=== PATIENT | female | born 1980 | race African-American/Black ===

== ENCOUNTER 2017-10-20 10:04 | Emergency (ER) | payer OTHER, SELFPAY ==
--- NOTE | 2017-10-20 11:05 | EDPHYS ---
Physician Documentation [facility] Name: Mica Diaz Age: 37 yrs Sex: Female : 1980 Arrival Date: 10/20/2017 Time: 10:08 Bed 13 Private MD: None, None ED Physician Rell Kauffman HPI: 10/20 11:06 This 37 yrs old Black Female presents to ER via Ambulatory with complaints of Abdominal gs Pain, Vaginal Bleeding, Dizziness. 11:06 The patient presents with pelvic pain, vaginal bleeding that is. Onset: The gs symptoms/episode began/occurred 10 month(s) ago. Modifying factors: The symptoms are alleviated by nothing, the symptoms are aggravated by menstrual period. say has chronic pelvic pain from endometriosis. VB for 10 days says felt a little dizzy while taking a shower today.. Associated signs and symptoms: The patient has no apparent associated signs or symptoms. Severity of symptoms: At their worst the symptoms were moderate, in the emergency department the symptoms are unchanged. The patient has experienced similar episodes in the past, chronically, pain is chronic , VB is irregular. The patient has been recently seen by a physician: says had laparoscopy, couple of months ago uterine bx said squamous cell something per patient.. 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 - Social history:: Smoking status: Patient uses tobacco products, smokes one pack cigarettes per day. - Ebola Screening: : No symptoms or risks identified at this time. ROS: 11:06 All other systems are negative. gs Exam: 11:06 Head/Face: Normocephalic, atraumatic. Eyes: Pupils equal round and reactive to light, gs extra-ocular motions intact. Lids and lashes normal. Conjunctiva and sclera are non-icteric and not injected. Cornea within normal limits. Periorbital areas with no swelling, redness, or edema. ENT: Nares patent. No nasal discharge, no septal abnormalities noted. Tympanic membranes are normal and external auditory canals are clear. Oropharynx with no redness, swelling, or masses, exudates, or evidence of obstruction, uvula midline. Mucous membranes moist. Neck: Trachea midline, no thyromegaly or masses palpated, and no cervical lymphadenopathy. Supple, full range of motion without nuchal rigidity, or vertebral point tenderness. No Meningismus. Chest/axilla: Normal chest wall appearance and motion. Nontender with no deformity. No lesions are appreciated. Cardiovascular: Regular rate and rhythm with a normal S1 and S2. No gallops, murmurs, or rubs. Normal PMI, no JVD. No pulse deficits. Respiratory: Lungs have equal breath sounds bilaterally, clear to auscultation and percussion. No rales, rhonchi or wheezes noted. No increased work of breathing, no retractions or nasal flaring. Back: No spinal tenderness. No costovertebral tenderness. Full range of motion. Skin: Warm, dry with normal turgor. Normal color with no rashes, no lesions, and no evidence of cellulitis. MS/ Extremity: Pulses equal, no cyanosis. Neurovascular intact. Full, normal range of motion. Neuro: Awake and alert, GCS 15, oriented to person, place, time, and situation. Cranial nerves II-XII grossly intact. Motor strength 5/5 in all extremities. Sensory grossly intact. Cerebellar exam normal. Normal gait. 11:06 Constitutional: The patient appears alert, awake. 11:06 Abdomen/GI: Palpation: mild abdominal tenderness, in the suprapubic area, right lower quadrant and left lower quadrant. Vital Signs: 10:14 BP 153 / 95; Pulse 63; Resp 18; Temp 98.8; Pulse Ox 100% ; Height 5 ft. 8 in. (172.72 sv cm); Pain 8/10; MDM: 10:41 Patient medically screened. 11:06 Differential diagnosis: ectopic , endometriosis, menometrorrhagia, Data reviewed: vital signs, nurses notes. Response to treatment: the patient's symptoms have mildly improved after treatment, says needs to run errand VSS will discharge pt says will return for bloodwork. 10/20 10:29 Order name: Urine Microscopic Only gs 10/20 10:29 Order name: Urine Microscopic Only; Complete Time: 11:14 EDMS 10/20 10:42 Order name: Urine Dipstick--Ancillary (enter results) eb 10/20 10:42 Order name: Urine --Ancillary (enter results) eb 10/20 10:29 Order name: Urine Test (obtain specimen); Complete Time: 10:48 gs 10/20 10:29 Order name: Urine Dipstick-Ancillary (obtain specimen); Complete Time: 10:48 Administered Medications: No medications were administered Disposition: 10/20/17 11:05 Discharged to Home. Impression: Other abnormal uterine and vaginal bleeding, Pelvic and perineal pain - chronic. - Condition is Stable. - Discharge Instructions: Abdominal Pain, Adult, Pelvic Pain, Female. - Prescriptions for Tramadol 50 mg Oral Tablet - take 1 tablet by ORAL route every 8 hours as needed; 10 tablet. - Work release form, Medication Reconciliation Form, Thank You Letter, Antibiotic Education, Prescription Opioid Use form. - Follow up: Percy Adame MD; When: 2 - 3 days; Reason: Re-evaluation by your physician. Signatures: Dispatcher [employer] Becka Lindo RN RN Eve Jiménez RN RN tw2 Rell Kauffman MD MD Corrections: (The following items were deleted from the chart) 11:18 11:05 10/20/2017 11:05 Discharged to Home. Impression: Other abnormal uterine and tw2 vaginal bleeding; Pelvic and perineal pain - chronic. Condition is Stable. Forms are Medication Reconciliation Form, Thank You Letter, Antibiotic Education, Prescription Opioid Use. Follow up: Percy Adame; When: 2 - 3 days; Reason: Re-evaluation by your physician. gs
--- NOTE | 2017-10-20 11:05 | ER ---
Nurse's Notes [facility] Name: Mica Diaz Age: 37 yrs Sex: Female : 1980 Arrival Date: 10/20/2017 Time: 10:08 Bed 13 Private MD: None, None Diagnosis: Other abnormal uterine and vaginal bleeding;Pelvic and perineal pain-chronic Presentation: 10/20 10:11 Presenting complaint: Patient states: LLQ and RLQ pain, abd cramping, vaginal bleeding sv for a long time. Pt has a hx of endometriosis and was supposed to have a hysterectomy. Transition of care: patient was not received from another setting of care. Onset of symptoms is unknown. Care prior to arrival: None. 10:11 Method Of Arrival: Ambulatory sv 10:11 Acuity: MOLLY 3 sv 10:18 Risk Assessment: Do you want to hurt yourself or someone else? Patient reports no tw2 desire to harm self or others. Initial Sepsis Screen: Does the patient meet any 2 criteria? No. Patient's initial sepsis screen is negative. Does the patient have a suspected source of infection? No. Patient's initial sepsis screen is negative. 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 - Social history:: Smoking status: Patient uses tobacco products, smokes one pack cigarettes per day. - Ebola Screening: : No symptoms or risks identified at this time. Screenin:17 Abuse screen: Denies threats or abuse. Nutritional screening: No deficits noted. tw2 Tuberculosis screening: No symptoms or risk factors identified. Fall Risk None identified. Assessment: 10:20 General: Appears in no apparent distress. well groomed, Behavior is calm, cooperative, tw2 appropriate for age. General: Smells of cigarette smoke. Pain: Complains of pain in abdomen. Neuro: Level of Consciousness is awake, alert, obeys commands, Oriented to person, place, time, situation. Cardiovascular: Denies chest pain, shortness of breath, Heart tones S1 S2 Patient's skin is warm and dry. Respiratory: Airway is patent Respiratory effort is even, unlabored, Respiratory pattern is regular, symmetrical, Breath sounds are clear bilaterally. GI: Bowel sounds present X 4 quads. Abd is soft Reports lower abdominal pain, upper abdominal pain. : Reports vaginal bleeding that is. EENT: No signs and/or symptoms were reported regarding the EENT system. Derm: No signs and/or symptoms reported regarding the dermatologic system. Musculoskeletal: Circulation, motion, and sensation intact. Range of motion: intact in all extremities. 11:17 Reassessment: Patient appears in no apparent distress at this time. No changes from tw2 previously documented assessment. Patient and/or family updated on plan of care and expected duration. Pain level reassessed. Patient is alert, oriented x 3, equal unlabored respirations, skin warm/dry/pink. pt states "my [place] is at the airport and i have to go get her i need to go". Vital Signs: 10:14 BP 153 / 95; Pulse 63; Resp 18; Temp 98.8; Pulse Ox 100% ; Height 5 ft. 8 in. (172.72 sv cm); Pain 8/10; ED Course: 10:08 Patient arrived in ED. mr 10:08 None, None is Private Physician. mr 10:13 Triage completed. sv 10:15 Arm band placed on left wrist. sv 10:16 Eve Jiménez, JEFF is Primary Nurse. tw2 10:17 Bed in low position. Call light in reach. Pulse ox on. NIBP on. tw2 10:19 Rell Kauffman MD is Attending Physician. gs 10:48 Urine Microscopic Only Sent. tw2 11:04 Percy Adame MD is Referral Physician. gs 11:17 No provider procedures requiring assistance completed. Patient did not have IV access tw2 during this emergency room visit. Administered Medications: No medications were administered Outcome: 11:05 Discharge ordered by . gs 11:17 Discharged to home ambulatory. tw2 11:17 Condition: stable 11:17 Discharge instructions given to patient, Instructed on discharge instructions, follow up and referral plans. no drinking with medication, no driving heavy equipment, medication usage, Demonstrated understanding of instructions, follow-up care, medications, Prescriptions given X 1. 11:18 Patient left the ED. tw2 Signatures: Becka Feliciano RN RN Carmen Steawrt mr Eve Jiménez RN RN tw2 Rell Kauffman MD MD gs Corrections: (The following items were deleted from the chart) 10:15 10:14 Pulse 63bpm; Resp 18bpm; Pulse Ox 100%; Temp 98.8F; Height 5 ft. 8 in.; Pain sv 10/24; sv
[2017-10-20 11:06] LABS: Urine Bacteria <20 /HPF (<20); Urine RBC <5 /HPF (NONE SEEN)
[2017-10-20 11:07] LABS: Urine Culture Reflex Order NOT NEEDED
[2017-10-20 11:20] LABS: Urine Blood NEGATIVE (NEG); Urine Glucose NEGATIVE (NEG); Urine Protein NEGATIVE (NEG); Urine Specific Gravity 1.015 (1.005-1.030)
== END 2017-10-20 11:18 | disposition home or self-care (01) ==
LOC: ER 10:04
DX: N93.8 Other specified abnormal uterine and vaginal bleeding (principal); R10.2 Pelvic and perineal pain; F17.210 Nicotine dependence, cigarettes, uncomplicated; Z88.6 Allergy status to analgesic agent
CPT/HCPCS: 81003; 81015; 81025; 99283

== ENCOUNTER 2017-12-10 13:13 | Emergency (ER) | payer SELFPAY ==
--- NOTE | 2017-12-10 13:40 | ER ---
Nurse's Notes [facility] Name: Mica Diaz Age: 37 yrs Sex: Female : 1980 Arrival Date: 12/10/2017 Time: 13:18 Bed Waiting Private MD: None, None Diagnosis: Presentation: 12/10 13:26 Presenting complaint: Patient states: my tooth is still hurting and i think i have an tw2 abscess and now my left ear hurts and it feels swollen. Transition of care: patient was not received from another setting of care. Onset of symptoms was December 10, 2017. Risk Assessment: Do you want to hurt yourself or someone else? Patient reports no desire to harm self or others. Initial Sepsis Screen: Does the patient meet any 2 criteria? No. Patient's initial sepsis screen is negative. Does the patient have a suspected source of infection? No. Patient's initial sepsis screen is negative. Care prior to arrival: None. 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 - Social history:: Smoking status: Patient uses tobacco products, smokes one-half pack cigarettes per day. - Ebola Screening: : Patient denies travel to an Ebola-affected area in the 21 days before illness onset. Vital Signs: 13: BP 122 / 79; Pulse 77; Resp 17; Temp 97.4(TE); Pulse Ox 100% on R/A; Weight 76.2 kg tw2 (R); Height 5 ft. 8 in. (172.72 cm); Pain 10/10; 13:27 Body Mass Index 25.54 (76.20 kg, 172.72 cm) tw2 ED Course: 13:18 Patient arrived in ED. sb2 13:19 None, None is Private Physician. sb2 13:27 Triage completed. tw2 13:27 Arm band placed on. tw2 Administered Medications: No medications were administered Outcome: 13:39 Eloped from waiting room, post triage evaluation and consult. pt told Barbara, secretary book keeper tw2 "i need to leave to get my kids and come back" 13:40 Patient left the ED. tw2 Signatures: Eve Jiménez RN RN tw2 Barbara Grajeda sb2
== END 2017-12-10 13:40 | disposition left against medical advice (07) ==
LOC: ER 13:13
DX: Z53.21 Procedure and treatment not carried out due to patient leaving prior to being seen by health care provider (principal)
CPT/HCPCS: 99281

== ENCOUNTER 2017-12-11 22:07 | Emergency (ER) | payer SELFPAY ==
[2017-12-11 23:47] LABS: Urine Blood 1+ (NEG); Urine Glucose NEGATIVE (NEG); Urine Protein NEGATIVE (NEG); Urine pH 5.5 (5.0-7.0)
--- NOTE | 2017-12-11 23:49 | ER ---
Nurse's Notes [facility] Name: Mica Diaz Age: 37 yrs Sex: Female : 1980 Arrival Date: 12/11/2017 Time: 22:08 Bed 19 Private MD: Diagnosis: Cracked tooth;Fracture of tooth (traumatic) Presentation: 12/11 22:17 Presenting complaint: Patient states: She has been having tooth pain for the past 4-5 aj1 days, reports the pain radiates to her left jaw and ear. Reports fever of 101 at home. Transition of care: patient was not received from another setting of care. Onset of symptoms was December 06, 2017. Risk Assessment: Do you want to hurt yourself or someone else? Patient reports no desire to harm self or others. Initial Sepsis Screen: Does the patient meet any 2 criteria? No. Patient's initial sepsis screen is negative. Does the patient have a suspected source of infection? Yes: Other: dental caries. Care prior to arrival: None. 22:17 Method Of Arrival: Ambulatory aj1 22:17 Acuity: MOLLY 4 aj1 Triage Assessment: 22:20 General: Appears in no apparent distress. uncomfortable, Behavior is calm, cooperative, aj1 appropriate for age. Pain: Complains of pain in left ear, left cheek, left eye and left jaw Pain currently is 10 out of 10 on a pain scale. EENT: Reports pain in left ear, left cheek, left eye and left jaw. Neuro: Level of Consciousness is awake, alert, obeys commands. Cardiovascular: Patient's skin is warm and dry. Respiratory: Airway is patent Respiratory effort is even, unlabored, Respiratory pattern is regular, symmetrical. MAILMASTER: 22:20 LMP 12/04/2017 aj1 Historical: - Allergies: 22:20 Aspirin; aj1 22:20 Ibuprofen; aj1 22:20 tramadol; aj1 - Home Meds: 22:20 None [Active]; aj1 - PMHx: 22:20 Endometrosis; aj1 - Immunization history:: Flu vaccine is not up to date. - Social history:: Smoking status: Patient uses tobacco products, smokes one-half pack cigarettes per day. - Ebola Screening: : Patient denies travel to an Ebola-affected area in the 21 days before illness onset. - Family history:: not pertinent. Screenin:38 Abuse screen: Denies threats or abuse. Nutritional screening: No deficits noted. tl2 Tuberculosis screening: No symptoms or risk factors identified. Fall Risk None identified. Assessment: 22:38 General: Appears in no apparent distress. uncomfortable, Behavior is calm, cooperative, tl2 appropriate for age. Pain: Complains of pain in upper left second molar and left jaw and left eye and left cheek and left ear. Neuro: Level of Consciousness is awake, alert, obeys commands, Oriented to person, place, time, situation. Respiratory: Airway is patent Respiratory effort is even, unlabored, Respiratory pattern is regular, symmetrical. GI: No signs and/or symptoms were reported involving the gastrointestinal system. EENT: Poor dentition noted. Dental caries noted in upper left second molar (#15). Derm: Skin is pink, warm \T\ dry. 12/12 00:17 Reassessment: Patient appears in no apparent distress at this time. Patient and/or tl2 family updated on plan of care and expected duration. Pain level reassessed. Patient is alert, oriented x 3, equal unlabored respirations, skin warm/dry/pink. Pt verbalized understanding of discharge instructions, need for follow up and prescription usage. Vital Signs: 12/11 22:20 BP 131 / 82; Pulse 62; Resp 18 S; Temp 97.4; Pulse Ox 100% ; Weight 76.2 kg (R); Height tl2 5 ft. 8 in. (172.72 cm) (R); Pain 10/10; 12/12 00:17 BP 122 / 71; Pulse 65; Resp 18; Pulse Ox 99% on R/A; tl2 12/11 22:20 Body Mass Index 25.54 (76.20 kg, 172.72 cm) tl2 ED Course: 12/11 22:08 Patient arrived in ED. al2 22:20 Triage completed. aj1 22:20 Arm band placed on Patient placed in an exam room. aj1 22:25 Eliane Martines, JEFF is Primary Nurse. tl2 22:38 Patient has correct armband on for positive identification. Bed in low position. Call tl2 light in reach. Side rails up X 1. Adult w/ patient. 22:44 Duglas Hope MD is Attending Physician. magdalena 23:46 Sp Hummel DDS is Referral Physician. [facility] 12/12 00:17 No provider procedures requiring assistance completed. Patient did not have IV access tl2 during this emergency room visit. Administered Medications: 12/11 23:53 Drug: Augmentin 875 mg Route: PO; tl2 12/12 00:18 Follow up: Response: No adverse reaction; Medication administered at discharge. tl2 12/11 23:53 Drug: Candler 10 mg-325 mg 1 tabs Route: PO; tl2 12/12 00:18 Follow up: Response: No adverse reaction; Medication administered at discharge. tl2 Outcome: 12/11 23:47 Discharge ordered by . [facility] 12/12 00:17 Discharged to home ambulatory, with family. tl2 Condition: stable Discharge instructions given to patient, Instructed on discharge instructions, follow up and referral plans. no driving heavy equipment, medication usage, Demonstrated understanding of instructions, follow-up care, medications, Prescriptions given X 2. 00:18 Patient left the ED. tl2 Signatures: Manuela Rao RN RN aj1 Duglas Hope MD MD cha Knox, Taylor, RN RN tl2 Joyce Cooper al2 Corrections: (The following items were deleted from the chart) 12/11 22:25 22:20 BP 131 / 82; Pulse 62bpm; Resp 1bpm; Spontaneous; Pulse Ox 100%; Temp 97.4F; 76.2 tl2 kg Reported; Height 5 ft. 8 in. Reported; BMI: 25.5; Pain 10/10; aj1
--- NOTE | 2017-12-11 23:49 | EDPHYS ---
Physician Documentation [facility] Name: Mica Diaz Age: 37 yrs Sex: Female : 1980 Arrival Date: 12/11/2017 Time: 22:08 Bed 19 Private MD: ED Physician Duglas Hope HPI: 12/11 23:43 This 37 yrs old Black Female presents to ER via Ambulatory with complaints of Toothache.magdalena 23:43 The patient presents with broken tooth/teeth, pain. The problem is located in the upper magdalena left second molar. Onset: The symptoms/episode began/occurred 3 day(s) ago. Duration: The symptoms are continuous, and are steadily getting worse. Modifying factors: The symptoms are alleviated by nothing. Associated signs and symptoms: The patient has no apparent associated signs or symptoms. Severity of symptoms: At their worst the symptoms were moderate. The patient has experienced similar episodes in the past, a few times. 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 - Social history:: Smoking status: Patient uses tobacco products, smokes one-half pack cigarettes per day. - Ebola Screening: : Patient denies travel to an Ebola-affected area in the 21 days before illness onset. - Family history:: not pertinent. ROS: 23:43 Constitutional: Negative for fever, chills, and weight loss, Eyes: Negative for injury, magdalena pain, redness, and discharge, ENT: Negative for injury, pain, and discharge, Neck: Negative for injury, pain, and swelling, Cardiovascular: Negative for chest pain, palpitations, and edema, Respiratory: Negative for shortness of breath, cough, wheezing, and pleuritic chest pain, Abdomen/GI: Negative for abdominal pain, nausea, vomiting, diarrhea, and constipation, Back: Negative for injury and pain, : Negative for injury, bleeding, discharge, and swelling, MS/Extremity: Negative for injury and deformity, Skin: Negative for injury, rash, and discoloration, Neuro: Negative for headache, weakness, numbness, tingling, and seizure, Psych: Negative for depression, anxiety, suicide ideation, homicidal ideation, and hallucinations, Allergy/Immunology: Negative for hives, rash, and allergies, Endocrine: Negative for neck swelling, polydipsia, polyuria, polyphagia, and marked weight changes, Hematologic/Lymphatic: Negative for swollen nodes, abnormal bleeding, and unusual bruising. 23:43 ENT: Positive for Teeth pain Exam: 23:43 Constitutional: This is a well developed, well nourished patient who is awake, alert, magdalena and in no acute distress. Head/Face: Normocephalic, atraumatic. Eyes: Pupils equal round and reactive to light, extra-ocular motions intact. Lids and lashes normal. Conjunctiva and sclera are non-icteric and not injected. Cornea within normal limits. Periorbital areas with no swelling, redness, or edema. Neck: Trachea midline, no thyromegaly or masses palpated, and no cervical lymphadenopathy. Supple, full range of motion without nuchal rigidity, or vertebral point tenderness. No Meningismus. Chest/axilla: Normal chest wall appearance and motion. Nontender with no deformity. No lesions are appreciated. Cardiovascular: Regular rate and rhythm with a normal S1 and S2. No gallops, murmurs, or rubs. Normal PMI, no JVD. No pulse deficits. Respiratory: Lungs have equal breath sounds bilaterally, clear to auscultation and percussion. No rales, rhonchi or wheezes noted. No increased work of breathing, no retractions or nasal flaring. Abdomen/GI: Soft, non-tender, with normal bowel sounds. No distension or tympany. No guarding or rebound. No evidence of tenderness throughout. Back: No spinal tenderness. No costovertebral tenderness. Full range of motion. Skin: Warm, dry with normal turgor. Normal color with no rashes, no lesions, and no evidence of cellulitis. MS/ Extremity: Pulses equal, no cyanosis. Neurovascular intact. Full, normal range of motion. Neuro: Awake and alert, GCS 15, oriented to person, place, time, and situation. Cranial nerves II-XII grossly intact. Motor strength 5/5 in all extremities. Sensory grossly intact. Cerebellar exam normal. Normal gait. Psych: Awake, alert, with orientation to person, place and time. Behavior, mood, and affect are within normal limits. 23:43 ENT: Mouth: Lips: normal, Oral mucosa: normal, Gums: normal with healthy appearance. Vital Signs: 22:20 BP 131 / 82; Pulse 62; Resp 18 S; Temp 97.4; Pulse Ox 100% ; Weight 76.2 kg (R); Height tl2 5 ft. 8 in. (172.72 cm) (R); Pain 10/10; 12/12 00:17 BP 122 / 71; Pulse 65; Resp 18; Pulse Ox 99% on R/A; tl2 12/11 22:20 Body Mass Index 25.54 (76.20 kg, 172.72 cm) [facility] MDM: 12/11 22:44 Patient medically screened. [facility] 23:43 Data reviewed: vital signs, nurses notes, lab test result(s). [facility] 12/11 23:18 Order name: Urine Dipstick--Ancillary (enter results) [facility] 12/11 23:18 Order name: Urine --Ancillary (enter results) [facility] Administered Medications: 23:53 Drug: Augmentin 875 mg Route: PO; [facility] 12/12 00:18 Follow up: Response: No adverse reaction; Medication administered at discharge. [facility] 12/11 23:53 Drug: Perry 10 mg-325 mg 1 tabs Route: PO; [facility] 12/12 00:18 Follow up: Response: No adverse reaction; Medication administered at discharge. [facility] Disposition: 12/11/17 23:47 Discharged to Home. Impression: Cracked tooth, Fracture of tooth (traumatic). - Condition is Stable. - Discharge Instructions: Dental Pain, Tooth Injuries, Dental Pain, [id number], Diet and Dental Disease, Tooth Injuries, [id number]. - Prescriptions for Augmentin 875- 125 mg Oral Tablet - take 1 tablet by ORAL route every 12 hours for 10 days; 20 tablet. Tylenol- Codeine #3 300-30 mg Oral Tablet - take 2 tablets by ORAL route every 6 hours As needed; 26 tablet. - Medication Reconciliation Form, Thank You Letter, Antibiotic Education, Prescription Opioid Use, Work release form form. - Follow up: Private Physician; When: 2 - 3 days; Reason: Recheck today's complaints, Continuance of care, Re-evaluation by your physician. Follow up: Sp Hummel DDS; When: 2 - 3 days; Reason: Recheck today's complaints, Continuance of care, Re-evaluation by your physician. - Problem is new. - Symptoms have improved. Signatures: Dispatcher [employer] Manuela Mayo, RN RN aj1 Duglas Hope MD MD cha Knox, Taylor, RN RN tl2 Corrections: (The following items were deleted from the chart) 00:18 12/11 23:47 12/11/2017 23:47 Discharged to Home. Impression: Cracked tooth; Fracture of tl2 tooth (traumatic). Condition is Stable. Forms are Medication Reconciliation Form, Thank You Letter, Antibiotic Education, Prescription Opioid Use. Follow up: Private Physician; When: 2 - 3 days; Reason: Recheck today's complaints, Continuance of care, Re-evaluation by your physician. Follow up: pS Hummel; When: 2 - 3 days; Reason: Recheck today's complaints, Continuance of care, Re-evaluation by your physician. Problem is new. Symptoms have improved. magdalena
[2017-12-11] MEDS ORDERED: HYDROCODONE/APAP 10/325 TAB ONE (23:54)
[2017-12-11] MEDS ORDERED: AMOX/K CLAV 875 MG TAB ONE (23:54)
== END 2017-12-12 00:18 | disposition home or self-care (01) ==
LOC: ER 22:07
DX: S02.5XXA Fracture of tooth (traumatic), initial encounter for closed fracture (principal); K03.81 Cracked tooth; F17.210 Nicotine dependence, cigarettes, uncomplicated; Z88.6 Allergy status to analgesic agent; Z88.5 Allergy status to narcotic agent
CPT/HCPCS: 81003; 81025; 99283

== ENCOUNTER 2018-07-28 10:38 | Emergency (ER) | payer SELFPAY ==
[2018-07-28] MEDS ORDERED: CETIRIZINE HCL 5 MG TABLET ONE (12:25)
--- NOTE | 2018-07-28 12:35 | RAD REPORT ---
EXAM DESCRIPTION: Sue Torrez And Juli (2 Views)07/28/2018 12:17 pm CLINICAL HISTORY: Cough COMPARISON: 2014 FINDINGS: The lungs are hyperaerated. The lungs appear clear of acute infiltrate. The heart is humble l size IMPRESSION: Hyperaerated lungs may be related to reactive airway disease
[2018-07-28 12:37] LABS: Urine Blood NEGATIVE (NEG); Urine Glucose NEGATIVE (NEG); Urine Protein NEGATIVE (NEG); Urine Specific Gravity 1.015 (1.005-1.030); Urine pH 8.5 (5.0-7.0)
[2018-07-28 12:53] LABS: Urine Bacteria <20 /HPF (<20); Urine RBC <5 /HPF (NONE SEEN)
[2018-07-28 12:54] LABS: Urine Culture Reflex Order NOT NEEDED
--- NOTE | 2018-07-28 13:53 | EDPHYS ---
Physician Documentation [facility] Name: Mica Diaz Age: 38 yrs Sex: Female : 1980 Arrival Date: 07/28/2018 Time: 10:40 Bed 7 Private MD: None, None ED Physician Duglas Hope HPI: 07/28 11:44 This 38 yrs old Black Female presents to ER via Ambulatory with complaints of Cough, snw Shortness Of Breath. 11:44 The patient or guardian reports cough, difficulty breathing, flu symptoms. Onset: The snw symptoms/episode began/occurred gradually, 3 week(s) ago, and became persistent. Severity of symptoms: At their worst the symptoms were moderate. Modifying factors: The symptoms are alleviated by nothing, the symptoms are aggravated by damp environment, exertion, heat, smoke. Associated signs and symptoms: The patient has no apparent associated signs or symptoms. It is unknown whether or not the patient has had similar symptoms in the past. It is unknown whether or not the patient has recently seen a physician. pt states she is working in "[employer]". 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 - Social history:: Smoking status: Patient uses tobacco products, 5-6 cigarettes per day. - Ebola Screening: : Patient denies travel to an Ebola-affected area in the 21 days before illness onset. ROS: 11:41 Abdomen/GI: Negative for abdominal pain, nausea, vomiting, diarrhea, and constipation, snw Back: Negative for injury and pain, : Negative for injury, bleeding, discharge, and swelling, MS/Extremity: Negative for injury and deformity. 11:41 Constitutional: Positive for fever. 11:41 Eyes: Positive for tearing. 11:41 ENT: Positive for ear pain, nasal discharge, sinus congestion, sore throat. 11:41 Neck: Positive for tenderness. 11:41 Cardiovascular: Positive for soreness s/p cough. 11:41 Respiratory: Positive for cough, shortness of breath. 11:41 Skin: Positive for pruritis. 11:41 Neuro: Positive for headache, icepick like for several seconds and then resolves multiple times over the past week. Exam: 11:41 Constitutional: This is a well developed, well nourished patient who is awake, alert, snw and in no acute distress. Head/Face: Normocephalic, atraumatic. Eyes: Pupils equal round and reactive to light, extra-ocular motions intact. Lids and lashes normal. Conjunctiva and sclera are non-icteric and not injected. Cornea within normal limits. Periorbital areas with no swelling, redness, or edema. 11:41 Chest/axilla: Normal chest wall appearance and motion. Nontender with no deformity. No lesions are appreciated. Cardiovascular: Regular rate and rhythm with a normal S1 and S2. No gallops, murmurs, or rubs. Normal PMI, no JVD. No pulse deficits. Respiratory: Lungs have equal breath sounds bilaterally, clear to auscultation and percussion. No rales, rhonchi or wheezes noted. No increased work of breathing, no retractions or nasal flaring. Abdomen/GI: Soft, non-tender, with normal bowel sounds. No distension or tympany. No guarding or rebound. No evidence of tenderness throughout. Back: No spinal tenderness. No costovertebral tenderness. Full range of motion. Skin: Warm, dry with normal turgor. Normal color with no rashes, no lesions, and no evidence of cellulitis. MS/ Extremity: Pulses equal, no cyanosis. Neurovascular intact. Full, normal range of motion. Neuro: Awake and alert, GCS 15, oriented to person, place, time, and situation. Cranial nerves II-XII grossly intact. Motor strength 5/5 in all extremities. Sensory grossly intact. Cerebellar exam normal. Normal gait. Psych: Awake, alert, with orientation to person, place and time. Behavior, mood, and affect are within normal limits. 11:41 ENT: Posterior pharynx: erythema, that is mild, that is moderate. Vital Signs: 10:48 BP 146 / 90; Pulse 85; Resp 18; Temp 99.0(TE); Pulse Ox 98% on R/A; Height 5 ft. 8 in. aj1 (172.72 cm) (R); Pain 8/10; 14:20 BP 131 / 87; Pulse 69; Resp 18; Pulse Ox 98% ; sv MDM: 11:00 Patient medically screened. [facility] 13:55 Data reviewed: vital signs, nurses notes. Data interpreted: Pulse oximetry: on room air snw is 98 %. Interpretation: normal. Counseling: I had a detailed discussion with the patient and/or guardian regarding: the historical points, exam findings, and any diagnostic results supporting the discharge/admit diagnosis, lab results, radiology results, the need for outpatient follow up, to return to the emergency department if symptoms worsen or persist or if there are any questions or concerns that arise at home. Special discussion: Based on the history and exam findings, there is no indication for further emergent testing or inpatient evaluation. I discussed with the patient/guardian the need to see the primary care provider for further evaluation of the symptoms. 07/28 11:24 Order name: Flu; Complete Time: 13:17 snw 07/28 11:25 Order name: Strep; Complete Time: 12:47 snw 07/28 11:25 Order name: Urine Microscopic Only; Complete Time: 12:58 snw 07/28 12:12 Order name: Urine Dipstick--Ancillary (enter results) bd 07/28 12:12 Order name: Urine --Ancillary (enter results) bd 07/28 11:25 Order name: Chest Pa And Lat (2 Views) XRAY; Complete Time: 12:37 snw 07/28 11:25 Order name: Urine Test (obtain specimen); Complete Time: 12:14 snw 07/28 11:25 Order name: Urine Dipstick-Ancillary (obtain specimen); Complete Time: 12:14 snw 07/28 12:14 Order name: Urine Dipstick-Ancillary; Complete Time: 12:47 EDMS 07/28 12:14 Order name: Urine --Ancillary; Complete Time: 12:47 EDMS 07/28 12:45 Order name: Throat Culture EDMS Administered Medications: 12:32 Drug: ZyrTEC - Cetirizine 10 mg Route: PO; ss 13:30 Follow up: Response: No adverse reaction sv 13:58 Drug: Albuterol 2.5 mg Route: Inhalation; ph Disposition: 07/29 07:01 Co-signature as Attending Physician, Duglas Hope MD I agree with the assessment and [facility] plan of care. Disposition: 07/28/18 13:53 Discharged to Home. Impression: Bronchitis, not specified as acute or chronic, Allergic rhinitis, unspecified. - Condition is Stable. - Discharge Instructions: Acute Bronchitis, Adult, General Headache Without Cause, Hypertension, How to Use an Inhaler, Cool Mist Vaporizer, Rehydration, Adult. - Prescriptions for Zyrtec 10 mg Oral Tablet - take 1 tablet by ORAL route once daily As needed; 20 tablet. Prednisone 20 mg Oral Tablet - take 2 tablet by ORAL route once daily for 5 days; 10 tablet. Albuterol Sulfate 90 mcg/actuation - inhale 1-2 puff by INHALATION route every 4-6 hours; 1 Inhaler. Pepcid 20 mg Oral Tablet - take 1 tablet by ORAL route once daily; 20 tablet. - Work release form, Medication Reconciliation Form, Thank You Letter, Antibiotic Education, Prescription Opioid Use form. - Follow up: Emergency Department; When: As needed; Reason: Worsening of condition. Follow up: Private Physician; When: 2 - 3 days; Reason: Recheck today's complaints, Continuance of care, Re-evaluation by your physician. Signatures: Dispatcher [employer] EDMS Manuela Rao RN RN ajBecka Lopez RN RN sv Anderson, Corey, MD MD cha Therrien, Shelly, RESERVOIR ENGINEERING MANAGER-C RESERVOIR ENGINEERING MANAGER-Mar Parkinson RN RN ss Niurka Mendoza RN RN ph Corrections: (The following items were deleted from the chart) 07/28 14:21 13:53 07/28/2018 13:53 Discharged to Home. Impression: Bronchitis, not specified as sv acute or chronic; Allergic rhinitis, unspecified. Condition is Stable. Forms are Medication Reconciliation Form, Thank You Letter, Antibiotic Education, Prescription Opioid Use. Follow up: Emergency Department; When: As needed; Reason: Worsening of condition. Follow up: Private Physician; When: 2 - 3 days; Reason: Recheck today's complaints, Continuance of care, Re-evaluation by your physician. snw
--- NOTE | 2018-07-28 13:53 | ER ---
Nurse's Notes [facility] Name: Mica Diaz Age: 38 yrs Sex: Female : 1980 Arrival Date: 07/28/2018 Time: 10:40 Bed 7 Private MD: None, None Diagnosis: Bronchitis, not specified as acute or chronic;Allergic rhinitis, unspecified Presentation: 07/28 10:44 Presenting complaint: Patient states: "Over the past 2 to 3 weeks I've develop a cough. aj1 I have runny nose, runny, itchy eyes. Anything that I eat I feel it in my ears, like that twang you get when something is sour." Patient also reports headache. Transition of care: patient was not received from another setting of care. Onset of symptoms was June 2018. Risk Assessment: Do you want to hurt yourself or someone else? Patient reports no desire to harm self or others. Initial Sepsis Screen: Does the patient meet any 2 criteria? No. Patient's initial sepsis screen is negative. Does the patient have a suspected source of infection? Yes: Productive cough/pneumonia. Care prior to arrival: None. 10:44 Method Of Arrival: Ambulatory aj1 10:44 Acuity: MOLLY 4 aj1 Triage Assessment: 10:48 General: Appears in no apparent distress. comfortable, Behavior is calm, cooperative, aj1 appropriate for age. Pain: Complains of pain in scalp. EENT: Reports nasal congestion nasal discharge. Neuro: Level of Consciousness is awake, alert, obeys commands. Cardiovascular: Patient's skin is warm and dry. Respiratory: Reports cough that is productive, Airway is patent Respiratory effort is even, unlabored, Respiratory pattern is regular, symmetrical, Onset: The symptoms/episode began/occurred 2-3 weeks ago. 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 - Social history:: Smoking status: Patient uses tobacco products, 5-6 cigarettes per day. - Ebola Screening: : Patient denies travel to an Ebola-affected area in the 21 days before illness onset. Screenin:03 Abuse screen: Denies threats or abuse. Denies injuries from another. Nutritional sv screening: No deficits noted. Tuberculosis screening: No symptoms or risk factors identified. Fall Risk None identified. Assessment: 11:15 General: Appears in no apparent distress. uncomfortable, slender, well groomed, well sv developed, Behavior is calm, cooperative, appropriate for age. Neuro: Level of Consciousness is awake, alert, obeys commands, Oriented to person, place, time, situation, Moves all extremities. Full function Gait is steady. Respiratory: Reports shortness of breath on exertion cough that is non-productive, Airway is patent Respiratory effort is even, unlabored, Respiratory pattern is regular, symmetrical. EENT: Reports nasal discharge that is watery. Derm: Skin is normal. 12:30 Reassessment: Patient appears in no apparent distress at this time. Patient and/or sv family updated on plan of care and expected duration. Pain level reassessed. Patient is alert, oriented x 3, equal unlabored respirations, skin warm/dry/pink. 14:20 Reassessment: Patient appears in no apparent distress at this time. No changes from sv previously documented assessment. Patient and/or family updated on plan of care and expected duration. Pain level reassessed. Patient is alert, oriented x 3, equal unlabored respirations, skin warm/dry/pink. Vital Signs: 10:48 BP 146 / 90; Pulse 85; Resp 18; Temp 99.0(TE); Pulse Ox 98% on R/A; Height 5 ft. 8 in. aj1 (172.72 cm) (R); Pain 8/10; 14:20 BP 131 / 87; Pulse 69; Resp 18; Pulse Ox 98% ; sv ED Course: 10:40 Patient arrived in ED. mr 10:41 None, None is Private Physician. mr 10:47 Triage completed. aj1 10:48 Arm band placed on Patient placed in an exam room. aj1 10:59 Lizy Garcia FNP-C [facility]. snw 10:59 Duglas Hope MD is Attending Physician. snw 11:03 Becka Feliciano RN is Primary Nurse. sv 11:03 Patient has correct armband on for positive identification. Bed in low position. Call sv light in reach. Door closed. Head of bed elevated. 12:14 Strep Sent. ph 12:14 Flu Sent. ph 12:16 Urine collected: clean catch specimen, clear. ms 12:17 Chest Pa And Lat (2 Views) XRAY In Process Unspecified. EDMS 13:48 Urine --Ancillary (enter results) Sent. sv 13:48 Urine Dipstick--Ancillary (enter results) Sent. sv 14:20 No provider procedures requiring assistance completed. Patient did not have IV access sv during this emergency room visit. Administered Medications: 12:32 Drug: ZyrTEC - Cetirizine 10 mg Route: PO; ss 13:30 Follow up: Response: No adverse reaction sv 13:58 Drug: Albuterol 2.5 mg Route: Inhalation; ph Outcome: 13:53 Discharge ordered by . snw 14:20 Discharged to home ambulatory. sv 14:20 Condition: stable 14:20 Discharge instructions given to patient, Instructed on discharge instructions, follow up and referral plans. medication usage, Demonstrated understanding of instructions, follow-up care, medications, Prescriptions given X 4. 14:21 Patient left the ED. sv Signatures: Dispatcher [employer] EDMS Manuela Rao, RN RN ajBecka Lopez RN RN Lizy Garcia, TARRING MACHINE OPERATOR-C TARRING MACHINE OPERATOR-[place] She StewartisCarmen ms, Shelby, JEFF AGUILAR Niurka Mendoza RN RN ph
[2018-07-28] MEDS ORDERED: ALBUTEROL 2.5 MG/3 ML NEB SOL ONE (14:02)
== END 2018-07-28 14:21 | disposition home or self-care (01) ==
LOC: ER 10:38
DX: J40 Bronchitis, not specified as acute or chronic (principal); J30.9 Allergic rhinitis, unspecified; Z88.6 Allergy status to analgesic agent; Z88.5 Allergy status to narcotic agent; Z72.0 Tobacco use
CPT/HCPCS: 71046; 81003; 81015; 81025; 87070; 87081; 87804; 99284

== ENCOUNTER 2019-12-19 15:28 | Emergency (ER) | payer OTHER, SELFPAY ==
[2019-12-19 17:07] LABS: Absolute Lymphocytes (CBC) 1.8 K/uL (0.7-4.9); Basophils % 1.1 % (0-1.3); Lymphocytes % 41.8 % (15.3-44.8); MPV 8.3 fL (7.6-11.3); RBC Red Blood Cell Count 3.43 M/uL (3.86-4.86)
[2019-12-19] MEDS ORDERED: CEFTRIAXONE/SWI 1gm 1 GM/10 ML SYR ONE (17:13)
[2019-12-19] MEDS ORDERED: ACETAMINOPHEN 500 MG TAB ONE (17:13)
[2019-12-19] MEDS ORDERED: NA CHLORIDE 0.9% 250 ML ONE (17:13)
[2019-12-19] MEDS ORDERED: AZITHROMYCIN 500 MG INJ IVPB ONE (17:13)
[2019-12-19 17:25] LABS: ALT/SGPT 13 U/L (12-78); AST/SGOT 12 U/L (15-37); Albumin 3.6 g/dL (3.4-5.0); Alkaline Phosphatase 62 U/L (45-117); BUN Blood Urea Nitrogen 6 mg/dL (7-18); Bicarbonate 28 mmol/L (21-32); Bilirubin Total 0.3 mg/dL (0.2-1.0); Glucose Level 74 mg/dL (74-106); Potassium 3.5 mmol/L (3.5-5.1); Protein, Total 7.5 g/dL (6.4-8.2); Sodium Level 141 mmol/L (136-145)
--- NOTE | 2019-12-19 17:42 | EDPHYS ---
Physician Documentation [facility] Name: Mica Diaz Age: 39 yrs Sex: Female : 1980 Arrival Date: 12/19/2019 Time: 15:29 Bed 18 Private MD: DAMION Physician Duglas Hope HPI: 12/18 16:35 This 39 yrs old Black Female presents to ER via Ambulatory with complaints of r/o magdalena covid, r/o exposure to mold. 16:35 The patient or guardian reports cough, difficulty breathing. Onset: The magdalena symptoms/episode began/occurred 1 week(s) ago. Severity of symptoms: At their worst the symptoms were mild. Modifying factors: The symptoms are alleviated by nothing, the symptoms are aggravated by nothing. Associated signs and symptoms: The patient has no apparent associated signs or symptoms. The patient has experienced similar episodes in the past, a few times. 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 - Social history:: Smoking status: Patient reports the use of cigarette tobacco products, smokes one-half pack cigarettes per day. - Family history:: not pertinent. ROS: 16:35 Constitutional: Negative for fever, chills, and weight loss, Eyes: Negative for injury, magdalena pain, redness, and discharge, ENT: Negative for injury, pain, and discharge, Neck: Negative for injury, pain, and swelling, Cardiovascular: Negative for chest pain, palpitations, and edema, Abdomen/GI: Negative for abdominal pain, nausea, vomiting, diarrhea, and constipation, Back: Negative for injury and pain, : Negative for injury, bleeding, discharge, and swelling, MS/Extremity: Negative for injury and deformity, Skin: Negative for injury, rash, and discoloration, Neuro: Negative for headache, weakness, numbness, tingling, and seizure, Psych: Negative for depression, anxiety, suicide ideation, homicidal ideation, and hallucinations, Allergy/Immunology: Negative for hives, rash, and allergies, Endocrine: Negative for neck swelling, polydipsia, polyuria, polyphagia, and marked weight changes, Hematologic/Lymphatic: Negative for swollen nodes, abnormal bleeding, and unusual bruising. 16:35 Respiratory: Positive for cough, shortness of breath, at rest. Exam: 16:35 Head/Face: Normocephalic, atraumatic. Eyes: Pupils equal round and reactive to light, magdalena extra-ocular motions intact. Lids and lashes normal. Conjunctiva and sclera are non-icteric and not injected. Cornea within normal limits. Periorbital areas with no swelling, redness, or edema. ENT: Nares patent. No nasal discharge, no septal abnormalities noted. Tympanic membranes are normal and external auditory canals are clear. Oropharynx with no redness, swelling, or masses, exudates, or evidence of obstruction, uvula midline. Mucous membranes moist. Neck: Trachea midline, no thyromegaly or masses palpated, and no cervical lymphadenopathy. Supple, full range of motion without nuchal rigidity, or vertebral point tenderness. No Meningismus. Chest/axilla: Normal chest wall appearance and motion. Nontender with no deformity. No lesions are appreciated. Cardiovascular: Regular rate and rhythm with a normal S1 and S2. No gallops, murmurs, or rubs. Normal PMI, no JVD. No pulse deficits. Respiratory: Lungs have equal breath sounds bilaterally, clear to auscultation and percussion. No rales, rhonchi or wheezes noted. No increased work of breathing, no retractions or nasal flaring. Abdomen/GI: Soft, non-tender, with normal bowel sounds. No distension or tympany. No guarding or rebound. No evidence of tenderness throughout. Back: No spinal tenderness. No costovertebral tenderness. Full range of motion. Skin: Warm, dry with normal turgor. Normal color with no rashes, no lesions, and no evidence of cellulitis. MS/ Extremity: Pulses equal, no cyanosis. Neurovascular intact. Full, normal range of motion. Neuro: Awake and alert, GCS 15, oriented to person, place, time, and situation. Cranial nerves II-XII grossly intact. Motor strength 5/5 in all extremities. Sensory grossly intact. Cerebellar exam normal. Normal gait. Psych: Awake, alert, with orientation to person, place and time. Behavior, mood, and affect are within normal limits. 16:35 Constitutional: The patient appears febrile. 16:35 Respiratory: the patient does not display signs of respiratory distress, Respirations: normal, Breath sounds: are clear throughout, no bronchial sounds, no decreased breath sounds, no rales, rhonchi, no stridor, no wheezing, Respiratory rate: 18 Vital Signs: 15:41 BP 131 / 86; Pulse 96; Resp 18 S; Temp 100.2(O); Pulse Ox 99% on R/A; Weight 68.04 kg jd3 (R); Height 5 ft. 8 in. (172.72 cm) (R); Pain 9/10; 17:55 BP 109 / 76; Pulse 96; Resp 18; Temp 98.4(O); Pulse Ox 99% on R/A; mh5 15:41 Body Mass Index 22.81 (68.04 kg, 172.72 cm) jd3 MDM: 16:04 Patient medically screened. [facility] 16:39 Differential Diagnosis: Bronchitis Influenza Upper Respiratory Infection Sinusitis magdalena Asthma Exacerbation Pneumonia. Data reviewed: vital signs, nurses notes, lab test result(s), radiologic studies, plain films. Data interpreted: campus monitor: rate is 96 beats/min, Pulse oximetry: on room air. Test interpretation: by ED physician or midlevel provider: plain radiologic studies. 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 12/18 16:35 Order name: CBC with Diff; Complete Time: 17:39 [facility] 12/18 16:35 Order name: Flu; Complete Time: 17:39 [facility] 12/18 16:35 Order name: COVID-19 [facility] 12/18 16:35 Order name: Comprehensive Metabolic Panel; Complete Time: 17:39 [facility] 12/18 16:35 Order name: Blood Culture Adult (2) [facility] 12/18 19:12 Order name: Urine --Ancillary (enter results) tt3 12/18 16:35 Order name: Chest Pa And Lat (2 Views) XRAY; Complete Time: 18:03 [facility] 12/18 17:44 Order name: Urine Dipstick-Ancillary (obtain specimen); Complete Time: 19:12 [facility] 12/18 19:12 Order name: Urine Dipstick--Ancillary (enter results) tt3 Administered Medications: 17:00 Drug: Tylenol 1000 mg Route: PO; 18:39 Follow up: Response: No adverse reaction 17:05 Drug: Rocephin 1 grams Route: IV; Rate: per protocol; Site: left antecubital; 18:41 Follow up: Response: No adverse reaction; IV Status: Completed infusion 17:20 Drug: Zithromax 500 mg Route: IVPB; Infused Over: 1 hrs; Site: left antecubital; 18:54 Follow up: Response: No adverse reaction; IV Status: Completed infusion Disposition: 12/19/19 17:42 Discharged to Home. Impression: Cough, Fever, unspecified, Bronchitis, not specified as acute or chronic. - Condition is Stable. - Discharge Instructions: Acute Bronchitis, Adult, Fever, Adult, Cool Mist Vaporizer, Cough, Adult, [id number], Cough, Adult. - Prescriptions for Bromfed DM 2- 30-10 mg/5 mL Oral syrup - take 10 milliliter by ORAL route every 6 hours; 160 milliliter. Medrol (Manuel) 4 mg Oral Tablets, Dose Pack - take 1 tablet by ORAL route as directed - follow package instructions; 1 packet. Albuterol Sulfate 90 mcg/actuation - inhale 1-2 puff by INHALATION route every 4-6 hours; 1 Inhaler. Zithromax 500 mg Oral Tablet - take 1 tablet by ORAL route once daily for 5 days; 5 tablet. Advair Diskus 500- 50 mcg/Dose Inhalation Disk with Device - inhale 1 puff by INHALATION route every 12 hours; 1 packet. - Medication Reconciliation Form, Thank You Letter, Antibiotic Education, Prescription Opioid Use form. - Follow up: Private Physician; When: 2 - 3 days; Reason: Recheck today's complaints, Continuance of care, Re-evaluation by your physician. Follow up: Mansoor Raymond MD; When: 2 - 3 days; Reason: Recheck today's complaints, Re-evaluation by your physician. - Problem is new. - Symptoms have improved. Signatures: Dispatcher [employer] EDMS Jayy, Duglas, MD Tristen Wisdom cha, PA PA jmm Davies, Jonathon RN RN jMeg Stearns RN RN Lissett Diamond, RN RN ll2 Corrections: (The following items were deleted from the chart) 19:38 17:42 12/19/2019 17:42 Discharged to Home. Impression: Cough; Fever, unspecified; ll2 Bronchitis, not specified as acute or chronic. Condition is Stable. Forms are Medication Reconciliation Form, Thank You Letter, Antibiotic Education, Prescription Opioid Use. Follow up: Private Physician; When: 2 - 3 days; Reason: Recheck today's complaints, Continuance of care, Re-evaluation by your physician. Follow up: Mansoor Raymond; When: 2 - 3 days; Reason: Recheck today's complaints, Re-evaluation by your physician. Problem is new. Symptoms have improved. magdalena
--- NOTE | 2019-12-19 17:42 | ER ---
Nurse's Notes [facility] Name: Mica Diaz Age: 39 yrs Sex: Female : 1980 Arrival Date: 12/19/2019 Time: 15:29 Bed 18 Private MD: Diagnosis: Cough;Fever, unspecified;Bronchitis, not specified as acute or chronic Presentation: 12/18 15:42 Chief complaint: Patient states: "I was exposed to a toxic mold about a year ago and jd3 ever since then I have breathing problems. here in the last couple of days it has gotten worse with on and off fevers. I am also having headaches. I haven't been around anyone with COVID, so I don't think it is that.". Coronavirus screen: cough unrelated to allergies, difficulty breathing, headache, Client presents with at least one sign or symptom that may indicate coronavirus-19. Standard/surgical mask placed on the client. Provider contacted for isolation considerations. Ebola Screen: Patient negative for fever greater than or equal to 101.5 degrees Fahrenheit, and additional compatible Ebola Virus Disease symptoms. Initial Sepsis Screen: Does the patient meet any 2 criteria? No. Patient's initial sepsis screen is negative. Does the patient have a suspected source of infection? No. Patient's initial sepsis screen is negative. Risk Assessment: Do you want to hurt yourself or someone else? Patient reports no desire to harm self or others. Onset of symptoms was December 19, 2019. 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 - Social history:: Smoking status: Patient reports the use of cigarette tobacco products, smokes one-half pack cigarettes per day. - Family history:: not pertinent. Screenin:53 Abuse screen: Denies threats or abuse. Nutritional screening: No deficits noted. ah Tuberculosis screening: No symptoms or risk factors identified. Fall Risk None identified. Assessment: 16:00 General: Appears in no apparent distress. Behavior is calm, cooperative, appropriate ah for age. Pain: Denies pain. Neuro: Level of Consciousness is awake, alert, obeys commands, Oriented to person, place, time, situation, Appropriate for age. Cardiovascular: Heart tones S1 S2 present Capillary refill < 3 seconds Patient's skin is warm and dry. Respiratory: Airway is patent Respiratory effort is even, unlabored, Parent/caregiver reports the patient having cough that is dry. GI: Bowel sounds present X 4 quads. : No signs and/or symptoms were reported regarding the genitourinary system. Derm: No signs and/or symptoms reported regarding the dermatologic system. Skin is intact, is healthy with good turgor. 17:05 Reassessment: Pt became nauseated as she received the IV rocephin. Pt dry heaved a few ah times and said she was fine. She said it just came and went really fast. Pt given a few crackers and sprite and she stated that she felt better. 18:30 Reassessment: IV antibiotics still infusing. ordered urine to be collected before ah she leaves as well. Vital Signs: 15:41 BP 131 / 86; Pulse 96; Resp 18 S; Temp 100.2(O); Pulse Ox 99% on R/A; Weight 68.04 kg jd3 (R); Height 5 ft. 8 in. (172.72 cm) (R); Pain 9/10; 17:55 BP 109 / 76; Pulse 96; Resp 18; Temp 98.4(O); Pulse Ox 99% on R/A; mh5 15:41 Body Mass Index 22.81 (68.04 kg, 172.72 cm) [facility] ED Course: 15:29 Patient arrived in ED. as 15:44 Triage completed. jd3 15:45 Arm band placed on. [facility] 16:04 Duglas Hope MD is Attending Physician. [facility] 16:11 Meg Massey, RN is Primary Nurse. 17:15 Initial lab(s) drawn, by ks, sent to lab. First set of blood cultures drawn by , [facility] Second set of blood cultures drawn Flu and/or RSV swab sent to lab. COVID 19. Inserted saline lock: 22 gauge in left antecubital area, using aseptic technique. Blood collected. 17:22 Patient has correct armband on for positive identification. Bed in low position. Call [facility] light in reach. Side rails up X 1. Pulse ox on. NIBP on. 17:23 Flu Sent. [facility] 17:23 COVID-19 Sent. [facility] 17:23 Comprehensive Metabolic Panel Sent. [facility] 17:23 Blood Culture Adult (2) Sent. [facility] 17:41 Mansoor Raymond MD is Referral Physician. [facility] 17:43 Chest Pa And Lat (2 Views) XRAY In Process Unspecified. EDLA 18:54 No provider procedures requiring assistance completed. 19:38 IV discontinued, intact, bleeding controlled, No redness/swelling at site. Pressure ll2 dressing applied. Administered Medications: 17:00 Drug: Tylenol 1000 mg Route: PO; 18:39 Follow up: Response: No adverse reaction 17:05 Drug: Rocephin 1 grams Route: IV; Rate: per protocol; Site: left antecubital; 18:41 Follow up: Response: No adverse reaction; IV Status: Completed infusion 17:20 Drug: Zithromax 500 mg Route: IVPB; Infused Over: 1 hrs; Site: left antecubital; 18:54 Follow up: Response: No adverse reaction; IV Status: Completed infusion Outcome: 17:42 Discharge ordered by . [facility] 19:37 Discharged to home ambulatory. [facility] 19:37 Condition: stable 19:37 Discharge instructions given to patient, Instructed on discharge instructions, follow up and referral plans. medication usage, Demonstrated understanding of instructions, follow-up care, medications. 19:38 Patient left the ED. ll2 Addendum: 12/22/2019 13:16 Addendum: COVID-19 Result: Negative result given to RN to notify pt. Notified pt of i w negative COVID 19 swab results. Pt advised that even with a negative test result they should remain in isolation until symptom free for 3 days without medication. Pt also advised to return to the ED for worsening symptoms. Signatures: Dispatcher [employer] EDMS Duglas Hope MD MD cha Martinez, Amelia as Williams, Irene, RN RN iw Martinez, Maria [facility] Cristian Lan RN RN jd3 Harris, Amy, RN RN ah Lissett Heart, JEFF RN ll2 Corrections: (The following items were deleted from the chart) 12/18 15:46 15:41 Pulse 96bpm; Resp 18bpm; Spontaneous; Pulse Ox 99% RA; Temp 100.2F Oral; jd3 jd3
--- NOTE | 2019-12-19 18:02 | RAD REPORT ---
EXAM DESCRIPTION: Sue Elizabeth (2 Views)12/19/2019 5:43 pm CLINICAL HISTORY: Cough COMPARISON: 2019 FINDINGS: The lungs appear clear of acute infiltrate. The heart is normal size IMPRESSION: No acute abnormalities displayed
[2019-12-19 19:29] LABS: Urine Blood NEGATIVE (NEG); Urine Glucose NEGATIVE (NEG); Urine Protein NEGATIVE (NEG); Urine pH 8.5 (5.0-7.0)
[2019-12-19 19:51] VITALS: O2SAT 99
[2019-12-19 19:53] VITALS: BP 109/76; TEMP 98.4
--- OUTSIDE RECORDS SUMMARY | 2019-12-23 01:23 | XMS REPORT | Continuity of Care Document ---
:1980 Author Organization [facility] t Address [address] [place] [address] Care Team Providers Name Role Phone Christine PEREIRA L. Primary Care Physician Payers Payer Name Policy Type Policy Number Effective Date Expiration Date S ource Problems This patient has no known problems. Allergies, Adverse Reactions, Alerts Allergy Allergy Status Severity Reaction(s) Onset Inactive Treating Comm ents Source Name Type Date Date Clinician Pork/Por FA Active [facility] 10-23 Clear Containi 00:00: Soria ng 00 [facility] aspirin DA Active [facility] 10-23 Clear 00:00: Soria [facility] ibuprofe DA Active [facility] n 10-23 Clear 00:00: Soria 00 [facility] tramadol DA Active [facility] 10-23 Clear 00:00: Soria 00 [facility] Pork/Por DA Active [facility] 10-23 [place] Containi 00:00: d ng 00 [facility] Social History Social Habit Start Date Stop Date Quantity Comments Source Sex Assigned At Teresa Zamudio Medications This patient has no known medications. Procedures This patient has no known procedures. Plan of Care Planned Activity Planned Date Details Comments Source Future Scheduled 2019-10-16 INFLUENZA VACCINE [place] [facility] 00:00:00 [code = INFLUENZA VACCINE] Future Scheduled 2003-07-06 Screening for [facility]odist Test 00:00:00 malignant neoplasm of cervix (procedure) [code = 707730887] Results Test Description Test Time Test Comments Results Result [facility] e Comments - US PELVIC 2019-08-30 Name: COMPLETE 19:27:00 EILEEN SANTACRUZ [facility] : 1980 Age/S: 39 / F [address] Unit #: [id number] Loc: [place] [address] Phys: Lashell Garcia MD Acct: [id number] Dis Date: Status: REG ER PHONE #: [phone] Exam Date: 08/30/2019 190 FAX #: Reason: PELVIC PAIN EXAMS: CPT: [id number] US PELVIC COMPLETE 58719 Location: L11 EXAM: - US PELVIC COMPLETE, - US TRANSVAGINAL NON OB DATE: 08/30/2019 6:31 PM INDICATION: Pelvic pain COMPARISON: None. TECHNIQUE: Multiplanar grayscale and color Doppler ultrasound of the pelvis were obtained: Transabdominally through a distended urinary bladder. Transvaginally postvoid. FINDINGS: Slightly limited transabdominal evaluation given prominent bowel gas. Uterus/Myometrium: Size: 6.4 x 4.3 x 6.3 cm Orientation: Anteverted. Echogenicity: Normal. Masses: None. Cervix: Normal. Endometrium: Thickness: 1.1 cm Cysts/Masses: None. Right ovary: Seen only transvaginally. Size: 3.1 x 2.1 x 2.5 cm Cysts/Masses: None. Doppler: Normal. Left ovary: Seen only transvaginally. Size: 2.1 x 1.9 x 4.5 cm Cysts/Masses: There are normal appearing follicles within the left ovary. Doppler: Normal. Adnexa: Normal. Free fluid: None. IMPRESSION: No abnormalities are identified on this pelvic ultrasound. PAGE 1 Signed Report (CONTINUED) Name: EILEEN SANTACRUZ [facility] : 1980 Age/S: 39 / F [address] Unit #: [id number] Loc: [place] [address] Phys: Lashell Garcia MD Acct: [id number] Dis Date: Status: REG ER PHONE #: [phone] Exam Date: 08/30/20191907 FAX #: Reason: PELVIC PAIN EXAMS: CPT: [id number] US PELVIC COMPLETE 82064 <Continued> at 1927 Reported and signed by: Walt Londono M.D. CC: Lashell Garcia MD Technologist: Becca Rodriguez [facility] Date/Time: 08/30/2019 (1926) [email or web address] PAGE 2 Signed Report Name: EILEEN SANTACRUZ [place] : 1980 Age/S: 39 / F [address] Unit #: [id number] Loc: [place] [address] Phys: Lashell Garcia MD Acct: [id number] Dis Date: Status: REG ER PHONE #: [phone] Exam Date: 08/30/20191907 FAX #: Reason: PELVIC PAIN EXAMS: CPT: [id number] US PELVIC COMPLETE 08373 <Continued> Orig Print D/T: S: 08/30/2019 (1929) Probe: PAGE 3 Signed Report - US TRANSVAGINAL 2019-08-30 Name: NON [facility] 19:27:00 [facility] 1980 Age[facility]S: 39 / F [address] Unit #: [id number] Loc: [place] [address] Phys: Lashell Garcia MD Acct: [id number] Dis Date: Status: REG ER PHONE #: [phone] Exam Date: 08/30/20191907 FAX #: Reason: pelvic pain EXAMS: CPT: [id number] [place] [address] Location: L11 EXAM: - US PELVIC COMPLETE, - US TRANSVAGINAL NON OB DATE: 08/30/2019 6:31 PM INDICATION: Pelvic pain COMPARISON: None. TECHNIQUE: Multiplanar grayscale and color Doppler ultrasound of the pelvis were obtained: Transabdominally through a distended urinary bladder. Transvaginally postvoid. FINDINGS: Slightly limited transabdominal evaluation given prominent bowel gas. Uterus/Myometrium: Size: 6.4 x 4.3 x 6.3 cm Orientation: Anteverted. Echogenicity: Normal. Masses: None. Cervix: Normal. Endometrium: Thickness: 1.1 cm Cysts/Masses: None. Right ovary: Seen only transvaginally. Size: 3.1 x 2.1 x 2.5 cm Cysts/Masses: None. Doppler: Normal. Left ovary: Seen only transvaginally. Size: 2.1 x 1.9 x 4.5 cm Cysts/Masses: There are normal appearing follicles within the left ovary. Doppler: Normal. Adnexa: Normal. Free fluid: None. IMPRESSION: No abnormalities are identified on this pelvic ultrasound. PAGE 1 Signed Report (CONTINUED) Name: EILEEN SANTACRUZ [facility] : 1980 Age/S: 39 / F [address] Unit #: [id number] Loc: [place] [address] Phys: Lashell Garcia MD Acct: [id number] Dis Date: Status: REG ER PHONE #: [phone] Exam Date: 08/30/20191907 FAX #: Reason: pelvic pain EXAMS: CPT: [id number] [place] [address] <Continued> at 1927 Reported and signed by: Walt Londono M.D. CC: Cordelia Rowe CANARY RAISER; Lashell Garcia MD Technologist: Becca Rodriguez Trnnjb Date/Time: 08/30/2019 (1926) [email or web address] PAGE 2 Signed Report Name: EILEEN SANTACRUZ [facility] : 1980 Age/S: 39 / F [address] Unit #: [id number] Loc: [place] [address] Phys: Lashell Garcia MD Acct: [id number] Dis Date: Status: REG ER PHONE #: [phone] Exam Date: 08/30/20191907 FAX #: Reason: pelvic pain EXAMS: CPT: [id number] [place] [address] <Continued> Orig Print D/T: S: 08/30/2019 (1930) Probe: [id number] PAGE 3 Signed Report - XR CHEST 1 V 2019-08-30 Name: EILEEN SANTACRUZ 17:51:00 BHAVANA [facility] : 1980 Age/S: 39 / F [address] Unit #: [id number] Loc: [place] [address] Phys: Lashell Garcia MD Acct: [id number] Dis Date: Status: REG ER PHONE #: [phone] Exam Date: 08/30/2019 1732 FAX #: Reason: Suspected Sepsis EXAMS: CPT: [id number] XR CHEST 1 V 34898 Fluoro Time: DAP (Gy m2): Air Kerma (mGy): EXAM: Portable chest x-ray Dictation location: COMPARISON: Chest x-ray on 12/16/2012 INDICATION: Suspected Sepsis DISCUSSION: A frontal view of the chest is submitted. No consolidation, pneumothorax, or pleural effusion is seen. The cardiomediastinal silhouette is within normal limits. No acute bony abnormalities are identified. IMPRESSION: No evidence of acute abnormality. at 1751 Reported and signed by: Peter Greer M.D. CC: Cordelia Rowe CANARY RAISER; Lashell Garcia MD PAGE 1 Signed Report Name: EILEEN SANTACRUZ [facility] : 1980 Age/S: 39 / F [address] [place] [address] Unit #: [id number] Loc: [place] [address] Phys: Lashell Garcia MD Acct: [id number] Dis Date: Status: REG ER PHONE #: [phone] Exam Date: 08/30/2019 1735 FAX #: Reason: Suspected Sepsis EXAMS: CPT: [id number] XR CHEST 1 V 39700 Fluoro Time: DAP (Gy m2): Air Kerma (mGy): <Continued> Technologist: Argenis Beebe, RT(R)(CT)(MRI) Trnscb Date/Time: 08/30/2019 (1750) [email or web address] Orig Print D/T: S: 08/30/2019 (2318) PAGE 2 Signed Report - CT ABD PELVIS 2019-08-30 Name: W/CONT 17:49:00 EILEEN SANTACRUZ [facility] : 1980 Age/S: 39 / F [address] Unit #: [id number] Loc: [place] [address] Phys: Lashell Garcia MD Acct: [id number] Dis Date: Status: REG ER PHONE #: [phone] Exam Date: 08/30/2019 2256 FAX #: Reason: RLQ pain EXAMS: CPT: [id number] CT ABD PELVIS W/CONT 96106 EXAM: - CT ABD PELVIS W/CONT LOCATION: H61 CLINICAL HISTORY/INDICATION: RLQ pain COMPARISON: CT 09/19/2018. TECHNIQUE: Axial CT images of the abdomen and pelvis were obtained from the diaphragm to the lesser trochanter with IV contrast administration. Coronal and sagittal reformations were reconstructed from the axial data set. Postcontrast images were acquired in the portal venous phase This examination was performed according to our departmental dose optimization program, which includes automated exposure control, adjustment of the mA and/or kV according to patient size, and/or use of iterative reconstruction technique. FINDINGS: LOWER THORAX: Clear. LIVER: No focal hepatic lesions or intrahepatic biliary dilatation. GALLBLADDER/BILIARY SYSTEM: Cholecystectomy. PANCREAS: Unremarkable. SPLEEN: No splenomegaly or focal lesions. ADRENALS: No adrenal nodules. KIDNEYS/URETERS: No hydronephrosis, stones, or solid mass lesions. VESSELS: No AAA. Patent portal vein. LYMPH NODES: No lymphadenopathy. PERITONEUM / RETROPERITONEUM: No free air or fluid. GI TRACT: Small bowel and colon are not dilated. No bowel wall thickening. Terminal ileum is unremarkable. The appendix is visualized and appears normal. The cecum is unremarkable. GENITOURINARY ORGANS: Normal CT appearance of the uterus. No cystic adnexal mass. PAGE 1 Signed Report (CONTINUED) Name: EILEEN SANTACRUZ [facility] : 1980 Age/S: 39 / F [address] Unit #: [id number] Loc: [place] [address] Phys: Lashell Garcia MD Acct: [id number] Dis Date: Status: REG ER PHONE #: [phone] Exam Date: 08/30/2019 1739 FAX #: Reason: RLQ pain EXAMS: CPT: [id number] CT ABD PELVIS W/CONT 21136 <Continued> PELVIC FREE FLUID/FLUID COLLECTION: None. URINARY BLADDER: Unremarkable. EXTERNAL SOFT TISSUE: No abnormalities. BONES: Regional osseous structures are intact. IMPRESSION: 1. No acute findings demonstrated in the abdomen and pelvis. 2. Normal appendix. 3. Cholecystectomy. at 1749 Reported and signed by: Hector Whitaker M.D. CC: Cordelia Rowe CANARY RAISER; Lashell Garcia MD Technologist:Argenis Beebe RT(R)(CT)(MRI) CTDI: DLP: Trnscb Date/Time: 08/30/2019 (174) [email or web address] Orig Print D/T: S: 08/30/2019 (0149) PAGE 2 Signed Report UA RFLX MICR CULT IF INDICATED 2019-08-30 17:09:00 Test Item Value Reference Range Interpretation Comme nts UA COLOR (test code = COLU) PEACH discript YEL/STRAW A UA APPEARANCE (test code = APPU) CLEAR discript CLEAR UA GLUCOSE DIPSTICK (test code = DGLUU) NEGATIVE mg/dL NEG UA BILIRUBIN DIPSTICK (test code = BILU) NEGATIVE mg/dL NEG UA KETONE DIPSTICK (test code = KETU) NEGATIVE mg/dL NEG UA SPECIFIC GRAVITY (test code = SGU) <=1.005 SG 1.005-1.030 UA BLOOD DIPSTICK (test code = FERCHO) 3+ mg/DL NEG A UA PH DIPSTICK (test code = EFRA) 7.0 pH UNITS 5.0-7.0 UA PROTEIN DIPSTICK (test code = PROU) 1+ mg/dL NEG A UA UROBILINIOGEN DIPSTICK (test code = URO) 0.2 mg/dL <2.0 UA NITRITE DIPSTICK (test code = IVONNE) NEGATIVE SCREEN NEG UA LEUKOCYTE ESTERASE DIPSTICK (test code = LEUU) TRACE Leuk/mcL NE GATIVE A UA WBC (test code = WBCU) 0-1 #WBC/HPF 0-3 UA RBC (test code = RBCU) 20-30 #RBC/HPF 0-3 A UA BACTERIA (test code = BACU) TRACE /HPF NONE-TRACE UA SQUAMOUS CELLS (test code = SQU) NONE SEEN /HPF NONE UA CULTURE NEEDED? (test code = UACULT) NO, WBC<10 Criteria Culture CHK SOURCE OF URINE: CLEAN CATCHIndication for culture: Flank PainUR HCG QUAL 2019-08-30 17:09:00 Test Item Value Reference Range Interpretation Comments UR HCG QUAL (test code = HCGQLU) NEGATIVE NEGATIVE SOURCE OF URINE: CLEAN CATCHIndication for culture: Flank PainUA RFLX MICR CULT IF [id number] 16:47:00 Test Item Value Reference Range Interpretation Comments UA COLOR (test code = COLU) PEACH discript YEL/STRAW A UA APPEARANCE (test code = CLEAR discript CLEAR APPU) UA GLUCOSE DIPSTICK (test NEGATIVE mg/dL NEG code = DGLUU) UA BILIRUBIN DIPSTICK (test NEGATIVE mg/dL NEG code = BILU) UA KETONE DIPSTICK (test code NEGATIVE mg/dL NEG = KETU) UA SPECIFIC GRAVITY (test <=1.005 SG 1.005-1.030 code = SGU) UA BLOOD DIPSTICK (test code 3+ mg/DL NEG A = FERCHO) UA PH DIPSTICK (test code = 7.0 pH UNITS 5.0-7.0 EFRA) UA PROTEIN DIPSTICK (test 1+ mg/dL NEG A code = PROU) UA UROBILINIOGEN DIPSTICK 0.2 mg/dL <2.0 (test code = URO) UA NITRITE DIPSTICK (test NEGATIVE SCREEN NEG code = IVONNE) UA LEUKOCYTE ESTERASE TRACE Leuk/mcL NEGATIVE A DIPSTICK (test code = LEUU) UA CULTURE NEEDED? (test code Criteria Culture CHK = UACULT) SOURCE OF URINE: CLEAN CATCHIndication for culture: Flank PainUR HCG QUAL 2019-08-30 16:47:00 Test Item Value Reference Range Interpretation Comments UR HCG QUAL (test code = HCGQLU) NEGATIVE SOURCE OF URINE: CLEAN CATCHIndication for culture: Flank PainLACTIC ACID 2019-08-30 16:29:00 Test Item Value Reference Range Interpretation Comments LACTIC ACID (test code = LACT) 0.7 mmol/L 0.4-2.0 N COMPREHENSIVE METABOLIC [id number] 16:28:00 Test Item Value Reference Range Interpretation Comments SODIUM (test code = NA) 140 mmol/L 134-147 N POTASSIUM (test code = 4.5 mmol/L 3.4-5.0 N K) CHLORIDE (test code = 110 mmol/L 100-108 H CL) CARBON DIOXIDE (test 26 mmol/L 21-32 N code = CO2) ANION GAP (test code = 4.0 GAP calc 4.0-15.0 N GAP) GLUCOSE (test code = 76 MG/DL 70-110 N GLU) BLOOD UREA NITROGEN 7 MG/DL 7-18 N (test code = BUN) GLOMERULAR FILTRATION >=60 max estimate >60 RATE (test code = GFR) estGFR CREATININE (test code = 0.9 MG/DL 0.6-1.0 N CREAT) TOTAL PROTEIN (test code 7.1 G/DL 6.4-8.2 N = PROT) ALBUMIN (test code = 3.4 G/DL 3.4-5.0 N ALB) GLOBULIN (test code = 3.7 GM/dL GLOB) ALBUMIN/GLOBULIN RATIO 0.9 RATIO 1.2-2.2 L (test code = A/G) CALCIUM (test code = CA) 8.0 MG/DL 8.5-10.1 L BILIRUBIN TOTAL (test 0.30 MG/DL 0.2-1.2 N code = BILT) SGOT/AST (test code = 21 Unit/L 15-37 N AST) SGPT/ALT (test code = 14 Unit/L 12-78 N ALT) ALKALINE PHOSPHATASE 57 Unit/L 45-117 N TOTAL (test code = ALKP) Completed by Nursing: [id number] 16:28:00 Test Item Value Reference Range Interpretation Comments LIPASE (test code = LIP) 91 Unit/L 114-286 L Completed by Nursing: [id number] 16:28:00 Test Item Value Reference Range Interpretation Comments TROPONIN-I (test < 0.015 NG/ML 0.000-0.045 N Negative: </= 0.045 code = TROPI) Positive: >/= 0.046 Correlation wit h serial results, other cardiac markers, and cl inical findings is nec essary to determine the c linical significance of this result. Quantit ative results using d ifferent methodologies s hould not be compared to one another as nume rical results may tereso yby method. Completed by Nursing: NOCBEVERLY W/AUTO [id number] 16:13:00 Test Item Value Reference Range Interpretation Comments WHITE BLOOD CELL (test code = 4.2 K/mm3 3.5-11.0 N WBC) RED BLOOD CELL (test code = 3.37 M/mm3 4.70-6.10 L RBC) HEMOGLOBIN (test code = HGB) 10.7 G/DL 10.4-14.9 N HEMATOCRIT (test code = HCT) 32.3 % 31.5-44.1 N MEAN CELL VOLUME (test code = 95.8 Fl 84.5-98.6 N MCV) MEAN CELL HGB (test code = MCH) 31.8 pg 27.0-34.2 N MEAN CELL HGB CONCETRATION 33.1 G/DL 31.5-34.0 N (test code = MCHC) RED CELL DISTRIBUTION WIDTH 14.6 SD 11.5-14.5 H (test code = RDW) PLATELET COUNT (test code = 228 K/mm3 150-450 N PLT) MEAN PLATELET VOLUME (test code 9.80 fL 7.0-10.5 N = MPV) NEUTROPHIL % (test code = NT%) 49.9 % 40-76 N LYMPHOCYTE % (test code = LY%) 36.0 % 20.5-51.1 N MONOCYTE % (test code = MO%) 10.3 % 1.7-9.3 H EOSINOPHIL % (test code = EO%) 2.1 % 0.0-6.0 N BASOPHIL % (test code = BA%) 1.2 % 0.0-2.0 N NUCLEATED RBC % (test code = 0.0 /100WBC% 0.0-1.0 N NRBC%) NEUTROPHIL # (test code = NT#) 2.1 K/mm3 1.8-7.6 N IMMATURE GRANULOCYTE # (test 0.02 x10 3/uL 0.00-0.03 N code = IG#) LYMPHOCYTE # (test code = LY#) 1.5 K/mm3 0.6-3.2 N MONOCYTE # (test code = MO#) 0.4 K/mm3 0.3-1.1 N EOSINOPHIL # (test code = EO#) 0.1 K/mm3 0.0-0.4 N BASOPHIL # (test code = BA#) 0.1 K/mm3 0.0-0.1 N NUCLEATED RBC # (test code = 0.0 K/mm3 0.0-0.1 N NRBC#) MANUAL DIFF REQUIRED (test code NO DIFF/SCN CRITERIA = MDIFF) DNA PROBE CHLAMYDIA [id number] 06:10:00 Test Item Value Reference Range Interpretation Comments DNA PROBE CHLAMYDIA Negative Negative (test code = DNACH) DNA PROBE N.GONORRHEA Negative Negative Perfor med At: ST (GC) (test code = [facility] Sa n DNAGC) [id number] [place], [place] [id number] Mccullough MD Ph:[phone] - CT ABD PELVIS [id number] 15:54:00 Name: EILEEN SANTACRUZ [facility] : 1980 Age/S: 38 / F [address] Unit #: [id number] Loc: [place] [address] Phys: RaiGeraldo Dio DO Acct: [id number] Dis Date: Status: REG ER PHONE #: [phone] Exam Date: 09/19/2018 6111 FAX #: Reason: rlq pain EXAMS: CPT: [id number] CT ABD PELVIS W/CONT 89678 Exam: CT abdomen and pelvis with contrast. Location: H 12 History: rlq pain Technique: Enhanced spiral slices were taken from the domes of the diaphragm, through the pubic symphysis. Coronal reformations were performed. 100 cc of Isovue-300 were used. One ormore of the following dose reduction techniques were used: Automated exposure control, adjustment of the mA and/or kV according to patient size, and/or utilization of iterative reconstruction technique. Findings: The liver is of normal, homogeneous density. No mass is seen. The intra-and extrahepatic biliary tree is normal. The hepatic and portal veins are patent. The gallbladder has been removed. The pancreas is normal. The pancreatic duct is normal in caliber. The spleen and adrenal glands are normal in size and shape. The kidneys are unremarkable. No nephrolithiasis, perinephric fluid collections or hydrone phrosis is seen. The large and small intestine are normal in caliber. The appendix is normal. No inflammatory change is identified. No lymphadenopathy or free fluid isfound in the abdomen or the pelvis. The pelvic structures are unremarkable. The lung bases are clear. No incidental findings are noted. Impression: 1. No acute abdominal findings. 2. Status post cholecystectomy. 3.Otherwise unremarkable exam. PAGE 1 Signed Report(CONTINUED) Name: EILEEN SANTARCUZ [facility] [place] : 1980 Age/S: 38 / F [address] Unit #: [id number] Loc:[place] [address] Phys: Geraldo Atwood DO Acct: [id number] Dis Date: Status: REG ER PHONE #: [phone] Exam Date: 09/19/2018 1540 FAX #: Reason: rlq pain EXAMS: CPT: [id number] CT ABD PELVIS W/CONT 12802 <C ontinued> at 1554 Reported and signed by: Kj Mc M.D. CC: Geraldo Atwood DO; Keturah ALMODOVAR Technologist:Dulce Maria [address], RT(R); ... CTDI: DLP: Trnscb Date/Time: 09/19/2018 (1034) t.[email or web address].FC Orig Print D/T: S: 09/19/2018 (7450) PAGE 2 Signed ReportUA RFLX MICR CULT IF INDICATED 2018-09-19 14:40:00 Test Item Value Reference Range Interpretation Comments UA COLOR (test code = YELLOW discript YEL/STRAW COLU) UA APPEARANCE (test code CLEAR discript CLEAR = APPU) UA GLUCOSE DIPSTICK (test NEGATIVE mg/dL NEG code = DGLUU) UA BILIRUBIN DIPSTICK NEGATIVE mg/dL NEG (test code = BILU) UA KETONE DIPSTICK (test NEGATIVE mg/dL NEG code = KETU) UA SPECIFIC GRAVITY (test 1.010 SG 1.005-1.030 code = SGU) UA BLOOD DIPSTICK (test NEGATIVE mg/DL NEG code = FERCHO) UA PH DIPSTICK (test code 6.5 pH UNITS 5.0-7.0 = EFRA) UA PROTEIN DIPSTICK (test NEGATIVE mg/dL NEG code = PROU) UA UROBILINIOGEN DIPSTICK 1.0 mg/dL <2.0 (test code = URO) UA NITRITE DIPSTICK (test NEGATIVE SCREEN NEG code = IVONNE) UA LEUKOCYTE ESTERASE TRACE Leuk/mcL NEGATIVE A DIPSTICK (test code = LEUU) UA WBC (test code = WBCU) 3-5 #WBC/HPF 0-3 A UA RBC (test code = RBCU) 0-1 #RBC/HPF 0-3 UA BACTERIA (test code = TRACE /HPF NONE-TRACE BACU) UA SQUAMOUS CELLS (test 2+ /HPF NONE A code = SQU) UA CULTURE NEEDED? (test NO, WBC<10 Criteria Culture CHK code = UACULT) SOURCE OF URINE: CLEAN CATCHIndication for culture: Suprapubic PainBASIC METABOLIC [id number] 14:33:00 Test Item Value Reference Range Interpretation Comments SODIUM (test code = NA) 138 mmol/L 134-147 N POTASSIUM (test code = 2.9 mmol/L 3.4-5.0 LL K) CHLORIDE (test code = 107 mmol/L 100-108 N CL) CARBON DIOXIDE (test 24 mmol/L 21-32 N code = CO2) ANION GAP (test code = 7.0 GAP calc 4.0-15.0 N GAP) GLUCOSE (test code = 83 MG/DL 70-110 N GLU) BLOOD UREA NITROGEN 6 MG/DL 7-18 L (test code = BUN) GLOMERULAR FILTRATION >=60 max estimate >60 RATE (test code = GFR) estGFR CREATININE (test code = 1.0 MG/DL 0.6-1.0 N CREAT) CALCIUM (test code = CA) 8.7 MG/DL 8.5-10.1 N HEPATIC FUNCTION [id number] 14:33:00 Test Item Value Reference Range Interpretation Comments TOTAL PROTEIN (test code = PROT) 7.7 G/DL 6.4-8.2 N ALBUMIN (test code = ALB) 3.8 G/DL 3.4-5.0 N BILIRUBIN TOTAL (test code = 0.30 MG/DL 0.2-1.2 N BILT) BILIRUBIN DIRECT (test code = < 0.10 MG/DL 0.00-0.30 N BILD) BILIRUBIN INDIRECT (test code = 0.20 MG/DL 0.2-1.2 N BILIND) SGOT/AST (test code = AST) 13 Unit/L 15-37 L SGPT/ALT (test code = ALT) 14 Unit/L 12-78 N ALKALINE PHOSPHATASE TOTAL (test 54 Unit/L 45-117 N code = ALKP) [id number] 14:33:00 Test Item Value Reference Range Interpretation Comments LIPASE (test code = LIP) 66 Unit/L 114-286 L CBC W/AUTO [id number] 14:09:00 Test Item Value Reference Range Interpretation Comments WHITE BLOOD CELL (test code = 4.1 K/mm3 3.5-11.0 N WBC) RED BLOOD CELL (test code = RBC) 3.57 M/mm3 4.70-6.10 L HEMOGLOBIN (test code = HGB) 11.2 G/DL 10.4-14.9 N HEMATOCRIT (test code = HCT) 33.5 % 31.5-44.1 N MEAN CELL VOLUME (test code = 93.8 Fl 84.5-98.6 N MCV) MEAN CELL HGB (test code = MCH) 31.4 pg 27.0-34.2 N MEAN CELL HGB CONCETRATION (test 33.4 G/DL 31.5-34.0 N code = MCHC) RED CELL DISTRIBUTION WIDTH (test 14.1 SD 11.5-14.5 N code = RDW) PLATELET COUNT (test code = PLT) 241.0 K/mm3 150-450 N MEAN PLATELET VOLUME (test code = 9.10 fL 7.0-10.5 N MPV) NEUTROPHIL % (test code = NT%) 45.4 % 40-76 N LYMPHOCYTE % (test code = LY%) 43.2 % 20.5-51.1 N MONOCYTE % (test code = MO%) 9.4 % 1.7-9.3 H EOSINOPHIL % (test code = EO%) 1.0 % 0.0-6.0 N BASOPHIL % (test code = BA%) 1.0 % 0.0-2.0 N NEUTROPHIL # (test code = NT#) 1.84 K/mm3 1.8-7.6 N LYMPHOCYTE # (test code = LY#) 1.8 K/mm3 0.6-3.2 N MONOCYTE # (test code = MO#) 0.4 K/mm3 0.3-1.1 N EOSINOPHIL # (test code = EO#) 0.0 K/mm3 0.0-0.4 N BASOPHIL # (test code = BA#) 0.0 K/mm3 0.0-0.1 N MANUAL DIFF REQUIRED (test code = NO DIFF/SCN CRITERIA MDIFF) UA RFLX MICR CULT IF [id number] 14:03:00 Test Item Value Reference Range Interpretation Comments UA COLOR (test code = COLU) YELLOW discript YEL/STRAW UA APPEARANCE (test code = CLEAR discript CLEAR APPU) UA GLUCOSE DIPSTICK (test NEGATIVE mg/dL NEG code = DGLUU) UA BILIRUBIN DIPSTICK (test NEGATIVE mg/dL NEG code = BILU) UA KETONE DIPSTICK (test code NEGATIVE mg/dL NEG = KETU) UA SPECIFIC GRAVITY (test 1.010 SG 1.005-1.030 code = SGU) UA BLOOD DIPSTICK (test code NEGATIVE mg/DL NEG = FERCHO) UA PH DIPSTICK (test code = 6.5 pH UNITS 5.0-7.0 EFRA) UA PROTEIN DIPSTICK (test NEGATIVE mg/dL NEG code = PROU) UA UROBILINIOGEN DIPSTICK 1.0 mg/dL <2.0 (test code = URO) UA NITRITE DIPSTICK (test NEGATIVE SCREEN NEG code = IVONNE) UA LEUKOCYTE ESTERASE TRACE Leuk/mcL NEGATIVE A DIPSTICK (test code = LEUU) UA CULTURE NEEDED? (test code Criteria Culture CHK = UACULT) SOURCE OF URINE: CLEAN CATCHIndication for culture: Suprapubic PainHCG POC 2018-09-19 13:59:00 Test Item Value Reference Range Interpretation Comments HCG POC (test code = HCGPOC) < 5.0 IU/L <5.0 H
--- OUTSIDE RECORDS SUMMARY | 2019-12-23 01:23 | XMS REPORT | Clinical Summary ---
:1980 Author Organization [facility] Address [address] [place] [address] Care Team Providers Name Role Phone Lora King MD Primary Care Provider Allergies Not on File Medications Not on file Active Problems Not on file Social History Tobacco Use Types Packs/Day Years Used Date Never Assessed Sex Assigned at Date Recorded Not on file Last Filed Vital Signs Not on file Plan of Treatment Health Maintenance Due Date Last Done Comments CERVICAL CANCER SCREENING 07/06/2003 INFLUENZA VACCINE 10/16/2019 Results Not on fileafter 12/21/2018 Advance Directives For more information, please contact: [phone] Type Date Recorded 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
== END 2019-12-19 19:38 | disposition home or self-care (01) ==
LOC: ER 15:28
DX: J40 Bronchitis, not specified as acute or chronic (principal); Z20.828 Contact with and (suspected) exposure to other viral communicable diseases; R50.9 Fever, unspecified; F17.210 Nicotine dependence, cigarettes, uncomplicated; Z88.5 Allergy status to narcotic agent; Z88.6 Allergy status to analgesic agent
CPT/HCPCS: 36415; 71046; 80053; 81003; 81025; 85025; 87040; 87804; 96365; 99284; J0456; J0696; J7050; U0002

== ENCOUNTER 2020-09-16 20:03 | Emergency (ER) | payer SELFPAY ==
--- OUTSIDE RECORDS SUMMARY | 2020-09-16 20:11 | XMS REPORT | Continuity of Care Document ---
:1980 Author Organization [facility] t Address [address] [place] [address] Care Team Providers Name Role Phone Eric King MD. Primary Care Physician Payers Payer Name Policy Type Policy Number Effective Date Expiration Date S ource Problems This patient has no known problems. Allergies, Adverse Reactions, Alerts Allergy Allergy Status Severity Reaction(s) Onset Inactive Treating Comm ents Source Name Type Date Date Clinician Pork/Por FA Active SV [facility] cine 8-09 Clear Containi 00:00: Soria ng 00 [facility] aspirin DA Active [facility] 8-09 Clear 00:00: Soria 00 [facility] Pork/Por DA Active [facility] cine 8-09 [place] Containi 00:00: d ng 00 [facility] ibuprofe DA Active [facility] n 8-09 Clear 00:00: Soria 00 [facility] tramadol DA Active [facility] 8-09 Clear 00:00: Soria 00 [facility] Social History Social Habit Start Date Stop Date Quantity Comments Source Sex Assigned At [birth year] [facility] ethodist 00:00:00 00:00:00 Medications This patient has no known medications. Procedures This patient has no known procedures. Plan of Care Planned Activity Planned Date Details Comments Source Future Scheduled 2020-10-15 INFLUENZA VACCINE [facility] 00:00:00 [code = INFLUENZA VACCINE] Future Scheduled 2003-07-06 Screening for [facility] Test 00:00:00 malignant neoplasm of cervix (procedure) [code = 311305223] Future Scheduled 2000 Hepatitis C [facility] Test 00:00:00 screening (procedure) [code = 528700745] Future Scheduled 1994 COVID-19 VACCINE (1) [facility] 00:00:00 [code = COVID-19 VACCINE (1)] Results Test Description Test Time Test Comments Results Result Sour e Comments - US PELVIC 2019-08-30 Name: COMPLETE 19:27:00 EILEEN SANTACRUZ [facility] : 1980 Age/S: 39 / F [address] [address] [place] Unit #: [id number] Loc: [place] [address] Phys: Lashell Garcia MD Acct: [id number] Dis Date: Status: REG ER PHONE #: [phone] Exam Date: 08/30/2019 1908 FAX #: Reason: PELVIC PAIN EXAMS: CPT: [id number] US PELVIC COMPLETE 43139 Location: L11 EXAM: - US PELVIC COMPLETE, [...] 1 Signed Report (CONTINUED) Name: EILEEN SANTACRUZ [place] : 1980 Age/S: 39 / F [address] [address] Unit #: [id number] Loc: [place] [address] Phys: Lashell Garcia MD Acct: [id number] Dis Date: Status: REG ER PHONE #: [phone] Exam Date: 08/30/20191907 FAX #: Reason: PELVIC PAIN EXAMS: CPT: [id number] US PELVIC COMPLETE 12617 <Continued> at 192 Reported and signed by: Walt Londono M.D. CC: Lashell Garcia MD Technologist: Becca Rodriguez Trnscb Date/Time: 08/30/2019 (1926) [id number] PAGE 2 Signed Report Name: EILEEN SANTACRUZ [place] : 1980 Age/S: 39 / F [address] [address] Unit #: [id number] Loc: [place] [address] Phys: Lashell Garcia MD Acct: [id number] Dis Date: Status: REG ER PHONE #: [phone] Exam Date: 08/30/20191907 FAX #: Reason: PELVIC PAIN EXAMS: CPT: [id number] US PELVIC COMPLETE 19392 <Continued> Orig Print D/T: S: 08/30/2019 (1929) Probe: PAGE 3 Signed Report - US TRANSVAGINAL 2019-08-30 Name: NON OB 19:27:00 EILEEN SANTACRUZ [facility] : 1980 Age/S: 39 / F [address] [address] Unit #: [id number] Loc: [place] [address] Phys: Lashell Garcia MD Acct: [id number] Dis Date: Status: REG ER PHONE #: [phone] Exam Date: 08/30/20191907 FAX #: Reason: pelvic pain EXAMS: CPT: [id number] [place] [address] Location: L11 EXAM: - US PELVIC COMPLETE, [...] 1 Signed Report (CONTINUED) Name: EILEEN SANTACRUZ [facility] : 1980 Age/S: 39 / F [address] [facility] [place] Unit #: [id number] Loc: [place] [address] Phys: Lashlel Garcia MD Acct: [id number] Dis Date: Status: REG ER PHONE #: [phone] Exam Date: 08/30/2019 1908 FAX #: Reason: pelvic pain EXAMS: CPT: [id number] [place] [address] <Continued> at 1927 Reported and signed by: Walt Londono M.D. CC: Cordelia Rowe ORAL AND MAXILLOFACIAL SURGEON; Lashell Garcia MD Technologist: Becca Rodriguez Trnscb Date/Time: 08/30/2019 (1926) [id number] PAGE 2 Signed Report Name: EILEEN SANTACRUZ [facility] : 1980 Age/S: 39 / F [address] [address] Unit #: [id number] Loc: [place] [address] Phys: Lashell Garcia MD Acct: [id number] Dis Date: Status: REG ER PHONE #: [phone] Exam Date: 08/30/2019 1908 FAX #: Reason: pelvic pain EXAMS: CPT: [id number] [place] [address] <Continued> Orig Print D/T: S: 08/30/2019 (1930) Probe: [id number] PAGE 3 Signed Report - XR CHEST 1 V 2019-08-30 Name: EILEEN SANTACRUZ 17:51:00 BHAVANA VALENTE [place] : 1980 Age/S: 39 / F [address] [place] Unit #: [id number] Loc: [place] [address] Phys: Lashell Garcia MD Acct: [id number] Dis Date: Status: REG ER PHONE #: [phone] Exam Date: 08/30/2019 1738 FAX #: Reason: Suspected Sepsis EXAMS: CPT: [id number] XR CHEST 1 V 48898 Fluoro Time: DAP (Gy m2): Air Kerma [...] by: Peter Greer M.D. CC: Cordelia Rowe ORAL AND MAXILLOFACIAL SURGEON; Lashell Garcia MD PAGE 1 Signed Report Name: EILEEN SANTACRUZ [place] : 1980 Age/S: 39 / F [address] [address] Unit #: [id number] Loc: [place] [address] Phys: Lashell Garcia MD Acct: [id number] Dis Date: Status: REG ER PHONE #: [phone] Exam Date: 08/30/2019 173 FAX #: Reason: Suspected Sepsis EXAMS: CPT: [id number] XR CHEST 1 V 10457 Fluoro Time: DAP (Gy m2): Air Kerma (mGy): <Continued> Technologist: Argenis eBebe, RT(R)(CT)(MRI) Trnscb Date/Time: 08/30/2019 (1750) [email or web address] Orig Print D/T: S: 08/30/2019 (1777) PAGE 2 Signed Report - CT ABD PELVIS 2019-08-30 Name: W/CONT 17:49:00 EILEEN SANTACRUZ [facility] : 1980 Age/S: 39 / F [address] [address] Unit #: [id number] Loc: [place] [address] Phys: Lashell Garcia MD Acct: [id number] Dis Date: Status: REG ER PHONE #: [phone] Exam Date: 08/30/20190 FAX #: Reason: RLQ pain EXAMS: CPT: [id number] CT ABD PELVIS W/CONT 54171 EXAM: - CT ABD PELVIS W/CONT LOCATION: [...] 1 Signed Report (CONTINUED) Name: EILEEN SANTACRUZ : 1980 Age/S: 39 / F [address] [address] Unit #: [id number] Loc: [place] [address] Phys: Lashell Garcia MD Acct: [id number] Dis Date: Status: REG ER PHONE #: [phone] Exam Date: 08/30/2019 1734 FAX #: Reason: RLQ pain EXAMS: CPT: [id number] CT ABD PELVIS W/CONT 24458 <Continued> PELVIC FREE FLUID/FLUID COLLECTION: None. URINARY BLADDER: Unremarkable. EXTERNAL SOFT TISSUE: No abnormalities. BONES: Regional osseous structures are intact. IMPRESSION: 1. No acute findings demonstrated in the abdomen and pelvis. 2. Normal appendix. 3. Cholecystectomy. at 1749 Reported and signed by: Hector Whitaker M.D. CC: Cordelia Rowe ORAL AND MAXILLOFACIAL SURGEON; Lashell Garcia MD Technologist:Argenis Beebe, RT(R)(CT)(MRI) CTDI: DLP: Trnscb Date/Time: 08/30/2019 (1749) t.[email or web address] Orig Print D/T: S: 08/30/2019 (6828) PAGE 2 Signed Report UA RFLX MICR [...] culture: Flank PainUA RFLX MICR CULT IF [id number] 16:47:00 Test Item Value Reference Range Interpretation [...] LACT) 0.7 mmol/L 0.4-2.0 N COMPREHENSIVE METABOLIC [id number] 16:28:00 Test Item Value Reference Range Interpretation [...] (test code = ALKP) Completed by Nursing: [id number] 16:28:00 Test Item Value Reference Range Interpretation Comments LIPASE (test code = LIP) 91 Unit/L 114-286 L Completed by Nursing: [id number] 16:28:00 Test Item Value Reference Range Interpretation [...] may tereso yby method. Completed by Nursing: NOCBC W/AUTO [id number] 16:13:00 Test Item Value Reference Range Interpretation [...] DIFF/SCN CRITERIA = MDIFF) DNA PROBE CHLAMYDIA [id number] 06:10:00 Test Item Value Reference Range Interpretation Comments DNA PROBE CHLAMYDIA Negative Negative (test code = DNACH) DNA PROBE N.GONORRHEA Negative Negative Perfor med At: ST (GC) (test code = [facility] Sa n DNAGC) [id number] [place], [place] [id number] Mccullough MD Ph:[phone] - CT ABD PELVIS [id number] 15:54:00 Name: EILEEN SANTACRUZ [facility] : 1980 Age/S: 38 / F [address] [address] Unit #: [id number] Loc: [place] [address] Phys: Geraldo Atwood DO Acct: [id number] Dis Date: Status: REG ER PHONE #: [phone] Exam Date: 09/19/2018 1547 FAX #: Reason: rlq pain EXAMS: CPT: [id number] CT ABD PELVIS W/CONT 95845 Exam: CT abdomen and pelvis with contrast. [...] exam. PAGE 1 Signed Report(CONTINUED) Name: EILEEN SANTACRUZ [facility] : 1980 Age/S: 38 / F [address] [address] Unit #: [id number] Loc:[place] [address] Phys: Geraldo Atwood DO Acct: [id number] Dis Date: Status: REG ER PHONE #: [phone] Exam Date: 09/19/2018 1540 FAX #: Reason: rlq pain EXAMS: CPT: [id number] CT ABD PELVIS W/CONT 82019 <C ontinued> at 1554 Reported and signed by: Kj Mc M.D. CC: Geraldo Atwood DO; Keturah ALMODOVAR Technologist:Dulce Maria Nelson, RT(R); ... CTDI: DLP: Trnscb Date/Time: 09/19/2018 (5964) t.[email or web address].[email or web address] Orig Print D/T: S: 09/19/2018 (4225) PAGE 2 Signed ReportUA RFLX MICR CULT [...] CLEAN CATCHIndication for culture: Suprapubic PainBASIC METABOLIC [id number] 14:33:00 Test Item Value Reference Range Interpretation [...] CA) 8.7 MG/DL 8.5-10.1 N HEPATIC FUNCTION [id number] 14:33:00 Test Item Value Reference Range Interpretation [...] 54 Unit/L 45-117 N code = ALKP) [id number] 14:33:00 Test Item Value Reference Range Interpretation Comments LIPASE (test code = LIP) 66 Unit/L 114-286 L CBC W/AUTO [id number] 14:09:00 Test Item Value Reference Range Interpretation [...] CRITERIA MDIFF) UA RFLX MICR CULT IF [id number] 14:03:00 Test Item Value Reference Range Interpretation [...]
[2020-09-16] MEDS ORDERED: HYDROCODONE/APAP 5/325 MG TAB ONE ×2 (21:55→22:53)
--- NOTE | 2020-09-16 22:00 | RAD REPORT ---
EXAM DESCRIPTION: RAD - Ankle Left 3 View - 09/16/2020 9:54 pm CLINICAL HISTORY: PAIN COMPARISON: <Comparisons> FINDINGS: No acute fracture or dislocation seen.
--- NOTE | 2020-09-16 22:29 | EDPHYS ---
Physician Documentation [facility] Name: Mica Diaz Age: 40 yrs Sex: Female : 1980 Arrival Date: 09/16/2020 Time: 20:06 Bed 18 Private MD: ED Physician Jayesh Douglas HPI: 09/16 21:20 This 40 yrs old Black Female presents to ER via Wheelchair with complaints of Ankle pkl Injury. 21:20 The patient presents with an injury, pain, that is acute. The complaints affect the pkl left ankle. Onset: The symptoms/episode began/occurred just prior to arrival. Context: resulted from the patient tripping, on the stairs. Associated signs and symptoms: The patient has no apparent associated signs or symptoms. 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 - Social history:: Smoking status: Patient denies any tobacco usage or history of. ROS: 21:20 Eyes: Negative for injury, pain, redness, and discharge, ENT: Negative for injury, pkl pain, and discharge, Neck: Negative for injury, pain, and swelling, Cardiovascular: Negative for chest pain, palpitations, and edema, Respiratory: Negative for shortness of breath, cough, wheezing, and pleuritic chest pain, Abdomen/GI: Negative for abdominal pain, nausea, vomiting, diarrhea, and constipation, Back: Negative for injury and pain, : Negative for injury, bleeding, discharge, and swelling, Skin: Negative for injury, rash, and discoloration, Neuro: Negative for headache, weakness, numbness, tingling, and seizure. Exam: 21:20 Head/Face: Normocephalic, atraumatic. Eyes: Pupils equal round and reactive to light, pkl extra-ocular motions intact. Lids and lashes normal. Conjunctiva and sclera are non-icteric and not injected. Cornea within normal limits. Periorbital areas with no swelling, redness, or edema. ENT: Nares patent. No nasal discharge, no septal abnormalities noted. Tympanic membranes are normal and external auditory canals are clear. Oropharynx with no redness, swelling, or masses, exudates, or evidence of obstruction, uvula midline. Mucous membranes moist. Neck: Trachea midline, no thyromegaly or masses palpated, and no cervical lymphadenopathy. Supple, full range of motion without nuchal rigidity, or vertebral point tenderness. No Meningismus. Chest/axilla: Normal chest wall appearance and motion. Nontender with no deformity. No lesions are appreciated. Cardiovascular: Regular rate and rhythm with a normal S1 and S2. No gallops, murmurs, or rubs. Normal PMI, no JVD. No pulse deficits. Respiratory: Lungs have equal breath sounds bilaterally, clear to auscultation and percussion. No rales, rhonchi or wheezes noted. No increased work of breathing, no retractions or nasal flaring. Abdomen/GI: Soft, non-tender, with normal bowel sounds. No distension or tympany. No guarding or rebound. No evidence of tenderness throughout. Back: No spinal tenderness. No costovertebral tenderness. Full range of motion. Skin: Warm, dry with normal turgor. Normal color with no rashes, no lesions, and no evidence of cellulitis. Neuro: Awake and alert, GCS 15, oriented to person, place, time, and situation. Cranial nerves II-XII grossly intact. Motor strength 5/5 in all extremities. Sensory grossly intact. Cerebellar exam normal. Normal gait. 21:22 Musculoskeletal/extremity: Extremities: grossly normal except: noted in the left [facility] ankle: pain, tenderness. Vital Signs: 20:46 BP 110 / 72; Pulse 84; Resp 15; Temp 98.5; Pulse Ox 95% on R/A; Weight 79.83 kg; Height em 5 ft. 8 in. (172.72 cm); Pain 10/10; 20:46 Body Mass Index 26.76 (79.83 kg, 172.72 cm) em Procedures: 22:26 Splinting: Splint applied to left ankle using short leg posterior spliant. applied by [facility] tech. Examined by me, post splint application: neurovascular intact, 2+ distal pulses palpable, brisk capillary refill noted, Patient tolerated well. MDM: 21:16 Patient medically screened. [facility] 22:26 Data reviewed: vital signs, nurses notes. [facility] 09/16 20:49 Order name: Ankle Left 3 View XRAY; Complete Time: 22:26 em 09/16 22:39 Order name: Splint - Ankle: Posterior pkl 09/16 22:39 Order name: Crutches pkl Administered Medications: 21:35 Drug: HYDROcodone-acetaminophen 5 mg-325 mg 1 tabs Route: PO; ak2 22:27 Follow up: Response: No adverse reaction; Pain is unchanged, physician notified zb 22:30 Drug: HYDROcodone-acetaminophen 5 mg-325 mg 1 tabs {Note: RASS +1.} Route: PO; zb 22:54 Follow up: Response: No adverse reaction; No change in condition; Pain is decreased; zb RASS: Alert and Calm (0) Disposition Summary: 09/16/20 22:28 Discharge Ordered Location: Home pkl Problem: new pkl Symptoms: have improved pkl Condition: Stable pkl Diagnosis - Sprain left ankle pkl Followup: pkl - With: Yuriy Jordan MD - When: 2 - 3 days - Reason: Re-evaluation by your physician Discharge Instructions: - Discharge Summary Sheet pkl Forms: - Medication Reconciliation Form pkl - Thank You Letter pkl - Antibiotic Education pkl - Prescription Opioid Use pkl Signatures: Dispatcher [employer] Jayesh Martin MD MD pkNabor Doyle RN RN Mariola Palacios RN RN Esa Vick ak2
--- NOTE | 2020-09-16 22:29 | ER ---
Nurse's Notes [facility] Name: Mica iDaz Age: 40 yrs Sex: Female : 1980 Arrival Date: 09/16/2020 Time: 20:06 Bed 18 Private MD: Diagnosis: Sprain left ankle Presentation: 09/16 20:46 Chief complaint: Patient states: left ankle pain after tripping on the stairs, denies em other injuries. Coronavirus screen: Client denies travel out of the [place] in the last 14 days. Ebola Screen: Patient negative for fever greater than or equal to 101.5 degrees Fahrenheit, and additional compatible Ebola Virus Disease symptoms Patient denies exposure to infectious person. Patient denies travel to an Ebola-affected area in the 21 days before illness onset. No symptoms or risks identified at this time. Initial Sepsis Screen: Does the patient meet any 2 criteria? No. Patient's initial sepsis screen is negative. Does the patient have a suspected source of infection? No. Patient's initial sepsis screen is negative. Risk Assessment: Do you want to hurt yourself or someone else? Patient reports no desire to harm self or others. Onset of symptoms was September 16, 2020. 20:46 Method Of Arrival: Wheelchair em 20:46 Acuity: MOLLY 4 em Historical: - Allergies: 20:47 Aspirin; em 20:47 Ibuprofen; em 20:47 tramadol; em - PMHx: 20:47 Endometrosis; em - PSHx: 20:47 D\T\C; section; em - Immunization history:: Adult Immunizations up to date. - Social history:: Smoking status: Patient denies any tobacco usage or history of. Screenin:15 Abuse screen: Denies threats or abuse. Denies injuries from another. Nutritional zb screening: No deficits noted. Tuberculosis screening: No symptoms or risk factors identified. Fall Risk None identified. Assessment: 22:15 General: Appears uncomfortable, Behavior is crying, fussy. Pain: Complains of pain in zb left foot Pain radiates to left calf Pain currently is 10 out of 10 on a pain scale. Quality of pain is described as aching, sharp, tender, Pain began today. Neuro: Level of Consciousness is awake, alert, obeys commands, Oriented to person, place, time, situation. Cardiovascular: Patient's skin is warm and dry. Respiratory: Airway is patent Trachea midline Respiratory effort is even, unlabored, Respiratory pattern is regular, symmetrical. Respiratory: Derm: Skin is intact, is healthy with good turgor, Skin is dry, Skin is normal, Skin temperature is warm. Musculoskeletal: Range of motion: limited in left ankle. 22:30 Reassessment: Patient appears in no apparent distress at this time. Patient and/or zb family updated on plan of care and expected duration. Pain level reassessed. Patient is alert, oriented x 3, equal unlabored respirations, skin warm/dry/pink. d/c pending splint placement. Vital Signs: 20:46 BP 110 / 72; Pulse 84; Resp 15; Temp 98.5; Pulse Ox 95% on R/A; Weight 79.83 kg; Height em 5 ft. 8 in. (172.72 cm); Pain 10/10; 20:46 Body Mass Index 26.76 (79.83 kg, 172.72 cm) em ED Course: 20:06 Patient arrived in ED. ag3 20:47 Triage completed. em 20:47 Arm band placed on. em 21:15 Jayesh Douglas MD is Attending Physician. pkl 21:41 Mariola Dodge, JEFF is Primary Nurse. zb 21:54 Ankle Left 3 View XRAY In Process Unspecified. EDMS 22:27 Yuriy Jordan MD is Referral Physician. pkl 22:55 No provider procedures requiring assistance completed. Inserted. Crutch training done. zb Orthoglass splint: slint placed. Administered Medications: 21:35 Drug: HYDROcodone-acetaminophen 5 mg-325 mg 1 tabs Route: PO; ak2 22:27 Follow up: Response: No adverse reaction; Pain is unchanged, physician notified zb 22:30 Drug: HYDROcodone-acetaminophen 5 mg-325 mg 1 tabs {Note: RASS +1.} Route: PO; zb 22:54 Follow up: Response: No adverse reaction; No change in condition; Pain is decreased; zb RASS: Alert and Calm (0) Outcome: 22:28 Discharge ordered by . pkl 22:55 Patient left the ED. zb Signatures: Dispatcher [employer] EDMS Jayesh Douglas MD MD Nabor Nelson, RN RN Delia Luz ag3 Mariola Dodge RN RN stanford Ramos, Esa ak2
[2020-09-16 23:00] VITALS: BP 110/72; TEMP 98.5; O2SAT 95
== END 2020-09-16 22:55 | disposition home or self-care (01) ==
LOC: ER 20:03
DX: S93.402A Sprain of unspecified ligament of left ankle, initial encounter (principal); W10.9XXA Fall (on) (from) unspecified stairs and steps, initial encounter; Z88.5 Allergy status to narcotic agent; Z88.6 Allergy status to analgesic agent
CPT/HCPCS: 99283

== ENCOUNTER 2021-09-07 06:19 | Emergency (ER) | payer SELFPAY ==
--- OUTSIDE RECORDS SUMMARY | 2021-09-07 06:22 | XMS REPORT | Continuity of Care Document ---
:1980 Author Organization [facility] t Address [address] [place] [address] Care Team Providers Name Role Phone Luc Garcia Attending Clinician Unavailable Physician, Primary or Family Admitting Clinician Unavailabl e Payers Payer Name Policy Type Policy Number Effective Date Expiration Date S ource Problems This patient has no known problems. Allergies, Adverse Reactions, Alerts Allergy Allergy Status Severity Reaction(s) Onset Inactive Treating Comm ents Source Name Type Date Date Clinician Pork/Por FA Active SV HIVES,THROAT HC A cine SWELLS 10-23 Clear Containi 00:00: Soria ng 00 [facility] aspirin DA Active SV THROAT [facility] SWELLS 10-23 Clear UP,HIVES 00:00: Soria 00 [facility] ibuprofe DA Active SV THROAT HCA n SWELLS,HIVES 8 Sari r 00:00: Soria 00 [facility] tramadol DA Active SV HIVES H[facility] 8 Clear 00:00: Soria 00 [facility] Pork/Por DA Active SV [facility] cine 8 [place] Containi 00:00: d ng 00 Medical [facility] Pork/Por FA Active SV [facility] cine 10-23 Clear Containi 00:00: Soria ng 00 [facility] aspirin DA Active SV [facility] 8 Clear 00:00: Soria 00 [facility] ibuprofe DA Active SV HCA n 8-09 Clear 00:00: Soria 00 [facility] tramadol DA Active SV HCA 8 Clear 00:00: Soria [facility] Medications This patient has no known medications. Procedures This patient has no known procedures. Encounters Start End Encounter Admission Attending Care Care Encounter Source Date/Time Date/Time Type Type Clinicians Facility Department ID 2019-08-30 Inpatient HCAPM BRENNA [id number] [facility] 14:50:00 [id number] [facility] 2019-08-30 2019-08-30 Outpatient CHEVY Garcia LABO [id number] [facility] 23:43:00 23:43:00 [facility] [id number] [facility] Results Test Description Test Time Test Comments Results Result Comments Source TSH, THIRD GENERATION 2021-08-21 06:02:47 Test Item Value Reference Range Interpretation Comme nts TSH, THIRD GENERATION (test code = 2821) 3.730 UIU/ML 0.400-4.100 FREE T4 (THYROXINE)2021-08-21 06:02:47 Test Item Value Reference Range Interpretation Comments FREE T4 (THYROXINE) (test code = 0.66 NG/DL 0.80-1.90 L 2823) FREE [id number] 06:02:47 Test Item Value Reference Range Interpretation Comments FREE T3 (test code 2.2 PG/ML 2.2-4.2 UN LESS OTHERWISE = 4273) INDICATED, ALL TESTING PERFORMED [facility] [address] [place], [place] [address] LABORATORY DIRE CTOR: Basilia WATERS CLIA NUMBER [id number] [place] [id number] TSH, THIRD [id number] 06:38:12 Test Item Value Reference Range Interpretation Comments TSH, THIRD 8.550 UIU/ML 0.400-4.100 H UNLESS GENERATION (test OTHERWISE I NDICATED, code = 2821) ALL TESTING PER FORMED [facility] [place] [address] [place] [address] LABORATORY DIRE CTOR: DONTE LOPEZ M.D. CLIA NUMBER [id number] [place] O. [id number] COMPREHENSIVE METABOLIC [id number] 04:17:47 Test Item Value Reference Range Interpretation Comments GLUCOSE (test code = 75 MG/DL 70-99 2216) BUN (test code = 6 MG/DL 6-20 2207) CREATININE (test 0.90 MG/DL 0.60-1.30 code = 221) eGFR (2020 CKD-EPI) 84 ML/MIN/1.73 >60 (test code = 12983) CALC BUN/CREAT (test 7 RATIO 6-28 code = 223) SODIUM (test code = 140 MEQ/L 279-334 7766) POTASSIUM (test code 3.9 MEQ/L 3.5-5.4 = 2227) CHLORIDE (test code 103 MEQ/L 95-107 = 2214) CARBON DIOXIDE (test 21 MEQ/L 19-31 code = 2205) CALCIUM (test code = 9.3 MG/DL 8.5-10.5 2208) PROTEIN, TOTAL (test 7.8 G/DL 6.1-8.3 code = 2228) ALBUMIN (test code = 4.4 G/DL 3.5-5.2 2200) CALC GLOBULIN (test 3.4 G/DL 1.9-3.7 code = 2239) CALC A/G RATIO (test 1.3 RATIO 1.0-2.6 code = 2233) BILIRUBIN, TOTAL 0.3 MG/DL See_Comment [Automated message] (test code = 220) The syste m which generated this result transmit keturah reference range : <=1.2. The refe rence range was not u sed to interpret th is result as normal/abnormal . ALKALINE PHOSPHATASE 63 U/L 40-112 (test code = 2203) AST (test code = 22 U/L 9-40 2217) ALT (test code = 14 U/L 5-40 2218) LIPID [id number] 04:17:47 Test Item Value Reference Range Interpretation Comments CHOLESTEROL (test 189 MG/DL <200 code = 2210) TRIGLYCERIDES (test 60 MG/DL <150 code = 2232) HDL CHOLESTEROL (test 71 MG/DL >39 code = 2220) CALC LDL CHOL (test 103 MG/DL <100 H NOTE: C ALCULATED LDL code = 2237) IS BASED ON LAZARUS-ZIMMERMAN METHOD WHICHINCLUDES ADJUSTABLE TRIGLYCERIDE:VL DL CHOLESTEROL RAT IO.THIS FACTOR VARIES B Y MEASURED TRIGLY CERIDE AND NON-HDLCHOL ESTEROL CONCENTRATIONS WITH INCREASED CALCU LATED LDL SEENIN HIGH ER TRIGLYCERIDE OR LOWER NON-HDL SPECIME NS. FOR MOREINFORMATION , SEE CLIENT ANNOUNCE MENT AT [email or web address] RISK RATIO LDL/HDL 1.45 RATIO <3.22 (test code = 2238) HEPATITIS PANEL, [id number] 03:51:01 Test Item Value Reference Range Interpretation Comments HEPATITIS A IgM (test NON-REACTIVE NON-REACTIVE code = 50649) HEPATITIS B CORE IgM NON-REACTIVE NON-REACTIVE (test code = 4644) HEPATITIS B SURF AG NON-REACTIVE NON-REACTIVE (test code = 2739) HEPATITIS C ANTIBODY NON-REACTIVE NON-REACTIVE (test code = 4675) INTERPRETATION (NOTE) Hepatiti s A HEPATITIS A: (test code sero logy shows no = 2552) evidence of acu te hepatitis A. INTERPRETATION (NOTE) Hepatiti s B HEPATITIS B: (test code sero logy shows no = 20962) evidence of acu te hepatitis B and no indication of exposure to hepatitis B vir us in the previous jose francisco eight months. INTERPRETATION (NOTE) Hepatiti s C HEPATITIS C: (test code sero logy shows no = 30923) evidence of exposure to hepatitisC viru s at this time. It can take up to 12 months after exposure tothe hepatitis C vir us for antibodies to become detectab le in the bloo d in certain patients. HIV 1/2 4TH GEN, RFLX [id number] 03:51:01 Test Item Value Reference Range Interpretation Comments HIV 1/2 4TH GEN, NON-REACTIVE NON-REACTIVE UNLE SS OTHERWISE RFLX CONF (test INDICATED, A LL TESTING code = 3514) PERFORMED [facility] [employer] [employer] [address] [place] [address], [place] [address] LABORATORY DIRE CTOR: DONTE LOPEZ M.D. CLIA NUMBER [id number] [place] [id number] CBC W/AUTO DIFF WITH [id number] 03:36:48 Test Item Value Reference Range Interpretation Comments WBC (test code = 4.5 K/UL 3.5-11.0 1001) RBC (test code = 3.63 M/UL 3.80-5.40 L 1002) HEMOGLOBIN (test code 11.8 G/DL 11.5-15.5 = 1003) HEMATOCRIT (test code 34.6 % 34.0-45.0 = 1004) MCV (test code = 95.3 fL 80.0-99.0 1005) MCH (test code = 32.5 PG 25.0-33.0 1006) MCHC (test code = 34.1 G/DL 31.0-36.0 1007) RDW (test code = 13.3 % 11.5-15.0 1038) NEUTROPHILS (test 37.4 % code = 1008) LYMPHOCYTES (test 49.2 % code = 1010) MONOCYTES (test code 9.5 % = 1011) EOSINOPHILS (test 2.4 % code = 1012) BASOPHILS (test code 1.3 % = 1013) IMMATURE GRANULOCYTES 0.2 % (test code = 1036) NUCLEATED RBCS (test 0.0 /100 See_Comment [Autom ated code = 1065) WBC'S message] The sy stem which generated this result transmitted reference range : 0.0. The refere nce range was not u sed to interpret th is result as normal/abnormal . PLATELET COUNT (test 245 K/UL 130-400 code = 1015) ABSOLUTE NEUTROPHILS 1.68 K/UL 1.50-7.50 (test code = 1066) ABSOLUTE LYMPHOCYTES 2.22 K/UL 1.00-4.00 (test code = 1067) ABSOLUTE MONOCYTES 0.43 K/UL 0.20-1.00 (test code = 1068) ABSOLUTE EOSINOPHILS 0.11 K/UL 0.00-0.50 (test code = 1040) ABSOLUTE BASOPHILS 0.06 K/UL 0.00-0.20 (test code = 1069) ABS IMMATURE 0.01 K/UL 0.00-0.10 GRANULOCYTES (test code = 1020) ABS NUCLEATED RBCS 0.00 K/UL 0.00-0.11 (test code = 11528) - US PELVIC [id number] 19:27:00 Name: EILEEN SANTACRUZ [facility] : 1980 Age/S: 39 / F [address] Unit #: [id number] Loc: [place] [address] Phys: Lashell Garcia MD Acct: [id number] Dis Date: Status: REG ER PHONE #: [phone] Exam Date: 08/30/20191907 FAX #: Reason: PELVIC PAIN EXAMS: CPT: [id number] US PELVIC COMPLETE 18901 Location: L11 EXAM: - US PELVIC COMPLETE, - US TRANSVAGINAL NON OB DATE: 08/30/2019 6:31 PM INDICATION: Pelvic pain COMPARISON: None. TECHNIQUE: Multiplanar grayscale and color Doppler ultrasound of the pelvis were obtained: Transabdominal ly through a distended urinary bladder. Transvaginally postvoid. [...] (CONTINUED) Name: EILEEN SANTACRUZ [facility] : 1980 Age/S: 39 / F [address] [facility] [place] Unit #: [id number] Loc: [place] [address] Phys: Lashell Garcia MD Acct: [id number] Dis Date: Status: REG ER PHONE #: [phone] Exam Date: 08/30/20191907 FAX #: Reason: PELVIC PAIN EXAMS: CPT: [id number] US PELVIC COMPLETE 32309 <Continued> at 1927 Reported and signed by: Walt Londono M.D. CC: Lashell Garcia MD Technologist: Becca Rodriguez [facility] Date/Time: 08/30/2019 (1926) [email or web address] PAGE 2 Signed Report Name: EILEEN SANTACRUZ : 1980 Age/S: 39 / F [address] Unit #: [id number] Loc: [place] [address] Phys: Lashell Garcia MD Acct: [id number] Dis Date: Status: REG ER PHONE #: [phone] Exam Date: 08/30/20191907 FAX #: Reason: PELVIC PAIN EXAMS: CPT: [id number] US PELVIC COMPLETE 83852 <Continued> Orig Print D/T: S: 08/30/2019 (1929) Probe: PAGE 3 Signed Report- US TRANSVAGINAL NON [id number] 19:27:00 [place] : 1980 Age/S: 39 / F [address] Unit #: [id number] Loc: [place] [address] Phys: Lashell Garcia MD Acct: [id number] Dis Date: Status: REG ER PHONE #: [phone] Exam Date: 08/30/20191907 FAX #: Reason: pelvic pain EXAMS: CPT: [id number] [place] [address] Location: L11 EXAM: - US PELVIC COMPLETE, [...] 1 Signed Report (CONTINUED) Name: EILEEN SANTACRUZ [place] : 1980 Age/S: 39 / F [address] Unit #: [id number] Loc: [place] [address] Phys: Lashell Garcia MD Acct: [id number] Dis Date: Status: REG ER PHONE #: [phone] Exam Date: 08/30/20191907 FAX #: Reason: pelvic pain EXAMS: CPT: [id number] US TRANSVAGINAL NONOB 46293 <Continued> at 1927 Reported and signed by: Walt Londono M.D. CC: Cordelia Rowe FLOWER ARRANGER; Lashell Garcia MD Technologist: Becca Rodriguez [facility] Date/Time: 08/30/2019 (1926) [email or web address] PAGE 2 Signed Report Name: [facility] [place] [facility] 1980 Age/S: 39 / F [address] Unit #: [id number] Loc: [place] [address] Phys: Lashell Garcia MD Acct: [id number] Dis Date: Status: REG ER PHONE #: [phone] Exam Date: 08/30/20191907 FAX #: Reason: pelvic pain EXAMS: CPT: [id number] [place] [address] <Continued> Orig Print D/T: S: 08/30/2019 (1929) Probe: [id number] PAGE 3 Signed Report- XR CHEST 1 [id number] 17:51:00 Name: [facility] [place] [facility] 1980 Age/S: 39 / F [address] Unit #: [id number] Loc: [place] [address] Phys: Lashell Garcia MD Acct: [id number] Dis Date: Status: REG ER PHONE #: [phone] Exam Date: 08/30/2019 1738 FAX #: Reason: Suspected Sepsis EXAMS: CPT: [id number] XR CHEST 1 V 82959 Fluoro Time: DAP (Gy m2): Air Kerma [...] by: Peter Greer M.D. CC: Cordelia Rowe FLOWER ARRANGER; Lashell Garcia MD PAGE1 Signed Report Name: EILEEN SANTACRUZ [facility] : 1980 Age/S: 39 / F [address] Unit #: [id number] Loc: [place] [address] Phys: Lashell Garcia MD Acct: [id number] Dis Date: Status: REG ER PHONE #: [phone] Exam Date: 08/30/2019 1738 FAX #: Reason: Suspected Sepsis EXAMS: CPT: [id number] XR CHEST 1 V 96659 Fluoro Time: DAP (Gy m2): Air Ker ma (mGy): <Continued> Technologist: Argenis Beebe RT(R)(CT)(MRI) Trnscb Date/Time: 08/30/2019 (1750) [email or web address] Orig Print D/T: S: 08/30/2019 (1754) PAGE 2 Signed Report- CT ABD PELVIS [id number] 17:49:00 Name: EILEEN SANTACRUZ [facility] : 1980 Age/S: 39 / F [address] Unit #: [id number] Loc: [place] [address] Phys: Lashell Garcia MD Acct: [id number] Dis Date: Status: REG ER PHONE #: [phone] Exam Date: 08/30/2019 FAX #: Reason: RLQ pain EXAMS: CPT: [id number] CT ABD PELVIS W/CONT 78516 EXAM: - CTABD PELVIS W/CONT LOCATION: H61 CLINICAL HISTORY/INDICATION: RLQ [...] not dilated. No bowel wall thickening. Terminal ileumis unremarkable. The appendix is visualized and appears normal. The cecum is unremarkable. GENITOURINARY ORGANS: Normal CT appearance of the uterus. No cystic adnexal mass. PAGE 1 Signed Report (CONTINUED) Name: EILEEN SANTACRUZ [facility] : 1980 Age/S: 39 / F [address] [facility] Unit #: [id number] Loc: [place], [place] [address]Vhqp: Lashell Garcia MD Acct: [id number] Dis Date: Status: REG ER PHONE #: [phone] Exam Date: 08/30/2019 1739 FAX #: Reason: RLQ pain EXAMS: CPT: [id number] CT ABD PELVIS W/CONT 71195 <Continued> PELVIC FREE FLUID/FLUID COLLECTION: None. URINARY BLADDER: Unremarkable. EXTERNAL SOFT TISSUE: No abnormalities. BONES: Regional osseous structures are intact. IMPRESSION: 1. No acute findings demonstrated in the abdomen and pelvis. 2. Normal appendix. 3. Cholecystectomy. at 1749 Reported and signed by: Hector Whitaker M.D. CC: Cordelia Rowe FLOWER ARRANGER; Lashell Garcia MD Technologist:Argenis Beebe, RT(R)(CT)(MRI) CTDI: DLP: Trnscb Date/Time: 08/30/2019 (1748) [email or web address] Orig Print D/T: S: 08/30/2019 (137) PAGE 2 Signed ReportUA RFLX MICR CULT IF [id number] 17:09:00 Test Item Value Reference Range Interpretation Comments UA COLOR (test code = PEACH discript YEL/STRAW A COLU) UA APPEARANCE (test code CLEAR discript CLEAR = APPU) UA GLUCOSE DIPSTICK (test NEGATIVE mg/dL NEG code = DGLUU) UA BILIRUBIN DIPSTICK NEGATIVE mg/dL NEG (test code = BILU) UA KETONE DIPSTICK (test NEGATIVE mg/dL NEG code = KETU) UA SPECIFIC GRAVITY (test <=1.005 SG 1.005-1.030 code = SGU) UA BLOOD DIPSTICK (test 3+ mg/DL NEG A code = FERCHO) UA PH DIPSTICK (test code 7.0 pH UNITS 5.0-7.0 = EFRA) UA PROTEIN DIPSTICK (test 1+ mg/dL NEG A code = PROU) UA UROBILINIOGEN DIPSTICK 0.2 mg/dL <2.0 (test code = URO) UA NITRITE DIPSTICK (test NEGATIVE SCREEN NEG code = IVONNE) UA LEUKOCYTE ESTERASE TRACE Leuk/mcL NEGATIVE A DIPSTICK (test code = LEUU) UA WBC (test code = WBCU) 0-1 #WBC/HPF 0-3 UA RBC (test code = RBCU) 20-30 #RBC/HPF 0-3 A UA BACTERIA (test code = TRACE /HPF NONE-TRACE BACU) UA SQUAMOUS CELLS (test NONE SEEN /HPF NONE code = SQU) UA CULTURE NEEDED? (test NO, WBC<10 Criteria Culture CHK code = UACULT) SOURCE OF URINE: CLEAN CATCHIndication for culture: Flank PainUR HCG QUAL 2019-08-30 17:09:00 Test Item Value Reference Range Interpretation Comments UR HCG QUAL (test code = HCGQLU) NEGATIVE NEGATIVE SOURCE OF URINE: CLEAN CATCHIndication for culture: Flank PainUA RFLX MICR CULT IF [id number] 16:47:00 Test Item Value Reference Range Interpretation [...] LACT) 0.7 mmol/L 0.4-2.0 N COMPREHENSIVE METABOLIC [id number] 16:28:00 Test Item Value Reference Range Interpretation [...] (test code = ALKP) Completed by Nursing: [id number] 16:28:00 Test Item Value Reference Range Interpretation Comments LIPASE (test code = LIP) 91 Unit/L 114-286 L Completed by Nursing: [id number] 16:28:00 Test Item Value Reference Range Interpretation [...] yby method. Completed by Nursing: NOCBC W/AUTO [id number] 16:13:00 Test Item Value Reference Range Interpretation [...] DIFF/SCN CRITERIA = MDIFF) DNA PROBE CHLAMYDIA [id number] 06:10:00 Test Item Value Reference Range Interpretation Comments DNA PROBE CHLAMYDIA Negative Negative (test code = DNACH) DNA PROBE N.GONORRHEA Negative Negative Perfor med At: ST (GC) (test code = [facility] Sa n DNAGC) [address] [facility] [address] [place], DARÍO [id number] Mccullough MD Ph:[phone] - CT ABD PELVIS [id number] 15:54:00 Name: EILEEN SANTACRUZ [facility] : 1980 Age/S: 38 / F [address] Unit #: [id number] Loc: [place] [address] Phys: Geraldo Atwood DO Acct: [id number] Dis Date: Status: REG ER PHONE #: [phone] Exam Date: 09/19/2018 1542 FAX #: Reason: rlq pain EXAMS: CPT: [id number] CT ABD PELVIS W/CONT 37775 Exam: CT abdomen and pelvis with contrast. [...] PAGE 1 Signed Report(CONTINUED) Name: EILEEN SANTACRUZ [facility] [place] : 1980 Age/S: 38 / F [address] Unit #: [id number] Loc:[place] [address] Phys: Geraldo Atwood DO Acct: [id number] Dis Date: Status: REG ER PHONE #: [phone] Exam Date: 09/19/2018 1540 FAX #: Reason: rlq pain EXAMS: CPT: [id number] CT ABD PELVIS W/CONT 95444 <C ontinued> at 1554 Reported and signed by: Kj Mc M.D. CC: Geraldo Atwood DO; Keturah ALMODOVAR Technologist:Dulce Maria Nelson, RT(R); ... CTDI: DLP: Trnscb Date/Time: 09/19/2018 (1554) t.[email or web address].FC Orig Print D/T: S: 09/19/2018 (4740) PAGE 2 Signed ReportUA RFLX MICR CULT [...] CLEAN CATCHIndication for culture: Suprapubic PainBASIC METABOLIC [id number] 14:33:00 Test Item Value Reference Range Interpretation [...] CA) 8.7 MG/DL 8.5-10.1 N HEPATIC FUNCTION [id number] 14:33:00 Test Item Value Reference Range Interpretation [...] 54 Unit/L 45-117 N code = ALKP) [id number] 14:33:00 Test Item Value Reference Range Interpretation Comments LIPASE (test code = LIP) 66 Unit/L 114-286 L CBC W/AUTO [id number] 14:09:00 Test Item Value Reference Range Interpretation [...] CRITERIA MDIFF) UA RFLX MICR CULT IF [id number] 14:03:00 Test Item Value Reference Range Interpretation [...]
[2021-09-07] MEDS ORDERED: HYDROCODONE/APAP 10/325 TAB ONE (07:31)
[2021-09-07] MEDS ORDERED: CYCLOBENZAPRINE 10 MG TAB ONE (07:31)
[2021-09-07] MEDS ORDERED: predniSONE 10 MG TAB ONE (07:31)
--- NOTE | 2021-09-07 08:31 | RAD REPORT ---
EXAM DESCRIPTION: RAD - C Spine Ap/Lat - 09/07/2021 8:24 am CLINICAL HISTORY: Pain Neck pain, radiculopathy. COMPARISON: No comparisons FINDINGS: Cervical bodies are normal in height and alignment.No fracture or acute bony process seen. Mild disc thinning with small posterior osteophytes lower cervical levels. No prevertebral soft tissue thickening or other suspicious soft tissue finding. IMPRESSION: Mild lower cervical spondylosis.
--- NOTE | 2021-09-07 10:53 | EDPHYS ---
Physician Documentation [facility] Name: Mica Diaz Age: 41 yrs Sex: Female : 1980 Arrival Date: 09/07/2021 Time: 06:21 Bed 18 Private MD: ED Physician Delvin Martin HPI: 09/07 07:07 This 41 yrs old Black Female presents to ER via Ambulatory with complaints of Neck rn Pain, <24hrs Old, Shoulder Pain. 07:07 The patient or guardian complains of pain, that is acute. The symptoms are located on rn the left neck. Onset: The symptoms/episode began/occurred yesterday. Context: The problem was sustained outdoors, The neck injury/problem resulted from swimming and throwing kids in water. Associated signs and symptoms: Pertinent positives: This patient does not have any pertinent positive signs or symptoms associated with neck pain. Pertinent negatives: fever, headache, bladder incontinence, bowel incontinence, weakness. The pain radiates to the left arm. Modifying factors: The symptoms are alleviated by nothing. the symptoms are aggravated by movement. Severity of symptoms: At their worst the symptoms were moderate, in the emergency department the symptoms are unchanged. The patient has not experienced similar symptoms in the past. The patient has not recently seen a physician. Pt reports neck pain, left side, radiates down left arm, was swimming yesterday, felt "heavy" in pool and tired, increased pain with movement of left arm. No direct trauma, but states throwing kids and lifting them in pool. NO previous neck injury. No other injury or pain. No chest pain. . 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 - Social history:: Smoking status: Patient reports the use of cigarette tobacco products, denies chronic smoking, but will smoke occasionally. - Family history:: not pertinent. - Hospitalizations: : No recent hospitalization is reported. ROS: 07:07 Constitutional: Negative for fever, chills, and weight loss, Eyes: Negative for injury, rn pain, redness, and discharge, Neck: + left neck pain Cardiovascular: Negative for chest pain, palpitations, and edema, Respiratory: Negative for shortness of breath, cough, wheezing, and pleuritic chest pain, Abdomen/GI: Negative for abdominal pain, nausea, vomiting, diarrhea, and constipation, Back: Negative for injury and pain, MS/Extremity: Negative for injury and deformity, Skin: Negative for injury, rash, and discoloration, Neuro: Negative for headache, weakness, numbness, tingling, and seizure. Exam: 07:07 Constitutional: This is a well developed, well nourished patient who is awake, alert, rn tearful Head/Face: Normocephalic, atraumatic. Neck: Trachea midline, no masses palpated. Supple, full range of motion without nuchal rigidity, or vertebral point tenderness. No Meningismus. Chest/axilla: Normal chest wall appearance and motion. Nontender with no deformity. No lesions are appreciated. Cardiovascular: Regular rate and rhythm. No pulse deficits. Respiratory: No increased work of breathing, no retractions or nasal flaring. Abdomen/GI: Soft, non-tender Skin: Warm, dry with normal turgor. Normal color with no rashes, no lesions, and no evidence of cellulitis. MS/ Extremity: Pulses equal, no cyanosis. Neurovascular intact. Painful ROM left shoulder Neuro: Awake and alert, GCS 15, oriented to person, place, time, and situation. Cranial nerves II-XII grossly intact. Motor strength 5/5 in all extremities. Sensory grossly intact. Cerebellar exam normal. Normal gait. Vital Signs: 06:48 BP 131 / 74; Pulse 83; Resp 18; Temp 97.3(TE); Pulse Ox 100% on R/A; Weight 81.65 kg ll3 (R); Height 5 ft. 8 in. (172.72 cm) (R); Pain 10/10; 07:15 Pain 10/; jg9 08:30 BP 128 / 82; Pulse 76; Resp 17; Pulse Ox 99% on R/A; Pain 8/10; jg9 11:08 BP 129 / 96; Pulse 73; Resp 20; Pulse Ox 100% on R/A; Pain 9/10; jg9 06:48 Body Mass Index 27.37 (81.65 kg, 172.72 cm) ll3 MDM: 06:57 Patient medically screened. rn 10:51 Differential diagnosis: C-Spine Fracture Cervical Disc Herniation cervical strain. Data rn reviewed: vital signs, nurses notes, lab test result(s), radiologic studies, plain films, and as a result, I will discharge patient. Counseling: I had a detailed discussion with the patient and/or guardian regarding: the historical points, exam findings, and any diagnostic results supporting the discharge/admit diagnosis, lab results, radiology results, the need for outpatient follow up, to return to the emergency department if symptoms worsen or persist or if there are any questions or concerns that arise at home. Response to treatment: the patient's symptoms have mildly improved after treatment, and as a result, I will discharge patient. Special discussion: I discussed with the patient/guardian in detail that at this point there is no indication for admission to the hospital. It is understood, however, that if the symptoms persist or worsen the patient needs to return immediately for re-evaluation. 09/07 07:07 Order name: SARS-COV-2 RT PCR (Document "Date of Onset" if Symptomatic); Complete Time: rn 10:46 09/07 07:07 Order name: XRAY C Spine Ap/lat; Complete Time: 08:33 rn Administered Medications: 07:31 Drug: predniSONE 60 mg Route: PO; jg9 09:09 Follow up: Response: No adverse reaction; Pain is unchanged, physician notified jg9 07:32 Drug: Hydrocodone-Acetaminophen (10 mg-650 mg) 1 tabs Route: PO; jg9 09:08 Follow up: Response: No adverse reaction; Pain is unchanged, physician notified jg9 07:32 Drug: Flexeril (cyclobenzaprine) 10 mg Route: PO; jg9 09:08 Follow up: Response: No adverse reaction; Pain is unchanged, physician notified jg9 11:06 Drug: morphine 4 mg Route: IM; Site: left deltoid; jg9 11:07 Follow up: Response: No adverse reaction; Medication administered at discharge. 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
--- NOTE | 2021-09-07 10:53 | ER ---
Nurse's Notes [facility] Name: Mica Diaz Age: 41 yrs Sex: Female : 1980 Arrival Date: 09/07/2021 Time: 06:21 Bed 18 Private MD: Diagnosis: Strain of muscle, fascia and tendon at neck level, initial encounter Presentation: 09/07 06:48 Chief complaint: Patient states: Went swimming yesterday, woke up this morning with ll3 severe pain in neck, back, and shoulder, states pain is 10/10. Coronavirus screen: Vaccine status: Patient reports receiving the 2nd dose of the covid vaccine. At this time, the client does not indicate any symptoms associated with coronavirus-19. Ebola Screen: No symptoms or risks identified at this time. Initial Sepsis Screen: Does the patient meet any 2 criteria? No. Patient's initial sepsis screen is negative. Does the patient have a suspected source of infection? No. Patient's initial sepsis screen is negative. Risk Assessment: Do you want to hurt yourself or someone else? Patient reports no desire to harm self or others. Onset of symptoms was September 07, 2021. 06:48 Method Of Arrival: Ambulatory ll3 06:48 Acuity: MOLLY 3 ll3 Triage Assessment: 06:53 General: Appears uncomfortable, Behavior is crying. Pain: Complains of pain in Neck, ll3 Back, Shoulder Pain currently is 10 out of 10 on a pain scale. Is continuous, Aggravated by increased activity, repositioning, Coughing Noted to be crying. Neuro: Level of Consciousness is awake, alert, obeys commands, Oriented to person, place, time, situation. Respiratory: Respiratory effort is even, unlabored, Respiratory pattern is regular, symmetrical. Derm: Skin is pink, warm \\T\\ dry. Musculoskeletal: Circulation, motion, and sensation intact. 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 - Social history:: Smoking status: Patient reports the use of cigarette tobacco products, denies chronic smoking, but will smoke occasionally. - Family history:: not pertinent. - Hospitalizations: : No recent hospitalization is reported. Screenin:57 Abuse screen: Denies injuries from another. Nutritional screening: On. Tuberculosis ll3 screening: No symptoms or risk factors identified. 07:33 Fall Risk None identified. jg9 Assessment: 07:32 Reassessment: No changes from previously documented assessment. Patient and/or family jg9 updated on plan of care and expected duration. Pain level reassessed. Patient is alert, oriented x 3, equal unlabored respirations, skin warm/dry/pink. Patient sitting up in bed wincing in pain c/o left neck/shoulder area discomfort 10/10. Vital Signs: 06:48 BP 131 / 74; Pulse 83; Resp 18; Temp 97.3(TE); Pulse Ox 100% on R/A; Weight 81.65 kg ll3 (R); Height 5 ft. 8 in. (172.72 cm) (R); Pain 10/10; 07:15 Pain 10/10; jg9 08:30 BP 128 / 82; Pulse 76; Resp 17; Pulse Ox 99% on R/A; Pain 8/10; jg9 11:08 BP 129 / 96; Pulse 73; Resp 20; Pulse Ox 100% on R/A; Pain 9/10; jg9 06:48 Body Mass Index 27.37 (81.65 kg, 172.72 cm) ll3 ED Course: 06:21 Patient arrived in ED. as 06:53 Triage completed. ll3 06:53 Arm band placed on Patient placed in an exam room, on a stretcher, on pulse oximetry. ll3 06:57 Delvin Martin MD is Attending Physician. rn 06:57 Patient has correct armband on for positive identification. Bed in low position. Call 3 light in reach. Side rails up X 1. Adult w/ patient. 07:23 Cecelia Kumar, JEFF is Primary Nurse. jg9 08:23 X-ray completed. Patient tolerated procedure well. mh1 08:26 XRAY C Spine Ap/lat In Process Unspecified. EDMS 09:08 SARS-COV-2 RT PCR (Document "Date of Onset" if Symptomatic) Sent. jg9 11:09 No provider procedures requiring assistance completed. jg9 11:09 Patient did not have IV access during this emergency room visit. jg9 Administered Medications: 07:31 Drug: predniSONE 60 mg Route: PO; jg9 09:09 Follow up: Response: No adverse reaction; Pain is unchanged, physician notified jg9 07:32 Drug: Hydrocodone-Acetaminophen (10 mg-650 mg) 1 tabs Route: PO; jg9 09:08 Follow up: Response: No adverse reaction; Pain is unchanged, physician notified jg9 07:32 Drug: Flexeril (cyclobenzaprine) 10 mg Route: PO; jg9 09:08 Follow up: Response: No adverse reaction; Pain is unchanged, physician notified jg9 11:06 Drug: morphine 4 mg Route: IM; Site: left deltoid; jg 11:07 Follow up: Response: No adverse reaction; Medication administered at discharge. jg9 Medication: 11:09 VIS not applicable for this client. jg9 Outcome: 10:52 Discharge ordered by . rn 11:09 Discharged to home ambulatory. jg9 11:09 Condition: stable 11:09 Discharge instructions given to patient, Instructed on discharge instructions, follow up and referral plans. Demonstrated understanding of instructions, follow-up care, Prescriptions given X 2. 11:18 Patient left the ED. jg9 Signatures: Dispatcher [employer] EDAzucena Lewis 1 Annel Luna Roman, MD MD rn Loubet, Lynsea, RN RN ll3 Cecelia Kumar RN RN jg9
[2021-09-07] MEDS ORDERED: MORPHINE 4 MG/ML SYR ONE (11:10)
[2021-09-07 11:23] VITALS: TEMP 97.3; O2SAT 100
[2021-09-07 11:38] VITALS: BP 129/96
== END 2021-09-07 11:18 | disposition home or self-care (01) ==
LOC: ER 06:19
DX: S16.1XXA Strain of muscle, fascia and tendon at neck level, initial encounter (principal); F17.210 Nicotine dependence, cigarettes, uncomplicated; Z20.822 Contact with and (suspected) exposure to COVID-19; Z88.5 Allergy status to narcotic agent; Z88.6 Allergy status to analgesic agent
CPT/HCPCS: 72040; 96372; 99284; J7512; U0003

== ENCOUNTER 2023-02-08 17:03 | Emergency (ER) | payer SELFPAY ==
--- OUTSIDE RECORDS SUMMARY | 2023-02-08 17:16 | XMS REPORT | Continuity of Care Document ---
:1980 Author Organization [facility] t Address [address] [facility] [address] [place] [address] Care Team Providers Name Role Phone MARINA GARCIA Primary Care Physician Unavailable MARINA GARCIA Attending Clinician Unavailable [email or web address] Attending Clinician Unavailable Marina Roberto Attending Clinician IFEOMA PAINTING Attending Clinician Unavailable Larry Hannon Rmchp Rgv Cprit Obgyn Attending Clinician Unavail able Ifeoma Eddy Attending Clinician [phone] Doctor Unassigned, [place] Attending Clinician Unavailable MARINA JENKINS Attending Clinician Unavailable CRISTIANO LUCIO Attending Clinician Unavailable CRISTIANO LUCIO Attending Clinician Unavailable Cristiano Lucio MD Attending Clinician JAYNA LOPEZ Attending Clinician Unavailable Jayna Lopez CNM Attending Clinician 2, [facility] Attending Clinician Unavailable NEIDA DEMARCO Attending Clinician Unavailable Nurse, [facility] Attending Clinician Unavailable Nilam SANCHEZ, Neida Miles Attending Clinician Visit, Ang-chp Nurse Attending Clinician Unavailable AIDEE MELÉNDEZ Attending Clinician Unavailable Aidee Meléndez MD Attending Clinician Sonja Golden Attending Clinician Cortez Fajardo MD, Peace Attending Clinician [phone] HERBER BLOUNT Attending Clinician Unavailable DOHerber Attending Clinician Duglas Cortes DO Attending Clinician CARLOS AVILES Attending Clinician Unavailable BASILIA HASSAN Attending Clinician Unavailable Risk, Pee-Ubean-Ey/High Attending Clinician Unavailable Basilia Vaughan Attending Clinician 1, [facility] Us Room Attending Clinician Unavailable PEACE FISHER Attending Clinician Unavailable GLADIS BASILIO Attending Clinician Unavailable GLADIS BASILIO Attending Clinician Unavailable Estuardo Ramachandran Attending Clinician Domitila Rincon DO Attending Clinician EbKg Higgins Attending Clinician Ultrasound, Ang-Mfm Attending Clinician Unavailable DUGLAS CORTES Attending Clinician Unavailable Dalila Harding MD Attending Clinician [phone] KG LARA Attending Clinician Unavailable CECELIA DOYLE Attending Clinician Unavailable Lab, [facility]-Rmchp Attending Clinician Unavailable Yanira MSN, Cecelia Kurtz Attending Clinician Faculty, Larry Madden Attending Clinician Unavailable NADEGE ROWE Attending Clinician Unavailable Jae SANCHEZ, Nadege Yepez Attending Clinician Arjun Tom MD Attending Clinician ARJUN TOM Attending Clinician Unavailable Jaspreet Ivey MD Attending Clinician JASPREET IVEY Attending Clinician Unavailable KSENIA VIVAR Attending Clinician Unavailable Ksenia Vivar MD Attending Clinician [phone] Lab, Ang-Rmchp Attending Clinician Unavailable Lashell Garcia Attending Clinician Unavailable Physician, No Primary or Family Admitting Clinician Unavaila ble [email or web address]_S Admitting Clinician Unavailable MARINA GARCIA Admitting Clinician Unavailable AIDEE MELÉNDEZ Admitting Clinician Unavailable HERBER BLOUNT Admitting Clinician Unavailable Peace Fisher MD Admitting Clinician [phone] PEACE FISHER Admitting Clinician Unavailable PERLA-TALBERTZUHAIRGLADIS Admitting Clinician Unavailable ORAL SURGERY, ORAL Admitting Clinician Unavailable Payers Payer Name Policy Type Policy Number Effective Date Expiration Date [facility] [id number] 2022 CHOICE [place] STAR 00:00:00 Problems Condition Condition Condition Status Onset Resolution Last Treating Co mments Source Name Details Category Date Date Treatment Clinician Date Essential Essential Disease Active Uni vers hypertensi hypertensi 8-09 [place] y [place], [place] [facility] Tobacco Tobacco Disease Active Univers use use 8-09 ity of disorder disorder 00:00: [address] Anemia, Anemia, Disease Active Univers 7-11 it y of 00:00: [address] Elevated Elevated Disease Active Unive rs blood blood 7-11 ity of pressure pressure 00:00: [place] reading reading [address] [facility] without without Branch diagnosis diagnosis of of hypertensi hypertensi on on Unilateral Unilateral Disease Active U nivers headache headache 7-11 ity of 00:00: [place] [facility] Obesity Obesity Disease Active Univers (BMI (BMI 6-15 ity of 30-39.9) 30-39.9) 00:00: [address] 39 weeks 39 weeks Disease Active Unive rs gestation gestation 6-15 ity of of of 00:00: [place] [address] [place] [address] Positive Positive Disease Active Unive rs GBS test GBS test 6-12 ity of 00:00: [address] Disease Active Uni vers complicate complicate 6-08 it y of d by d by 00:00: [place] tobacco tobacco 00 Medical use in use in Branch third third trimester trimester Dog bite Dog bite Disease Active Unive rs 5-12 ity of 00:00: 00 Medical Branch Tetanus, Tetanus, Disease Active Unive rs diphtheria diphtheria 3-30 it y of , and , and 00:00: [place] acellular acellular 00 Medi reema pertussis pertussis Bran ch (Tdap) (Tdap) vaccinatio vaccinatio n declined n declined Pain of Pain of Disease Active Univers round round 1-12 ity of ligament ligament 00:00: [place] during during 00 Medical Bran ch Hypothyroi Hypothyroi Disease Active 2021-03 Overview : Univers dism dism 0-31 Formattin ity of 00:00: g of this [place] note Medical might be Branch different from the original. 75mcg daily Supervisio Supervisio Disease Active 2021-03 U nivers n of n of 0-31 ity of high-risk high-risk 00:[place] Med[place] reema of elderly of elderly Br anch multigravi multigravi da da Multiparit Multiparit Disease Active 2021-03 U nivers y y 0-31 ity of 00:00: [place] Medical Branch Hypothyroi Hypothyroi Disease Active 2021-03 Overview : Univers dism in dism in 0-31 Formattin ity o f 00:00: [place] of [place] 00 note Medical might be Branch different from the original. Off of med since 2016 Over Over Disease Active 2021-03 Univers weight weight 0-31 ity of 00:00: [place] [facility] History of History of Disease Active 2021-03 Overview : Univers salpingect salpingect 0-31 Formattin ity of trevon trevon 00:00: g of this [place] note Medical might be Branch different from the original. Right side Nausea and Nausea and Disease Active 2021-03 U nivers vomiting vomiting 0-31 ity of during during 00:00: [place] 00 Medi reema Branch S/P S/P Disease Active 2021-03 Overview: Univer s 0-31 Formattin ity of section section 00:00: g of this [place] note Medical might be Branch different from the original. x21 years ago , no records found, records have been purged - see scanned records Obesity in Obesity in Disease Active 2021-03 U nivers 0-31 ity of 00:00: [place] 00 Medical Branch Allergies, Adverse Reactions, Alerts Allergy Allergy Status Severity Reaction(s) Onset Inactive Treating Comm ents Source Name Type Date Date Clinician IBUPROFE DRUG Active Hives 2021-03 Univers N INGREDI 0-31 ity of 00:00: [place] 00 Medical Branch TRAMADOL DRUG Active Anaphylaxis 2021-03 Uni vers INGREDI 0-31 ity of 00:00: [place] 00 Medical Branch ASPIRIN DRUG Active Hives 2021-03 Univers INGREDI 0-31 ity of 00:00: [place] 00 Medical Branch Aspirin Propensi Active Hives 2021-03 Univers ty to 0-31 ity of adverse 00:00: [place] reaction 00 Medical s Branch Ibuprofe Propensi Active Hives 2021-03 Univer s n ty to 0-31 ity of adverse 00:00: [place] reaction [address] [facility] s Branch Tramadol Propensi Active Anaphylaxis 2021-03 U nivers ty to 0-31 ity of adverse 00:00: [place] reaction 00 Medical s [place] Pork/Por FA Active SV HIVES,THROAT HC A cine SWELLS 8-09 Clear Containi 00:00: [place] [facility] aspirin DA Active SV THROAT [facility] SWELLS 8- Clear UP,HIVES 00:00: [place] 00 [facility] ibuprofe DA Active SV THROAT [facility] n SWELLS,HIVES 8 [place] r 00:00: [place] 00 [facility] tramadol DA Active SV HIVES [facility] 8-09 Clear 00:00: [place] 00 [facility] Pork/Por DA Active SV [facility] cine 8-09 [place] Containi 00:00: [place] ng 00 [facility] Pork/Por FA Active SV [facility] cine 8-09 Clear Containi 00:00: [place] 00 [facility] aspirin DA Active SV [facility] 8-09 Clear 00:00: [place] [facility] ibuprofe DA Active SV [facility] n 8-09 Clear 00:00: [place] [facility] tramadol DA Active SV [facility] 8-09 Clear 00:00: [place] 00 [facility] PORK DRUG Active Unknown-Cmnt Univ ers DERIVED INGREDI 04-16 ity of (PORCINE 00:00: [place] ) 00 [facility] Pork Propensi Active Unknown - Unive rs Derived ty to See comments 04-16 ity of (Porcine adverse 00:00: [place] ) reaction 00 Medical s [place] NO KNOWN Drug Active Univers ALLERGIE Class ity of S [facility] [place] [facility] Social History Social Habit Start Date Stop Date Quantity Comments Source ASSERTION 2021-12-13 [facility] 00:00:00 [facility] [place] [facility] Gender identity Universit y of [facility] [place] [facility] History of tobacco Cigarette Smoker University [facility] [place] Sexual orientation [facility] History of Social 2022-10-23 2022-10-23 Univers ity of function 00:00:00 00:00:00 [facility] [place] [facility] Alcohol intake 2022-10-23 2022-10-23 Ex-drinker [facility] 00:00:00 00:00:00 (finding) [facility] [place] [facility] Exposure to 2022-07-30 2022-08-09 Not sure [facility] SARS-CoV-2 (event) 00:00:00 09:57:00 [facility] [place] [facility] Cigarettes smoked 2022-01-14 2022-01-14 Univers ity of current (pack per 00:00:00 00:00:00 ) - Reported Branch Tobacco use and 2022-01-14 2022-01-14 Smokeless Universit y of exposure 00:00:00 00:00:00 tobacco non-user [facility] [place] [facility][birth year] [facility] [birth year] [facility] 00:00:00 00:00:00 Hospital Smoking Status Start Date Stop Date Source Tobacco smoking consumption Meth odist [facility] unknown Occasional tobacco smoker 2022-01-14 00:00:00 Un iversity of [facility] [place] [facility] Medications Ordered Filled Start Stop Current Ordering Indication Dosage Frequency Signature Comments Components Source Medication Medication Date Date Medication? Clinician (SIG) Name Name LEVOTHYROXI 2022-03 Yes [id number] 50ug TAKE 1 Univers NE 50 mcg 0-26 TABLET BY ity o f tablet 00:00: MOUTH [place] EVERY Medical MORNING [place] erenumab-ao Yes [id number] 140mg inject 140 Univers oe (AIMOVIG 8-11 mg under ity of AUTOINJECTO 00:[place]: [place] R[place] 140 00 once every Medical mg/mL AtIn month. [place] erenumab-ao Yes [id number] 140mg inject 140 Univers oe (AIMOVIG 8-11 mg under ity of AUTOINJECTO 00:00: [place] R[place] 140 00 once every Medical mg/mL AtIn month. [place] erenumab-ao Yes [id number] 140mg inject 140 Univers oe (AIMOVIG 8-11 mg under ity of AUTOINJECTO 00:00: [place] R[place] 140 00 once every Medical mg/mL AtIn month. [place] erenumab-ao Yes [id number] 140mg inject 140 Univers oe (AIMOVIG 8-11 mg under ity of AUTOINJECTO 00:00: [place] R[place] 140 00 once every Medical mg/mL AtIn month. [place] erenumab-ao Yes [id number] 140mg inject 140 Univers oe (AIMOVIG 8-11 mg under ity of AUTOINJECTO 00:00: [place] R[place] 140 00 once every Medical mg/mL AtIn month. [place] Blood Yes [id number] Use as Univers Pressure 8-09 directed ity of Kit Med & 00:00: [place] Lrg Kit [facility] Blood 0 Yes [id number] Use as Univers Pressure 8-09 directed ity of Kit Med & 00:00: [place] Lrg Kit [facility] Blood 0 Yes [id number] Use as Univers Pressure 8-09 directed ity of Kit Med & 00:00: [place] Lrg Kit [facility] Blood 0 Yes [id number] Use as Univers Pressure 8-09 directed ity of Kit Med & 00:00: [place] Lrg Kit [facility] Blood 0 Yes [id number] Use as Univers Pressure 8- directed ity of Kit Med & 00:00: [place] Lrg Kit [facility] Blood 0 Yes [id number] Use as Univers Pressure 8- directed ity of Kit Med & 00:00: [place] Lrg Kit [facility] Blood 0 Yes [id number] Use as Univers Pressure 8-09 directed ity of Kit Med & 00:00: [place] Lrg Kit 00 Medical Branch Blood 3-0 Yes [id number] Use as Univers Pressure 10-23 directed ity of Kit Med & 00:00: [place] Lrg Kit 00 Medical Branch amLODIPine 3-0 Yes [id number] 10mg Take 1 U nivers (NORVASC) 8-01 tablet by ity o f 10 mg 00:00: mouth in [place] tablet 00 the Medical morning. Branch levothyroxi 2023-0 Yes [id number] 50ug Take 1 Univers ne 50 mcg 8-01 tablet by ity o f tablet 00:00: mouth [place] 00 every Medical morning. Branch amLODIPine 2023-0 Yes [id number] 10mg Take 1 U nivers (NORVASC) 8-01 tablet by ity o f 10 mg 00:00: mouth in [place] tablet 00 the Medical morning. Branch levothyroxi 2023-0 Yes [id number] 50ug Take 1 Univers ne 50 mcg 8-01 tablet by ity o f tablet 00:00: mouth [place] 00 every Medical morning. Branch amLODIPine 2023-0 Yes [id number] 10mg Take 1 U nivers (NORVASC) 8-01 tablet by ity o f 10 mg 00:00: mouth in [place] tablet 00 the Medical morning. Branch levothyroxi 2023-0 Yes [id number] 50ug Take 1 Univers ne 50 mcg 8-01 tablet by ity o f tablet 00:00: mouth [place] 00 every Medical morning. Branch amLODIPine 2023-0 Yes [id number] 10mg Take 1 U nivers (NORVASC) 8-01 tablet by ity o f 10 mg 00:00: mouth in [place] tablet 00 the Medical morning. Branch levothyroxi 2023-0 Yes [id number] 50ug Take 1 Univers ne 50 mcg 8-01 tablet by ity o f tablet 00:00: mouth [place] 00 every Medical morning. Branch amLODIPine 2023-0 Yes [id number] 10mg Take 1 U nivers (NORVASC) 8-01 tablet by ity o f 10 mg 00:00: mouth in [place] tablet 00 the Medical morning. Branch levothyroxi 2023-0 Yes [id number] 50ug Take 1 Univers ne 50 mcg 8-01 tablet by ity o f tablet 00:00: mouth [place] 00 every Medical morning. Branch amLODIPine 2023-0 Yes [id number] 10mg Take 1 U nivers (NORVASC) 8-01 tablet by ity o f 10 mg 00:00: mouth in [place] tablet 00 the Medical morning. Branch levothyroxi 2023-0 Yes [id number] 50ug Take 1 Univers ne 50 mcg 8-01 tablet by ity o f tablet 00:00: mouth [place] 00 every Medical morning. Branch amLODIPine 2023-0 Yes [id number] 10mg Take 1 U nivers (NORVASC) 8-01 tablet by ity o f 10 mg 00:00: mouth in [place] tablet 00 the Medical morning. Branch levothyroxi 2023-0 Yes [id number] 50ug Take 1 Univers ne 50 mcg 8-01 tablet by ity o f tablet 00:00: mouth [place] 00 every Medical morning. Branch amLODIPine 2023-0 Yes [id number] 10mg Take 1 U nivers (NORVASC) 8-01 tablet by ity o f 10 mg 00:00: mouth in [place] tablet 00 the Medical morning. Branch levothyroxi 2023-0 Yes [id number] 50ug Take 1 Univers ne 50 mcg 8-01 tablet by ity o f tablet 00:00: mouth [place] 00 every Medical morning. Branch amLODIPine 2023-0 Yes [id number] 10mg Take 1 U nivers (NORVASC) 8-01 tablet by ity o f 10 mg 00:00: mouth in [place] tablet 00 the Medical morning. Branch levothyroxi 2023-0 Yes [id number] 50ug Take 1 Univers ne 50 mcg 8-01 tablet by ity o f tablet 00:00: mouth [place] 00 every Medical morning. Branch amLODIPine 2023-0 Yes [id number] 10mg Take 1 U nivers (NORVASC) 8-01 tablet by ity o f 10 mg 00:00: mouth in [place] tablet 00 the Medical morning. Branch levothyroxi 2023-0 Yes [id number] 50ug Take 1 Univers ne 50 mcg 8-01 tablet by ity o f tablet 00:00: mouth [place] 00 every Medical morning. Branch amLODIPine 2023-0 Yes [id number] 10mg Take 1 U nivers (NORVASC) 8-01 tablet by ity o f 10 mg 00:00: mouth in [place] tablet 00 the Medical morning. Branch levothyroxi 2022-0 2023- No [id number] 50ug Take 1 Univers ne 50 mcg 8 10-26 tablet by ity of tablet 00:00: 00:00 mouth [place] 00 :00 every Medical morning. Branch SUMAtriptan 2022-0 Yes [id number] 25mg Take 1 Univers 25 mg 7-27 tablet by ity of tablet 00:00: mouth as [place] 00 needed for Medical Migraine Branch (daily as needed for headache). amitriptyli 2022-0 Yes [id number] 10mg Take 1 Univers ne 10 mg 7-27 tablet by ity of tablet 00:00: mouth at [place] 00 bedtime. Medical Branch SUMAtriptan 2022-0 Yes [id number] 25mg Take 1 Univers 25 mg 7-27 tablet by ity of tablet 00:00: mouth as [place] 00 needed for Medical Migraine Branch (daily as needed for headache). amitriptyli 2022-0 Yes [id number] 10mg Take 1 Univers ne 10 mg 7-27 tablet by ity of tablet 00:00: mouth at [place] 00 bedtime. Medical Branch SUMAtriptan 2022-0 Yes [id number] 25mg Take 1 Univers 25 mg 7-27 tablet by ity of tablet 00:00: mouth as [place] 00 needed for Medical Migraine Branch (daily as needed for headache). SUMAtriptan 2022-0 Yes [id number] 25mg Take 1 Univers 25 mg 7-27 tablet by ity of tablet 00:00: mouth as [place] 00 needed for Medical Migraine Branch (daily as needed for headache). SUMAtriptan 3-0 Yes [id number] 25mg Take 1 Univers 25 mg 7-27 tablet by ity of tablet 00:00: mouth as [place] 00 needed for Medical Migraine Branch (daily as needed for headache). SUMAtriptan 2023-0 Yes [id number] 25mg Take 1 Univers 25 mg 7-27 tablet by ity of tablet 00:00: mouth as [place] 00 needed for Medical Migraine Branch (daily as needed for headache). SUMAtriptan 3-0 Yes [id number] 25mg Take 1 Univers 25 mg 7-27 tablet by ity of tablet 00:00: mouth as [place] 00 needed for Medical Migraine Branch (daily as needed for headache). SUMAtriptan 3-0 Yes [id number] 25mg Take 1 Univers 25 mg 7-27 tablet by ity of tablet 00:00: mouth as [place] 00 needed for Medical Migraine Branch (daily as needed for headache). SUMAtriptan 2023-0 Yes [id number] 25mg Take 1 Univers 25 mg 7-27 tablet by ity of tablet 00:00: mouth as [place] 00 needed for Medical Migraine Branch (daily as needed for headache). SUMAtriptan 2023-0 Yes [id number] 25mg Take 1 Univers 25 mg 7-27 tablet by ity of tablet 00:00: mouth as [place] 00 needed for Medical Migraine Branch (daily as needed for headache). SUMAtriptan 2023-0 Yes [id number] 25mg Take 1 Univers 25 mg 7-27 tablet by ity of tablet 00:00: mouth as [place] 00 needed for Medical Migraine Branch (daily as needed for headache). SUMAtriptan 2023-0 Yes [id number] 25mg Take 1 Univers 25 mg 7-27 tablet by ity of tablet 00:00: mouth as [place] 00 needed for Medical Migraine Branch (daily as needed for headache). SUMAtriptan 2023-0 Yes [id number] 25mg Take 1 Univers 25 mg 7-27 tablet by ity of tablet 00:00: mouth as [place] 00 needed for Medical Migraine Branch (daily as needed for headache). SUMAtriptan 2023-0 Yes [id number] 25mg Take 1 Univers 25 mg 7-27 tablet by ity of tablet 00:00: mouth as [place] 00 needed for Medical Migraine Branch (daily as needed for headache). SUMAtriptan 2023-0 Yes [id number] 25mg Take 1 Univers 25 mg 7-27 tablet by ity of tablet 00:00: mouth as [place] 00 needed for Medical Migraine Branch (daily as needed for headache). amitriptyli 3-0 2023- No [id number] 10mg Take 1 Univers ne 10 mg 7-27 08- tablet by ity o f tablet 00:00: 00:00 mouth at [place] 00 :00 bedtime. Medical Branch amitriptyli 3-0 2023- No [id number] 10mg Take 1 Univers ne 10 mg 7-27 08-01 tablet by ity o f tablet 00:00: 00:00 mouth at [place] 00 :00 bedtime. Medical Branch amLODIPine 2022-0 Yes [id number] 5mg Take 1 U nivers (NORVASC) 5 7-20 tablet by ity of mg tablet 00:00: [place] the Medical morning. Branch amLODIPine 3-0 Yes [id number] 5mg Take 1 U nivers (NORVASC) 5 7-20 tablet by ity of mg tablet 00:00: [place] the Medical morning. Branch acetaminoph 2022-0 Yes [id number] 1{capsu Take 1 Univers en-caff-but 7-20 le} capsule by it y of albital 00:00: mouth [place] (ESGIC) per 00 every 4 Medic al capsule (four) Branch hours as needed for Pain. amLODIPine 2022-0 Yes [id number] 5mg Take 1 U nivers (NORVASC) 5 7-20 tablet by ity of mg tablet 00:00: mouth [place] Medical morning. Branch acetaminoph 2022-0 Yes [id number] 1{capsu Take 1 Univers en-caff-but 7-20 le} capsule by it y of albital 00:00: mouth [place] (ESGIC) per 00 every 4 Medic al capsule (four) Branch hours as needed for Pain. amLODIPine 2022-0 Yes [id number] 5mg Take 1 U nivers (NORVASC) 5 7-20 tablet by ity of mg tablet 00:00: mouth [place] Medical morning. Branch acetaminoph 2022-0 Yes [id number] 1{capsu Take 1 Univers en-caff-but 7-20 le} capsule by it y of albital 00:00: mouth [place] (ESGIC) per 00 every 4 Medic al capsule (four) Branch hours as needed for Pain. amLODIPine 3-0 Yes [id number] 5mg Take 1 U nivers (NORVASC) 5 7-20 tablet by ity of mg tablet 00:00: [place] the Medical morning. Branch acetaminoph 3-0 Yes [id number] 1{capsu Take 1 Univers en-caff-but 7-20 le} capsule by it y of albital 00:00: mouth [place] (ESGIC) per 00 every 4 Medic al capsule (four) Branch hours as needed for Pain. amLODIPine 2023-0 Yes [id number] 5mg Take 1 U nivers (NORVASC) 5 7-20 tablet by ity of mg tablet 00:00: [place] 00 the Medical morning. Branch amLODIPine 2022-0 Yes [id number] 5mg Take 1 U nivers (NORVASC) 5 7-20 tablet by ity of mg tablet 00:00: [place] 00 the Medical morning. Branch amLODIPine 3-0 Yes [id number] 5mg Take 1 U nivers (NORVASC) 5 7-20 tablet by ity of mg tablet 00:00: [place] 00 the Medical morning. Branch amLODIPine 2022-0 Yes [id number] 5mg Take 1 U nivers (NORVASC) 5 7-20 tablet by ity of mg tablet 00:00: [place] 00 the Medical morning. Branch amLODIPine 2022-0 2022- No [id number] 5mg Take 1 Univers (NORVASC) 5 7-20 10-15 tablet by it y of mg tablet 00:00: 00:00 mouth in [place] 00 :00 the Medical morning. Branch amLODIPine 2022-0 2022- No [id number] 5mg Take 1 Univers (NORVASC) 5 7-20 10-15 tablet by it y of mg tablet 00:00: 00:00 mouth in [place] 00 :00 the Medical morning. Branch acetaminoph 2022- No [id number] 1{capsu Take 1 Univers en-caff-but 10-03 le} capsule by i ty of albital 00:00: 00:00 mouth [place] (ESGIC) per 00 :00 every 4 Medic al capsule (four) Branch hours as needed for Pain. FENTanyl PF 2022- No 75ug 75 mcg, Un gideon (SUBLIMAZE 09-14 Slow IV ity o f (PF)) 05:45: 05:09 Push, [place] injection 00 :00 ONCE, 1 Medical 75 mcg dose, On Branch 09/14/22 at 0045, STAT acetaminoph 2022- No 975mg 975 mg, U nivers en 09-14 Oral, ity of (TYLENOL) 05:30: 05:09 [place]CE, 1 [place] tablet 975 00 :00 dose, On Medic al mg 7/1/23 Branch at 0030, HANNA iopamidol 2022-0 2022- No [id number] 100mL 100 mL, Univers (ISOVUE 09-14 Intravenou ity o f 370-500 mL) 04:15: 04:15 s, ONCE, 1 [place] injection 00 :00 dose, On Medica l 100 mL Fri Branch 09/13/22 at 2315, Routine morpHINE (4 2022- No 4mg 4 mg, Slow Univers mg/mL) 09-14 IV Push, ity of injection 4 02:45: 02:43 [place]CE, 1 [place] mg 00 :00 dose, On Medical Fri Branch 09/13/22 at 2145, STAT ondansetron 2022-0 2022- No 4mg 4 mg, Slow Univers (ZOFRAN 09-14 IV Push, ity of (PF)) 02:42: 02:43 ONCE, 1 [place] injection 4 00 :00 dose, On Medi reema mg Fri Branch 09/13/22 at 2145, HANNA cephALEXin 3-0 Yes [id number] 500mg Take 1 Univers (KEFLEX) 7-01 capsule by ity o f 500 mg 00:00: mouth 4 [place] capsule 00 (four) Medical times Branch daily. metoclopram 2023-0 Yes [id number] 10mg Take 1 Univers pinky HCl 10 7-01 tablet by ity of mg tablet 00:00: mouth [place] 00 every 6 Medical (six) Branch hours. cephALEXin 2023-0 Yes [id number] 500mg Take 1 Univers (KEFLEX) 7-01 capsule by ity o f 500 mg 00:00: mouth 4 [place] capsule 00 (four) Medical times Branch daily. metoclopram 2023-0 Yes [id number] 10mg Take 1 Univers pinky HCl 10 7-01 tablet by ity of mg tablet 00:00: mouth [place] 00 every 6 Medical (six) Branch hours. cephALEXin 2023-0 Yes [id number] 500mg Take 1 Univers (KEFLEX) 7-01 capsule by ity o f 500 mg 00:00: mouth 4 [place] capsule 00 (four) Medical times Branch daily. metoclopram 2023-0 Yes [id number] 10mg Take 1 Univers pinky HCl 10 7-01 tablet by ity of mg tablet 00:00: mouth [place] 00 every 6 Medical (six) Branch hours. cephALEXin 2023-0 Yes [id number] 500mg Take 1 Univers (KEFLEX) 7-01 capsule by ity o f 500 mg 00:00: mouth 4 [place] capsule 00 (four) Medical times Branch daily. metoclopram 2023-0 Yes [id number] 10mg Take 1 Univers pinky HCl 10 7-01 tablet by ity of mg tablet 00:00: mouth [place] 00 every 6 Medical (six) Branch hours. cephALEXin 2023-0 Yes [id number] 500mg Take 1 Univers (KEFLEX) 7- capsule by ity o f 500 mg 00:00: mouth 4 [place] capsule 00 (four) Medical times Branch daily. metoclopram 2023-0 Yes [id number] 10mg Take 1 [facility] pinky HCl 10 7- tablet by ity of mg tablet 00:00: mouth [place] 00 every 6 Medical (six) Branch hours. cephALEXin 2023-0 2023- No [id number] 500mg Take 1 [facility] (KEFLEX) 7- 07-20 capsule by ity of 500 mg 00:00: 00:00 mouth 4 [place] capsule 00 :00 (four) Medical times Branch daily. metoclopram 2023-0 2023- No [id number] 10mg Take 1 [facility] pinky HCl 10 7- 07-20 tablet by ity of mg tablet 00:00: 00:00 mouth [place] 00 :00 every 6 Medical (six) Branch hours. cephALEXin 2023-0 2023- No [id number] 500mg Take 1 [facility] (KEFLEX) 7- 07-20 capsule by ity of 500 mg 00:00: 00:00 mouth 4 [place] capsule 00 :00 (four) Medical times Branch daily. metoclopram 2023-0 3- No [id number] 10mg Take 1 [facility] pinky HCl 10 7- 07-20 tablet by ity of mg tablet 00:00: 00:00 mouth [place] 00 :00 every 6 Medical (six) Branch hours. HYDROcodone 2022-0 3- No [id number] 1{tbl} Take 1 U nivers -acetaminop 09-14 tablet by it y of hen (NORCO) 00:00: 04:59 mouth [place] 7.5-325 mg 00 :00 every 8 Medica l per tablet (eight) Branch hours as needed for Pain for up to 7 days. Indication s: acute pain iopamidol 2022- No [id number] 75mL 75 mL, [facility] (ISOVUE 09-05 Intravenou ity o f 370-500 mL) 20:00: 20:00 s, ONCE, 1 [place] injection 00 :00 dose, On Medica l 75 mL [place] Branch 09/05/22 at 1500, Routine ondansetron 2022- No 4mg 4 mg, Slow [facility] (ZOFRAN 09-05 IV Push, ity of (PF)) 19:30: 18:38 ONCE, 1 [place] injection 4 00 :00 dose, On Medi reema mg [place] Branch 09/05/22 at 1430, Routine NaCl 0.9% 2022- No 1000mL at 999 Uni vers (NS) bolus 09-05 mL/hr, ity of infusion 18:30: 19:59 1,000 mL, [place] 1,000 mL 00 :00 IV Medical Infusion, Branch ONCE, 1 dose, On [place] 09/05/22 at 1330, STAT morpHINE (4 Yes 4mg 4 mg, Slow [facility] mg/mL) 09-05 IV Push, ity of injection 4 18:23: Q4HPRN, [place] as mg 58 Starting Medical on [place] Branch 09/05/22 at 1323, Until Discontinu ed, Routine, Pain (scale 7-10) bisacodyL Yes [id number] 10mg Insert 1 [facility] (DULCOLAX, - Suppositor ity of BISACODYL,) 00:00: y [place] 10 mg 00 rectum at Medical suppository bedtime as Br anch needed for Constipati on or Constipati on unresolved by oral medication s. docusate Yes [id number] 200mg Take 2 U nivers 100 mg -22 capsules ity of capsule 00:00: by mouth [place] once daily Medical as needed Branch for Constipati on. bisacodyL Yes [id number] 10mg Insert 1 [facility] (DULCOLAX, -22 Suppositor ity of BISACODYL,) 00:00: [place] 10 mg 00 rectum at Medical suppository bedtime as Br anch needed for Constipati on or Constipati on unresolved by oral medication s. docusate Yes [id number] 200mg Take 2 U nivers 100 mg 6-22 capsules ity of capsule 00:00: by mouth [place] once daily Medical as needed Branch for Constipati on. bisacodyL Yes [id number] 10mg Insert 1 [facility] (DULCOLAX, 6-22 Suppositor ity of BISACODYL,) 00:00: y [place] 10 mg 00 rectum at Medical suppository bedtime as Br anch needed for Constipati on or Constipati on unresolved by oral medication s. docusate Yes [id number] 200mg Take 2 U nivers 100 mg 6-22 capsules ity of capsule 00:00: by mouth [place] [address] once daily Medical as needed Branch for Constipati on. bisacodyL Yes [id number] 10mg Insert 1 [facility] (DULCOLAX, 6-22 Suppositor ity of BISACODYL,) 00:00: y [place] 10 mg 00 rectum at Medical suppository bedtime as Br anch needed for Constipati on or Constipati on unresolved by oral medication s. docusate Yes [id number] 200mg Take 2 U nivers 100 mg 6-22 capsules ity of capsule 00:00: by mouth [place] [address] once daily Medical as needed Branch for Constipati on. bisacodyL Yes [id number] 10mg Insert 1 [facility] (DULCOLAX, 6-22 Suppositor ity of BISACODYL,) 00:00: y into [place] 10 mg 00 rectum at Medical suppository bedtime as Br anch needed for Constipati on or Constipati on unresolved by oral medication s. docusate Yes [id number] 200mg Take 2 U nivers 100 mg 6-22 capsules ity of capsule 00:00: by mouth [place] [address] once daily Medical as needed Branch for Constipati on. bisacodyL Yes [id number] 10mg Insert 1 [facility] (DULCOLAX, 6-22 Suppositor ity of BISACODYL,) 00:00: y into [place] 10 mg 00 rectum at Medical suppository bedtime as Br anch needed for Constipati on or Constipati on unresolved by oral medication s. docusate Yes [id number] 200mg Take 2 U nivers 100 mg 6-22 capsules ity of capsule 00:00: by mouth [place] once daily Medical as needed Branch for Constipati on. bisacodyL Yes [id number] 10mg Insert 1 [facility] (DULCOLAX, 6-22 Suppositor ity of BISACODYL,) 00:00: y [place] 10 mg 00 rectum at Medical suppository bedtime as Br anch needed for Constipati on or Constipati on unresolved by oral medication s. docusate Yes [id number] 200mg Take 2 U nivers 100 mg 6-22 capsules ity of capsule 00:00: by mouth [place] [address] once daily Medical as needed Branch for Constipati on. bisacodyL Yes [id number] 10mg Insert 1 [facility] (DULCOLAX, 6-22 Suppositor ity of BISACODYL,) 00:00: y into [place] 10 mg 00 rectum at Medical suppository bedtime as Br anch needed for Constipati on or Constipati on unresolved by oral medication s. docusate Yes [id number] 200mg Take 2 U nivers 100 mg 6-22 capsules ity of capsule 00:00: by mouth [place] [address] once daily Medical as needed Branch for Constipati on. bisacodyL Yes [id number] 10mg Insert 1 [facility] (DULCOLAX, 6-22 Suppositor ity of BISACODYL,) 00:00: y into [place] 10 mg 00 rectum at Medical suppository bedtime as Br anch needed for Constipati on or Constipati on unresolved by oral medication s. docusate Yes [id number] 200mg Take 2 U nivers 100 mg 6-22 capsules ity of capsule 00:00: by mouth [place] [address] once daily Medical as needed Branch for Constipati on. bisacodyL 2022- No [id number] 10mg Insert 1 [facility] (DULCOLAX, 6-22 07-20 Suppositor it y of BISACODYL,) 00:00: 00:00 y into [place] 10 mg 00 :00 rectum at Medical suppository bedtime as Br anch needed for Constipati on or Constipati on unresolved by oral medication s. docusate 2022- No [id number] 200mg Take 2 [facility] 100 mg 09-05- capsules ity of capsule 00:00: 00:00 by mouth [place] 00 :00 once daily Medical as needed Branch for Constipati on. bisacodyL 2022- No [id number] 10mg Insert 1 [facility] (DULCOLAX, 09-05 Suppositor it y of BISACODYL,) 00:00: 00:00 y into [place] 10 mg 00 :00 rectum at Medical suppository bedtime as Br anch needed for Constipati on or Constipati on unresolved by oral medication s. docusate 2022- No [id number] 200mg Take 2 [facility] 100 mg 09-05 capsules ity of capsule 00:00: 00:00 by mouth [place] 00 :00 once daily Medical as needed Branch for Constipati on. magnesium 2022- No [id number] 300mL Take 300 [facility] citrate 09-05 mL by ity of solution 00:00: 04:59 mouth once [place] 00 :00 now for 1 Medical dose. Branch polyethylen Yes 17g 17 g, Unive rs e glycol -17 Oral, ity of 3350 powder 14:00: DAILY, [place] 17 g 00 First dose Medical on [facility] 08/31/22 at 0900, Until Discontinu ed, Routine polyethylen 2022- No 17g 17 g, Univ ers e glycol 17 -17 Oral, ity of 3350 powder 14:00: 21:35 DAILY, [place] 17 g 00 :44 First dose Medical on [facility] 08/31/22 at 0900, Until Discontinu ed, Routine levothyroxi Yes 75ug 75 mcg, Uni vers ne 17 Oral, ity of (SYNTHROID) 11:00: QAM-0600, [place] tablet 75 00 First dose Medi reema mcg on [facility] 08/31/22 at 0600, Until Discontinu ed, Routine levothyroxi 2022- No 75ug 75 mcg, Un gideon ne 08-31-17 Oral, ity of (SYNTHROID) 11:00: 21:35 QAM-0600, [place] tablet 75 00 :44 First dose Medi reema mcg on Sat Branch 08/31/22 at 0600, Until Discontinu ed, Routine Yes [id number] 1{tbl} Take 1 [facility] vitamin 6-17 tablet by ity of w/FA tablet 00:00: mouth in [place] 00 the Medical morning. Branch docusate Yes [id number] 200mg Take 2 U nivers 100 mg 6-17 capsules ity of capsule 00:00: by mouth [place] 00 once daily Medical as needed Branch for Constipati on. ferrous Yes [id number] 325mg Take 1 Un gideon sulfate 325 6-17 tablet by ity of mg (65 mg 00:00: mouth [place] iron) 00 the Medical tablet morning Branch and 1 tablet in the evening. Yes [id number] 1{tbl} Take 1 [facility] vitamin 6-17 tablet by ity of w/FA tablet 00:00: mouth in [place] 00 the Medical morning. Branch docusate Yes [id number] 200mg Take 2 U nivers 100 mg 6-17 capsules ity of capsule 00:00: by mouth [place] 00 once daily Medical as needed Branch for Constipati on. ferrous Yes [id number] 325mg Take 1 Un gideon sulfate 325 6-17 tablet by ity of mg (65 mg 00:00: mouth [place] iron[place] 00 the Medical tablet morning Branch and 1 tablet in the evening. Yes [id number] 1{tbl} Take 1 [facility] vitamin 6-17 tablet by ity of w/FA tablet 00:00: mouth in [place] 00 the Medical morning. Branch docusate Yes [id number] 200mg Take 2 U nivers 100 mg 6-17 capsules ity of capsule 00:00: by mouth [place] 00 once daily Medical as needed Branch for Constipati on. ferrous Yes [id number] 325mg Take 1 Un gideon sulfate 325 6-17 tablet by ity of mg (65 mg 00:00: mouth [place] iron[place] 00 the Medical tablet morning Branch and 1 tablet in the evening. Yes [id number] 1{tbl} Take 1 [facility] vitamin 6-17 tablet by ity of w/FA tablet 00:00: mouth in [place] 00 the Medical morning. Branch docusate Yes [id number] 200mg Take 2 U nivers 100 mg 6-17 capsules ity of capsule 00:00: by mouth [place] 00 once daily Medical as needed Branch for Constipati on. ferrous Yes [id number] 325mg Take 1 Un gideon sulfate 325 6-17 tablet by ity of mg (65 mg 00:00: mouth [place] iron[place] 00 the Medical tablet morning Branch and 1 tablet in the evening. Yes [id number] 1{tbl} Take 1 [facility] vitamin 6-17 tablet by ity of w/FA tablet 00:00: mouth in [place] 00 the Medical morning. Branch docusate Yes [id number] 200mg Take 2 U nivers 100 mg 6-17 capsules ity of capsule 00:00: by mouth [place] 00 once daily Medical as needed Branch for Constipati on. ferrous Yes [id number] 325mg Take 1 Un gideon sulfate 325 6-17 tablet by ity of mg (65 mg 00:00: mouth [place] iron[place] 00 the Medical tablet morning Branch and 1 tablet in the evening. Yes [id number] 1{tbl} Take 1 [facility] vitamin 6-17 tablet by ity of w/FA tablet 00:00: mouth in [place] 00 the Medical morning. Branch docusate Yes [id number] 200mg Take 2 U nivers 100 mg 6-17 capsules ity of capsule 00:00: by mouth [place] 00 once daily Medical as needed Branch for Constipati on. ferrous Yes [id number] 325mg Take 1 Un gideon sulfate 325 6-17 tablet by ity of mg (65 mg 00:00: mouth [place] iron[place] 00 the Medical tablet morning Branch and 1 tablet in the evening. Yes [id number] 1{tbl} Take 1 [facility] vitamin 6-17 tablet by ity of w/FA tablet 00:00: mouth in [place] 00 the Medical morning. Branch docusate Yes [id number] 200mg Take 2 U nivers 100 mg 6-17 capsules ity of capsule 00:00: by mouth [place] 00 once daily Medical as needed Branch for Constipati on. ferrous 2022-0 Yes [id number] 325mg Take 1 Un gideon sulfate 325 6-17 tablet by ity of mg (65 mg 00:00: mouth [place] iron[place] 00 the Medical tablet morning Branch and 1 tablet in the evening. 2022-0 Yes [id number] 1{tbl} Take 1 [facility] vitamin 6-17 tablet by ity of w/FA tablet 00:00: mouth in [place] 00 the Medical morning. Branch ferrous 0 Yes [id number] 325mg Take 1 Un gideon sulfate 325 6-17 tablet by ity of mg (65 mg 00:00: mouth [place] iron[place] 00 the Medical tablet morning Branch and 1 tablet in the evening. 2022-0 Yes [id number] 1{tbl} Take 1 [facility] vitamin 6-17 tablet by ity of w/FA tablet 00:00: mouth in [place] 00 the Medical morning. Branch ferrous 2022-0 Yes [id number] 325mg Take 1 Un gideon sulfate 325 6-17 tablet by ity of mg (65 mg 00:00: mouth [place] iron[place] 00 the Medical tablet morning Branch and 1 tablet in the evening. 2022-0 Yes [id number] 1{tbl} Take 1 [facility] vitamin 6-17 tablet by ity of w/FA tablet 00:00: mouth in [place] 00 the Medical morning. Branch ferrous 2022-0 Yes [id number] 325mg Take 1 Un gideon sulfate 325 6-17 tablet by ity of mg (65 mg 00:00: mouth [place] iron[place] 00 the Medical tablet morning Branch and 1 tablet in the evening. 2022-0 Yes [id number] 1{tbl} Take 1 [facility] vitamin 6-17 tablet by ity of w/FA tablet 00:00: mouth in [place] 00 the Medical morning. Branch ferrous 2022-0 Yes [id number] 325mg Take 1 Un gideon sulfate 325 6-17 tablet by ity of mg (65 mg 00:00: mouth [place] iron[place] 00 the Medical tablet morning Branch and 1 tablet in the evening. 2022-0 Yes [id number] 1{tbl} Take 1 [facility] vitamin 6-17 tablet by ity of w/FA tablet 00:00: mouth in [place] 00 the Medical morning. Branch ferrous 2022-0 Yes [id number] 325mg Take 1 Un gideon sulfate 325 6-17 tablet by ity of mg (65 mg 00:00: mouth [place] iron[place] 00 the Medical tablet morning Branch and 1 tablet in the evening. 2022-0 Yes [id number] 1{tbl} Take 1 [facility] vitamin 6-17 tablet by ity of w/FA tablet 00:00: mouth in [place] 00 the Medical morning. Branch ferrous 2022-0 Yes [id number] 325mg Take 1 Un gideon sulfate 325 6-17 tablet by ity of mg (65 mg 00:00: mouth [place] iron[place] 00 the Medical tablet morning Branch and 1 tablet in the evening. 2022-0 Yes [id number] 1{tbl} Take 1 [facility] vitamin 6-17 tablet by ity of w/FA tablet 00:00: mouth in [place] 00 the Medical morning. Branch ferrous 0 Yes [id number] 325mg Take 1 Un gideon sulfate 325 6-17 tablet by ity of mg (65 mg 00:00: mouth [place] iron[place] 00 the Medical tablet morning Branch and 1 tablet in the evening. VITAFOL Yes TAKE 1 [facility] ULTRA 29 mg 6-17 CAPSULE BY it y of iron- 1 00:00: MOUTH [place] mg-200 mg 00 EVERY DAY Medic al Cap FOR 30 Branch DAYS. 2022-0 Yes [id number] 1{tbl} Take 1 [facility] vitamin 6-17 tablet by ity of w/FA tablet 00:00: mouth in [place] 00 the Medical morning. Branch ferrous 2022-0 Yes [id number] 325mg Take 1 Un gideon sulfate 325 6-17 tablet by ity of mg (65 mg 00:00: mouth [place] iron[place] 00 the Medical tablet morning Branch and 1 tablet in the evening. VITAFOL Yes TAKE 1 [facility] ULTRA 29 mg 6-17 CAPSULE BY it y of iron- 1 00:00: MOUTH [place] mg-200 mg 00 EVERY DAY Medic al Cap FOR 30 Branch DAYS. 2022-0 Yes [id number] 1{tbl} Take 1 [facility] vitamin 6-17 tablet by ity of w/FA tablet 00:00: mouth in [place] 00 the Medical morning. Branch ferrous 2022-0 Yes [id number] 325mg Take 1 Un gideon sulfate 325 6-17 tablet by ity of mg (65 mg 00:00: mouth [place] iron[place] 00 the Medical tablet morning Branch and 1 tablet in the evening. VITAFOL Yes TAKE 1 [facility] ULTRA 29 mg 6-17 CAPSULE BY it y of iron- 1 00:00: MOUTH [place] mg-200 mg 00 EVERY DAY Medic al Cap FOR 30 Branch DAYS. ferrous 0 Yes [id number] 325mg Take 1 Un gideon sulfate 325 6-17 tablet by ity of mg (65 mg 00:00: mouth [place] iron[place] 00 the Medical tablet morning Branch and 1 tablet in the evening. ferrous 0 Yes [id number] 325mg Take 1 Un gideon sulfate 325 6-17 tablet by ity of mg (65 mg 00:00: mouth [place] iron[place] 00 the Medical tablet morning Branch and 1 tablet in the evening. ferrous 0 Yes [id number] 325mg Take 1 Un gideon sulfate 325 6-17 tablet by ity of mg (65 mg 00:00: mouth [place] iron[place] 00 the Medical tablet morning Branch and 1 tablet in the evening. ferrous 0 Yes [id number] 325mg Take 1 Un gideon sulfate 325 6-17 tablet by ity of mg (65 mg 00:00: mouth [place] iron[place] 00 the Medical tablet morning Branch and 1 tablet in the evening. ferrous 2022-0 Yes [id number] 325mg Take 1 Un gideon sulfate 325 6-17 tablet by ity of mg (65 mg 00:00: mouth [place] iron[place] 00 the Medical tablet morning Branch and 1 tablet in the evening. ferrous 2022-0 Yes [id number] 325mg Take 1 Un gideon sulfate 325 6-17 tablet by ity of mg (65 mg 00:00: mouth [place] iron[place] 00 the Medical tablet morning Branch and 1 tablet in the evening. ferrous 2022-0 Yes [id number] 325mg Take 1 Un gideon sulfate 325 6-17 tablet by ity of mg (65 mg 00:00: mouth [place] iron[place] 00 the Medical tablet morning Branch and 1 tablet in the evening. ferrous 2022-0 Yes [id number] 325mg Take 1 Un gideon sulfate 325 6-17 tablet by ity of mg (65 mg 00:00: mouth [place] iron[place] 00 the Medical tablet morning Branch and 1 tablet in the evening. ferrous 2022-0 Yes [id number] 325mg Take 1 Un gideon sulfate 325 6-17 tablet by ity of mg (65 mg 00:00: mouth [place] iron[place] 00 the Medical tablet morning Branch and 1 tablet in the evening. ferrous 2022-0 Yes [id number] 325mg Take 1 Un gideon sulfate 325 6-17 tablet by ity of mg (65 mg 00:00: mouth [place] iron[place] 00 the Medical tablet morning Branch and 1 tablet in the evening. ferrous 2022-0 Yes [id number] 325mg Take 1 Un gideon sulfate 325 6-17 tablet by ity of mg (65 mg 00:00: mouth [place] iron[place] 00 the Medical tablet morning Branch and 1 tablet in the evening. ferrous 2022-0 Yes [id number] 325mg Take 1 Un gideon sulfate 325 6-17 tablet by ity of mg (65 mg 00:00: mouth [place] iron[place] 00 the Medical tablet morning Branch and 1 tablet in the evening. ferrous 2022-0 Yes [id number] 325mg Take 1 Un gideon sulfate 325 6-17 tablet by ity of mg (65 mg 00:00: mouth [place] iron) 00 the Medical tablet morning Branch and 1 tablet in the evening. ferrous 2022-0 Yes [id number] 325mg Take 1 Un gideon sulfate 325 6-17 tablet by ity of mg (65 mg 00:00: mouth [place] iron[place] 00 the Medical tablet morning Branch and 1 tablet in the evening. ferrous 2023-0 Yes [id number] 325mg Take 1 Un gideon sulfate 325 6-17 tablet by ity of mg (65 mg 00:00: mouth [place] iron[place] 00 the Medical tablet morning Branch and 1 tablet in the evening. ferrous 202-0 Yes [id number] 325mg Take 1 Un gideon sulfate 325 6-17 tablet by ity of mg (65 mg 00:00: mouth [place] iron[place] 00 the Medical tablet morning Branch and 1 tablet in the evening. ferrous 3-0 Yes [id number] 325mg Take 1 Un gideon sulfate 325 6-17 tablet by ity of mg (65 mg 00:00: mouth [place] iron[place] 00 the Medical tablet morning Branch and 1 tablet in the evening. ferrous 2022-0 Yes [id number] 325mg Take 1 Un gideon sulfate 325 6-17 tablet by ity of mg (65 mg 00:00: mouth [place] iron[place] 00 the Medical tablet morning Branch and 1 tablet in the evening. ferrous 2022-0 Yes [id number] 325mg Take 1 Un gideon sulfate 325 6-17 tablet by ity of mg (65 mg 00:00: mouth [place] iron[place] 00 the Medical tablet morning Branch and 1 tablet in the evening. ferrous 2022-0 Yes [id number] 325mg Take 1 Un gideon sulfate 325 6-17 tablet by ity of mg (65 mg 00:00: mouth [place] iron[place] 00 the Medical tablet morning Branch and 1 tablet in the evening. ferrous 2022-0 Yes [id number] 325mg Take 1 Un gideon sulfate 325 6-17 tablet by ity of mg (65 mg 00:00: mouth [place] iron[place] 00 the Medical tablet morning Branch and 1 tablet in the evening. ferrous 2022-0 Yes [id number] 325mg Take 1 Un gideon sulfate 325 6-17 tablet by ity of mg (65 mg 00:00: mouth [place] iron[place] 00 the Medical tablet morning Branch and 1 tablet in the evening. ferrous 2022-0 Yes [id number] 325mg Take 1 Un gideon sulfate 325 6-17 tablet by ity of mg (65 mg 00:00: mouth [place] iron[place] 00 the Medical tablet morning Branch and 1 tablet in the evening. ferrous 2022-0 Yes [id number] 325mg Take 1 Un gideon sulfate 325 6-17 tablet by ity of mg (65 mg 00:00: mouth [place] iron[place] 00 the Medical tablet morning Branch and 1 tablet in the evening. ferrous 2022-0 Yes [id number] 325mg Take 1 Un gideon sulfate 325 6-17 tablet by ity of mg (65 mg 00:00: mouth [place] iron[place] 00 the Medical tablet morning Branch and 1 tablet in the evening. ferrous Yes [id number] 325mg Take 1 Un gidoen sulfate 325 6-17 tablet by ity of mg (65 mg 00:00: mouth [place] iron[place] 00 the Medical tablet morning Branch and 1 tablet in the evening. ferrous Yes [id number] 325mg Take 1 Un gideon sulfate 325 6-17 tablet by ity of mg (65 mg 00:00: mouth [place] iron[place] 00 the Medical tablet morning Branch and 1 tablet in the evening. 2022- No [id number] 1{tbl} Take 1 [facility] vitamin 6-17 07-20 tablet by ity of w/FA tablet 00:00: 00:00 mouth in [place] 00 :00 the Medical morning. Branch VITAFOL 2022- No TAKE 1 [facility] ULTRA 29 mg 6-17 07-20 CAPSULE BY i ty of iron- 1 00:00: 00:00 MOUTH [place] mg-200 mg 00 :00 EVERY DAY Medic al Cap FOR 30 Branch DAYS. 2022- No [id number] 1{tbl} Take 1 [facility] vitamin 6-17 07-20 tablet by ity of w/FA tablet 00:00: 00:00 mouth in [place] 00 :00 the Medical morning. Branch VITAFOL 2022- No TAKE 1 [facility] ULTRA 29 mg 6-17 07-20 CAPSULE BY i ty of iron- 1 00:00: 00:00 MOUTH [place] mg-200 mg 00 :00 EVERY DAY Medic al Cap FOR 30 Branch DAYS. HYDROcodone 2022- No [id number] 1{tbl} Take 1 U nivers -acetaminop 6-17 06-25 tablet by it y of hen 5-325 00:00: 04:59 mouth [place] mg tablet 00 :00 every 6 Medical (six) Branch hours as needed (Pain scale above 4) for up to 7 days. Do not exceed 3 grams of acetaminop hen in 24 hours. Indication s: acute pain gabapentin 2022-2022- No [id number] 100mg Take 1 [facility] 100 mg 6-17 06-25 capsule by ity of capsule 00:00: 04:59 mouth in [place] 00 :00 the Medical morning Branch and 1 capsule at noon and 1 capsule in the evening. Do all this for 7 days. HYDROcodone 2022-0 2022- No [id number] 1{tbl} Take 1 U nivers -acetaminop 6-17 06-25 tablet by it y of hen 5-325 00:00: 04:59 mouth [place] mg tablet 00 :00 every 6 Medical (six) Branch hours as needed (Pain scale above 4) for up to 7 days. Do not exceed 3 grams of acetaminop hen in 24 hours. Indication s: acute pain gabapentin 2022-0 2022- No [id number] 100mg Take 1 [facility] 100 mg 6-17 06-25 capsule by ity of capsule 00:00: 04:59 mouth in [place] 00 :00 the Medical morning Branch and 1 capsule at noon and 1 capsule in the evening. Do all this for 7 days. HYDROcodone 2022-0 2022- No [id number] 1{tbl} Take 1 U nivers -acetaminop 6-17 06-25 tablet by it y of hen 5-325 00:00: 04:59 mouth [place] mg tablet 00 :00 every 6 Medical (six) Branch hours as needed (Pain scale above 4) for up to 7 days. Do not exceed 3 grams of acetaminop hen in 24 hours. Indication s: acute pain gabapentin 2022-0 2022- No [id number] 100mg Take 1 [facility] 100 mg 6-17 06-25 capsule by ity of capsule 00:00: 04:59 mouth in [place] 00 :00 the Medical morning Branch and 1 capsule at noon and 1 capsule in the evening. Do all this for 7 days. HYDROcodone 2022-0 2022- No [id number] 1{tbl} Take 1 U nivers -acetaminop 6-17 06-25 tablet by it y of hen 5-325 00:00: 04:59 mouth [place] mg tablet 00 :00 every 6 Medical (six) Branch hours as needed (Pain scale above 4) for up to 7 days. Do not exceed 3 grams of acetaminop hen in 24 hours. Indication s: acute pain gabapentin 3-0 2022- No [id number] 100mg Take 1 [facility] 100 mg 6-17 06-25 capsule by ity of capsule 00:00: 04:59 mouth in [place] 00 :00 the Medical morning Branch and 1 capsule at noon and 1 capsule in the evening. Do all this for 7 days. HYDROcodone 2022-0 2022- No 4647 1{tbl} Take 1 U nivers -acetaminop 6-17 06-25 tablet by it y of hen 5-325 00:00: 04:59 mouth [place] mg tablet 00 :00 every 6 Medical (six) Branch hours as needed (Pain scale above 4) for up to 7 days. Do not exceed 3 grams of acetaminop hen in 24 hours. Indication s: acute pain gabapentin 2022-0 2022- No [id number] 100mg Take 1 [facility] 100 mg 6-17 06-25 capsule by ity of capsule 00:00: 04:59 mouth in [place] 00 :00 the Medical morning Branch and 1 capsule at noon and 1 capsule in the evening. Do all this for 7 days. HYDROcodone 2022-2022- No 4647 1{tbl} Take 1 U nivers -acetaminop 6-17 06-25 tablet by it y of hen 5-325 00:00: 04:59 mouth [place] mg tablet 00 :00 every 6 Medical (six) Branch hours as needed (Pain scale above 4) for up to 7 days. Do not exceed 3 grams of acetaminop hen in 24 hours. Indication s: acute pain gabapentin 2022-0 2022- No [id number] 100mg Take 1 [facility] 100 mg 6-17 06-25 capsule by ity of capsule 00:00: 04:59 mouth in [place] 00 :00 the Medical morning Branch and 1 capsule at noon and 1 capsule in the evening. Do all this for 7 days. HYDROcodone 2022-0 2022- No [id number] 1{tbl} Take 1 U nivers -acetaminop 6-17 06-25 tablet by it y of hen 5-325 00:00: 04:59 mouth [place] mg tablet 00 :00 every 6 Medical (six) Branch hours as needed (Pain scale above 4) for up to 7 days. Do not exceed 3 grams of acetaminop hen in 24 hours. Indication s: acute pain gabapentin 3-0 2022- No [id number] 100mg Take 1 [facility] 100 mg 6-17 06-25 capsule by ity of capsule 00:00: 04:59 mouth in [place] 00 :00 the Medical morning Branch and 1 capsule at noon and 1 capsule in the evening. Do all this for 7 days. HYDROcodone 2022- No [id number] 1{tbl} Take 1 U nivers -acetaminop -31 08- tablet by it y of hen 5-325 00:00: 04:59 mouth [place] mg tablet 00 :00 every 6 Medical (six) Branch hours as needed (Pain scale above 4) for up to 7 days. Do not exceed 3 grams of acetaminop hen in 24 hours. Indication s: acute pain gabapentin 2022- No [id number] 100mg Take 1 [facility] 100 mg 08-31 capsule by ity of capsule 00:00: 04:59 mouth in [place] 00 :00 the Medical morning Branch and 1 capsule at noon and 1 capsule in the evening. Do all this for 7 days. docusate 2022- No [id number] 200mg Take 2 [facility] 100 mg -31 08- capsules ity of capsule 00:00: 00:00 by mouth [place] 00 :00 once daily Medical as needed Branch for Constipati on. rho(D) Yes 300ug 300 mcg, Univer s immune 16 Intramuscu ity of globulin 18:40: lar, ONCE, [place] (RHOGAM) 30 For 1 Medical syringe 300 dose, Branch mcg Conditiona l, Routine rho(D) No 300ug 300 mcg, Unive rs immune -16 08-31 Intramuscu ity of globulin 18:40: 21:35 [place], [place]CE, [place] (RHOGAM) 30 :44 For 1 Medical syringe 300 dose, Branch mcg Conditiona l, Routine HYDROcodone Yes 2{tbl} 2 tablet, Univers -acetaminop 6-16 Oral, ity of hen (NORCO 18:40: Q6HPRN, [place] 5) 5-325 mg 23 Starting Medi reema tablet 2 on Fri Branch tablet 08/30/22 at 1340, Until Discontinu ed, Routine, Pain (scale 7-10), Alternate with Ibuprofen HYDROcodone Yes 1{tbl} 1 tablet, [facility] -acetaminop 6-16 Oral, ity of hen (NORCO 18:40: Q6HPRN, [place] 5) 5-325 mg 23 Starting Medi reema tablet 1 on Fri Branch tablet 08/30/22 at 1340, Until Discontinu ed, Routine, Pain (scale 4-6), Alternate with Ibuprofen diphenhydrA 3-0 Yes 25mg 25 mg, Univ ers MINE 6- Slow IV ity of (BENADRYL) 18:40: Push, [place] injection 23 Q6HPRN, Medical 25 mg Starting Branch on Fri08/30/22 at 1340, Until Discontinu ed, Routine, Itching diphenhydrA 3-0 Yes 25mg 25 mg, Univ ers MINE 08-30 Oral, ity of (BENADRYL) 18:40: Q6HPRN, [place] tablet 25 23 Starting Medica l mg on Fri Branch 08/30/22 at 1340, Until Discontinu ed, Routine, Sleep, Itching ondansetron 2022-0 Yes 4mg 4 mg, Slow [facility] (ZOFRAN 08-30 IV Push, ity of (PF)) 18:40: Q8HPRN, [place] injection 4 23 Starting Medi reema mg on Fri Branch 08/30/22 at 1340, Until Discontinu ed, Routine, Nausea and Vomiting (N/V) bisacodyL 2022-0 Yes 10mg 10 mg, Univer s (DULCOLAX) 08-30 Rectal, ity of suppository 18:40: QDAILYPRN, [place] 10 mg 23 Starting Medical on Fri Branch 08/30/22 at 1340, Until Discontinu ed, Routine, Constipati on simethicone 2022-0 Yes 160mg 160 mg, Un gideon (GAS RELIEF 08-30 Oral, ity of (SIMETHICON 18:40: PC+HSPRN, [place] E)) 23 Starting Medical chewable on Fri Branch tablet 160 08/30/22 at mg 1340, Until Discontinu ed, Routine, Gas docusate 2022-0 Yes 200mg 200 mg, Unive rs (COLACE) 16 Oral, ity of capsule 200 18:40: QDAILYPRN, [place] mg 23 Starting Medical on Fri Branch 08/30/22 at 1340, Until Discontinu ed, Routine, Constipati on magnesium 3-0 Yes 30mL 30 mL, Univer s hydroxide 08-30 Oral, ity of (MILK OF 18:40: QDAILYPRN, [place] MAGNESIA) 23 Starting Medica l 400 mg/5 mL on Fri Branch suspension 08/30/22 at 30 mL 1340, Until Discontinu ed, Routine, Constipati on lactated Yes 1000mL at 125 Unive rs ringers IV 6-16 mL/hr, ity of infusion 18:40: 1,000 mL, [place] 1,000 mL 23 IV Medical Infusion, Branch PRN, 1 dose, Starting on 08/30/22 at 1340, Until Discontinu ed, Routine HYDROcodone 2022- No 2{tbl} 2 tablet, Univers -acetaminop 08-30 Oral, ity of hen (NORCO 18:40: 21:35 Q6HPRN, [place] 5) 5-325 mg 23 :44 Starting Medi reema tablet 2 on Fri Branch tablet 08/30/22 at 1340, Until 08/31/22 at 1635, Routine, Pain (scale 7-10), Alternate with Ibuprofen HYDROcodone 2022- No 1{tbl} 1 tablet, Univers -acetaminop 08-30 Oral, ity of hen (NORCO 18:40: 21:35 Q6HPRN, [place] 5) 5-325 mg 23 :44 Starting Medi reema tablet 1 on Fri Branch tablet 08/30/22 at 1340, Until 08/31/22 at 1635, Routine, Pain (scale 4-6), Alternate with Ibuprofen diphenhydrA 2022- No 25mg 25 mg, Uni vers MINE 08-30 Slow IV ity of (BENADRYL) 18:40: 21:35 Push, [place] injection 23 :44 Q6HPRN, Medical 25 mg Starting Branch on 08/30/22 at 1340, Until 08/31/22 at 1635, Routine, Itching diphenhydrA 2022- No 25mg 25 mg, Uni vers MINE 08-30 Oral, ity of (BENADRYL) 18:40: 21:35 Q6HPRN, [place] tablet 25 23 :44 Starting Medica l mg on Fri Branch 08/30/22 at 1340, Until 08/31/22 at 1635, Routine, Sleep, Itching ondansetron 2022- No 4mg 4 mg, Slow [facility] (ZOFRAN 08-30 IV Push, ity of (PF)) 18:40: 21:35 Q8HPRN, [place] injection 4 23 :44 Starting Medi reema mg on Fri Branch 08/30/22 at 1340, Until 08/31/22 at 1635, Routine, Nausea and Vomiting (N/V) bisacodyL 2022- No 10mg 10 mg, Unive rs (DULCOLAX) 08-30 Rectal, ity o f suppository 18:40: 21:35 QDAILYPRN, [place] 10 mg 23 :44 Starting Medical on Fri Branch 08/30/22 at 1340, Until 08/31/22 at 1635, Routine, Constipati on simethicone 2022- No 160mg 160 mg, U nivers (GAS RELIEF 08-30 Oral, ity of (SIMETHICON 18:40: 21:35 PC+HSPRN, [place] E)) 23 :44 Starting Medical chewable on Fri tablet 160 08/30/22 at mg 1340, Until 08/31/22 at 1635, Routine, Gas docusate 2022- No 200mg 200 mg, Univ ers (COLACE) 08-30 Oral, ity of capsule 200 18:40: 21:35 QDAILYPRN, [place] mg 23 :44 Starting Medical on Fri Branch 08/30/22 at 1340, Until 08/31/22 at 1635, Routine, Constipati on magnesium 2022- No 30mL 30 mL, Unive rs hydroxide 08-30 Oral, ity of (MILK OF 18:40: 21:35 QDAILYPRN, [place] MAGNESIA) 23 :44 Starting Medica l 400 mg/5 mL on Fri suspension 08/30/22 at 30 mL 1340, Until 08/31/22 at 1635, Routine, Constipati on lactated 2022- No 1000mL at 125 Univ ers ringers IV 08-30 mL/hr, ity of infusion 18:40: 21:35 1,000 mL, [place] 1,000 mL 23 :44 IV Medical Infusion, Branch PRN, 1 dose, Starting on Fri08/30/22 at 1340, Until 08/31/22 at 1635, Routine ondansetron 2022- No 4mg 4 mg, Slow Univers (ZOFRAN 08-30 IV Push, ity of (PF)) 17:45: 17:55 ONCE, 1 [place] injection 4 00 :00 dose, On Medi reema mg Fri Branch 08/30/22 at 1245, Routine, PACU naloxone 2022- No .4mg 0.4 mg, Unive rs (NARCAN) 08-30 Slow IV ity of injection 17:42: 17:41 Push, PRN [place] 0.4 mg 31 :31 - SEE Medical INSTRUCTIO Branch NS, Starting on Fri08/30/22 at 1242, Until Fri09/01/22 at 1241, Routine, Analgesia Recovery, PACU naloxone 2022- No .4mg 0.4 mg, Unive rs (NARCAN) 08-30 Slow IV ity of injection 17:42: 21:35 Push, PRN [place] 0.4 mg 31 :44 - SEE Medical INSTRUCTIO Branch NS, Starting on Fri08/30/22 at 1242, Until 08/31/22 at 1635, Routine, Analgesia Recovery, PACU HYDROcodone 2022- No 1{tbl} 1 tablet, [facility] -acetaminop 08-30 Oral, ity of hen (NORCO) 15:10: 17:54 Q6HPRN, 1 [place] 10-325 mg 03 :00 dose, Medical tablet 1 Starting Branch tablet on Fri08/30/22 at 1010, Until Fri08/30/22 at 1254, Routine, Pain (scale 7-10) ondansetron 2022- No 4mg 4 mg, Slow [facility] (ZOFRAN 08-30 IV Push, ity of (PF)) 15:00: 14:00 ONCE, On [place] injection 4 00 :00 Fri Medical mg 08/30/22 at Branch 1000, For 1 dose, [facility] Pre-op
Doses of ondansetro n 16 mg and above need to be administer ed via IV piggyback. For Dose >=24mg ECG monitoring is advisable.
ondansetron No 4mg 4 mg, Slow [facility] (ZOFRAN 08-30 IV Push, ity of (PF)) 13:45: 13:46 ONCE, On [place] injection 4 00 :00 Fri Medical mg 08/30/22 at Branch 0845, For 1 dose
Do ses of ondansetro n 16 mg and above need to be administer ed via IV piggyback. For Dose >=24mg ECG monitoring is advisable.
melatonin 2022- No 3mg 3 mg, Univer s (MELATIN) 08-30 Oral, QHS, ity of tablet 3 mg 06:00: 18:40 First dose [place] 00 :26 (after Medical last Branch modificati on) on Fri08/30/22 at 0100, Until Discontinu ed, Routine acetaminoph No 650mg 650 mg, U nivers en 08-30 Oral, ity of (TYLENOL) 04:30: 14:56 ONCE, 1 [place] tablet 650 00 :00 dose, On Medic al mg [place] Branch 08/29/22 at 2330, Routine ceFAZolin No 2000mg 2,000 mg, Univers (ANCEF) 08-30 IV ity of 2,000 mg in 04:21: 18:40 Piggyback, [place] NaCl 0.9% 03 :26 O.R. Medical (NS) 100 mL HOLDING Branc h MINI-BAG ONCE, Starting on Dena 08/29/22 at 2321, Until Fri08/30/22 at 1340, Administer over 30 Minutes, 100 mL
Reas on for Anti-Infec tive: Surgical Prophylaxi s
Espinoza rgical Prophylaxi s: REGIONAL LOSS PREVENTION MANAGER
Duration of therapy: within 24 hours of surgery sodium 2022- No 30mL 30 mL, [facility] citrate-cit 08-30 Oral, ity of janette acid 04:21: 14:56 PRE-PROCED [place] (BICITRA) 03 :00 URE ONCE, Medic al 500-334 1 dose, Branch mg/5 mL Starting solution 30 on Dena mL 08/29/22 at 2321, Until 08/31/22 at 2359, Routine, Surgery/Pr ocedure acetaminoph 2022- No 1000mg 1,000 mg, Univers en 08-30 Oral, ONCE ity of (TYLENOL) 03:45: 02:46 NOW, 1 [place] tablet 00 :00 dose, On Medical 1,000 mg [place] Branch 08/29/22 at 2245, Routine bisacodyL 0 Yes [id number] 10mg Insert 1 [facility] (DULCOLAX, 08-15 Suppositor ity of BISACODYL,) 00:00: y into [place] 10 mg 00 rectum at Medical suppository bedtime as Br anch needed for Constipati on or Constipati on unresolved by oral medication s. bisacodyL 0 Yes [id number] 10mg Insert 1 [facility] (DULCOLAX, 08-15 Suppositor ity of BISACODYL,) 00:00: y into [place] 10 mg 00 rectum at Medical suppository bedtime as Br anch needed for Constipati on or Constipati on unresolved by oral medication s. bisacodyL 0 Yes [id number] 10mg Insert 1 [facility] (DULCOLAX, 08-15 Suppositor ity of BISACODYL,) 00:00: y into [place] 10 mg 00 rectum at Medical suppository bedtime as Br anch needed for Constipati on or Constipati on unresolved by oral medication s. bisacodyL 0 Yes [id number] 10mg Insert 1 [facility] (DULCOLAX, 08-15 Suppositor ity of BISACODYL,) 00:00: y into [place] 10 mg 00 rectum at Medical suppository bedtime as Br anch needed for Constipati on or Constipati on unresolved by oral medication s. bisacodyL 0 Yes [id number] 10mg Insert 1 [facility] (DULCOLAX, 08-15 Suppositor ity of BISACODYL,) 00:00: y into [place] 10 mg 00 rectum at Medical suppository bedtime as Br anch needed for Constipati on or Constipati on unresolved by oral medication s. bisacodyL 2023-0 Yes [id number] 10mg Insert 1 [facility] (DULCOLAX, 6- Suppositor ity of BISACODYL,) 00:00: y into [place] 10 mg 00 rectum at Medical suppository bedtime as Br anch needed for Constipati on or Constipati on unresolved by oral medication s. bisacodyL 2023-0 Yes [id number] 10mg Insert 1 [facility] (DULCOLAX, 6- Suppositor ity of BISACODYL,) 00:00: y into [place] 10 mg 00 rectum at Medical suppository bedtime as Br anch needed for Constipati on or Constipati on unresolved by oral medication s. bisacodyL 3-0 Yes [id number] 10mg Insert 1 [facility] (DULCOLAX, 6- Suppositor ity of BISACODYL,) 00:00: y into [place] 10 mg 00 rectum at Medical suppository bedtime as Br anch needed for Constipati on or Constipati on unresolved by oral medication s. bisacodyL 3-0 Yes [id number] 10mg Insert 1 [facility] (DULCOLAX, 6- Suppositor ity of BISACODYL,) 00:00: y into [place] 10 mg 00 rectum at Medical suppository bedtime as Br anch needed for Constipati on or Constipati on unresolved by oral medication s. bisacodyL 3-0 Yes [id number] 10mg Insert 1 [facility] (DULCOLAX, 6- Suppositor ity of BISACODYL,) 00:00: y into [place] 10 mg 00 rectum at Medical suppository bedtime as Br anch needed for Constipati on or Constipati on unresolved by oral medication s. bisacodyL 3-0 Yes [id number] 10mg Insert 1 [facility] (DULCOLAX, 6-01 Suppositor ity of BISACODYL,) 00:00: y into [place] 10 mg 00 rectum at Medical suppository bedtime as Br anch needed for Constipati on or Constipati on unresolved by oral medication s. bisacodyL 3-0 Yes [id number] 10mg Insert 1 [facility] (DULCOLAX, 6- Suppositor ity of BISACODYL,) 00:00: y into [place] 10 mg 00 rectum at Medical suppository bedtime as Br anch needed for Constipati on or Constipati on unresolved by oral medication s. bisacodyL 2022-0 2022- No [id number] 10mg Insert 1 [facility] (DULCOLAX, 08-15 Suppositor it y of BISACODYL,) 00:00: 00:00 y into [place] 10 mg 00 :00 rectum at Medical suppository bedtime as Br anch needed for Constipati on or Constipati on unresolved by oral medication s. bacitracin 2023-0 Yes [id number] Apply to [facility] 500 5-17 affected ity of unit/gram 00:00: area(s) 4 [place] ointment 00 (four) Medical times Branch daily. bacitracin 2023-0 Yes [id number] Apply to [facility] 500 5-17 affected ity of unit/gram 00:00: area(s) 4 [place] ointment 00 (four) Medical times Branch daily. bacitracin 2023-0 Yes [id number] Apply to [facility] 500 5-17 affected ity of unit/gram 00:00: area(s) 4 [place] ointment 00 (four) Medical times Branch daily. bacitracin 2023-0 Yes [id number] Apply to [facility] 500 5-17 affected ity of unit/gram 00:00: area(s) 4 [place] ointment 00 (four) Medical times Branch daily. bacitracin 2023-0 Yes [id number] Apply to [facility] 500 5-17 affected ity of unit/gram 00:00: area(s) 4 [place] ointment 00 (four) Medical times Branch daily. bacitracin 2023-0 Yes [id number] Apply to [facility] 500 5-17 affected ity of unit/gram 00:00: area(s) 4 [place] ointment 00 (four) Medical times Branch daily. bacitracin 2023-0 Yes [id number] Apply to [facility] 500 5-17 affected ity of unit/gram 00:00: area(s) 4 [place] ointment 00 (four) Medical times Branch daily. bacitracin 2023-0 Yes [id number] Apply to [facility] 500 5-17 affected ity of unit/gram 00:00: area(s) 4 [place] ointment 00 (four) Medical times Branch daily. bacitracin 2023-0 Yes [id number] Apply to [facility] 500 5-17 affected ity of unit/gram 00:00: area(s) 4 [place] ointment 00 (four) Medical times Branch daily. bacitracin 2023-0 Yes [id number] Apply to [facility] 500 5-17 affected ity of unit/gram 00:00: area(s) 4 [place] ointment 00 (four) Medical times Branch daily. bacitracin 2023-0 Yes [id number] Apply to [facility] 500 5-17 affected ity of unit/gram 00:00: area(s) 4 [place] ointment 00 (four) Medical times Branch daily. bacitracin 2023-0 Yes [id number] Apply to [facility] 500 5-17 affected ity of unit/gram 00:00: area(s) 4 [place] ointment 00 (four) Medical times Branch daily. bacitracin 2023-0 Yes [id number] Apply to [facility] 500 5-17 affected ity of unit/gram 00:00: area(s) 4 [place] ointment 00 (four) Medical times Branch daily. proMETHazin 2023-0 Yes [id number] 25mg Take 1 [facility] e 25 mg 5-12 tablet by ity of tablet 00:00: mouth [place] 00 every 6 Medical (six) Branch hours as needed for Nausea and Vomiting (N/V). Neomycin-Ba 2023-0 Yes [id number] Apply to Univers citracnZn-P 5-12 area(s) as it y of olymyxin 00:00: needed for [place] (NEOSPORIN, 00 Pain Medical TRICIA-CARL-GAURANG (scale Branch YM,) 4-6). 3.5-400-5,0 00 mg-unit-uni t OiPk proMETHazin 2023-0 Yes [id number] 25mg Take 1 [facility] e 25 mg 5-12 tablet by ity of tablet 00:00: mouth [place] 00 every 6 Medical (six) Branch hours as needed for Nausea and Vomiting (N/V). Neomycin-Ba 2023-0 Yes [id number] Apply to [facility] citracnZn-P 5-12 area(s) as it y of olymyxin 00:00: needed for [place] (NEOSPORIN, 00 Pain Medical TRICIA-CARL-GAURANG (scale Branch YM,) 4-6). 3.5-400-5,0 00 mg-unit-uni t OiPk proMETHazin 2023-0 Yes [id number] 25mg Take 1 [facility] e 25 mg 5-12 tablet by ity of tablet 00:00: mouth [place] 00 every 6 Medical (six) Branch hours as needed for Nausea and Vomiting (N/V). Neomycin-Ba 2023-0 Yes [id number] Apply to [facility] citracnZn-P 5-12 area(s) as it y of olymyxin 00:00: needed for [place] (NEOSPORIN, 00 Pain Medical TRICIA-CARL-GAURANG (scale Branch YM,) 4-6). 3.5-400-5,0 00 mg-unit-uni t OiPk proMETHazin 2023-0 Yes [id number] 25mg Take 1 [facility] e 25 mg 5-12 tablet by ity of tablet 00:00: mouth [place] 00 every 6 Medical (six) Branch hours as needed for Nausea and Vomiting (N/V). Neomycin-Ba 2023-0 Yes [id number] Apply to [facility] citracnZn-P 5-12 area(s) as it y of olymyxin 00:00: needed for [place] (NEOSPORIN, 00 Pain Medical TRICIA-CARL-GAURANG (scale Branch YM,) 4-6). 3.5-400-5,0 00 mg-unit-uni t OiPk proMETHazin 2023-0 Yes [id number] 25mg Take 1 [facility] e 25 mg 5-12 tablet by ity of tablet 00:00: mouth [place] 00 every 6 Medical (six) Branch hours as needed for Nausea and Vomiting (N/V). Neomycin-Ba 2023-0 Yes [id number] Apply to [facility] citracnZn-P 5-12 area(s) as it y of olymyxin 00:00: needed for [place] (NEOSPORIN, 00 Pain Medical TRICIA-CARL-GAURANG (scale Branch YM,) 4-6). 3.5-400-5,0 00 mg-unit-uni t OiPk proMETHazin 2023-0 Yes [id number] 25mg Take 1 [facility] e 25 mg 5-12 tablet by ity of tablet 00:00: mouth [place] 00 every 6 Medical (six) Branch hours as needed for Nausea and Vomiting (N/V). Neomycin-Ba 2023-0 Yes [id number] Apply to Univers citracnZn-P 5-12 area(s) as it y of olymyxin 00:00: needed for [place] (NEOSPORIN, 00 Pain Medical TRICIA-CARL-GAURANG (scale Branch YM,) 4-6). 3.5-400-5,0 00 mg-unit-uni t OiPk proMETHazin 2023-0 Yes [id number] 25mg Take 1 [facility] e 25 mg 5-12 tablet by ity of tablet 00:00: mouth [place] 00 every 6 Medical (six) Branch hours as needed for Nausea and Vomiting (N/V). Neomycin-Ba 2023-0 Yes [id number] Apply to [facility] citracnZn-P 5-12 area(s) as it y of olymyxin 00:00: needed for [place] (NEOSPORIN, 00 Pain Medical TRICIA-CARL-GAURANG (scale Branch YM,) 4-6). 3.5-400-5,0 00 mg-unit-uni t OiPk proMETHazin 2023-0 Yes [id number] 25mg Take 1 [facility] e 25 mg 5-12 tablet by ity of tablet 00:00: mouth [place] 00 every 6 Medical (six) Branch hours as needed for Nausea and Vomiting (N/V). Neomycin-Ba 2023-0 Yes [id number] Apply to [facility] citracnZn-P 5-12 area(s) as it y of olymyxin 00:00: needed for [place] (NEOSPORIN, 00 Pain Medical TRICIA-CARL-GAURANG (scale Branch YM,) 4-6). 3.5-400-5,0 00 mg-unit-uni t OiPk proMETHazin 2023-0 Yes [id number] 25mg Take 1 [facility] e 25 mg 5-12 tablet by ity of tablet 00:00: mouth [place] 00 every 6 Medical (six) Branch hours as needed for Nausea and Vomiting (N/V). Neomycin-Ba 2023-0 Yes [id number] Apply to Univers citracnZn-P 5-12 area(s) as it y of olymyxin 00:00: needed for [place] (NEOSPORIN, 00 Pain Medical TRICIA-CARL-GAURANG (scale Branch YM,) 4-6). 3.5-400-5,0 00 mg-unit-uni t OiPk proMETHazin 2023-0 Yes [id number] 25mg Take 1 Univers e 25 mg 5-12 tablet by ity of tablet 00:00: mouth [place] 00 every 6 Medical (six) Branch hours as needed for Nausea and Vomiting (N/V). Neomycin-Ba 2023-0 Yes [id number] Apply to [place] [facility] citracnZn-P 5-12 area(s) as it y of olymyxin 00:00: needed for [place] as (NEOSPORIN, 00 Pain Medical TRICIA-CARL-GAURANG (scale Branch YM,) 4-6). 3.5-400-5,0 00 mg-unit-uni t OiPk proMETHazin 2023-0 Yes [id number] 25mg Take 1 Univers e 25 mg 5-12 tablet by ity of tablet 00:00: mouth [place] 00 every 6 Medical (six) Branch hours as needed for Nausea and Vomiting (N/V). Neomycin-Ba 2023-0 Yes [id number] Apply to [place] [facility] citracnZn-P 5-12 area(s) as it y of olymyxin 00:00: needed for [place] (NEOSPORIN, 00 Pain Medical TRICIA-CARL-GAURANG (scale Branch YM,) 4-6). 3.5-400-5,0 00 mg-unit-uni t OiPk proMETHazin 2023-0 Yes [id number] 25mg Take 1 Univers e 25 mg 5-12 tablet by ity of tablet 00:00: mouth [place] 00 every 6 Medical (six) Branch hours as needed for Nausea and Vomiting (N/V). Neomycin-Ba 2023-0 Yes [id number] Apply to [facility] citracnZn-P 5-12 area(s) as it y of olymyxin 00:00: needed for [place] (NEOSPORIN, 00 Pain Medical TRICIA-CARL-GAURANG (scale Branch YM,) 4-6). 3.5-400-5,0 00 mg-unit-uni t OiPk proMETHazin 2023-0 Yes [id number] 25mg Take 1 Univers e 25 mg 5-12 tablet by ity of tablet 00:00: mouth [place] 00 every 6 Medical (six) Branch hours as needed for Nausea and Vomiting (N/V). Neomycin-Ba 2023-0 Yes [id number] Apply to [place] [facility] citracnZn-P 5-12 area(s) as it y of olymyxin 00:00: needed for [place] (NEOSPORIN, 00 Pain Medical TRICIA-CARL-GAURANG (scale Branch YM,) 4-6). 3.5-400-5,0 00 mg-unit-uni t OiPk proMETHazin Yes [id number] 25mg Take 1 Univers e 25 mg 5-12 tablet by ity of tablet 00:00: mouth [place] 00 every 6 Medical (six) Branch hours as needed for Nausea and Vomiting (N/V). Neomycin-Ba Yes [id number] Apply to [place] [facility] citracnZn-P 5-12 area(s) as it y of olymyxin 00:00: needed for [place] as (NEOSPORIN, 00 Pain Medical TRICIA-CARL-GAURANG (scale Branch YM,) 4-6). 3.5-400-5,0 00 mg-unit-uni t OiPk acetaminoph 2022- No 1{tbl} 1 tablet, Univers en-codeine 07-21- Oral, ity of (TYLENOL 19:30: 19:59 ONCE, 1 [place] #3) 300-30 00 :00 dose, On Medic al mg tablet 1 07/21/22 Br anch tablet at 1459, Routine amoxicillin 2022- No 1{tbl} 1 tablet, Univers -clavulanat 07-21-07 Oral, ity of e 19:15: 18:37 ONCE, 1 [place] (AUGMENTIN) 00 :00 dose, On Medi reema 875-125 mg [place] 07/21/22 Bra nch per tablet at 1415, 1 tablet Routine
Reason for Anti-Infec tive: Empiric Therapy for Suspected Infection< br>Empiric Therapy Site: Skin / Soft tissue
Duration of therapy: 72 hours amoxicillin Yes [id number] 1{tbl} Take 1 [facility] -clavulanat 5-07 tablet by ity of e 875-125 00:00: mouth [place] mg per 00 every 12 Medical tablet (twelve) Branch hours. amoxicillin Yes [id number] 1{tbl} Take 1 [facility] -clavulanat 5-07 tablet by ity of e 875-125 00:00: mouth [place] mg per 00 every 12 Medical tablet (twelve) Branch hours. amoxicillin 2023-0 Yes [id number] 1{tbl} Take 1 [facility] -clavulanat 5-07 tablet by ity of e 875-125 00:00: mouth [place] mg per 00 every 12 Medical tablet (twelve) Branch hours. amoxicillin 2023-0 Yes [id number] 1{tbl} Take 1 Univers -clavulanat 5-07 tablet by ity of e 875-125 00:00: mouth [place] mg per 00 every 12 Medical tablet (twelve) Branch hours. amoxicillin 2023-0 Yes [id number] 1{tbl} Take 1 Univers -clavulanat 5-07 tablet by ity of e 875-125 00:00: mouth [place] mg per 00 every 12 Medical tablet (twelve) Branch hours. amoxicillin 2023-0 Yes [id number] 1{tbl} Take 1 [facility] -clavulanat 5-07 tablet by ity of e 875-125 00:00: mouth [place] mg per 00 every 12 Medical tablet (twelve) Branch hours. amoxicillin 2023-0 Yes [id number] 1{tbl} Take 1 [facility] -clavulanat 5-07 tablet by ity of e 875-125 00:00: mouth [place] mg per 00 every 12 Medical tablet (twelve) Branch hours. amoxicillin 2023-0 Yes [id number] 1{tbl} Take 1 [facility] -clavulanat 5-07 tablet by ity of e 875-125 00:00: mouth [place] mg per 00 every 12 Medical tablet (twelve) Branch hours. amoxicillin 2023-0 Yes [id number] 1{tbl} Take 1 [facility] -clavulanat 5-07 tablet by ity of e 875-125 00:00: mouth [place] mg per 00 every 12 Medical tablet (twelve) Branch hours. amoxicillin 2023-0 Yes [id number] 1{tbl} Take 1 [facility] -clavulanat 5-07 tablet by ity of e 875-125 00:00: mouth [place] mg per 00 every 12 Medical tablet (twelve) Branch hours. amoxicillin 2023-0 Yes [id number] 1{tbl} Take 1 [facility] -clavulanat 5-07 tablet by ity of e 875-125 00:00: mouth [place] mg per 00 every 12 Medical tablet (twelve) Branch hours. amoxicillin 3-0 Yes [id number] 1{tbl} Take 1 Univers -clavulanat 5-07 tablet by ity of e 875-125 00:00: mouth [place] mg per 00 every 12 Medical tablet (twelve) Branch hours. amoxicillin 3-0 Yes [id number] 1{tbl} Take 1 Univers -clavulanat 5-07 tablet by ity of e 875-125 00:00: mouth [place] mg per 00 every 12 Medical tablet (twelve) Branch hours. amoxicillin 3-0 Yes [id number] 1{tbl} Take 1 Univers -clavulanat 5-07 tablet by ity of e 875-125 00:00: mouth [place] mg per 00 every 12 Medical tablet (twelve) Branch hours. amoxicillin 3-0 Yes [id number] 1{tbl} Take 1 [facility] -clavulanat 5-07 tablet by ity of e 875-125 00:00: mouth [place] mg per 00 every 12 Medical tablet (twelve) Branch hours. amoxicillin 2022-0 3- No [id number] 1{tbl} Take 1 [facility] -clavulanat 5-07 06-17 tablet by it y of e 875-125 00:00: 00:00 mouth [place] mg per 00 :00 every 12 Medical tablet (twelve) Branch hours. amoxicillin 2022-0 2023- No [id number] 1{tbl} Take 1 [facility] -clavulanat 5-07 06-17 tablet by it y of e 875-125 00:00: 00:00 mouth [place] mg per 00 :00 every 12 Medical tablet (twelve) Branch hours. LEVOTHYROXI 2022-0 Yes [id number] 75ug TAKE 1 [facility] [place] 75 mcg 5-04 TABLET BY ity o f tablet 00:00: MOUTH [place] 00 EVERY Medical MORNING Branch proMETHazin 2022-0 Yes [id number] 12.5mg Take 1 [facility] e 12.5 mg 5-04 tablet by ity o f tablet 00:00: mouth [place] 00 every 6 Medical (six) Branch hours as needed for Nausea and Vomiting (N/V) (Pt is ) for up to 30 doses. LEVOTHYROXI 2022-0 Yes [id number] 75ug TAKE 1 [facility] [place] 75 mcg 5-04 TABLET BY ity o f tablet 00:00: MOUTH [place] 00 EVERY Medical MORNING Branch proMETHazin 0 Yes [id number] 12.5mg Take 1 [facility] 12.5 mg 5-04 tablet by ity o f tablet 00:00: mouth [place] 00 every 6 Medical (six) Branch hours as needed for Nausea and Vomiting (N/V) (Pt is ) for up to 30 doses. LEVOTHYROXI 0 Yes [id number] 75ug TAKE 1 [facility] 75 mcg 5-04 TABLET BY [facility] o f tablet 00:00: MOUTH [place] 00 EVERY Medical MORNING Branch proMETHazin 0 Yes [id number] 12.5mg Take 1 [facility] 12.5 mg 5-04 tablet by [facility] o f tablet 00:00: mouth [place] 00 every 6 Medical (six) Branch hours as needed for Nausea and Vomiting (N/V) (Pt is ) for up to 30 doses. LEVOTHYROXI Yes [id number] 75ug TAKE 1 [facility] 75 mcg 5-04 TABLET BY [facility] o f tablet 00:00: MOUTH [place] 00 EVERY Medical MORNING Branch proMETHazin 0 Yes [id number] 12.5mg Take 1 [facility] 12.5 mg 5-04 tablet by [facility] o f tablet 00:00: mouth [place] 00 every 6 Medical (six) Branch hours as needed for Nausea and Vomiting (N/V) (Pt is ) for up to 30 doses. LEVOTHYROXI Yes [id number] 75ug TAKE 1 [facility] 75 mcg 5-04 TABLET BY [facility] o f tablet 00:00: MOUTH [place] 00 EVERY Medical MORNING Branch proMETHazin 0 Yes [id number] 12.5mg Take 1 [facility] 12.5 mg 5-04 tablet by [facility] o f tablet 00:00: mouth [place] 00 every 6 Medical (six) Branch hours as needed for Nausea and Vomiting (N/V) (Pt is ) for up to 30 doses. LEVOTHYROXI 2022- Yes [id number] 75ug TAKE 1 [facility] 75 mcg 5-04 TABLET BY [facility] tablet 00:00: MOUTH [place] 00 EVERY Medical MORNING Branch proMETHazin 0 Yes [id number] 12.5mg Take 1 [facility] 12.5 mg 5-04 tablet by [facility] o f tablet 00:00: mouth [place] 00 every 6 Medical (six) Branch hours as needed for Nausea and Vomiting (N/V) (Pt is ) for up to 30 doses. LEVOTHYROXI 2022-0 Yes [id number] 75ug TAKE 1 [facility] 75 mcg 5-04 TABLET BY [facility] o f tablet 00:00: MOUTH [place] 00 EVERY Medical MORNING Branch proMETHazin 2022-0 Yes [id number] 12.5mg Take 1 [facility] 12.5 mg 5-04 tablet by [facility] o f tablet 00:00: mouth [place] 00 every 6 Medical (six) Branch hours as needed for Nausea and Vomiting (N/V) (Pt is ) for up to 30 doses. LEVOTHYROXI 2022-0 Yes [id number] 75ug TAKE 1 [facility] 75 mcg 5-04 TABLET BY [facility] o [facility] tablet 00:00: MOUTH [place] 00 EVERY Medical MORNING Branch proMETHazin 2022-0 Yes [id number] 12.5mg Take 1 [facility] 12.5 mg 5-04 tablet by [facility] o f tablet 00:00: mouth [place] 00 every 6 Medical (six) Branch hours as needed for Nausea and Vomiting (N/V) (Pt is ) for up to 30 doses. LEVOTHYROXI 2022-0 Yes [id number] 75ug TAKE 1 [facility] 75 mcg 5-04 TABLET BY [facility] o [facility] tablet 00:00: MOUTH [place] 00 EVERY Medical MORNING Branch proMETHazin 2022-0 Yes [id number] 12.5mg Take 1 [facility] 12.5 mg 5-04 tablet by [facility] o [facility] tablet 00:00: mouth [place] 00 every 6 Medical (six) Branch hours as needed for Nausea and Vomiting (N/V) (Pt is ) for up to 30 doses. LEVOTHYROXI 2022-0 Yes [id number] 75ug TAKE 1 [facility] 75 mcg 5-04 TABLET BY [facility] tablet 00:00: MOUTH [place] 00 EVERY Medical MORNING Branch proMETHazin 2022-0 Yes [id number] 12.5mg Take 1 [facility] 12.5 mg 5-04 tablet by [facility] o [facility] tablet 00:00: mouth [place] 00 every 6 Medical (six) Branch hours as needed for Nausea and Vomiting (N/V) (Pt is ) for up to 30 doses. LEVOTHYROXI 2022-0 Yes [id number] 75ug TAKE 1 [facility] 75 mcg 5-04 TABLET BY [facility] o [facility] tablet 00:00: MOUTH [place] 00 EVERY Medical MORNING Branch proMETHazin Yes [id number] 12.5mg Take 1 [facility] 12.5 mg 5-04 tablet by [facility] o [facility] tablet 00:00: mouth [place] 00 every 6 Medical (six) Branch hours as needed for Nausea and Vomiting (N/V) (Pt is ) for up to 30 doses. LEVOTHYROXI Yes [id number] 75ug TAKE 1 [facility] 75 mcg 5-04 TABLET BY [facility] tablet 00:00: MOUTH [place] 00 EVERY Medical MORNING Branch proMETHazin Yes [id number] 12.5mg Take 1 [facility] 12.5 mg 5-04 tablet by [facility] o [facility] tablet 00:00: mouth [place] 00 every 6 Medical (six) Branch hours as needed for Nausea and Vomiting (N/V) (Pt is ) for up to 30 doses. LEVOTHYROXI Yes [id number] 75ug TAKE 1 [facility] 75 mcg 5-04 TABLET BY [facility] o [facility] tablet 00:00: MOUTH [place] 00 EVERY Medical MORNING Branch proMETHazin Yes [id number] 12.5mg Take 1 [facility] 12.5 mg 5-04 tablet by [facility] tablet 00:00: mouth [place] 00 every 6 Medical (six) Branch hours as needed for Nausea and Vomiting (N/V) (Pt is ) for up to 30 doses. LEVOTHYROXI Yes [id number] 75ug TAKE 1 [facility] 75 mcg 5-04 TABLET BY [facility] o [facility] tablet 00:00: MOUTH [place] 00 EVERY Medical MORNING Branch proMETHazin Yes [id number] 12.5mg Take 1 [facility] 12.5 mg 5-04 tablet by [facility] tablet 00:00: mouth [place] 00 every 6 Medical (six) Branch hours as needed for Nausea and Vomiting (N/V) (Pt is ) for up to 30 doses. LEVOTHYROXI Yes [id number] 75ug TAKE 1 [facility] 75 mcg 5-04 TABLET BY [facility] tablet 00:00: MOUTH [place] 00 EVERY Medical MORNING Branch LEVOTHYROXI Yes [id number] 75ug TAKE 1 [facility] 75 mcg 5-04 TABLET BY [facility] tablet 00:00: MOUTH [place] 00 EVERY Medical MORNING Branch LEVOTHYROXI Yes [id number] 75ug TAKE 1 [facility] 75 mcg 5-04 TABLET BY [facility] tablet 00:00: MOUTH [place] 00 EVERY Medical MORNING Branch LEVOTHYROXI 3-0 Yes [id number] 75ug TAKE 1 [facility] 75 mcg 5-04 TABLET BY [facility] tablet 00:00: MOUTH [place] 00 EVERY Medical MORNING Branch LEVOTHYROXI 2022-0 Yes [id number] 75ug TAKE 1 [facility] 75 mcg 5-04 TABLET BY [facility] tablet 00:00: MOUTH [place] 00 EVERY Medical MORNING Branch LEVOTHYROXI 2022-0 Yes [id number] 75ug TAKE 1 [facility] 75 mcg 5-04 TABLET BY [facility] tablet 00:00: MOUTH [place] 00 EVERY Medical MORNING Branch LEVOTHYROXI 2022-0 Yes [id number] 75ug TAKE 1 [facility] 75 mcg 5-04 TABLET BY [facility] tablet 00:00: MOUTH [place] 00 EVERY Medical MORNING Branch LEVOTHYROXI 2022-0 Yes [id number] 75ug TAKE 1 [facility] 75 mcg 5-04 TABLET BY [facility] tablet 00:00: MOUTH [place] 00 EVERY Medical MORNING Branch LEVOTHYROXI 2022-0 Yes [id number] 75ug TAKE 1 [facility] 75 mcg 5-04 TABLET BY [facility] tablet 00:00: MOUTH [place] 00 EVERY Medical MORNING Branch LEVOTHYROXI 2022-0 Yes [id number] 75ug TAKE 1 [facility] 75 mcg 5-04 TABLET BY [facility] tablet 00:00: MOUTH [place] 00 EVERY Medical MORNING Branch LEVOTHYROXI 2022-0 Yes [id number] 75ug TAKE 1 [facility] 75 mcg 5-04 TABLET BY [facility] tablet 00:00: MOUTH [place] 00 EVERY Medical MORNING Branch LEVOTHYROXI 2022-0 Yes [id number] 75ug TAKE 1 [facility] 75 mcg 5-04 TABLET BY [facility] tablet 00:00: MOUTH [place] 00 EVERY Medical MORNING Branch LEVOTHYROXI 2022-0 Yes [id number] 75ug TAKE 1 [facility] 75 mcg 5-04 TABLET BY [facility] tablet 00:00: MOUTH [place] 00 EVERY Medical MORNING Branch LEVOTHYROXI 2022-0 Yes [id number] 75ug TAKE 1 [facility] 75 mcg 5-04 TABLET BY [facility] o [facility] tablet 00:00: MOUTH [place] 00 EVERY Medical MORNING Branch LEVOTHYROXI 2022-0 Yes [id number] 75ug TAKE 1 [facility] 75 mcg 5-04 TABLET BY [facility] tablet 00:00: MOUTH [place] 00 EVERY Medical MORNING Branch LEVOTHYROXI 3-0 Yes [id number] 75ug TAKE 1 [facility] 75 mcg 5-04 TABLET BY [facility] tablet 00:00: MOUTH [place] 00 EVERY Medical MORNING Branch LEVOTHYROXI 2022-0 Yes [id number] 75ug TAKE 1 [facility] 75 mcg 5-04 TABLET BY [facility] tablet 00:00: MOUTH [place] 00 EVERY Medical MORNING Branch LEVOTHYROXI 2022-0 Yes [id number] 75ug TAKE 1 [facility] 75 mcg 5-04 TABLET BY [facility] tablet 00:00: MOUTH [place] 00 EVERY Medical MORNING Branch LEVOTHYROXI 2022-0 Yes [id number] 75ug TAKE 1 [facility] 75 mcg 5-04 TABLET BY [facility] tablet 00:00: MOUTH [place] 00 EVERY Medical MORNING Branch LEVOTHYROXI 2022-0 Yes [id number] 75ug TAKE 1 [facility] 75 mcg 5-04 TABLET BY [facility] tablet 00:00: MOUTH [place] 00 EVERY Medical MORNING Branch LEVOTHYROXI 2022-0 Yes [id number] 75ug TAKE 1 [facility] 75 mcg 5-04 TABLET BY [facility] tablet 00:00: MOUTH [place] 00 EVERY Medical MORNING Branch LEVOTHYROXI 2022-0 Yes [id number] 75ug TAKE 1 [facility] 75 mcg 5-04 TABLET BY [facility] tablet 00:00: MOUTH [place] 00 EVERY Medical MORNING Branch LEVOTHYROXI 2022-0 Yes [id number] 75ug TAKE 1 [facility] 75 mcg 5-04 TABLET BY [facility] tablet 00:00: MOUTH [place] 00 EVERY Medical MORNING Branch LEVOTHYROXI 2022-0 Yes [id number] 75ug TAKE 1 [facility] 75 mcg 5-04 TABLET BY [facility] o [facility] tablet 00:00: MOUTH [place] 00 EVERY Medical MORNING Branch LEVOTHYROXI 2022-0 Yes [id number] 75ug TAKE 1 [facility] 75 mcg 5-04 TABLET BY [facility] o [facility] tablet 00:00: MOUTH [place] 00 EVERY Medical MORNING Branch LEVOTHYROXI 2022-0 Yes [id number] 75ug TAKE 1 [facility] 75 mcg 5-04 TABLET BY [facility] tablet 00:00: MOUTH [place] 00 EVERY Medical MORNING Branch proMETHazin 2022-0 Yes [id number] 12.5mg Take 1 [facility] 12.5 mg 5-04 tablet by [facility] o [facility] tablet 00:00: mouth [place] 00 every 6 Medical (six) Branch hours as needed for Nausea and Vomiting (N/V) (Pt is ) for up to 30 doses. proMETHazin 0 Yes [id number] 12.5mg Take 1 [facility] 12.5 mg 5-04 tablet by [facility] o f tablet 00:00: mouth [place] 00 every 6 Medical (six) Branch hours as needed for Nausea and Vomiting (N/V) (Pt is ) for up to 30 doses. LEVOTHYROXI Yes [id number] 75ug TAKE 1 [facility] 75 mcg 5-04 TABLET BY [facility] o [facility] tablet 00:00: MOUTH [place] 00 EVERY Medical MORNING Branch proMETHazin 0 Yes [id number] 12.5mg Take 1 [facility] 12.5 mg 5-04 tablet by [facility] o [facility] tablet 00:00: mouth [place] 00 every 6 Medical (six) Branch hours as needed for Nausea and Vomiting (N/V) (Pt is ) for up to 30 doses. proMETHazin Yes [id number] 12.5mg Take 1 [facility] 12.5 mg 5-04 tablet by [facility] o [facility] tablet 00:00: mouth [place] 00 every 6 Medical (six) Branch hours as needed for Nausea and Vomiting (N/V) (Pt is ) for up to 30 doses. LEVOTHYROXI Yes [id number] 75ug TAKE 1 [facility] 75 mcg 5-04 TABLET BY [facility] o [facility] tablet 00:00: MOUTH [place] 00 EVERY Medical MORNING Branch proMETHazin 0 Yes [id number] 12.5mg Take 1 [facility] 12.5 mg 5-04 tablet by [facility] o f tablet 00:00: mouth [place] 00 every 6 Medical (six) Branch hours as needed for Nausea and Vomiting (N/V) (Pt is ) for up to 30 doses. LEVOTHYROXI 2022- No [id number] 75ug TAKE 1 [facility] 75 mcg 5-04 08-01 TABLET BY [facility] of tablet 00:00: 00:00 MOUTH [place] 00 :00 EVERY Medical MORNING Branch LEVOTHYROXI 0 2022- No [id number] 75ug TAKE 1 [facility] 75 mcg 5-04 08-01 TABLET BY [facility] of tablet 00:00: 00:00 MOUTH [place] 00 :00 EVERY Medical MORNING Branch proMETHazin 2022-0 2022- No [id number] 12.5mg Take 1 [facility] 12.5 mg 5-04 06-17 tablet by [facility] of tablet 00:00: 00:00 mouth [place] 00 :00 every 6 Medical (six) Branch hours as needed for Nausea and Vomiting (N/V) (Pt is ) for up to 30 doses. proMETHazin 2022-0 2022- No [id number] 12.5mg Take 1 [facility] 12.5 mg 5-04 06-17 tablet by [facility] tablet 00:00: 00:00 mouth [place] 00 :00 every 6 Medical (six) Branch hours as needed for Nausea and Vomiting (N/V) (Pt is ) for up to 30 doses. PNV 67-iron 0 Yes [id number] 1{each} Take 1 [facility] ps-folate 4-03 Each by [facility] of no.1-dha 00:00: mouth in [place] (VITAFOL 00 the Medical ULTRA) 29 morning. Branch mg iron- 1 mg-200 mg Cap Iron Fum & 0 Yes [id number] 1{capsu Take 1 [facility] P-FA-Vit B 4-03 le} capsule by [facility] of & C No.9 00:00: mouth in [place] (INTEGRA 00 the Medical PLUS) 125 morning. Branch mg iron- 1 mg Cap PNV 67-iron 0 Yes [id number] 1{each} Take 1 [facility] ps-folate 4-03 Each by [facility]y of no.1-dha 00:00: mouth in [place] (VITAFOL 00 the Medical ULTRA) 29 morning. Branch mg iron- 1 mg-200 mg Cap Iron Fum & 2022-0 Yes [id number] 1{capsu Take 1 [facility] P-FA-Vit B 4-03 le} capsule by [facility] of & C No.9 00:00: mouth in [place] (INTEGRA 00 the Medical PLUS) 125 morning. Branch mg iron- 1 mg Cap PNV 67-iron 2022-0 Yes [id number] 1{each} Take 1 [facility] ps-folate 4-03 Each by [facility] of no.1-dha 00:00: mouth in [place] (VITAFOL 00 the Medical ULTRA) 29 morning. Branch mg iron- 1 mg-200 mg Cap Iron Fum & 2022-0 Yes [id number] 1{capsu Take 1 [facility] P-FA-Vit B 4-03 le} capsule by [facility] of & C No.9 00:00: mouth in [place] (INTEGRA 00 the Medical PLUS) 125 morning. Branch mg iron- 1 mg Cap PNV 67-iron 2023-0 Yes [id number] 1{each} Take 1 [facility] ps-folate 4-03 Each by [facility] of no.1-dha 00:00: mouth in [place] (VITAFOL 00 the Medical ULTRA) 29 morning. Branch mg iron- 1 mg-200 mg Cap Iron Fum & 2023-0 Yes [id number] 1{capsu Take 1 [facility] P-FA-Vit B 4-03 le} capsule by [facility] of & C No.9 00:00: mouth in [place] (INTEGRA 00 the Medical PLUS) 125 morning. Branch mg iron- 1 mg Cap PNV 67-iron 3-0 Yes [id number] 1{each} Take 1 [facility] ps-folate 4-03 Each by [facility] of no.1-dha 00:00: mouth in [place] (VITAFOL 00 the Medical ULTRA) 29 morning. Branch mg iron- 1 mg-200 mg Cap Iron Fum & 3-0 Yes [id number] 1{capsu Take 1 [facility] P-FA-Vit B 4-03 le} capsule by [facility] of & C No.9 00:00: mouth in [place] (INTEGRA 00 the Medical PLUS) 125 morning. Branch mg iron- 1 mg Cap PNV 67-iron 3-0 Yes [id number] 1{each} Take 1 [facility] ps-folate 4-03 Each by [facility]y of no.1-dha 00:00: mouth in [place] (VITAFOL 00 the Medical ULTRA) 29 morning. Branch mg iron- 1 mg-200 mg Cap Iron Fum & 2023-0 Yes [id number] 1{capsu Take 1 [facility] P-FA-Vit B 4-03 le} capsule by [facility] of & C No.9 00:00: mouth in [place] (INTEGRA 00 the Medical PLUS) 125 morning. Branch mg iron- 1 mg Cap PNV 67-iron 3-0 Yes [id number] 1{each} Take 1 [facility] ps-folate 4-03 Each by [facility]y of no.1-dha 00:00: mouth in [place] (VITAFOL 00 the Medical ULTRA) 29 morning. Branch mg iron- 1 mg-200 mg Cap Iron Fum & 2023-0 Yes [id number] 1{capsu Take 1 [facility] P-FA-Vit B 4-03 le} capsule by [facility] of & C No.9 00:00: mouth in [place] (INTEGRA 00 the Medical PLUS) 125 morning. Branch mg iron- 1 mg Cap PNV 67-iron 2023-0 Yes [id number] 1{each} Take 1 [facility] ps-folate 4-03 Each by ity of no.1-dha 00:00: mouth in [place] (VITAFOL 00 the Medical ULTRA) 29 morning. Branch mg iron- 1 mg-200 mg Cap Iron Fum & 2023-0 Yes [id number] 1{capsu Take 1 [facility] P-FA-Vit B 4-03 le} capsule by [facility]y of & C No.9 00:00: mouth in [place] (INTEGRA 00 the Medical PLUS) 125 morning. Branch mg iron- 1 mg Cap PNV 67-iron 2023-0 Yes [id number] 1{each} Take 1 [facility] ps-folate 4-03 Each by ity of no.1-dha 00:00: mouth in [place] (VITAFOL 00 the Medical ULTRA) 29 morning. Branch mg iron- 1 mg-200 mg Cap Iron Fum & 2023-0 Yes [id number] 1{capsu Take 1 [facility] P-FA-Vit B 4-03 le} capsule by [facility] of & C No.9 00:00: mouth in [place] (INTEGRA 00 the Medical PLUS) 125 morning. Branch mg iron- 1 mg Cap PNV 67-iron 2023-0 Yes [id number] 1{each} Take 1 [facility] ps-folate 4-03 Each by [facility]y of no.1-dha 00:00: mouth in [place] (VITAFOL 00 the Medical ULTRA) 29 morning. Branch mg iron- 1 mg-200 mg Cap Iron Fum & 2023-0 Yes [id number] 1{capsu Take 1 [facility] P-FA-Vit B 4-03 le} capsule by [facility] of & C No.9 00:00: mouth in [place] (INTEGRA 00 the Medical PLUS) 125 morning. Branch mg iron- 1 mg Cap PNV 67-iron 2023-0 Yes [id number] 1{each} Take 1 [facility] ps-folate 4-03 Each by [facility] of no.1-dha 00:00: mouth in [place] (VITAFOL 00 the Medical ULTRA) 29 morning. Branch mg iron- 1 mg-200 mg Cap Iron Fum & 3-0 Yes [id number] 1{capsu Take 1 [facility] P-FA-Vit B 4-03 le} capsule by [facility] of & C No.9 00:00: mouth in [place] (INTEGRA 00 the Medical PLUS) 125 morning. Branch mg iron- 1 mg Cap PNV 67-iron 3-0 Yes [id number] 1{each} Take 1 [facility] ps-folate 4-03 Each by [facility] of no.1-dha 00:00: mouth in [place] (VITAFOL 00 the Medical ULTRA) 29 morning. Branch mg iron- 1 mg-200 mg Cap Iron Fum & 2022-0 Yes [id number] 1{capsu Take 1 [facility] P-FA-Vit B 4-03 le} capsule by [facility] of & C No.9 00:00: mouth in [place] (INTEGRA 00 the Medical PLUS) 125 morning. Branch mg iron- 1 mg Cap PNV 67-iron 2022-0 Yes [id number] 1{each} Take 1 [facility] ps-folate 4-03 Each by [facility] of no.1-dha 00:00: mouth in [place] (VITAFOL 00 the Medical ULTRA) 29 morning. Branch mg iron- 1 mg-200 mg Cap Iron Fum & 2022-0 Yes [id number] 1{capsu Take 1 [facility] P-FA-Vit B 4-03 le} capsule by [facility] of & C No.9 00:00: mouth in [place] (INTEGRA 00 the Medical PLUS) 125 morning. Branch mg iron- 1 mg Cap PNV 67-iron 2022-0 Yes [id number] 1{each} Take 1 [facility] ps-folate 4-03 Each by [facility] of no.1-dha 00:00: mouth in [place] (VITAFOL 00 the Medical ULTRA) 29 morning. Branch mg iron- 1 mg-200 mg Cap Iron Fum & 2022-0 Yes [id number] 1{capsu Take 1 [facility] P-FA-Vit B 4-03 le} capsule by [facility] of & C No.9 00:00: mouth in [place] (INTEGRA 00 the Medical PLUS) 125 morning. Branch mg iron- 1 mg Cap LEVOTHYROXI 2022-0 Yes [id number] 75ug TAKE 1 [facility] 75 mcg 4-03 TABLET BY [facility] o f tablet 00:00: MOUTH [place] 00 EVERY Medical MORNING Branch PNV 67-iron 2023-0 Yes [id number] 1{each} Take 1 [facility] ps-folate 4-03 Each by [facility] of no.1-dha 00:00: mouth in [place] (VITAFOL 00 the Medical ULTRA) 29 morning. Branch mg iron- 1 mg-200 mg Cap Iron Fum & 2023-0 Yes [id number] 1{capsu Take 1 [facility] P-FA-Vit B 4-03 le} capsule by [facility] of & C No.9 00:00: mouth in [place] (INTEGRA 00 the Medical PLUS) 125 morning. Branch mg iron- 1 mg Cap PNV 67-iron 2023-0 Yes [id number] 1{each} Take 1 [facility] ps-folate 4-03 Each by [facility] of no.1-dha 00:00: mouth in [place] (VITAFOL 00 the Medical ULTRA) 29 morning. Branch mg iron- 1 mg-200 mg Cap LEVOTHYROXI 2023-0 Yes [id number] 75ug TAKE 1 [facility] 75 mcg 4-03 TABLET BY [facility] o f tablet 00:00: MOUTH [place] 00 EVERY Medical MORNING Branch Iron Fum & 2023-0 Yes [id number] 1{capsu Take 1 [facility] P-FA-Vit B 4-03 le} capsule by [facility] of & C No.9 00:00: mouth in [place] (INTEGRA 00 the Medical PLUS) 125 morning. Branch mg iron- 1 mg Cap PNV 67-iron 3-0 Yes [id number] 1{each} Take 1 [facility] ps-folate 4-03 Each by [facility] of no.1-dha 00:00: mouth in [place] (VITAFOL 00 the Medical ULTRA) 29 morning. Branch mg iron- 1 mg-200 mg Cap LEVOTHYROXI 2023-0 Yes [id number] 75ug TAKE 1 [facility] 75 mcg 4-03 TABLET BY [facility] o f tablet 00:00: MOUTH [place] 00 EVERY Medical MORNING Branch Iron Fum & 2023-0 Yes [id number] 1{capsu Take 1 [facility] P-FA-Vit B 4-03 le} capsule by [facility] of & C No.9 00:00: mouth in [place] (INTEGRA 00 the Medical PLUS) 125 morning. Branch mg iron- 1 mg Cap PNV 67-iron 2023-0 Yes [id number] 1{each} Take 1 [facility] ps-folate 4-03 Each by [facility] of no.1-dha 00:00: mouth in [place] (VITAFOL 00 the Medical ULTRA) 29 morning. Branch mg iron- 1 mg-200 mg Cap LEVOTHYROXI 3-0 Yes [id number] 75ug TAKE 1 [facility] 75 mcg 4-03 TABLET BY it[facility] o f tablet 00:00: MOUTH [place] 00 EVERY Medical MORNING Branch Iron Fum & 2023-0 Yes [id number] 1{capsu Take 1 [facility] P-FA-Vit B 4-03 le} capsule by [facility] of & C No.9 00:00: mouth in [place] (INTEGRA 00 the Medical PLUS) 125 morning. Branch mg iron- 1 mg Cap PNV 67-iron 3-0 Yes [id number] 1{each} Take 1 [facility] ps-folate 4-03 Each by [facility] of no.1-dha 00:00: mouth in [place] (VITAFOL 00 the Medical ULTRA) 29 morning. Branch mg iron- 1 mg-200 mg Cap LEVOTHYROXI 3-0 Yes [id number] 75ug TAKE 1 [facility] 75 mcg 4-03 TABLET BY ity o f tablet 00:00: MOUTH [place] 00 EVERY Medical MORNING Branch Iron Fum & 3-0 Yes [id number] 1{capsu Take 1 [facility] P-FA-Vit B 4-03 le} capsule by [facility] of & C No.9 00:00: mouth in [place] (INTEGRA 00 the Medical PLUS) 125 morning. Branch mg iron- 1 mg Cap PNV 67-iron 3-0 Yes [id number] 1{each} Take 1 [facility] ps-folate 4-03 Each by [facility]y of no.1-dha 00:00: mouth in [place] (VITAFOL 00 the Medical ULTRA) 29 morning. Branch mg iron- 1 mg-200 mg Cap LEVOTHYROXI 3-0 Yes [id number] 75ug TAKE 1 [facility] 75 mcg 4-03 TABLET BY ity o f tablet 00:00: MOUTH [place] 00 EVERY Medical MORNING Branch Iron Fum & 2023-0 Yes [id number] 1{capsu Take 1 [facility] P-FA-Vit B 4-03 le} capsule by [facility] of & C No.9 00:00: mouth in [place] (INTEGRA 00 the Medical PLUS) 125 morning. Branch mg iron- 1 mg Cap PNV 67-iron 2023-0 Yes [id number] 1{each} Take 1 [facility] ps-folate 4-03 Each by [facility] of no.1-dha 00:00: mouth in [place] (VITAFOL 00 the Medical ULTRA) 29 morning. Branch mg iron- 1 mg-200 mg Cap LEVOTHYROXI 2022-0 Yes [id number] 75ug TAKE 1 [facility] 75 mcg 4-03 TABLET BY it[facility] o f tablet 00:00: MOUTH [place] 00 EVERY Medical MORNING Branch Iron Fum & 3-0 Yes [id number] 1{capsu Take 1 [facility] P-FA-Vit B 4-03 le} capsule by [facility] of & C No.9 00:00: mouth in [place] (INTEGRA 00 the Medical PLUS) 125 morning. Branch mg iron- 1 mg Cap PNV 67-iron 2022-0 Yes [id number] 1{each} Take 1 [facility] ps-folate 4-03 Each by [facility]y of no.1-dha 00:00: mouth in [place] (VITAFOL 00 the Medical ULTRA) 29 morning. Branch mg iron- 1 mg-200 mg Cap LEVOTHYROXI 2022-0 Yes [id number] 75ug TAKE 1 [facility] 75 mcg 4-03 TABLET BY ity o f tablet 00:00: MOUTH [place] 00 EVERY Medical MORNING Branch Iron Fum & 2022-0 Yes [id number] 1{capsu Take 1 [facility] P-FA-Vit B 4-03 le} capsule by [facility] of & C No.9 00:00: mouth in [place] (INTEGRA 00 the Medical PLUS) 125 morning. Branch mg iron- 1 mg Cap PNV 67-iron 2022-0 Yes [id number] 1{each} Take 1 [facility] ps-folate 4-03 Each by [facility]y of no.1-dha 00:00: mouth in [place] (VITAFOL 00 the Medical ULTRA) 29 morning. Branch mg iron- 1 mg-200 mg Cap LEVOTHYROXI 2022-0 Yes [id number] 75ug TAKE 1 [facility] 75 mcg 4-03 TABLET BY ity o f tablet 00:00: MOUTH [place] 00 EVERY Medical MORNING Branch Iron Fum & 3-0 Yes [id number] 1{capsu Take 1 [facility] P-FA-Vit B 4-03 le} capsule by [facility] of & C No.9 00:00: mouth in [place] (INTEGRA 00 the Medical PLUS) 125 morning. Branch mg iron- 1 mg Cap PNV 67-iron 2023-0 Yes [id number] 1{each} Take 1 [facility] ps-folate 4-03 Each by [facility]y of no.1-dha 00:00: mouth in [place] (VITAFOL 00 the Medical ULTRA) 29 morning. Branch mg iron- 1 mg-200 mg Cap Iron Fum & 2023-0 Yes [id number] 1{capsu Take 1 [facility] P-FA-Vit B 4-03 le} capsule by [facility] of & C No.9 00:00: mouth in [place] (INTEGRA 00 the Medical PLUS) 125 morning. Branch mg iron- 1 mg Cap PNV 67-iron 2023-0 Yes [id number] 1{each} Take 1 [facility] ps-folate 4-03 Each by ity of no.1-dha 00:00: mouth in [place] (VITAFOL 00 the Medical ULTRA) 29 morning. Branch mg iron- 1 mg-200 mg Cap Iron Fum & 2023-0 Yes [id number] 1{capsu Take 1 [facility] P-FA-Vit B 4-03 le} capsule by [facility] of & C No.9 00:00: mouth in [place] (INTEGRA 00 the Medical PLUS) 125 morning. Branch mg iron- 1 mg Cap PNV 67-iron 2023-0 Yes [id number] 1{each} Take 1 [facility] ps-folate 4-03 Each by [facility]y of no.1-dha 00:00: mouth in [place] (VITAFOL 00 the Medical ULTRA) 29 morning. Branch mg iron- 1 mg-200 mg Cap Iron Fum & 2023-0 Yes [id number] 1{capsu Take 1 [facility] P-FA-Vit B 4-03 le} capsule by [facility] of & C No.9 00:00: mouth in [place] (INTEGRA 00 the Medical PLUS) 125 morning. Branch mg iron- 1 mg Cap PNV 67-iron 2023-0 Yes [id number] 1{each} Take 1 [facility] ps-folate 4-03 Each by ity of no.1-dha 00:00: mouth in [place] (VITAFOL 00 the Medical ULTRA) 29 morning. Branch mg iron- 1 mg-200 mg Cap Iron Fum & 2023-0 Yes [id number] 1{capsu Take 1 [facility] P-FA-Vit B 4-03 le} capsule by ity of & C No.9 00:00: mouth in [place] (INTEGRA 00 the Medical PLUS) 125 morning. Branch mg iron- 1 mg Cap PNV 67-iron 2022-2022- No [id number] 1{each} Take 1 [facility] ps-folate 06-17 Each by ity of no.1-dha 00:00: 00:00 mouth in [facility] (VITAFOL 00 :00 the Medical ULTRA) 29 morning. Branch mg iron- 1 mg-200 mg Cap Iron Fum & 2022-0 2022- No [id number] 1{capsu Take 1 [facility] P-FA-Vit B 06-17 le} capsule by it y of & C No.9 00:00: 00:00 mouth in [facility] (INTEGRA 00 :00 the Medical PLUS) 125 morning. Branch mg iron- 1 mg Cap PNV 67-iron 0 2022- No [id number] 1{each} Take 1 [facility] ps-folate 06-17 Each by ity of no.1-dha 00:00: 00:00 mouth in [facility] (VITAFOL 00 :00 the Medical ULTRA) 29 morning. Branch mg iron- 1 mg-200 mg Cap Iron Fum & 0 2022- No [id number] 1{capsu Take 1 [facility] P-FA-Vit B 06-17 le} capsule by it y of & C No.9 00:00: 00:00 mouth in [facility] (INTEGRA 00 :00 the Medical PLUS) 125 morning. Branch mg iron- 1 mg Cap LEVOTHYROXI 2022-0 2022- No [id number] 75ug TAKE 1 [facility] [place] 75 mcg -05 19-04 TABLET BY ity of tablet 00:00: 00:00 MOUTH [place] 00 :00 EVERY Medical MORNING Branch LEVOTHYROXI 2022-0 2022- No [id number] 75ug TAKE 1 [facility] [place] 75 mcg - 05-04 TABLET BY ity of tablet 00:00: 00:00 MOUTH [place] 00 :00 EVERY Medical MORNING Branch LEVOTHYROXI 2022-0 2022- No [id number] 75ug TAKE 1 [facility] [place] 75 mcg - 05-04 TABLET BY ity of tablet 00:00: 00:00 MOUTH [place] 00 :00 EVERY Medical MORNING Branch levothyroxi 2022-0 Yes [id number] 75ug Take 1 [facility] ne 75 mcg 3-07 tablet by ity o f tablet 00:00: mouth [place] 00 every Medical morning. Branch levothyroxi 2022-0 Yes [id number] 75ug Take 1 [facility] ne 75 mcg 3-07 tablet by ity o f tablet 00:00: mouth [place] 00 every Medical morning. Branch levothyroxi 2022-0 Yes [id number] 75ug Take 1 [facility] ne 75 mcg 3-07 tablet by ity o f tablet 00:00: mouth [place] 00 every Medical morning. Branch levothyroxi 2022-0 Yes [id number] 75ug Take 1 [facility] ne 75 mcg 3-07 tablet by ity o f tablet 00:00: mouth [place] 00 every Medical morning. Branch levothyroxi 2022-0 Yes [id number] 75ug Take 1 [facility] ne 75 mcg 3-07 tablet by ity o f tablet 00:00: mouth [place] 00 every Medical morning. Branch levothyroxi 2022-0 Yes [id number] 75ug Take 1 [facility] ne 75 mcg 3-07 tablet by ity o f tablet 00:00: mouth [place] 00 every Medical morning. Branch levothyroxi 2022-0 Yes [id number] 75ug Take 1 [facility] ne 75 mcg 3-07 tablet by ity o f tablet 00:00: mouth [place] 00 every Medical morning. Branch levothyroxi 2022-0 3- No [id number] 75ug Take 1 [facility] ne 75 mcg 3-07 04-03 tablet by ity of tablet 00:00: 00:00 mouth [place] 00 :00 every Medical morning. Branch Levothyroxi 2022-0 Yes [id number] 75ug Take 1 [facility] ne 75 mcg 3-03 capsule by ity of capsule 00:00: mouth in [place] 00 the Medical morning. Branch Levothyroxi 2022-0 Yes [id number] 75ug Take 1 [facility] ne 75 mcg 3-03 capsule by ity of capsule 00:00: mouth in [place] 00 the Medical morning. Branch Levothyroxi 2022-0 Yes [id number] 75ug Take 1 [facility] ne 75 mcg 3-03 capsule by ity of capsule 00:00: mouth in [place] 00 the Medical morning. Branch Levothyroxi 2022-0 Yes [id number] 75ug Take 1 [facility] ne 75 mcg 3-03 capsule by ity of capsule 00:00: mouth in [place] 00 the Medical morning. Branch Levothyroxi 2022-0 Yes [id number] 75ug Take 1 [facility] ne 75 mcg 3-03 capsule by [facility]y of capsule 00:00: mouth in [place] 00 the Medical morning. Branch Levothyroxi 2022-0 Yes [id number] 75ug Take 1 [facility] ne 75 mcg 3-03 capsule by [facility]y of capsule 00:00: mouth in [place] 00 the Medical morning. Branch Levothyroxi 2022-0 Yes [id number] 75ug Take 1 [facility] ne 75 mcg 3-03 capsule by [facility]y of capsule 00:00: mouth in [place] 00 the Medical morning. Branch Levothyroxi 2022-0 Yes [id number] 75ug Take 1 [facility] ne 75 mcg 3-03 capsule by ity of capsule 00:00: mouth in [place] 00 the Medical morning. Branch Levothyroxi 2022-0 Yes [id number] 75ug Take 1 [facility] ne 75 mcg 3-03 capsule by ity of capsule 00:00: mouth in [place] 00 the Medical morning. Branch Levothyroxi 2022-0 Yes [id number] 75ug Take 1 [facility] ne 75 mcg 3-03 capsule by ity of capsule 00:00: mouth in [place] 00 the Medical morning. Branch Levothyroxi 2022-0 Yes [id number] 75ug Take 1 [facility] ne 75 mcg 3-03 capsule by ity of capsule 00:00: mouth in [place] 00 the Medical morning. Branch Levothyroxi 2022-0 Yes [id number] 75ug Take 1 [facility] ne 75 mcg 3-03 capsule by ity of capsule 00:00: mouth in [place] 00 the Medical morning. Branch Levothyroxi 2022-0 2022- No [id number] 75ug Take 1 [facility] ne 75 mcg 3-03 04-03 capsule by ity of capsule 00:00: 00:00 mouth in [place] 00 :00 the Medical morning. Branch Levothyroxi 2022-0 2022- No [id number] 75ug Take 1 [facility] ne 75 mcg 3-03 04-03 capsule by ity of capsule 00:00: 00:00 mouth in [place] 00 :00 the Medical morning. [place] PNV 67-iron 2022-0 Yes [id number] 1{each} Take 1 [facility] ps-folate 3-02 Each by ity of no.1-dha 00:00: mouth in [place] (VITAFOL 00 the Medical ULTRA) 29 morning. [place] mg iron- 1 mg-200 mg Cap PNV 67-iron 2023-0 Yes [id number] 1{each} Take 1 [facility] ps-folate 3-02 Each by ity of no.1-dha 00:00: mouth in [place] (VITAFOL 00 the Medical ULTRA) 29 morning. Branch mg iron- 1 mg-200 mg Cap PNV 67-iron 2023-0 Yes [id number] 1{each} Take 1 [facility] ps-folate 3-02 Each by ity of no.1-dha 00:00: mouth in [place] (VITAFOL 00 the Medical ULTRA) 29 morning. Branch mg iron- 1 mg-200 mg Cap PNV 67-iron 2023-0 Yes [id number] 1{each} Take 1 [facility] ps-folate 3-02 Each by ity of no.1-dha 00:00: mouth in [place] (VITAFOL 00 the Medical ULTRA) 29 morning. Branch mg iron- 1 mg-200 mg Cap PNV 67-iron 2023-0 Yes [id number] 1{each} Take 1 [facility] ps-folate 3-02 Each by ity of no.1-dha 00:00: mouth in [place] (VITAFOL 00 the Medical ULTRA) 29 morning. Branch mg iron- 1 mg-200 mg Cap PNV 67-iron 2023-0 Yes [id number] 1{each} Take 1 [facility] ps-folate 3-02 Each by ity of no.1-dha 00:00: mouth in [place] (VITAFOL 00 the Medical ULTRA) 29 morning. Branch mg iron- 1 mg-200 mg Cap PNV 67-iron 2023-0 Yes [id number] 1{each} Take 1 [facility] ps-folate 3-02 Each by ity of no.1-dha 00:00: mouth in [place] (VITAFOL 00 the Medical ULTRA) 29 morning. Branch mg iron- 1 mg-200 mg Cap PNV 67-iron 2023-0 Yes [id number] 1{each} Take 1 [facility] ps-folate 3-02 Each by ity of no.1-dha 00:00: mouth in [place] (VITAFOL 00 the Medical ULTRA) 29 morning. Branch mg iron- 1 mg-200 mg Cap PNV 67-iron 2023-0 Yes [id number] 1{each} Take 1 [facility] ps-folate 3-02 Each by ity of no.1-dha 00:00: mouth in [place] (VITAFOL 00 the Medical ULTRA) 29 morning. Branch mg iron- 1 mg-200 mg Cap PNV 67-iron 2023-0 Yes [id number] 1{each} Take 1 [facility] ps-folate 3-02 Each by ity of no.1-dha 00:00: mouth in [place] (VITAFOL 00 the Medical ULTRA) 29 morning. Branch mg iron- 1 mg-200 mg Cap PNV 67-iron 2023-0 Yes [id number] 1{each} Take 1 [facility] ps-folate 3-02 Each by ity of no.1-dha 00:00: mouth in [place] (VITAFOL 00 the Medical ULTRA) 29 morning. Branch mg iron- 1 mg-200 mg Cap PNV 67-iron 2023-0 Yes [id number] 1{each} Take 1 [facility] ps-folate 3-02 Each by ity of no.1-dha 00:00: mouth in [place] (VITAFOL 00 the Medical ULTRA) 29 morning. Branch mg iron- 1 mg-200 mg Cap PNV 67-iron 2023-0 Yes [id number] 1{each} Take 1 [facility] ps-folate 3-02 Each by ity of no.1-dha 00:00: mouth in [place] (VITAFOL 00 the Medical ULTRA) 29 morning. Branch mg iron- 1 mg-200 mg Cap PNV 67-iron 2023-0 Yes [id number] 1{each} Take 1 [facility] ps-folate 3-02 Each by ity of no.1-dha 00:00: mouth in [place] (VITAFOL 00 the Medical ULTRA) 29 morning. Branch mg iron- 1 mg-200 mg Cap PNV 67-iron 2023-0 Yes [id number] 1{each} Take 1 [facility] ps-folate 3-02 Each by ity of no.1-dha 00:00: mouth in [place] (VITAFOL 00 the Medical ULTRA) 29 morning. Branch mg iron- 1 mg-200 mg Cap PNV 67-iron 2023-0 Yes [id number] 1{each} Take 1 [facility] ps-folate 3-02 Each by ity of no.1-dha 00:00: mouth in [place] (VITAFOL 00 the Medical ULTRA) 29 morning. Branch mg iron- 1 mg-200 mg Cap PNV 67-iron 2023-0 2023- No [id number] 1{each} Take 1 [facility] ps-folate 3-02 03-31 Each by ity of no.1-dha 00:00: 00:[place] (VITAFOL 00 :00 the Medical ULTRA) 29 morning. Branch mg iron- 1 mg-200 mg Cap PNV 67-iron 2022- No [id number] 1{each} Take 1 [facility] ps-folate 05-16- Each by ity of no.1-dha 00:00: 00:[place] (VITAFOL 00 :00 the Medical ULTRA) 29 morning. Branch mg iron- 1 mg-200 mg Cap ascorbic 2022-0 Yes [id number] 500mg Take 1 [facility] n[facility] acid, 2-09 tablet by ity of vitamin C, 00:00: mouth in [place] 500 mg 00 the Medical tablet morning Branch and 1 tablet at noon and 1 tablet in the evening. ferrous 2022- Yes [id number] 325mg Take 1 [facility] g[facility] sulfate 325 2-09 tablet by [facility] of mg (65 mg 00:00: [place] iron[place] 00 the Medical tablet morning Branch and 1 tablet in the evening. ascorbic 0 Yes [id number] 500mg Take 1 [facility] nivers acid, 2-09 tablet by ity of vitamin C, 00:00: mouth in [place] 500 mg 00 the Medical tablet morning Branch and 1 tablet at noon and 1 tablet in the evening. ferrous 2022-0 Yes [id number] 325mg Take 1 [facility] sulfate 325 2-09 tablet by [facility] of mg (65 mg 00:00: mouth [place] iron[place] 00 the Medical tablet morning Branch and 1 tablet in the evening. ascorbic 2022-0 Yes [id number] 500mg Take 1 [facility] n[facility] acid, 2-09 tablet by ity of vitamin C, 00:00: mouth in [place] 500 mg 00 the Medical tablet morning Branch and 1 tablet at noon and 1 tablet in the evening. ferrous 2022-0 Yes [id number] 325mg Take 1 [facility] sulfate 325 2-09 tablet by [facility] of mg (65 mg 00:00: mouth [place] iron[place] 00 the Medical tablet morning Branch and 1 tablet in the evening. ascorbic 2022-0 Yes [id number] 500mg Take 1 [facility] n[facility] acid, 2-09 tablet by ity of vitamin C, 00:00: mouth in [place] 500 mg 00 the Medical tablet morning Branch and 1 tablet at noon and 1 tablet in the evening. ferrous 3-0 Yes [id number] 325mg Take 1 [facility] sulfate 325 2-09 tablet by [facility] of mg (65 mg 00:00: mouth [place] iron[place] 00 the Medical tablet morning Branch and 1 tablet in the evening. ascorbic 2022-0 Yes [id number] 500mg Take 1 [facility] n[facility] acid, 2-09 tablet by ity of vitamin C, 00:00: mouth in [place] 500 mg 00 the Medical tablet morning Branch and 1 tablet at noon and 1 tablet in the evening. ferrous 2022-0 Yes [id number] 325mg Take 1 [facility] sulfate 325 2-09 tablet by [facility] of mg (65 mg 00:00: mouth [place] iron[place] 00 the Medical tablet morning Branch and 1 tablet in the evening. ascorbic 2022-0 Yes [id number] 500mg Take 1 [facility] n[facility] acid, 2-09 tablet by ity of vitamin C, 00:00: mouth in [place] 500 mg 00 the Medical tablet morning Branch and 1 tablet at noon and 1 tablet in the evening. ferrous 2022-0 Yes [id number] 325mg Take 1 [facility] sulfate 325 2-09 tablet by [facility] of mg (65 mg 00:00: mouth [place] iron[place] 00 the Medical tablet morning Branch and 1 tablet in the evening. ascorbic 2022-0 Yes [id number] 500mg Take 1 [facility] acid, 2-09 tablet by ity of vitamin C, 00:00: mouth in [place] 500 mg 00 the Medical tablet morning Branch and 1 tablet at noon and 1 tablet in the evening. ferrous 2022-0 Yes [id number] 325mg Take 1 [facility] sulfate 325 2-09 tablet by [facility] of mg (65 mg 00:00: mouth [place] iron[place] 00 the Medical tablet morning Branch and 1 tablet in the evening. ascorbic 202-0 Yes [id number] 500mg Take 1 [facility] n[facility] acid, 2-09 tablet by ity of vitamin C, 00:00: mouth in [place] 500 mg 00 the Medical tablet morning Branch and 1 tablet at noon and 1 tablet in the evening. ferrous 2023-0 Yes [id number] 325mg Take 1 [facility] sulfate 325 2-09 tablet by [facility] of mg (65 mg 00:00: mouth [place] iron[place] 00 the Medical tablet morning Branch and 1 tablet in the evening. ascorbic 2023-0 Yes [id number] 500mg Take 1 [facility] nivers acid, 2-09 tablet by ity of vitamin C, 00:00: mouth in [place] 500 mg 00 the Medical tablet morning Branch and 1 tablet at noon and 1 tablet in the evening. ferrous 2023-0 Yes [id number] 325mg Take 1 [facility] sulfate 325 2-09 tablet by [facility] of mg (65 mg 00:00: mouth [place] iron[place] 00 the Medical tablet morning Branch and 1 tablet in the evening. ascorbic 2022-0 Yes [id number] 500mg Take 1 [facility] n[facility] acid, 2-09 tablet by ity of vitamin C, 00:00: mouth in [place] 500 mg 00 the Medical tablet morning Branch and 1 tablet at noon and 1 tablet in the evening. ferrous 2023-0 Yes [id number] 325mg Take 1 [facility] sulfate 325 2-09 tablet by [facility] of mg (65 mg 00:00: mouth [place] iron[place] 00 the Medical tablet morning Branch and 1 tablet in the evening. ascorbic 2022-0 Yes [id number] 500mg Take 1 [facility] nivers acid, 2-09 tablet by ity of vitamin C, 00:00: mouth in [place] 500 mg 00 the Medical tablet morning Branch and 1 tablet at noon and 1 tablet in the evening. ferrous 3-0 Yes [id number] 325mg Take 1 [facility] sulfate 325 2-09 tablet by [facility] of mg (65 mg 00:00: mouth [place] iron[place] 00 the Medical tablet morning Branch and 1 tablet in the evening. ascorbic 2023-0 Yes [id number] 500mg Take 1 [facility] nivers acid, 2-09 tablet by ity of vitamin C, 00:00: mouth in [place] 500 mg 00 the Medical tablet morning Branch and 1 tablet at noon and 1 tablet in the evening. ferrous 2023-0 Yes [id number] 325mg Take 1 [facility] sulfate 325 2-09 tablet by it[facility] of mg (65 mg 00:00: mouth [place] iron[place] 00 the Medical tablet morning Branch and 1 tablet in the evening. ascorbic 2023-0 Yes [id number] 500mg Take 1 [facility] nivers acid, 2-09 tablet by ity of vitamin C, 00:00: mouth in [place] 500 mg 00 the Medical tablet morning Branch and 1 tablet at noon and 1 tablet in the evening. ferrous 2023-0 Yes [id number] 325mg Take 1 [facility] sulfate 325 2-09 tablet by it[facility] of mg (65 mg 00:00: mouth [place] iron[place] 00 the Medical tablet morning Branch and 1 tablet in the evening. ascorbic 2022-0 Yes [id number] 500mg Take 1 [facility] nivers acid, 2-09 tablet by ity of vitamin C, 00:00: mouth in [place] 500 mg 00 the Medical tablet morning Branch and 1 tablet at noon and 1 tablet in the evening. ferrous 2022-0 Yes [id number] 325mg Take 1 [facility] [place] sulfate 325 2-09 tablet by [facility] of mg (65 mg 00:00: mouth [place] iron[place] 00 the Medical tablet morning Branch and 1 tablet in the evening. ascorbic 2022-0 Yes [id number] 500mg Take 1 [facility] nivers acid, 2-09 tablet by ity of vitamin C, 00:00: mouth in [place] 500 mg 00 the Medical tablet morning Branch and 1 tablet at noon and 1 tablet in the evening. ferrous 2022-0 Yes [id number] 325mg Take 1 [facility] sulfate 325 2-09 tablet by [facility] of mg (65 mg 00:00: mouth [place] iron[place] 00 the Medical tablet morning Branch and 1 tablet in the evening. ascorbic 2022-0 Yes [id number] 500mg Take 1 [facility] nivers acid, 2-09 tablet by ity of vitamin C, 00:00: mouth in [place] 500 mg 00 the Medical tablet morning Branch and 1 tablet at noon and 1 tablet in the evening. ferrous 2022-0 Yes [id number] 325mg Take 1 [facility] sulfate 325 2-09 tablet by [facility] of mg (65 mg 00:00: mouth [place] iron[place] 00 the Medical tablet morning Branch and 1 tablet in the evening. ascorbic 2023-0 Yes [id number] 500mg Take 1 [facility] nivers acid, 2-09 tablet by ity of vitamin C, 00:00: mouth in [place] 500 mg 00 the Medical tablet morning Branch and 1 tablet at noon and 1 tablet in the evening. ferrous 2023-0 Yes [id number] 325mg Take 1 [facility] sulfate 325 2-09 tablet by [facility] of mg (65 mg 00:00: mouth [place] iron[place] 00 the Medical tablet morning Branch and 1 tablet in the evening. ascorbic 2022- No [id number] 500mg Take 1 [facility] nivers acid, 04-25 tablet by ity of vitamin C, 00:00: 00:00 mouth in [place] 500 mg 00 :00 the Medical tablet morning Branch and 1 tablet at noon and 1 tablet in the evening. ferrous 2022- No [id number] 325mg Take 1 [facility] gideon sulfate 325 04-25 tablet by it y of mg (65 mg 00:00: 00:00 mouth in [place] iron) 00 :00 the Medical tablet morning Branch and 1 tablet in the evening. ascorbic 2022- No [id number] 500mg Take 1 [facility] acid, 04-25 tablet by ity of vitamin C, 00:00: 00:00 mouth in [place] 500 mg 00 :00 the Medical tablet morning Branch and 1 tablet at noon and 1 tablet in the evening. ferrous 2022- No [id number] 325mg Take 1 [facility] nivers sulfate 325 04-25 tablet by it y of mg (65 mg 00:00: 00:00 mouth in [place] iron) 00 :00 the Medical tablet morning Branch and 1 tablet in the evening. ampicillin- 2022- No 3g 3 g, IV Un gideon sulbactam 04-24 Piggyback, ity of (UNASYN) 3 17:15: 18:18 ONCE, 1 [place] g in NaCl 00 :00 dose, On Medica l 0.9% (NS) Fri04/24/22 Bran ch 100 mL at 1115, MINI-BAG Administer over 30 Minutes, 100 mL
Reas on for Anti-Infec tive: Documented Infection< br>Documen keturah Infection Site: HEENT
D uration of Therapy: Other (see Comments) chlorhexidi Yes [id number] 15mL [facility] ne 08 spit out ity of (PERIDEX) 00:00: [place] 0.12 % 00 the Medical mouthwash morning Branch and 15 mL in the evening. amoxicillin Yes [id number] 1{tbl} Take 1 [facility] -clavulanat 2-08 tablet by ity of e 875-125 00:00: mouth [place] mg per 00 every 12 Medical tablet (twelve) Branch hours. chlorhexidi 2023-0 Yes [id number] 15mL [facility] and [facility] ne 2-08 spit out ity of (PERIDEX) 00:00: [place] 0.12 % 00 the Medical mouthwash morning Branch and 15 mL in the evening. amoxicillin 2023-0 Yes [id number] 1{tbl} Take 1 [facility] -clavulanat 2-08 tablet by ity of e 875-125 00:00: mouth [place] mg per 00 every 12 Medical tablet (twelve) Branch hours. chlorhexidi 2023-0 Yes [id number] 15mL [facility] and [facility] ne 2-08 spit out ity of (PERIDEX) 00:00: [place] 0.12 % 00 the Medical mouthwash morning Branch and 15 mL in the evening. amoxicillin 2023-0 Yes [id number] 1{tbl} Take 1 [facility] -clavulanat 2-08 tablet by ity of e 875-125 00:00: mouth [place] mg per 00 every 12 Medical tablet (twelve) Branch hours. chlorhexidi 2023-0 Yes [id number] 15mL [facility] ne 2-08 spit out ity of (PERIDEX) 00:00: [place] 0.12 % 00 the Medical mouthwash morning Branch and 15 mL in the evening. amoxicillin 2023-0 Yes [id number] 1{tbl} Take 1 [facility] -clavulanat 2-08 tablet by ity of e 875-125 00:00: mouth [place] mg per 00 every 12 Medical tablet (twelve) Branch hours. chlorhexidi 2023-0 Yes [id number] 15mL [facility] ne 2-08 spit out ity of (PERIDEX) 00:00: [place] 0.12 % 00 the Medical mouthwash morning Branch and 15 mL in the evening. amoxicillin 2023-0 Yes [id number] 1{tbl} Take 1 [facility] -clavulanat 2-08 tablet by ity of e 875-125 00:00: mouth [place] mg per 00 every 12 Medical tablet (twelve) Branch hours. chlorhexidi 2023-0 Yes [id number] 15mL [facility] ne 2-08 spit out ity of (PERIDEX) 00:00: [place] 0.12 % 00 the Medical mouthwash morning Branch and 15 mL in the evening. amoxicillin 2023-0 Yes [id number] 1{tbl} Take 1 [facility] -clavulanat 2-08 tablet by ity of e 875-125 00:00: mouth [place] mg per 00 every 12 Medical tablet (twelve) Branch hours. chlorhexidi 2023-0 Yes [id number] 15mL [facility] ne 2-08 spit out ity of (PERIDEX) 00:00: [place] 0.12 % 00 the Medical mouthwash morning Branch and 15 mL in the evening. amoxicillin 2023-0 Yes [id number] 1{tbl} Take 1 [facility] -clavulanat 2-08 tablet by ity of e 875-125 00:00: mouth [place] mg per 00 every 12 Medical tablet (twelve) Branch hours. chlorhexidi 2023-0 Yes [id number] 15mL [facility] and [facility] ne 2-08 spit out ity of (PERIDEX) 00:00: [place] 0.12 % 00 the Medical mouthwash morning Branch and 15 mL in the evening. amoxicillin 2023-0 Yes [id number] 1{tbl} Take 1 [facility] -clavulanat 2-08 tablet by ity of e 875-125 00:00: mouth [place] mg per 00 every 12 Medical tablet (twelve) Branch hours. chlorhexidi 2023-0 Yes [id number] 15mL [facility] and [facility] ne 2-08 spit out ity of (PERIDEX) 00:00: [place] 0.12 % 00 the Medical mouthwash morning Branch and 15 mL in the evening. amoxicillin 2023-0 Yes [id number] 1{tbl} Take 1 [facility] -clavulanat 2-08 tablet by ity of e 875-125 00:00: mouth [place] mg per 00 every 12 Medical tablet (twelve) Branch hours. chlorhexidi 2023-0 Yes [id number] 15mL [facility] ne 2-08 spit out ity of (PERIDEX) 00:00: [place] mL in [place] 0.12 % 00 the Medical mouthwash morning Branch and 15 mL in the evening. amoxicillin 2023-0 Yes [id number] 1{tbl} Take 1 [facility] -clavulanat 2-08 tablet by ity of e 875-125 00:00: mouth [place] mg per 00 every 12 Medical tablet (twelve) Branch hours. chlorhexidi 2023-0 Yes [id number] 15mL [facility] ne 2-08 spit out ity of (PERIDEX) 00:00: [place] in [place] 0.12 % 00 the Medical mouthwash morning Branch and 15 mL in the evening. amoxicillin 2023-0 Yes [id number] 1{tbl} Take 1 [facility] -clavulanat 2-08 tablet by ity of e 875-125 00:00: mouth [place] mg per 00 every 12 Medical tablet (twelve) Branch hours. chlorhexidi 2023-0 Yes [id number] 15mL [facility] ne 2-08 spit out ity of (PERIDEX) 00:00: [place] in [place] 0.12 % 00 the Medical mouthwash morning Branch and 15 mL in the evening. amoxicillin 2023-0 Yes [id number] 1{tbl} Take 1 [facility] -clavulanat 2-08 tablet by ity of e 875-125 00:00: mouth [place] mg per 00 every 12 Medical tablet (twelve) Branch hours. chlorhexidi 2023-0 Yes [id number] 15mL [facility] ne 2-08 spit out ity of (PERIDEX) 00:00: [place] mL in [place] 0.12 % 00 the Medical mouthwash morning Branch and 15 mL in the evening. amoxicillin 2023-0 Yes [id number] 1{tbl} Take 1 [facility] -clavulanat 2-08 tablet by ity of e 875-125 00:00: mouth [place] mg per 00 every 12 Medical tablet (twelve) Branch hours. chlorhexidi 2023-0 Yes [id number] 15mL [facility] ne 2-08 spit out ity of (PERIDEX) 00:00: [place] in [place] 0.12 % 00 the Medical mouthwash morning Branch and 15 mL in the evening. amoxicillin 2023-0 Yes [id number] 1{tbl} Take 1 [facility] -clavulanat 2-08 tablet by ity of e 875-125 00:00: mouth [place] mg per 00 every 12 Medical tablet (twelve) Branch hours. chlorhexidi 2023-0 Yes [id number] 15mL [facility] ne 2-08 spit out ity of (PERIDEX) 00:00: [place] mL in [place] 0.12 % 00 the Medical mouthwash morning Branch and 15 mL in the evening. amoxicillin 2023-0 Yes [id number] 1{tbl} Take 1 [facility] -clavulanat 2-08 tablet by ity of e 875-125 00:00: mouth [place] mg per 00 every 12 Medical tablet (twelve) Branch hours. chlorhexidi 2023-0 Yes [id number] 15mL [facility] ne 2-08 spit out ity of (PERIDEX) 00:00: [place] mL in [place] 0.12 % 00 the Medical mouthwash morning Branch and 15 mL in the evening. amoxicillin 2023-0 Yes [id number] 1{tbl} Take 1 [facility] -clavulanat 2-08 tablet by ity of e 875-125 00:00: mouth [place] mg per 00 every 12 Medical tablet (twelve) Branch hours. chlorhexidi 2023-0 Yes [id number] 15mL [facility] ne 2-08 spit out ity of (PERIDEX) 00:00: [place] mL in [place] 0.12 % 00 the Medical mouthwash morning Branch and 15 mL in the evening. amoxicillin 2023-0 Yes [id number] 1{tbl} Take 1 [facility] -clavulanat 2-08 tablet by ity of e 875-125 00:00: mouth [place] mg per 00 every 12 Medical tablet (twelve) Branch hours. chlorhexidi 2023-0 Yes [id number] 15mL [facility] ne 2-08 spit out ity of (PERIDEX) 00:00: [place] mL in [place] 0.12 % 00 the Medical mouthwash morning Branch and 15 mL in the evening. amoxicillin 2023-0 Yes [id number] 1{tbl} Take 1 [facility] -clavulanat 2-08 tablet by ity of e 875-125 00:00: mouth [place] mg per 00 every 12 Medical tablet (twelve) Branch hours. chlorhexidi 2023-0 Yes [id number] 15mL [facility] ne 2-08 spit out ity of (PERIDEX) 00:00: 15 mL in [place] 0.12 % 00 the Medical mouthwash morning Branch and 15 mL in the evening. amoxicillin 2023-0 Yes [id number] 1{tbl} Take 1 [facility] -clavulanat 2-08 tablet by ity of e 875-125 00:00: mouth [place] mg per 00 every 12 Medical tablet (twelve) Branch hours. amoxicillin 2023-0 Yes [id number] 1{tbl} Take 1 [facility] -clavulanat 2-08 tablet by ity of e 875-125 00:00: mouth [place] mg per 00 every 12 Medical tablet (twelve) Branch hours. amoxicillin 3-0 Yes [id number] 1{tbl} Take 1 [facility] -clavulanat 2-08 tablet by ity of e 875-125 00:00: mouth [place] mg per 00 every 12 Medical tablet (twelve) Branch hours. amoxicillin 3-0 Yes [id number] 1{tbl} Take 1 [facility] -clavulanat 2-08 tablet by ity of e 875-125 00:00: mouth [place] mg per 00 every 12 Medical tablet (twelve) Branch hours. amoxicillin 3-0 Yes [id number] 1{tbl} Take 1 [facility] -clavulanat 2-08 tablet by ity of e 875-125 00:00: mouth [place] mg per 00 every 12 Medical tablet (twelve) Branch hours. amoxicillin 2023-0 Yes [id number] 1{tbl} Take 1 [facility] -clavulanat 2-08 tablet by ity of e 875-125 00:00: mouth [place] mg per 00 every 12 Medical tablet (twelve) Branch hours. amoxicillin 2023-0 Yes [id number] 1{tbl} Take 1 [facility] -clavulanat 2-08 tablet by ity of e 875-125 00:00: mouth [place] mg per 00 every 12 Medical tablet (twelve) Branch hours. amoxicillin 2023-0 2023- No [id number] 1{tbl} Take 1 [facility] -clavulanat 2-08 05-04 tablet by it y of e 875-125 00:00: 00:00 mouth [place] mg per 00 :00 every 12 Medical tablet (twelve) Branch hours. amoxicillin 2022-0 2022- No [id number] 1{tbl} Take 1 [facility] -clavulanat 2-10 19-04 tablet by it y of e 875-125 00:00: 00:00 mouth [place] mg per 00 :00 every 12 Medical tablet (twelve) Branch hours. amoxicillin 2022-0 2022- No [id number] 1{tbl} Take 1 [facility] -clavulanat 2-10 19- tablet by it y of e 875-125 00:00: 00:00 mouth [place] mg per 00 :00 every 12 Medical tablet (twelve) Branch hours. chlorhexidi 2022-0 2022- No [id number] 15mL [facility] ne 04-2413 spit out ity of (PERIDEX) 00:00: 00:00 15 mL in [place] 0.12 % 00 :00 the Medical mouthwash morning Branch and 15 mL in the evening. chlorhexidi 2022-0 2022- No [id number] 15mL [facility] and [facility] ne 04-24 spit out ity of (PERIDEX) 00:00: 00:00 15 mL in [place] 0.12 % 00 :00 the Medical mouthwash morning Branch and 15 mL in the evening. LEVOTHYROXI 2022-0 Yes [id number] 125ug TAKE 1 [facility] NE 125 mcg 2-02 TABLET BY ity of tablet 00:00: MOUTH 00 EVERY Medical MORNING Branch LEVOTHYROXI 2022-0 Yes [id number] 125ug TAKE 1 [facility] [place] 125 mcg 2-02 TABLET BY ity of tablet 00:00: MOUTH [place] 00 EVERY Medical MORNING Branch LEVOTHYROXI 2022-0 Yes [id number] 125ug TAKE 1 [facility] [place] 125 mcg 2-02 TABLET BY ity of tablet 00:00: MOUTH [place] 00 EVERY Medical MORNING Branch proMETHazin 2022-0 Yes [id number] 25mg Take 1 [facility] e 25 mg 2-02 tablet by ity of tablet 00:00: mouth [place] 00 every 6 Medical (six) Branch hours as needed for Nausea and Vomiting (N/V). LEVOTHYROXI 2022-0 Yes [id number] 125ug TAKE 1 [facility] [place] 125 mcg 2-02 TABLET BY ity of tablet 00:00: MOUTH [place] 00 EVERY Medical MORNING Branch proMETHazin 2022-0 Yes [id number] 25mg Take 1 [facility] e 25 mg 2-02 tablet by ity of tablet 00:00: mouth [place] 00 every 6 Medical (six) Branch hours as needed for Nausea and Vomiting (N/V). LEVOTHYROXI 2022-0 Yes [id number] 125ug TAKE 1 [facility] 125 mcg 2-02 TABLET BY [facility] tablet 00:00: MOUTH [place] 00 EVERY Medical MORNING Branch proMETHazin 2022-0 Yes [id number] 25mg Take 1 [facility] 25 mg 2-02 tablet by [facility] tablet 00:00: mouth [place] 00 every 6 Medical (six) Branch hours as needed for Nausea and Vomiting (N/V). LEVOTHYROXI 2022-0 Yes [id number] 125ug TAKE 1 [facility] 125 mcg 2-02 TABLET BY [facility] tablet 00:00: MOUTH [place] 00 EVERY Medical MORNING Branch proMETHazin 0 Yes [id number] 25mg Take 1 [facility] 25 mg 2-02 tablet by [facility] tablet 00:00: mouth [place] 00 every 6 Medical (six) Branch hours as needed for Nausea and Vomiting (N/V). LEVOTHYROXI 2022-0 Yes [id number] 125ug TAKE 1 [facility] 125 mcg 2-02 TABLET BY [facility] tablet 00:00: MOUTH [place] 00 EVERY Medical MORNING Branch proMETHazin 0 Yes [id number] 25mg Take 1 [facility] 25 mg 2-02 tablet by [facility] tablet 00:00: mouth [place] 00 every 6 Medical (six) Branch hours as needed for Nausea and Vomiting (N/V). LEVOTHYROXI 2022-0 Yes [id number] 125ug TAKE 1 [facility] 125 mcg 2-02 TABLET BY [facility] tablet 00:00: MOUTH [place] 00 EVERY Medical MORNING Branch proMETHazin 2022-0 Yes [id number] 25mg Take 1 [facility] 25 mg 2-02 tablet by [facility] tablet 00:00: mouth [place] 00 every 6 Medical (six) Branch hours as needed for Nausea and Vomiting (N/V). LEVOTHYROXI 2022-0 Yes [id number] 125ug TAKE 1 [facility] 125 mcg 2-02 TABLET BY [facility] tablet 00:00: MOUTH [place] 00 EVERY Medical MORNING Branch proMETHazin 2022-0 Yes [id number] 25mg Take 1 [facility] 25 mg 2-02 tablet by [facility] tablet 00:00: mouth [place] 00 every 6 Medical (six) Branch hours as needed for Nausea and Vomiting (N/V). LEVOTHYROXI 2022-0 Yes [id number] 125ug TAKE 1 [facility] 125 mcg 2-02 TABLET BY [facility] tablet 00:00: MOUTH [place] 00 EVERY Medical MORNING Branch proMETHazin 2022-0 Yes [id number] 25mg Take 1 [facility] 25 mg 2-02 tablet by [facility] tablet 00:00: mouth [place] 00 every 6 Medical (six) Branch hours as needed for Nausea and Vomiting (N/V). LEVOTHYROXI 2022-0 Yes [id number] 125ug TAKE 1 [facility] 125 mcg 2-02 TABLET BY [facility] tablet 00:00: MOUTH [place] 00 EVERY Medical MORNING Branch proMETHazin 2022-0 Yes [id number] 25mg Take 1 [facility] 25 mg 2-02 tablet by [facility] tablet 00:00: mouth [place] 00 every 6 Medical (six) Branch hours as needed for Nausea and Vomiting (N/V). LEVOTHYROXI 2022-0 Yes [id number] 125ug TAKE 1 [facility] 125 mcg 2-02 TABLET BY [facility] tablet 00:00: MOUTH [place] 00 EVERY Medical MORNING Branch proMETHazin 2022-0 Yes [id number] 25mg Take 1 [facility] 25 mg 2-02 tablet by [facility] tablet 00:00: mouth [place] 00 every 6 Medical (six) Branch hours as needed for Nausea and Vomiting (N/V). LEVOTHYROXI 2022-0 Yes [id number] 125ug TAKE 1 [facility] 125 mcg 2-02 TABLET BY [facility] tablet 00:00: MOUTH [place] 00 EVERY Medical MORNING Branch proMETHazin 2022-0 Yes [id number] 25mg Take 1 [facility] 25 mg 2-02 tablet by [facility] tablet 00:00: mouth [place] 00 every 6 Medical (six) Branch hours as needed for Nausea and Vomiting (N/V). LEVOTHYROXI 2022-0 Yes [id number] 125ug TAKE 1 [facility] 125 mcg 2-02 TABLET BY [facility] tablet 00:00: MOUTH [place] 00 EVERY Medical MORNING Branch proMETHazin 2022-0 Yes [id number] 25mg Take 1 [facility] 25 mg 2-02 tablet by [facility] tablet 00:00: mouth [place] 00 every 6 Medical (six) Branch hours as needed for Nausea and Vomiting (N/V). LEVOTHYROXI 2022-0 Yes [id number] 125ug TAKE 1 [facility] 125 mcg 2-02 TABLET BY [facility] tablet 00:00: MOUTH [place] 00 EVERY Medical MORNING Branch proMETHazin 2022-0 Yes [id number] 25mg Take 1 [facility] 25 mg 2-02 tablet by [facility] tablet 00:00: mouth [place] 00 every 6 Medical (six) Branch hours as needed for Nausea and Vomiting (N/V). LEVOTHYROXI 2022-0 Yes [id number] 125ug TAKE 1 [facility] 125 mcg 2-02 TABLET BY [facility] tablet 00:00: MOUTH [place] 00 EVERY Medical MORNING Branch proMETHazin 0 Yes [id number] 25mg Take 1 [facility] 25 mg 2-02 tablet by [facility] tablet 00:00: mouth [place] 00 every 6 Medical (six) Branch hours as needed for Nausea and Vomiting (N/V). LEVOTHYROXI 2022-0 Yes [id number] 125ug TAKE 1 [facility] 125 mcg 2-02 TABLET BY [facility] tablet 00:00: MOUTH [place] 00 EVERY Medical MORNING Branch proMETHazin 2022-0 Yes [id number] 25mg Take 1 [facility] 25 mg 2-02 tablet by [facility] tablet 00:00: mouth [place] 00 every 6 Medical (six) Branch hours as needed for Nausea and Vomiting (N/V). LEVOTHYROXI 2022-0 Yes [id number] 125ug TAKE 1 [facility] 125 mcg 2-02 TABLET BY [facility] tablet 00:00: MOUTH [place] 00 EVERY Medical MORNING Branch proMETHazin 2022-0 Yes [id number] 25mg Take 1 [facility] 25 mg 2-02 tablet by [facility] tablet 00:00: mouth [place] 00 every 6 Medical (six) Branch hours as needed for Nausea and Vomiting (N/V). LEVOTHYROXI 2022-0 Yes [id number] 125ug TAKE 1 [facility] 125 mcg 2-02 TABLET BY [facility] tablet 00:00: MOUTH [place] 00 EVERY Medical MORNING Branch proMETHazin 2022-0 Yes [id number] 25mg Take 1 [facility] 25 mg 2-02 tablet by [facility] tablet 00:00: mouth [place] 00 every 6 Medical (six) Branch hours as needed for Nausea and Vomiting (N/V). LEVOTHYROXI 2022-0 Yes [id number] 125ug TAKE 1 [facility] 125 mcg 2-02 TABLET BY [facility] tablet 00:00: MOUTH [place] 00 EVERY Medical MORNING Branch proMETHazin 2022-0 Yes [id number] 25mg Take 1 [facility] 25 mg 2-02 tablet by [facility] tablet 00:00: mouth [place] 00 every 6 Medical (six) Branch hours as needed for Nausea and Vomiting (N/V). LEVOTHYROXI 2022-0 Yes [id number] 125ug TAKE 1 [facility] 125 mcg 2-02 TABLET BY [facility] tablet 00:00: MOUTH [place] 00 EVERY Medical MORNING Branch proMETHazin 2022-0 Yes [id number] 25mg Take 1 [facility] 25 mg 2-02 tablet by [facility] tablet 00:00: mouth [place] 00 every 6 Medical (six) Branch hours as needed for Nausea and Vomiting (N/V). LEVOTHYROXI 2022-0 Yes [id number] 125ug TAKE 1 [facility] 125 mcg 2-02 TABLET BY [facility] tablet 00:00: MOUTH [place] 00 EVERY Medical MORNING Branch proMETHazin 0 Yes [id number] 25mg Take 1 [facility] 25 mg 2-02 tablet by [facility] tablet 00:00: mouth [place] 00 every 6 Medical (six) Branch hours as needed for Nausea and Vomiting (N/V). LEVOTHYROXI 2022-0 Yes [id number] 125ug TAKE 1 [facility] 125 mcg 2-02 TABLET BY [facility] tablet 00:00: MOUTH [place] 00 EVERY Medical MORNING Branch proMETHazin 0 Yes [id number] 25mg Take 1 [facility] 25 mg 2-02 tablet by [facility] tablet 00:00: mouth [place] 00 every 6 Medical (six) Branch hours as needed for Nausea and Vomiting (N/V). LEVOTHYROXI 2022-0 Yes [id number] 125ug TAKE 1 [facility] 125 mcg 2-02 TABLET BY [facility] tablet 00:00: MOUTH [place] 00 EVERY Medical MORNING Branch proMETHazin 0 Yes [id number] 25mg Take 1 [facility] 25 mg 2-02 tablet by [facility] tablet 00:00: mouth [place] 00 every 6 Medical (six) Branch hours as needed for Nausea and Vomiting (N/V). LEVOTHYROXI 2022-0 Yes [id number] 125ug TAKE 1 [facility] 125 mcg 2-02 TABLET BY [facility] tablet 00:00: MOUTH [place] 00 EVERY Medical MORNING Branch proMETHazin 2023-0 Yes [id number] 25mg Take 1 [facility] 25 mg 2-02 tablet by [facility] tablet 00:00: mouth [place] 00 every 6 Medical (six) Branch hours as needed for Nausea and Vomiting (N/V). proMETHazin 3-0 Yes [id number] 25mg Take 1 [facility] 25 mg 2-02 tablet by [facility] tablet 00:00: mouth [place] 00 every 6 Medical (six) Branch hours as needed for Nausea and Vomiting (N/V). proMETHazin 2022-0 Yes [id number] 25mg Take 1 [facility] 25 mg 2-02 tablet by [facility] tablet 00:00: mouth [place] 00 every 6 Medical (six) Branch hours as needed for Nausea and Vomiting (N/V). proMETHazin 2022-0 Yes [id number] 25mg Take 1 [facility] 25 mg 2-02 tablet by [facility] tablet 00:00: mouth [place] 00 every 6 Medical (six) Branch hours as needed for Nausea and Vomiting (N/V). proMETHazin 2022-0 Yes [id number] 25mg Take 1 [facility] 25 mg 2-02 tablet by [facility] tablet 00:00: mouth [place] 00 every 6 Medical (six) Branch hours as needed for Nausea and Vomiting (N/V). proMETHazin 2022-0 Yes [id number] 25mg Take 1 [facility] 25 mg 2-02 tablet by [facility] tablet 00:00: mouth [place] 00 every 6 Medical (six) Branch hours as needed for Nausea and Vomiting (N/V). proMETHazin 2022-0 Yes [id number] 25mg Take 1 [facility] 25 mg 2-02 tablet by [facility] tablet 00:00: mouth [place] 00 every 6 Medical (six) Branch hours as needed for Nausea and Vomiting (N/V). proMETHazin 3-0 Yes [id number] 25mg Take 1 [facility] 25 mg 2-02 tablet by [facility] tablet 00:00: mouth [place] 00 every 6 Medical (six) Branch hours as needed for Nausea and Vomiting (N/V). proMETHazin 3-0 Yes [id number] 25mg Take 1 [facility] 25 mg 2-02 tablet by [facility] tablet 00:00: mouth [place] 00 every 6 Medical (six) Branch hours as needed for Nausea and Vomiting (N/V). proMETHazin 2022-0 2023- No [id number] 25mg Take 1 [facility] 25 mg 04-18 tablet by [facility] tablet 00:00: 00:00 mouth [place] 00 :00 every 6 Medical (six) Branch hours as needed for Nausea and Vomiting (N/V). proMETHazin No [id number] 25mg Take 1 [facility] 25 mg 04-18 tablet by [facility] of tablet 00:00: 00:00 mouth [place] 00 :00 every 6 Medical (six) Branch hours as needed for Nausea and Vomiting (N/V). proMETHazin No [id number] 25mg Take 1 [facility] 25 mg 04-18 tablet by [facility] of tablet 00:00: 00:00 mouth [place] 00 :00 every 6 Medical (six) Branch hours as needed for Nausea and Vomiting (N/V). LEVOTHYROXI 2022- No [id number] 125ug TAKE 1 [facility] 125 mcg 04-18 TABLET BY [facility] tablet 00:00: 00:00 MOUTH [place] 00 :00 EVERY Medical MORNING Branch LEVOTHYROXI 2022- No [id number] 125ug TAKE 1 [facility] 125 mcg 04-18 TABLET BY [facility] of tablet 00:00: 00:00 MOUTH [place] 00 :00 EVERY Medical MORNING Branch fluconazole No [id number] 150mg Take 1 [facility] (DIFLUCAN) 04-02 tablet by [facility] 150 mg 00:00: 05:59 mouth [place] tablet 00 :00 now for 1 Medical dose. Branch fluconazole No [id number] 150mg Take 1 [facility] (DIFLUCAN) 04-02 tablet by [facility] 150 mg 00:00: 05:59 mouth [place] tablet 00 :00 now for 1 Medical dose. Branch PNV 67-iron 2022- No [id number] 1{tbl} Take 1 [facility] ps-folate 03-28 tablet by [facility] of no.1-dha 00:00: 05:59 mouth [place] (VITAFOL 00 :00 daily for Medica l ULTRA) 29 30 days. Branch mg iron- 1 mg-200 mg Cap PNV 67-iron 2022- No [id number] 1{tbl} Take 1 [facility] ps-folate 03-28 tablet by [facility]y of no.1-dha 00:00: 05:59 mouth [place] (VITAFOL 00 :00 daily for Medica l ULTRA) 29 30 days. Branch mg iron- 1 mg-200 mg Cap PNV 67-iron 0 2022- No [id number] 1{tbl} Take 1 [facility] ps-folate 03-28 tablet by [facility] of no.1-[facility] 00:00: 05:59 mouth [place] (VITAFOL 00 :00 daily for Medica l ULTRA) 29 30 days. Branch mg iron- 1 mg-200 mg Cap PNV 67-iron 2022- No [id number] 1{tbl} Take 1 [facility] ps-folate 03-28 tablet by [facility] of no.1-[facility] 00:00: 05:59 mouth [place] (VITAFOL 00 :00 daily for Medica l ULTRA) 29 30 days. Branch mg iron- 1 mg-200 mg Cap PNV 67-iron 2022- No [id number] 1{tbl} Take 1 [facility] ps-folate 03-28 tablet by [facility] of no.1-[facility] 00:00: 05:59 mouth [place] (VITAFOL 00 :00 daily for Medica l ULTRA) 29 30 days. Branch mg iron- 1 mg-200 mg Cap PNV 67-iron 2022- No [id number] 1{tbl} Take 1 [facility] ps-folate 03-28 tablet by [facility] of no.1-[facility] 00:00: 05:59 mouth [place] (VITAFOL 00 :00 daily for Medica l ULTRA) 29 30 days. Branch mg iron- 1 mg-200 mg Cap PNV 67-iron 0 2022- No [id number] 1{tbl} Take 1 [facility] ps-folate 03-28 tablet by ity of no.1-dha 00:00: 05:59 mouth [place] (VITAFOL 00 :00 daily for Medica l ULTRA) 29 30 days. Branch mg iron- 1 mg-200 mg Cap PNV 67-iron 0 2022- No [id number] 1{tbl} Take 1 [facility] ps-folate 03-28 tablet by ity of no.1-dha 00:00: 05:59 mouth [place] (VITAFOL 00 :00 daily for Medica l ULTRA) 29 30 days. Branch mg iron- 1 mg-200 mg Cap PNV 67-iron 2022- No [id number] 1{tbl} Take 1 [facility] ps-folate 03-28 tablet by ity of no.1-dha 00:00: 05:59 mouth [place] (VITAFOL 00 :00 daily for Medica l ULTRA) 29 30 days. Branch mg iron- 1 mg-200 mg Cap PNV 67-iron 0 2022- No [id number] 1{tbl} Take 1 [facility] ps-folate 03-28 tablet by ity of no.1-dha 00:00: 05:59 mouth [place] (VITAFOL 00 :00 daily for Medica l ULTRA) 29 30 days. Branch mg iron- 1 mg-200 mg Cap PNV 67-iron 0 2022- No [id number] 1{tbl} Take 1 [facility] ps-folate 03-28 tablet by ity of no.1-dha 00:00: 05:59 mouth [place] (VITAFOL 00 :00 daily for Medica l ULTRA) 29 30 days. Branch mg iron- 1 mg-200 mg Cap PNV 67-iron 2022- No [id number] 1{tbl} Take 1 [facility] ps-folate 03-28 tablet by ity of no.1-dha 00:00: 05:59 mouth [place] (VITAFOL 00 :00 daily for Medica l ULTRA) 29 30 days. Branch mg iron- 1 mg-200 mg Cap PNV 67-iron 0 2022- No [id number] 1{tbl} Take 1 [facility] ps-folate 03-28 tablet by ity of no.1-dha 00:00: 05:59 mouth [place] (VITAFOL 00 :00 daily for Medica l ULTRA) 29 30 days. Branch mg iron- 1 mg-200 mg Cap PNV 67-iron 0 2022- No [id number] 1{tbl} Take 1 [facility] ps-folate 03-28 tablet by ity of no.1-dha 00:00: 05:59 mouth [place] (VITAFOL 00 :00 daily for Medica l ULTRA) 29 30 days. Branch mg iron- 1 mg-200 mg Cap levothyroxi 2022-0 Yes [id number] 125ug Take 1 [facility] ne 125 mcg 1-04 tablet by ity of tablet 00:00: mouth [place] 00 every Medical morning. Branch proMETHazin 2022-0 Yes [id number] 25mg Take 1 [facility] e 25 mg 1-04 tablet by ity of tablet 00:00: mouth [place] 00 every 6 Medical (six) Branch hours as needed for Nausea and Vomiting (N/V). levothyroxi 2022-0 Yes [id number] 125ug Take 1 [facility] ne 125 mcg 1-04 tablet by ity of tablet 00:00: mouth [place] 00 every Medical morning. Branch proMETHazin 2022-0 Yes [id number] 25mg Take 1 [facility] e 25 mg 1-04 tablet by ity of tablet 00:00: mouth [place] 00 every 6 Medical (six) Branch hours as needed for Nausea and Vomiting (N/V). levothyroxi 2022-0 Yes [id number] 125ug Take 1 [facility] ne 125 mcg 1-04 tablet by ity of tablet 00:00: mouth [place] 00 every Medical morning. Branch proMETHazin 2022-0 Yes [id number] 25mg Take 1 [facility] e 25 mg 1-04 tablet by ity of tablet 00:00: mouth [place] 00 every 6 Medical (six) Branch hours as needed for Nausea and Vomiting (N/V). levothyroxi 2022-0 Yes [id number] 125ug Take 1 [facility] ne 125 mcg 1-04 tablet by ity of tablet 00:00: mouth [place] 00 every Medical morning. Branch proMETHazin 2022-0 Yes [id number] 25mg Take 1 [facility] e 25 mg 1-04 tablet by ity of tablet 00:00: mouth [place] 00 every 6 Medical (six) Branch hours as needed for Nausea and Vomiting (N/V). levothyroxi 2022-0 Yes [id number] 125ug Take 1 [facility] ne 125 mcg 1-04 tablet by ity of tablet 00:00: mouth [place] 00 every Medical morning. Branch proMETHazin 2022-0 Yes [id number] 25mg Take 1 [facility] e 25 mg 1-04 tablet by ity of tablet 00:00: mouth [place] 00 every 6 Medical (six) Branch hours as needed for Nausea and Vomiting (N/V). proMETHazin 0 Yes [id number] 25mg Take 1 [facility] e 25 mg 1-04 tablet by ity of tablet 00:00: mouth [place] 00 every 6 Medical (six) Branch hours as needed for Nausea and Vomiting (N/V). proMETHazin 0 Yes [id number] 25mg Take 1 [facility] e 25 mg 1-04 tablet by ity of tablet 00:00: mouth [place] 00 every 6 Medical (six) Branch hours as needed for Nausea and Vomiting (N/V). levothyroxi 3- No [id number] 125ug Take 1 [facility] ne 125 mcg 1-04 02-02 tablet by ity of tablet 00:00: 00:00 mouth [place] 00 :00 every Medical morning. [place] proMETHazin 2022- No [id number] 25mg Take 1 [facility] e 25 mg 1-04 02-02 tablet by ity of tablet 00:00: 00:00 mouth [place] 00 :00 every 6 Medical (six) Branch hours as needed for Nausea and Vomiting (N/V). proMETHazin 2022- No [id number] 25mg Take 1 [facility] e 25 mg 1-04 02-02 tablet by ity of tablet 00:00: 00:00 mouth [place] 00 :00 every 6 Medical (six) Branch hours as needed for Nausea and Vomiting (N/V). levothyroxi 2021-03 Yes [id number] 125ug Take 1 [facility] ne 125 mcg 1-29 tablet by ity of tablet 00:00: mouth [place] 00 every Medical morning. [place] levothyroxi 2021-03 Yes [id number] 125ug Take 1 [facility] ne 125 mcg 1-29 tablet by ity of tablet 00:00: mouth [place] 00 every Medical morning. [place] levothyroxi 2021-03 Yes [id number] 125ug Take 1 [facility] ne 125 mcg 1-29 tablet by ity of tablet 00:00: mouth [place] 00 every Medical morning. [place] levothyroxi 2021-03 Yes [id number] 125ug Take 1 [facility] ne 125 mcg 1-29 tablet by ity of tablet 00:00: mouth [place] 00 every Medical morning. [place] levothyroxi 2021-03 Yes [id number] 125ug Take 1 [facility] ne 125 mcg 1-29 tablet by ity of tablet 00:00: mouth [place] 00 every Medical morning. [place] levothyroxi 2021-03 Yes [id number] 125ug Take 1 [facility] ne 125 mcg 1-29 tablet by ity of tablet 00:00: mouth [place] 00 every Medical morning. [place] levothyroxi 2021-03 Yes [id number] 125ug Take 1 [facility] ne 125 mcg 1-29 tablet by ity of tablet 00:00: mouth [place] 00 every Medical morning. [place] levothyroxi 2021-03 Yes [id number] 125ug Take 1 [facility] ne 125 mcg 1-29 tablet by ity of tablet 00:00: mouth [place] 00 every Medical morning. [place] levothyroxi 2021-03 Yes [id number] 125ug Take 1 [facility] ne 125 mcg 1-29 tablet by ity of tablet 00:00: mouth [place] 00 every Medical morning. [place] levothyroxi 2021-03- No [id number] 125ug Take 1 [facility] ne 125 mcg 1-29 01-04 tablet by ity of tablet 00:00: 00:00 mouth [place] 00 :00 every Medical morning. [place] acetaminoph 2021-03- No 650mg 650 mg, U nivers en -02-11 Oral, ity of (TYLENOL) 21:15: 21:40 ONCE, 1 [place] 650 00 :00 dose, On Medic al mg [facility] 02/11/22 at 1515, [place] amoxicillin 2021-03 Yes [id number] 1{tbl} Take 1 [facility] -clavulanat 1-28 tablet by ity of e 875-125 00:00: mouth [place] mg per 00 every 12 Medical tablet (twelve) Branch hours. amoxicillin 2021-03 Yes [id number] 1{tbl} Take 1 [facility] -clavulanat 1-28 tablet by ity of e 875-125 00:00: mouth [place] mg per 00 every 12 Medical tablet (twelve) Branch hours. amoxicillin 2021-03 Yes [id number] 1{tbl} Take 1 [facility] -clavulanat 1-28 tablet by ity of e 875-125 00:00: mouth [place] mg per 00 every 12 Medical tablet (twelve) Branch hours. amoxicillin 2021-03 Yes [id number] 1{tbl} Take 1 [facility] -clavulanat 1-28 tablet by ity of e 875-125 00:00: mouth [place] mg per 00 every 12 Medical tablet (twelve) Branch hours. amoxicillin 2021-03 Yes [id number] 1{tbl} Take 1 [facility] -clavulanat 1-28 tablet by ity of e 875-125 00:00: mouth [place] mg per 00 every 12 Medical tablet (twelve) Branch hours. amoxicillin 2021-03 Yes [id number] 1{tbl} Take 1 [facility] -clavulanat 1-28 tablet by ity of e 875-125 00:00: mouth [place] mg per 00 every 12 Medical tablet (twelve) Branch hours. amoxicillin 2021-03 Yes [id number] 1{tbl} Take 1 [facility] -clavulanat 1-28 tablet by ity of e 875-125 00:00: mouth [place] mg per 00 every 12 Medical tablet (twelve) Branch hours. amoxicillin 2021-03 Yes [id number] 1{tbl} Take 1 [facility] -clavulanat 1-28 tablet by ity of e 875-125 00:00: mouth [place] mg per 00 every 12 Medical tablet (twelve) Branch hours. amoxicillin 2021-03 Yes [id number] 1{tbl} Take 1 [facility] -clavulanat 1-28 tablet by ity of e 875-125 00:00: mouth [place] mg per 00 every 12 Medical tablet (twelve) Branch hours. amoxicillin 2021-03 Yes [id number] 1{tbl} Take 1 [facility] -clavulanat 1-28 tablet by ity of e 875-125 00:00: mouth [place] mg per 00 every 12 Medical tablet (twelve) Branch hours. amoxicillin 2021-03 Yes [id number] 1{tbl} Take 1 [facility] -clavulanat 1-28 tablet by ity of e 875-125 00:00: mouth [place] mg per 00 every 12 Medical tablet (twelve) Branch hours. amoxicillin 2021-03- No [id number] 1{tbl} Take 1 [facility] -clavulanat 1-28 -12 tablet by it y of e 875-125 00:00: 00:00 mouth [place] mg per 00 :00 every 12 Medical tablet (twelve) Branch hours. levothyroxi 2021-03 Yes [id number] 75ug Take 1 [facility] ne 75 mcg 1-14 tablet by ity o f tablet 00:00: mouth [place] 00 every Medical morning. Branch levothyroxi 2021-03 Yes [id number] 75ug Take 1 [facility] ne 75 mcg 1-14 tablet by ity o f tablet 00:00: mouth [place] 00 every Medical morning. Branch levothyroxi 2021-03 Yes [id number] 75ug Take 1 [facility] ne 75 mcg 1-14 tablet by ity o f tablet 00:00: mouth [place] 00 every Medical morning. Branch levothyroxi 2021-03 Yes [id number] 75ug Take 1 [facility] ne 75 mcg 1-14 tablet by ity o f tablet 00:00: mouth [place] 00 every Medical morning. Branch levothyroxi 2021-03 Yes [id number] 75ug Take 1 [facility] ne 75 mcg 1-14 tablet by ity o f tablet 00:00: mouth [place] 00 every Medical morning. Branch levothyroxi 2021-03 Yes [id number] 75ug Take 1 [facility] ne 75 mcg 1-14 tablet by ity o f tablet 00:00: mouth [place] 00 every Medical morning. [place] levothyroxi 2021-03 Yes [id number] 75ug Take 1 [facility] ne 75 mcg 1-14 tablet by ity o f tablet 00:00: mouth [place] 00 every Medical morning. Branch levothyroxi 2021-03 Yes [id number] 75ug Take 1 [facility] ne 75 mcg 1-14 tablet by ity o f tablet 00:00: mouth [place] 00 every Medical morning. [place] levothyroxi 2021-03 Yes [id number] 75ug Take 1 [facility] ne 75 mcg 1-14 tablet by ity o f tablet 00:00: mouth [place] 00 every Medical morning. [place] levothyroxi 2021-03- [id number] 75ug Take 1 [facility] ne 75 mcg 1-14 11-29 tablet by ity of tablet 00:00: 00:00 mouth [place] 00 :00 every Medical morning. [place] proMETHazin 2021-03 Yes [id number] 25mg Take 1 [facility] e 25 mg 0-31 tablet by ity of tablet 00:00: mouth [place] 00 every 6 Medical (six) Branch hours as needed for Nausea and Vomiting (N/V). proMETHazin 2021-03 Yes [id number] 25mg Take 1 [facility] e 25 mg 0-31 tablet by ity of tablet 00:00: mouth [place] 00 every 6 Medical (six) Branch hours as needed for Nausea and Vomiting (N/V). proMETHazin 2021-03 Yes [id number] 25mg Take 1 [facility] e 25 mg 0-31 tablet by ity of tablet 00:00: mouth [place] 00 every 6 Medical (six) Branch hours as needed for Nausea and Vomiting (N/V). proMETHazin 2021-03 Yes [id number] 25mg Take 1 [facility] e 25 mg 0-31 tablet by ity of tablet 00:00: mouth [place] 00 every 6 Medical (six) Branch hours as needed for Nausea and Vomiting (N/V). proMETHazin 2021-03 Yes [id number] 25mg Take 1 [facility] e 25 mg 0-31 tablet by ity of tablet 00:00: mouth [place] 00 every 6 Medical (six) Branch hours as needed for Nausea and Vomiting (N/V). proMETHazin 2021-03 Yes [id number] 25mg Take 1 [facility] e 25 mg 0-31 tablet by ity of tablet 00:00: mouth [place] 00 every 6 Medical (six) Branch hours as needed for Nausea and Vomiting (N/V). proMETHazin 2021-03 Yes [id number] 25mg Take 1 [facility] e 25 mg 0-31 tablet by ity of tablet 00:00: mouth [place] 00 every 6 Medical (six) Branch hours as needed for Nausea and Vomiting (N/V). proMETHazin 2021-03 Yes [id number] 25mg Take 1 [facility] e 25 mg 0-31 tablet by ity of tablet 00:00: mouth [place] 00 every 6 Medical (six) Branch hours as needed for Nausea and Vomiting (N/V). proMETHazin 2021-03 Yes [id number] 25mg Take 1 [facility] e 25 mg 0-31 tablet by ity of tablet 00:00: mouth [place] 00 every 6 Medical (six) Branch hours as needed for Nausea and Vomiting (N/V). proMETHazin 2021-03 Yes [id number] 25mg Take 1 [facility] e 25 mg 0-31 tablet by ity of tablet 00:00: mouth [place] 00 every 6 Medical (six) Branch hours as needed for Nausea and Vomiting (N/V). proMETHazin 2021-03 Yes [id number] 25mg Take 1 [facility] e 25 mg 0-31 tablet by ity of tablet 00:00: mouth [place] 00 every 6 Medical (six) Branch hours as needed for Nausea and Vomiting (N/V). proMETHazin 2022-1 Yes [id number] 25mg Take 1 [facility] e 25 mg 0-31 tablet by ity of tablet 00:00: mouth [place] 00 every 6 Medical (six) Branch hours as needed for Nausea and Vomiting (N/V). proMETHazin 2021-03 Yes [id number] 25mg Take 1 [facility] e 25 mg 0-31 tablet by ity of tablet 00:00: mouth [place] 00 every 6 Medical (six) Branch hours as needed for Nausea and Vomiting (N/V). proMETHazin 2021-03 Yes [id number] 25mg Take 1 [facility] e 25 mg 0-31 tablet by ity of tablet 00:00: mouth [place] 00 every 6 Medical (six) Branch hours as needed for Nausea and Vomiting (N/V). proMETHazin 2021-03 Yes [id number] 25mg Take 1 [facility] e 25 mg 0-31 tablet by ity of tablet 00:00: mouth [place] 00 every 6 Medical (six) Branch hours as needed for Nausea and Vomiting (N/V). proMETHazin 2021-03 Yes [id number] 25mg Take 1 [facility] e 25 mg 0-31 tablet by ity of tablet 00:00: mouth [place] 00 every 6 Medical (six) Branch hours as needed for Nausea and Vomiting (N/V). proMETHazin 2021-03 Yes [id number] 25mg Take 1 [facility] e 25 mg 0-31 tablet by ity of tablet 00:00: mouth [place] 00 every 6 Medical (six) Branch hours as needed for Nausea and Vomiting (N/V). proMETHazin 2021-03 Yes [id number] 25mg Take 1 [facility] e 25 mg 0-31 tablet by ity of tablet 00:00: mouth [place] 00 every 6 Medical (six) Branch hours as needed for Nausea and Vomiting (N/V). [facility]azin 2021-03 Yes [id number] 25mg Take 1 [facility] 25 mg 0-31 tablet by [facility] tablet 00:00: mouth [place] 00 every 6 [facility] (six[facility] hours as needed for Nausea and Vomiting (N/V). [employer]in 2021-03 Yes [id number] 25mg Take 1 [facility] 25 mg 0-31 tablet by [facility] tablet 00:00: mouth [place] 00 every 6 [facility] (six) [facility] hours as needed for Nausea and Vomiting (N/V). [employer]in 2021-03 Yes [id number] 25mg Take 1 [facility] 25 mg 0-31 tablet by [facility] tablet 00:00: mouth [place] 00 every 6 [facility] (six) [facility] hours as needed for Nausea and Vomiting (N/V). [employer]in 2021-03 Yes [id number] 25mg Take 1 [facility] 25 mg 0-31 tablet by [facility] tablet 00:00: mouth [place] 00 every 6 [facility] (six) [facility] hours as needed for Nausea and Vomiting (N/V). [employer]in 2021-03 Yes [id number] 25mg Take 1 [facility] 25 mg 0-31 tablet by [facility] tablet 00:00: mouth [place] 00 every 6 [facility] (six) [facility] hours as needed for Nausea and Vomiting (N/V). [employer]in 2021-03 Yes [id number] 25mg Take 1 [facility] 25 mg 0-31 tablet by [facility] tablet 00:00: mouth [place] 00 every 6 [facility] (six) Branch hours as needed for Nausea and Vomiting (N/V). [facility]in 2021-03 Yes [id number] 25mg Take 1 [facility] 25 mg 0-31 tablet by [facility] tablet 00:00: mouth [place] 00 every 6 [facility] (six) [facility] hours as needed for Nausea and Vomiting (N/V). [employer]in 2021-03 Yes [id number] 25mg Take 1 [facility] 25 mg 0-31 tablet by [facility] tablet 00:00: mouth [place] 00 every 6 [facility] (six) [facility] hours as needed for Nausea and Vomiting (N/V). [facility]in 2021-03 Yes [id number] 25mg Take 1 [facility] 25 mg 0-31 tablet by [facility] tablet 00:00: mouth [place] 00 every 6 [facility] (six) [facility] hours as needed for Nausea and Vomiting (N/V). [facility]in 2021-03 Yes [id number] 25mg Take 1 [facility] 25 mg 0-31 tablet by [facility] tablet 00:00: mouth [place] 00 every 6 [facility] (six) [facility] hours as needed for Nausea and Vomiting (N/V). [facility]in 2021-03 Yes [id number] 25mg Take 1 [facility] 25 mg 0-31 tablet by [facility] of tablet 00:00: mouth [place] 00 every 6 [facility] (six) Branch hours as needed for Nausea and Vomiting (N/V). [facility]in 2021-03- No [id number] 25mg Take 1 [facility] 25 mg 0-31 01-04 tablet by [facility] tablet 00:00: 00:00 mouth [place] 00 :00 every 6 Medical (six) Branch hours as needed for Nausea and Vomiting (N/V). Immunizations Ordered Filled Date Status Comments Source Immunization Name Immunization Name [facility] 2022-11-27 Completed [facility] 00:00:[place] [id number] 2022-10-23 Completed [facility] 00:00:00 [place] [id number] 2022-10-23 Completed [facility] 00:00:00 [place] [id number] 2022-10-23 Completed [facility] 00:00:00 [place] [id number] 2022-10-23 Completed [facility] 00:00:00 [place] [id number] 2022-10-23 Completed [facility] 00:00:00 [place] [id number] 2022-10-23 Completed [facility] 00:00:00 [facility] TDAP 2022-07-18 Completed [facility] 00:00:00 [facility] TDAP 2022-07-18 Completed [facility] 00:00:00 [facility] TDAP 2022-07-18 Completed [facility] 00[facility]00:00 [facility] TDAP 2022-07-18 Completed [facility] 00[facility]00:00 [facility] TDAP 2022-07-18 Completed [facility] 00[facility]00:00 [facility] TDAP 2022-07-18 Completed [facility] 00[facility]00:00 [facility] TDAP 2022-07-18 Completed [facility] 00[facility]00:00 [facility] TDAP 2022-07-18 Completed [facility] 00[facility]00:00 [facility] TDAP 2022-07-18 Completed [facility] 00[facility]00:00 [facility] TDAP 2022-07-18 Completed [facility] 00[facility]00:00 [facility] TDAP 2022-07-18 Completed [facility] 00[facility]00:00 [facility] TDAP 2022-07-18 Completed [facility] 00[facility]00:00 [facility] TDAP 2022-07-18 Completed [facility] 00:00:00 [facility] TDAP 2022-07-18 Completed [facility] 00[facility]00:00 [facility] TDAP 2022-07-18 Completed [facility] 00:00:00 [facility] TDAP 2022-07-18 Completed [facility] 00:00:00 [facility] TDAP 2022-07-18 Completed [facility] 00:00:00 [facility] TD[facility] 2022-07-18 Completed [facility] 00:00:00 [facility] TDAP 2022-07-18 Completed [facility] 00:00:00 [facility] TDAP 2022-07-18 Completed [facility] 00:00:00 [facility] TDAP 2022-07-18 Completed [facility] 00:00:00 [facility] TDAP 2022-07-18 Completed [facility] 00:00:00 [facility] TDAP 2022-07-18 Completed [facility] 00[facility]00:00 [facility] TDAP 2022-07-18 Completed [facility] 00:00:00 [facility] TDAP 2022-07-18 Completed [facility] 00:00:00 [facility] TD[facility] 2022-07-18 Completed [facility] 00:00:00 [facility] TDAP 2022-07-18 Completed [facility] 00:00:00 [facility] TDAP 2022-07-18 Completed [facility] 00:00:00 [facility] TDAP 2022-07-18 Completed [facility] 00:00:00 [facility] TDAP 2022-07-18 Completed [facility] 00:00:00 [facility] TDAP 2022-07-18 Completed [facility] 00:00:00 [facility] TDAP 2022-07-18 Completed [facility] 00:00:00 [facility] TDAP 2022-07-18 Completed [facility] 00:00:00 [facility] TDAP 2022-07-18 Completed [facility] 00:00:00 [facility] TDAP 2022-07-18 Completed [facility] 00:00:00 [facility] TDAP 2022-07-18 Completed [facility] 00:00:00 [facility] TDAP 2022-07-18 Completed [facility] 00:00:00 [facility] TDAP 2022-07-18 Completed [facility] 00:00:00 [facility] TDAP 2022-07-18 Completed [facility] 00:00:00 [facility] TDAP 2022-07-18 Completed [facility] 00:00:00 [facility] TDAP 2022-07-18 Completed [facility] 00:00:00 [facility] TDAP 2022-07-18 Completed [facility] 00:00:00 [facility] TDAP 2022-07-18 Completed [facility] 00:00:00 [facility] [place] [facility] TDAP 2022-07-18 Completed [facility] 00:00:00 [facility] TDAP 2022-07-18 Completed [facility] 00:00:00 [facility] TDAP 2022-07-18 Completed [facility] 00[facility]00:00 [facility] TDAP 2022-07-18 Completed [facility] 00:00:00 [facility] TDAP 2022-07-18 Completed [facility] 00:00:00 [facility] TDAP 2022-07-18 Completed [facility] 00:00:00 [facility] TDAP 2022-07-18 Completed [facility] 00:00:00 [facility] TDAP 2022-07-18 Completed [facility] 00:00:00 [facility] TDAP 2022-07-18 Completed [facility] 00:00:00 [facility] TDAP 2022-07-18 Completed [facility] 00:00:00 [facility] TDAP 2022-07-18 Completed [facility] 00:00:00 [facility] TDAP 2022-07-18 Completed [facility] 00:00:00 [facility] SARS-COV-2 COVID-19 2020-10-26 Completed Unive rsity of PFIZER VACCINE 00:00:00 [facility] SARS-COV-2 COVID-19 2020-10-26 Completed Unive rsity of PFIZER VACCINE 00:00:00 [facility] SARS-COV-2 COVID-19 2020-10-26 Completed [facility]ive rs[facility] of PFIZER VACCINE 00:00:00 [facility] SARS-COV-2 COVID-19 2020-10-26 Completed [facility] rs[facility] of PFIZER VACCINE 00:00:00 [facility] SARS-COV-2 COVID-19 2020-10-26 Completed [facility]ive rs[facility] of PFIZER VACCINE 00:00:00 [facility] SARS-COV-2 COVID-19 2020-10-26 Completed [facility] rs[facility] of PFIZER VACCINE 00:00:00 [facility] SARS-COV-2 COVID-19 2020-10-26 Completed [facility] rs[facility] of PFIZER VACCINE 00:00:00 [facility] SARS-COV-2 COVID-19 2020-10-26 Completed [facility] rs[facility] of PFIZER VACCINE 00:00:00 [facility] SARS-COV-2 COVID-19 2020-10-26 Completed [facility] of PFIZER VACCINE 00:00:00 [facility] SARS-COV-2 COVID-19 2020-10-26 Completed [facility]ive rs[facility] of PFIZER VACCINE 00:00:00 [facility] SARS-COV-2 COVID-19 2020-10-26 Completed [facility] of PFIZER VACCINE 00:00:00 [facility] SARS-COV-2 COVID-19 2020-10-26 Completed [facility]ive [facility] of PFIZER VACCINE 00:00:00 [facility] SARS-COV-2 COVID-19 2020-10-26 Completed [facility] of PFIZER VACCINE 00:00:00 [facility] SARS-COV-2 COVID-19 2020-10-26 Completed [facility] of PFIZER VACCINE 00:00:00 [facility] SARS-COV-2 COVID-19 2020-10-26 Completed [facility] of PFIZER VACCINE 00:00:00 [facility] SARS-COV-2 COVID-19 2020-10-26 Completed [facility] of PFIZER VACCINE 00:00:00 [facility] SARS-COV-2 COVID-19 2020-10-26 Completed [facility] of PFIZER VACCINE 00:00:00 [facility] SARS-COV-2 COVID-19 2020-10-26 Completed [facility] of PFIZER VACCINE 00:00:00 [facility] SARS-COV-2 COVID-19 2020-10-26 Completed [facility] of PFIZER VACCINE 00:00:00 [facility] SARS-COV-2 COVID-19 2020-10-26 Completed [facility] of PFIZER VACCINE 00:00:00 [facility] SARS-COV-2 COVID-19 2020-10-26 Completed [facility] of PFIZER VACCINE 00:00:00 [facility] SARS-COV-2 COVID-19 2020-10-26 Completed [facility] of PFIZER VACCINE 00:00:00 [facility] SARS-COV-2 COVID-19 2020-10-26 Completed [facility] of PFIZER VACCINE 00:00:00 [facility] SARS-COV-2 COVID-19 2020-10-26 Completed [facility] of PFIZER VACCINE 00:00:00 [facility] SARS-COV-2 COVID-19 2020-10-26 Completed [facility] of PFIZER VACCINE 00:00:00 [facility] SARS-COV-2 COVID-19 2020-10-26 Completed [facility] PFIZER VACCINE 00:00:00 [facility] SARS-COV-2 COVID-19 2020-10-26 Completed [facility] PFIZER VACCINE 00:00:00 [facility] SARS-COV-2 COVID-19 2020-10-26 Completed [facility] of PFIZER VACCINE 00:00:00 [facility] SARS-COV-2 COVID-19 2020-10-26 Completed [facility] of PFIZER VACCINE 00:00:00 [facility] SARS-COV-2 COVID-19 2020-10-26 Completed [facility] of PFIZER VACCINE 00:00:00 [facility] SARS-COV-2 COVID-19 2020-10-26 Completed [facility] of PFIZER VACCINE 00:00:00 [facility] SARS-COV-2 COVID-19 2020-10-26 Completed [facility] of PFIZER VACCINE 00:00:00 [facility] SARS-COV-2 COVID-19 2020-10-26 Completed [facility] of PFIZER VACCINE 00:00:00 [facility] SARS-COV-2 COVID-19 2020-10-26 Completed [facility] of PFIZER VACCINE 00:00:00 [facility] SARS-COV-2 COVID-19 2020-10-26 Completed [facility] of PFIZER VACCINE 00:00:00 [facility] SARS-COV-2 COVID-19 2020-10-26 Completed [facility] PFIZER VACCINE 00:00:00 [facility] SARS-COV-2 COVID-19 2020-10-26 Completed [facility] of PFIZER VACCINE 00:00:00 [facility] SARS-COV-2 COVID-19 2020-10-26 Completed [facility] of PFIZER VACCINE 00:00:00 [facility] SARS-COV-2 COVID-19 2020-10-26 Completed [facility] of PFIZER VACCINE 00:00:00 [facility] SARS-COV-2 COVID-19 2020-10-26 Completed [facility] of PFIZER VACCINE 00:00:00 [facility] SARS-COV-2 COVID-19 2020-10-26 Completed [facility] of PFIZER VACCINE 00:00:00 [facility] SARS-COV-2 COVID-19 2020-10-26 Completed [facility] of PFIZER VACCINE 00:00:00 [facility] SARS-COV-2 COVID-19 2020-10-26 Completed [facility] PFIZER VACCINE 00:00:00 [facility] SARS-COV-2 COVID-19 2020-10-26 Completed [facility] PFIZER VACCINE 00:00:00 [facility] SARS-COV-2 COVID-19 2020-10-26 Completed [facility] PFIZER VACCINE 00:00:00 [facility] SARS-COV-2 COVID-19 2020-10-26 Completed [facility] PFIZER VACCINE 00:00:00 [facility] SARS-COV-2 COVID-19 2020-10-26 Completed [facility] PFIZER VACCINE 00:00:00 [facility] SARS-COV-2 COVID-19 2020-10-26 Completed [facility] of PFIZER VACCINE 00:00:00 [facility] SARS-COV-2 COVID-19 2020-10-26 Completed [facility] PFIZER VACCINE 00:00:00 [facility] SARS-COV-2 COVID-19 2020-10-26 Completed [facility] PFIZER VACCINE 00:00:00 [facility] SARS-COV-2 COVID-19 2020-10-26 Completed [facility] PFIZER VACCINE 00:00:00 [facility] SARS-COV-2 COVID-19 2020-10-26 Completed [facility] PFIZER VACCINE 00:00:00 [facility] SARS-COV-2 COVID-19 2020-10-26 Completed [facility] PFIZER VACCINE 00:00:00 [facility] SARS-COV-2 COVID-19 2020-10-26 Completed [facility] PFIZER VACCINE 00:00:00 [facility] SARS-COV-2 COVID-19 2020-10-26 Completed [facility] of PFIZER VACCINE 00:00:00 [facility] SARS-COV-2 COVID-19 2020-10-26 Completed [facility] of PFIZER VACCINE 00:00:00 [facility] SARS-COV-2 COVID-19 2020-10-26 Completed [facility] PFIZER VACCINE 00:00:00 [facility] SARS-COV-2 COVID-19 2020-10-26 Completed [facility] PFIZER VACCINE 00:00:00 [facility] SARS-COV-2 COVID-19 2020-10-26 Completed [facility] PFIZER VACCINE 00:00:00 [facility] SARS-COV-2 COVID-19 2020-10-26 Completed [facility] of PFIZER VACCINE 00:00:00 [facility] SARS-COV-2 COVID-19 2020-10-26 Completed [facility] of PFIZER VACCINE 00:00:00 [facility] SARS-COV-2 COVID-19 2020-10-26 Completed [facility] of PFIZER VACCINE 00:00:00 [facility] SARS-COV-2 COVID-19 2020-10-26 Completed [facility] PFIZER VACCINE 00:00:00 [facility] SARS-COV-2 COVID-19 2020-10-26 Completed [facility] PFIZER VACCINE 00:00:00 [facility] SARS-COV-2 COVID-19 2020-10-26 Completed [facility] PFIZER VACCINE 00:00:00 [facility] SARS-COV-2 COVID-19 2020-10-26 Completed [facility] PFIZER VACCINE 00:00:00 [facility] SARS-COV-2 COVID-19 2020-10-26 Completed [facility] PFIZER VACCINE 00:00:00 [facility] SARS-COV-2 COVID-19 2020-10-26 Completed [facility] PFIZER VACCINE 00:00:00 [facility] SARS-COV-2 COVID-19 2020-10-26 Completed [facility] PFIZER VACCINE 00:00:00 [facility] SARS-COV-2 COVID-19 2020-10-26 Completed [facility] PFIZER VACCINE 00:00:00 [facility] SARS-COV-2 COVID-19 2020-10-05 Completed [facility] PFIZER VACCINE 00:00:00 [facility] SARS-COV-2 COVID-19 2020-10-05 Completed [facility] PFIZER VACCINE 00:00:00 [facility] SARS-COV-2 COVID-19 2020-10-05 Completed [facility] PFIZER VACCINE 00:00:00 [facility] SARS-COV-2 COVID-19 2020-10-05 Completed [facility] PFIZER VACCINE 00:00:00 [facility] SARS-COV-2 COVID-19 2020-10-05 Completed [facility] PFIZER VACCINE 00:00:00 [facility] SARS-COV-2 COVID-19 2020-10-05 Completed [facility] PFIZER VACCINE 00:00:00 [facility] SARS-COV-2 COVID-19 2020-10-05 Completed [facility] PFIZER VACCINE 00:00:00 [facility] SARS-COV-2 COVID-19 2020-10-05 Completed [facility] PFIZER VACCINE 00:00:00 [facility] SARS-COV-2 COVID-19 2020-10-05 Completed [facility] PFIZER VACCINE 00:00:00 [facility] SARS-COV-2 COVID-19 2020-10-05 Completed [facility] PFIZER VACCINE 00:00:00 [facility] SARS-COV-2 COVID-19 2020-10-05 Completed [facility] PFIZER VACCINE 00:00:00 [facility] SARS-COV-2 COVID-19 2020-10-05 Completed [facility] PFIZER VACCINE 00:00:00 [facility] SARS-COV-2 COVID-19 2020-10-05 Completed [facility] PFIZER VACCINE 00:00:00 [facility] SARS-COV-2 COVID-19 2020-10-05 Completed [facility] PFIZER VACCINE 00:00:00 [facility] SARS-COV-2 COVID-19 2020-10-05 Completed [facility] PFIZER VACCINE 00:00:00 [facility] SARS-COV-2 COVID-19 2020-10-05 Completed [facility] PFIZER VACCINE 00:00:00 [facility] SARS-COV-2 COVID-19 2020-10-05 Completed [facility] PFIZER VACCINE 00:00:00 [facility] SARS-COV-2 COVID-19 2020-10-05 Completed [facility] PFIZER VACCINE 00:00:00 [facility] SARS-COV-2 COVID-19 2020-10-05 Completed [facility] PFIZER VACCINE 00:00:00 [facility] SARS-COV-2 COVID-19 2020-10-05 Completed [facility] PFIZER VACCINE 00:00:00 [facility] SARS-COV-2 COVID-19 2020-10-05 Completed [facility] PFIZER VACCINE 00:00:00 [facility] SARS-COV-2 COVID-19 2020-10-05 Completed [facility] PFIZER VACCINE 00:00:00 [facility] SARS-COV-2 COVID-19 2020-10-05 Completed [facility] PFIZER VACCINE 00:00:00 [facility] SARS-COV-2 COVID-19 2020-10-05 Completed [facility] PFIZER VACCINE 00:00:00 [facility] SARS-COV-2 COVID-19 2020-10-05 Completed [facility] PFIZER VACCINE 00:00:00 [facility] SARS-COV-2 COVID-19 2020-10-05 Completed [facility] PFIZER VACCINE 00:00:00 [facility] SARS-COV-2 COVID-19 2020-10-05 Completed [facility] PFIZER VACCINE 00:00:00 [facility] SARS-COV-2 COVID-19 2020-10-05 Completed [facility] PFIZER VACCINE 00:00:00 [facility] SARS-COV-2 COVID-19 2020-10-05 Completed [facility] PFIZER VACCINE 00:00:00 [facility] SARS-COV-2 COVID-19 2020-10-05 Completed [facility] PFIZER VACCINE 00:00:00 [facility] SARS-COV-2 COVID-19 2020-10-05 Completed [facility] PFIZER VACCINE 00:00:00 [facility] SARS-COV-2 COVID-19 2020-10-05 Completed [facility] PFIZER VACCINE 00:00:00 [facility] SARS-COV-2 COVID-19 2020-10-05 Completed [facility] PFIZER VACCINE 00:00:00 [facility] SARS-COV-2 COVID-19 2020-10-05 Completed [facility] PFIZER VACCINE 00:00:00 [facility] SARS-COV-2 COVID-19 2020-10-05 Completed [facility] PFIZER VACCINE 00:00:00 [facility] SARS-COV-2 COVID-19 2020-10-05 Completed [facility] PFIZER VACCINE 00:00:00 [facility] SARS-COV-2 COVID-19 2020-10-05 Completed [facility] PFIZER VACCINE 00:00:00 [facility] SARS-COV-2 COVID-19 2020-10-05 Completed [facility] PFIZER VACCINE 00:00:00 [facility] SARS-COV-2 COVID-19 2020-10-05 Completed [facility] PFIZER VACCINE 00:00:00 [facility] SARS-COV-2 COVID-19 2020-10-05 Completed [facility] PFIZER VACCINE 00:00:00 [facility] SARS-COV-2 COVID-19 2020-10-05 Completed [facility] PFIZER VACCINE 00:00:00 [facility] SARS-COV-2 COVID-19 2020-10-05 Completed [facility] PFIZER VACCINE 00:00:00 [facility] SARS-COV-2 COVID-19 2020-10-05 Completed [facility] PFIZER VACCINE 00:00:00 [facility] SARS-COV-2 COVID-19 2020-10-05 Completed [facility] PFIZER VACCINE 00:00:00 [facility] SARS-COV-2 COVID-19 2020-10-05 Completed [facility] PFIZER VACCINE 00:00:00 [facility] SARS-COV-2 COVID-19 2020-10-05 Completed [facility] PFIZER VACCINE 00:00:00 [facility] SARS-COV-2 COVID-19 2020-10-05 Completed [facility] PFIZER VACCINE 00:00:00 [facility] SARS-COV-2 COVID-19 2020-10-05 Completed [facility] PFIZER VACCINE 00:00:00 [facility] SARS-COV-2 COVID-19 2020-10-05 Completed [facility] PFIZER VACCINE 00:00:00 [facility] SARS-COV-2 COVID-19 2020-10-05 Completed [facility] PFIZER VACCINE 00:00:00 [facility] SARS-COV-2 COVID-19 2020-10-05 Completed [facility] PFIZER VACCINE 00:00:00 [facility] SARS-COV-2 COVID-19 2020-10-05 Completed [facility] PFIZER VACCINE 00:00:00 [facility] SARS-COV-2 COVID-19 2020-10-05 Completed [facility] PFIZER VACCINE 00:00:00 [facility] SARS-COV-2 COVID-19 2020-10-05 Completed [facility] PFIZER VACCINE 00:00:00 [facility] SARS-COV-2 COVID-19 2020-10-05 Completed [facility] PFIZER VACCINE 00:00:00 [facility] SARS-COV-2 COVID-19 2020-10-05 Completed [facility] PFIZER VACCINE 00:00:00 [facility] SARS-COV-2 COVID-19 2020-10-05 Completed [facility] PFIZER VACCINE 00:00:00 [facility] SARS-COV-2 COVID-19 2020-10-05 Completed [facility] PFIZER VACCINE 00:00:00 [facility] SARS-COV-2 COVID-19 2020-10-05 Completed [facility] PFIZER VACCINE 00:00:00 [facility] SARS-COV-2 COVID-19 2020-10-05 Completed [facility] PFIZER VACCINE 00:00:00 [facility] SARS-COV-2 COVID-19 2020-10-05 Completed [facility] PFIZER VACCINE 00:00:00 [facility] SARS-COV-2 COVID-19 2020-10-05 Completed [facility] PFIZER VACCINE 00:00:00 [facility] SARS-COV-2 COVID-19 2020-10-05 Completed [facility] PFIZER VACCINE 00:00:00 [facility] SARS-COV-2 COVID-19 2020-10-05 Completed [facility] PFIZER VACCINE 00:00:00 [facility] SARS-COV-2 COVID-19 2020-10-05 Completed [facility]ER [facility]ACCINE [facility] [facility] SARS-COV-2 COVID-19 2020-10-05 Completed [facility] of PFIZER VACCINE 00:00:00 [facility] SARS-COV-2 COVID-19 2020-10-05 Completed [facility] of PFIZER VACCINE 00:00:00 [facility] SARS-COV-2 COVID-19 2020-10-05 Completed [facility] of PFIZER VACCINE 00:00:00 [facility] SARS-COV-2 COVID-19 2020-10-05 Completed [facility] of PFIZER VACCINE 00:00:00 [facility] SARS-COV-2 COVID-19 2020-10-05 Completed [facility] of PFIZER VACCINE 00:00:00 [facility] RABIES VACCINE 2010-04-16 Completed [facility] 00:00:00 [facility] RABIES VACCINE 2010-04-16 Completed University of 00:00:00 [facility] RABIES VACCINE 2010-04-16 Completed University of 00:00:00 [facility] RABIES VACCINE 2010-04-16 Completed University of 00:00:00 [facility] RABIES VACCINE 2010-04-16 Completed University of 00:00:00 [facility] RABIES VACCINE 2010-04-16 Completed University of 00:00:00 [facility] RABIES VACCINE 2010-04-16 Completed University of 00:00:00 [facility] RABIES VACCINE 2010-04-16 Completed [facility] 00:00:00 [facility] RABIES VACCINE 2010-04-16 Completed University of 00:00:00 [facility] RABIES VACCINE 2010-04-16 Completed University of 00:00:00 [facility] RABIES VACCINE 2010-04-16 Completed University of 00:00:00 [facility] RABIES VACCINE 2010-04-16 Completed University of 00:00:00 [facility] RABIES VACCINE 2010-04-16 Completed University of 00:00:00 [facility] RABIES VACCINE 2010-04-16 Completed [facility] of 00:00:00 [facility] RABIES VACCINE 2010-04-16 Completed [facility] of 00:00:00 [facility] RABIES VACCINE 2010-04-16 Completed [facility] of 00:00:00 [facility] RABIES VACCINE 2010-04-16 Completed [facility] 00:00:00 [facility] RABIES VACCINE 2010-04-16 Completed [facility] of 00:00:00 [facility] RABIES VACCINE 2010-04-16 Completed [facility] of 00:00:00 [facility] RABIES VACCINE 2010-04-16 Completed [facility] of 00:00:00 [facility] RABIES VACCINE 2010-04-16 Completed [facility] of 00:00:00 [facility] RABIES VACCINE 2010-04-16 Completed [facility] of 00:00:00 [facility] RABIES VACCINE 2010-04-16 Completed [facility] of 00:00:00 [facility] RABIES VACCINE 2010-04-16 Completed [facility] 00:00:00 [facility] RABIES VACCINE 2010-04-16 Completed [facility] 00:00:00 [facility] RABIES VACCINE 2010-04-16 Completed University of 00:00:00 [facility] RABIES VACCINE 2010-04-16 Completed University of 00:00:00 [facility] RABIES VACCINE 2010-04-16 Completed University of 00:00:00 [facility] RABIES VACCINE 2010-04-16 Completed University of 00:00:00 [facility] RABIES VACCINE 2010-04-16 Completed [facility] of 00:00:00 [facility] RABIES VACCINE 2010-04-16 Completed University of 00:00:00 [facility] RABIES VACCINE 2010-04-16 Completed University of 00:00:00 [facility] RABIES VACCINE 2010-04-16 Completed University of 00:00:00 [facility] RABIES VACCINE 2010-04-16 Completed [facility] of 00:00:00 [facility] RABIES VACCINE 2010-04-16 Completed [facility] of 00:00:00 [facility] RABIES VACCINE 2010-04-16 Completed University of 00:00:00 [facility] RABIES VACCINE 2010-04-16 Completed [facility] of 00:00:00 [facility] RABIES VACCINE 2010-04-16 Completed University of 00:00:00 [facility] RABIES VACCINE 2010-04-16 Completed [facility] of 00:00:00 [facility] RABIES VACCINE 2010-04-16 Completed University of 00:00:00 [facility] RABIES VACCINE 2010-04-16 Completed [facility] of 00:00:00 [facility] RABIES VACCINE 2010-04-16 Completed University of 00:00:00 [facility] RABIES VACCINE 2010-04-16 Completed University of 00:00:00 [facility] RABIES VACCINE 2010-04-16 Completed University of 00:00:00 [facility] RABIES VACCINE 2010-04-16 Completed [facility] of 00:00:00 [facility] RABIES VACCINE 2010-04-16 Completed [facility] of 00:00:00 [facility] RABIES VACCINE 2010-04-16 Completed [facility] of 00:00:00 [facility] RABIES VACCINE 2010-04-16 Completed University of 00:00:00 [facility] RABIES VACCINE 2010-04-16 Completed [facility] of 00:00:00 [facility] RABIES VACCINE 2010-04-16 Completed [facility] of 00:00:00 [facility] RABIES VACCINE 2010-04-16 Completed University of 00:00:00 [facility] RABIES VACCINE 2010-04-16 Completed University of 00:00:00 [facility] RABIES VACCINE 2010-04-16 Completed [facility] of 00:00:00 [facility] RABIES VACCINE 2010-04-16 Completed [facility] of 00:00:00 [facility] RABIES VACCINE 2010-04-16 Completed University of 00:00:00 [facility] RABIES VACCINE 2010-04-16 Completed [facility] of 00:00:00 [facility] RABIES VACCINE 2010-04-16 Completed [facility] of 00:00:00 [facility] RABIES VACCINE 2010-04-16 Completed [facility] of 00:00:00 [facility] RABIES VACCINE 2010-04-16 Completed [facility] of 00:00:00 [facility] RABIES VACCINE 2010-04-16 Completed [facility] of 00:00:00 [facility] RABIES VACCINE 2010-04-16 Completed [facility] of 00:00:00 [facility] RABIES VACCINE 2010-04-16 Completed [facility] of 00:00:00 [facility] RABIES VACCINE 2010-04-16 Completed [facility] of 00:00:00 [facility] RABIES VACCINE 2010-04-16 Completed [facility] of 00:00:00 [facility] RABIES VACCINE 2010-04-16 Completed [facility] of 00:00:00 [facility] RABIES VACCINE 2010-04-16 Completed [facility] of 00:00:00 [facility] RABIES VACCINE 2010-04-16 Completed [facility] of 00:00:00 [facility] RABIES VACCINE 2010-04-16 Completed [facility] of 00:00:00 [facility] RABIES VACCINE 2010-04-16 Completed [facility] of 00:00:00 [facility] RABIES VACCINE 2010-04-16 Completed [facility] of 00:00:00 [facility] RABIES VACCINE 2010-04-04 Completed [facility] of 00:00:00 [facility] RABIES VACCINE 2010-04-04 Completed [facility] of 00:00:00 [facility] RABIES VACCINE 2010-04-04 Completed [facility] of 00:00:00 [facility] RABIES VACCINE 2010-04-04 Completed [facility] of 00:00:00 [facility] RABIES VACCINE 2010-04-04 Completed [facility] of 00:00:00 [facility] RABIES VACCINE 2010-04-04 Completed [facility] of 00:00:00 [facility] RABIES VACCINE 2010-04-04 Completed [facility] of 00:00:00 [facility] RABIES VACCINE 2010-04-04 Completed [facility] of 00:00:00 [facility] RABIES VACCINE 2010-04-04 Completed [facility] of 00:00:00 [facility] RABIES VACCINE 2010-04-04 Completed [facility] of 00:00:00 [facility] RABIES VACCINE 2010-04-04 Completed [facility] of 00:00:00 [facility] RABIES VACCINE 2010-04-04 Completed [facility] of 00:00:00 [facility] RABIES VACCINE 2010-04-04 Completed [facility] of 00:00:00 [facility] RABIES VACCINE 2010-04-04 Completed [facility] of 00:00:00 [facility] RABIES VACCINE 2010-04-04 Completed [facility] of 00:00:00 [facility] RABIES VACCINE 2010-04-04 Completed [facility] of 00:00:00 [facility] RABIES VACCINE 2010-04-04 Completed [facility] of 00:00:00 [facility] RABIES VACCINE 2010-04-04 Completed [facility] of 00:00:00 [facility] RABIES VACCINE 2010-04-04 Completed [facility] of 00:00:00 [facility] RABIES VACCINE 2010-04-04 Completed [facility] of 00:00:00 [facility] RABIES VACCINE 2010-04-04 Completed [facility] of 00:00:00 [facility] RABIES VACCINE 2010-04-04 Completed [facility] of 00:00:00 [facility] RABIES VACCINE 2010-04-04 Completed [facility] of 00:00:00 [facility] RABIES VACCINE 2010-04-04 Completed [facility] of 00:00:00 [facility] RABIES VACCINE 2010-04-04 Completed [facility] of 00:00:00 [facility] RABIES VACCINE 2010-04-04 Completed [facility] of 00:00:00 [facility] RABIES VACCINE 2010-04-04 Completed [facility] of 00:00:00 [facility] RABIES VACCINE 2010-04-04 Completed [facility] of 00:00:00 [facility] RABIES VACCINE 2010-04-04 Completed [facility] of 00:00:00 [facility] RABIES VACCINE 2010-04-04 Completed [facility] of 00:00:00 [facility] RABIES VACCINE 2010-04-04 Completed [facility] of 00:00:00 [facility] RABIES VACCINE 2010-04-04 Completed [facility] of 00:00:00 [facility] RABIES VACCINE 2010-04-04 Completed [facility] of 00:00:00 [facility] RABIES VACCINE 2010-04-04 Completed [facility] of 00:00:00 [facility] RABIES VACCINE 2010-04-04 Completed [facility] of 00:00:00 [facility] RABIES VACCINE 2010-04-04 Completed [facility] of 00:00:00 [facility] RABIES VACCINE 2010-04-04 Completed [facility] of 00:00:00 [facility] RABIES VACCINE 2010-04-04 Completed [facility] of 00:00:00 [facility] RABIES VACCINE 2010-04-04 Completed [facility] of 00:00:00 [facility] RABIES VACCINE 2010-04-04 Completed [facility] of 00:00:00 [facility] RABIES VACCINE 2010-04-04 Completed [facility] of 00:00:00 [facility] RABIES VACCINE 2010-04-04 Completed [facility] of 00:00:00 [facility] RABIES VACCINE 2010-04-04 Completed [facility] of 00:00:00 [facility] RABIES VACCINE 2010-04-04 Completed [facility] of 00:00:00 [facility] RABIES VACCINE 2010-04-04 Completed [facility] of 00:00:00 [facility] RABIES VACCINE 2010-04-04 Completed [facility] of 00:00:00 [facility] RABIES VACCINE 2010-04-04 Completed [facility] of 00:00:00 [facility] RABIES VACCINE 2010-04-04 Completed [facility] of 00:00:00 [facility] RABIES VACCINE 2010-04-04 Completed [facility] of 00:00:00 [facility] RABIES VACCINE 2010-04-04 Completed [facility] of 00:00:00 [facility] RABIES VACCINE 2010-04-04 Completed [facility] of 00:00:00 [facility] RABIES VACCINE 2010-04-04 Completed [facility] of 00:00:00 [facility] RABIES VACCINE 2010-04-04 Completed [facility] of 00:00:00 [facility] RABIES VACCINE 2010-04-04 Completed [facility] of 00:00:00 [facility] RABIES VACCINE 2010-04-04 Completed [facility] of 00:00:00 [facility] RABIES VACCINE 2010-04-04 Completed University of 00:00:00 [facility] RABIES VACCINE 2010-04-04 Completed [facility] of 00:00:00 [facility] RABIES VACCINE 2010-04-04 Completed [facility] 00:00:00 [facility] RABIES VACCINE 2010-04-04 Completed University of 00:00:00 [facility] RABIES VACCINE 2010-04-04 Completed [facility] of 00:00:00 [facility] RABIES VACCINE 2010-04-04 Completed [facility] of 00:00:00 [facility] RABIES VACCINE 2010-04-04 Completed [facility] of 00:00:00 [facility] RABIES VACCINE 2010-04-04 Completed [facility] of 00:00:00 [facility] RABIES VACCINE 2010-04-04 Completed [facility] of 00:00:00 [facility] RABIES VACCINE 2010-04-04 Completed [facility] of 00:00:00 [facility] RABIES VACCINE 2010-04-04 Completed University of 00:00:00 [facility] RABIES VACCINE 2010-04-04 Completed University of 00:00:00 [facility] RABIES VACCINE 2010-04-04 Completed University of 00:00:00 [facility] RABIES VACCINE 2010-04-04 Completed University of 00:00:00 [facility] RABIES VACCINE 2010-04-04 Completed University of 00:00:00 [facility] SARS-COV-2 COVID-19 Unknown Completed [facility] of PFIZER VACCINE [facility] SARS-COV-2 COVID-19 Unknown Completed [facility] of PFIZER VACCINE [facility] RABIES VACCINE Unknown Completed [facility] RABIES VACCINE Unknown Completed [facility] TDAP Unknown Completed [facility] SARS-COV-2 COVID-19 Unknown Completed [facility] of PFIZER VACCINE [facility] SARS-COV-2 COVID-19 Unknown Completed [facility] of PFIZER VACCINE [facility] RABIES VACCINE Unknown Completed [facility] RABIES VACCINE Unknown Completed [facility] TDAP Unknown Completed [facility] SARS-COV-2 COVID-19 Unknown Completed [facility] of PFIZER VACCINE [facility] SARS-COV-2 COVID-19 Unknown Completed [facility] of PFIZER VACCINE [facility] RABIES VACCINE Unknown Completed [facility] RABIES VACCINE Unknown Completed [facility] TDAP Unknown Completed [facility] SARS-COV-2 COVID-19 Unknown Completed [facility] of PFIZER VACCINE [facility] SARS-COV-2 COVID-19 Unknown Completed [facility] of PFIZER VACCINE [facility] RABIES VACCINE Unknown Completed [facility] RABIES VACCINE Unknown Completed [facility] TDAP Unknown Completed [facility] SARS-COV-2 COVID-19 Unknown Completed [facility] of PFIZER VACCINE [facility] SARS-COV-2 COVID-19 Unknown Completed [facility] of PFIZER VACCINE [facility] RABIES VACCINE Unknown Completed [facility] RABIES VACCINE Unknown Completed [facility] TDAP Unknown Completed [facility] SARS-COV-2 COVID-19 Unknown Completed [facility] of PFIZER VACCINE [facility] SARS-COV-2 COVID-19 Unknown Completed [facility] PFIZER VACCINE [facility] RABIES VACCINE Unknown Completed [facility] RABIES VACCINE Unknown Completed [facility] SARS-COV-2 COVID-19 Unknown Completed [facility] of PFIZER VACCINE [facility] SARS-COV-2 COVID-19 Unknown Completed [facility] of PFIZER VACCINE [facility] RABIES VACCINE Unknown Completed [facility] RABIES VACCINE Unknown Completed [facility] SARS-COV-2 COVID-19 Unknown Completed [facility] of PFIZER VACCINE [facility] SARS-COV-2 COVID-19 Unknown Completed [facility] of PFIZER VACCINE [facility] RABIES VACCINE Unknown Completed [facility] RABIES VACCINE Unknown Completed [facility] SARS-COV-2 COVID-19 Unknown Completed [facility] of PFIZER VACCINE [facility] SARS-COV-2 COVID-19 Unknown Completed [facility] of PFIZER VACCINE [facility] RABIES VACCINE Unknown Completed [facility] RABIES VACCINE Unknown Completed [facility] SARS-COV-2 COVID-19 Unknown Completed [facility] of PFIZER VACCINE [facility] SARS-COV-2 COVID-19 Unknown Completed [facility] of PFIZER VACCINE [facility] RABIES VACCINE Unknown Completed [facility] RABIES VACCINE Unknown Completed [facility] SARS-COV-2 COVID-19 Unknown Completed [facility] of PFIZER VACCINE [facility] SARS-COV-2 COVID-19 Unknown Completed [facility] of PFIZER VACCINE [facility] RABIES VACCINE Unknown Completed [facility] RABIES VACCINE Unknown Completed [facility] TDAP Unknown Completed [facility] HPV9 Unknown Completed [facility] SARS-COV-2 COVID-19 Unknown Completed [facility] of PFIZER VACCINE [facility] SARS-COV-2 COVID-19 Unknown Completed [facility] of PFIZER VACCINE [facility] RABIES VACCINE Unknown Completed [facility] RABIES VACCINE Unknown Completed [facility] TDAP Unknown Completed [facility] HPV9 Unknown Completed [facility] HPV9 Unknown Completed [facility] Vital Signs Vital Name Observation Time Observation Value Comments Source Body temperature 2022-11-27 13:54:00 36.56 Brenda [facility] Systolic blood 2022-10-25 14:38:00 140 mm[Hg] Univer [facility]ity of pressure [facility] Diastolic blood 2022-10-25 14:38:00 90 mm[Hg] [facility]ive [facility]ity of pressure [facility] Heart rate 2022-10-25 14:32:00 73 /min [facility] Respiratory rate 2022-10-25 14:32:00 16 /min [facility] Body height 2022-10-25 14:32:00 172.7 cm [facility] Body weight 2022-10-25 14:32:00 94.983 kg [facility] BMI 2022-10-25 14:32:00 31.84 kg/m2 [facility] of [facility] Systolic blood 2022-10-23 15:25:00 126 mm[Hg] Univer sity of pressure [facility] Diastolic blood 2022-10-23 15:25:00 82 mm[Hg] Unive rsity of pressure [facility] Heart rate 2022-10-23 15:19:00 70 /min [facility] Body temperature 2022-10-23 15:19:00 36.61 Brenda [facility] Respiratory rate 2022-10-23 15:19:00 17 /min [facility] Body height 2022-10-23 15:19:00 172.7 cm [facility] Body weight 2022-10-23 15:19:00 93.577 kg [facility] BMI 2022-10-23 15:19:00 31.37 kg/m2 [facility] Systolic blood 2022-10-15 13:54:00 141 mm[Hg] Univer [facility]ity of pressure [facility] Diastolic blood 2022-10-15 13:54:00 91 mm[Hg] Unive rsity of pressure [facility] Heart rate 2022-10-15 13:53:00 84 /min [facility] Body temperature 2022-10-15 13:53:00 36.67 Brenda [facility] Respiratory rate 2022-10-15 13:53:00 18 /min [facility] Body height 2022-10-15 13:53:00 172.7 cm [facility] Body weight 2022-10-15 13:53:00 93.895 kg [facility] BMI 2022-10-15 13:53:00 31.47 kg/m2 [facility] Systolic blood 2022-10-03 16:16:00 134 mm[Hg] Univer [facility]ity of pressure [facility] Diastolic blood 2022-10-03 16:16:00 93 mm[Hg] Unive rsity of pressure [facility] Heart rate 2022-10-03 16:09:00 87 /min [facility] Body temperature 2022-10-03 16:09:00 37 Brenda [facility] Respiratory rate 2022-10-03 16:09:00 18 /min [facility] Body height 2022-10-03 16:09:00 172.7 cm [facility] Body weight 2022-10-03 16:09:00 91.536 kg [facility] BMI 2022-10-03 16:09:00 30.68 kg/m2 [facility] Oxygen saturation in 2022-10-03 16:09:00 97 /min University Arterial blood by [facility] Pulse oximetry Branch Systolic blood 2022-10-02 00:04:00 146 mm[Hg] Univer sity of pressure [facility] Diastolic blood 2022-10-02 00:04:00 94 mm[Hg] Unive rsity of pressure [facility] Heart rate 2022-10-02 00:00:00 78 /min [facility] Body temperature 2022-10-02 00:00:00 37.06 Brenda [facility] Respiratory rate 2022-10-02 00:00:00 14 /min [facility] Body height 2022-10-02 00:00:00 172.7 cm [facility] Body weight 2022-10-02 00:00:00 93.849 kg [facility] BMI 2022-10-02 00:00:00 31.46 kg/m2 [facility] of [facility] Oxygen saturation in 2022-10-02 00:00:00 100 /min University Arterial blood by [facility] Pulse oxim[facility] Systolic blood 2022-10-01 15:35:00 140 mm[Hg] Univer [facility]ity of pressure [facility] Diastolic blood 2022-10-01 15:35:00 94 mm[Hg] Unive rsity of pressure [facility] Heart rate 2022-10-01 15:34:00 72 /min [facility] Body temperature 2022-10-01 15:34:00 36.61 Brenda [facility] Respiratory rate 2022-10-01 15:34:00 18 /min [facility] of [facility] Body height 2022-10-01 15:34:00 172.7 cm [facility] Body weight 2022-10-01 15:34:00 93.26 kg [facility] of [facility] BMI 2022-10-01 15:34:00 31.26 kg/m2 [facility] Systolic blood 2022-09-24 14:11:00 144 mm[Hg] Univer [facility]ity of pressure [facility] Diastolic blood 2022-09-24 14:11:00 102 mm[Hg] Unive rsity of pressure [facility] Heart rate 2022-09-24 14:11:00 69 /min [facility] of [facility] Body temperature 2022-09-24 14:10:00 36.72 Brenda [facility] Respiratory rate 2022-09-24 14:10:00 18 /min Univ ers[facility] of [facility] Body height 2022-09-24 14:10:00 172.7 cm [facility] Body weight 2022-09-24 14:10:00 95.312 kg [facility] BMI 2022-09-24 14:10:00 31.95 kg/m2 [facility] Systolic blood 2022-09-14 04:00:00 148 mm[Hg] Univer [facility]ity of pressure [facility] Diastolic blood 2022-09-14 04:00:00 86 mm[Hg] Unive rsity of pressure [facility] Heart rate 2022-09-14 04:00:00 64 /min [facility] of [facility] Respiratory rate 2022-09-14 04:00:00 13 /min [facility] Oxygen saturation in 2022-09-14 04:00:00 100 /min [facility] of Arterial blood by [facility] Pulse oximetry Branch Body temperature 2022-09-14 01:13:00 37.61 Brenda [facility] Body height 2022-09-14 01:13:00 172.7 cm [facility] Body weight 2022-09-14 01:13:00 95.255 kg [facility] BMI 2022-09-14 01:13:00 31.93 kg/m2 [facility] Systolic blood 2022-09-09 16:46:00 135 mm[Hg] Univer [facility]ity of pressure [facility] Diastolic blood 2022-09-09 16:46:00 80 mm[Hg] Unive rsity of pressure [facility] Heart rate 2022-09-09 16:46:00 66 /min [facility] Body temperature 2022-09-09 16:46:00 36.94 Brenda Univ ersity of [facility] Respiratory rate 2022-09-09 16:46:00 20 /min [facility] Body height 2022-09-09 16:46:00 170.2 cm [facility] Body weight 2022-09-09 16:46:00 95.573 kg [facility] BMI 2022-09-09 16:46:00 33.00 kg/m2 [facility] Systolic blood 2022-09-05 19:41:47 126 mm[Hg] Univer sity of pressure [facility] Diastolic blood 2022-09-05 19:41:47 72 mm[Hg] Unive rsity of pressure [facility] Heart rate 2022-09-05 19:41:47 57 /min [facility] Respiratory rate 2022-09-05 19:41:47 11 /min [facility] Oxygen saturation in 2022-09-05 19:41:47 98 /min University of Arterial blood by [facility] Pulse oximetry Branch Body temperature 2022-09-05 18:17:00 36.67 Brenda [facility] Systolic blood 2022-08-31 14:00:00 115 mm[Hg] Univer sity of pressure [facility] Diastolic blood 2022-08-31 14:00:00 65 mm[Hg] Unive rsity of pressure [facility] Heart rate 2022-08-31 14:00:00 79 /min [facility] Body temperature 2022-08-31 14:00:00 36.67 Brenda [facility] Respiratory rate 2022-08-31 14:00:00 16 /min [facility] Oxygen saturation in 2022-08-31 14:00:00 98 /min University of Arterial blood by [facility] Pulse oxim[facility] Branch Body height 2022-08-30 01:14:00 172.7 cm [facility] Body weight 2022-08-30 01:14:00 99.202 kg [facility] BMI 2022-08-30 01:14:00 33.26 kg/m2 [facility] Systolic blood 2022-08-30 14:45:00 117 mm[Hg] Univer sity of pressure [facility] Diastolic blood 2022-08-30 14:45:00 75 mm[Hg] Unive rsity of pressure [facility] Heart rate 2022-08-30 14:45:00 67 /min [facility] Oxygen saturation in 2022-08-30 14:45:00 100 /min University of Arterial blood by [facility] Pulse oximetry Branch Respiratory rate 2022-08-30 14:30:00 20 /min [facility] Body temperature 2022-08-30 12:25:00 36.72 Brenda [facility] Body height 2022-08-30 01:14:00 172.7 cm [facility] Body weight 2022-08-30 01:14:00 99.202 kg [facility] BMI 2022-08-30 01:14:00 33.26 kg/m2 [facility] Systolic blood 2022-08-29 14:01:00 100 mm[Hg] Univer sity of pressure [facility] Diastolic blood 2022-08-29 14:01:00 72 mm[Hg] Unive rsity of pressure [facility] Heart rate 2022-08-29 14:01:00 86 /min [facility] Body temperature 2022-08-29 14:01:00 36.33 Brenda [facility] Respiratory rate 2022-08-29 14:01:00 18 /min [facility] Body height 2022-08-29 14:01:00 172.7 cm [facility] Body weight 2022-08-29 14:01:00 98.969 kg [facility] BMI 2022-08-29 14:01:00 33.18 kg/m2 [facility] Systolic blood 2022-08-22 14:16:00 111 mm[Hg] Univer sity of pressure [facility] Diastolic blood 2022-08-22 14:16:00 82 mm[Hg] Unive rsity of pressure [facility] Heart rate 2022-08-22 14:16:00 88 /min [facility] Body temperature 2022-08-22 14:16:00 36.72 Brenda [facility] Respiratory rate 2022-08-22 14:16:00 18 /min [facility] Body height 2022-08-22 14:16:00 172.7 cm [facility] Body weight 2022-08-22 14:16:00 100.727 kg [facility] BMI 2022-08-22 14:16:00 33.76 kg/m2 [facility] Systolic blood 2022-08-15 15:04:00 110 mm[Hg] Univer sity of pressure [facility] Diastolic blood 2022-08-15 15:04:00 76 mm[Hg] Unive rsity of pressure [facility] Heart rate 2022-08-15 15:04:00 78 /min [facility] Body temperature 2022-08-15 15:04:00 35.61 Brenda [facility] Respiratory rate 2022-08-15 15:04:00 18 /min [facility] Body height 2022-08-15 15:04:00 172.7 cm [facility] Body weight 2022-08-15 15:04:00 100.336 kg [facility] BMI 2022-08-15 15:04:00 33.63 kg/m2 [facility] Systolic blood 2022-08-09 14:58:00 113 mm[Hg] Univer sity of pressure [facility] Diastolic blood 2022-08-09 14:58:00 70 mm[Hg] Unive rsity of pressure [facility] Heart rate 2022-08-09 14:58:00 78 /min [facility] Body temperature 2022-08-09 14:58:00 36.22 Brenda [facility] ersity of [facility] Respiratory rate 2022-08-09 14:58:00 18 /min [facility] Body height 2022-08-09 14:58:00 172.7 cm [facility] Body weight 2022-08-09 14:58:00 101.56 kg [facility] BMI 2022-08-09 14:58:00 34.04 kg/m2 [facility] Body weight 2022-07-26 14:08:00 97.977 kg [facility] BMI 2022-07-26 14:08:00 32.84 kg/m2 [facility] Heart rate 2022-07-21 19:30:00 83 /min Universi ty of [facility] Oxygen saturation in 2022-07-21 19:30:00 100 /min [facility] Arterial blood by [facility] Pulse oximetry Branch Systolic blood 2022-07-21 18:50:00 124 mm[Hg] Univer sity of pressure [facility] Diastolic blood 2022-07-21 18:50:00 72 mm[Hg] Unive rsity of pressure [facility] Body temperature 2022-07-21 18:50:00 37.06 Brenda [facility] Respiratory rate 2022-07-21 18:50:00 18 /min [facility] Body height 2022-07-21 18:27:00 172.7 cm [facility] Body weight 2022-07-21 18:27:00 101.152 kg [facility] BMI 2022-07-21 18:27:00 33.91 kg/m2 [facility] Systolic blood 2022-07-18 15:08:00 120 mm[Hg] Univer sity of pressure [facility] Diastolic blood 2022-07-18 15:08:00 78 mm[Hg] Unive rsity of pressure [facility] Heart rate 2022-07-18 15:08:00 76 /min [facility] Body temperature 2022-07-18 15:08:00 36 Brenda [facility] Respiratory rate 2022-07-18 15:08:00 18 /min [facility] Body height 2022-07-18 15:08:00 172.7 cm [facility] Body weight 2022-07-18 15:08:00 99.338 kg [facility] BMI 2022-07-18 15:08:00 33.30 kg/m2 [facility] Systolic blood 2022-06-27 13:14:00 112 mm[Hg] Univer sity of pressure [facility] Diastolic blood 2022-06-27 13:14:00 65 mm[Hg] Unive rsity of pressure [facility] Heart rate 2022-06-27 13:14:00 81 /min [facility] Body temperature 2022-06-27 13:14:00 36.17 Brenda [facility] Respiratory rate 2022-06-27 13:14:00 20 /min [facility] Body height 2022-06-27 13:14:00 172.7 cm [facility] Body weight 2022-06-27 13:14:00 99.565 kg [facility] BMI 2022-06-27 13:14:00 33.37 kg/m2 [facility] Systolic blood 2022-06-13 13:07:00 111 mm[Hg] Univer sity of pressure [facility] Diastolic blood 2022-06-13 13:07:00 70 mm[Hg] Unive rsity of pressure [facility] Heart rate 2022-06-13 13:07:00 81 /min [facility] Body temperature 2022-06-13 13:07:00 36.44 Brenda [facility] Respiratory rate 2022-06-13 13:07:00 18 /min [facility] Body height 2022-06-13 13:07:00 172.7 cm [facility] Body weight 2022-06-13 13:07:00 99.882 kg [facility] BMI 2022-06-13 13:07:00 33.48 kg/m2 [facility] Systolic blood 2022-05-21 14:37:00 111 mm[Hg] Univer sity of pressure [facility] Diastolic blood 2022-05-21 14:37:00 63 mm[Hg] Unive rsity of pressure [facility] Heart rate 2022-05-21 14:37:00 83 /min [facility] Body temperature 2022-05-21 14:37:00 35.89 Brenda [facility] Respiratory rate 2022-05-21 14:37:00 18 /min [facility] Body weight 2022-05-21 14:37:00 97.433 kg [facility] BMI 2022-05-21 14:37:00 32.66 kg/m2 [facility] Systolic blood 2022-05-16 15:39:00 111 mm[Hg] Univer sity of pressure [facility] Diastolic blood 2022-05-16 15:39:00 69 mm[Hg] Unive rsity of pressure [facility] Heart rate 2022-05-16 15:39:00 80 /min [facility] Body temperature 2022-05-16 15:39:00 36.28 Brenda [facility] Respiratory rate 2022-05-16 15:39:00 20 /min [facility] Body height 2022-05-16 15:39:00 172.7 cm [facility] Body weight 2022-05-16 15:39:00 96.979 kg [facility] BMI 2022-05-16 15:39:00 32.51 kg/m2 [facility] Systolic blood 2022-04-24 18:28:08 128 mm[Hg] Univer sity of pressure [facility] Diastolic blood 2022-04-24 18:28:08 60 mm[Hg] Unive rsity of pressure [facility] Heart rate 2022-04-24 18:28:08 76 /min [facility] Body temperature 2022-04-24 18:28:08 36.94 Brenda [facility] Respiratory rate 2022-04-24 18:28:08 14 /min Univ ersity of [facility] Oxygen saturation in 2022-04-24 18:28:08 99 /min University of Arterial blood by [facility] Pulse oximetry Branch Body height 2022-04-24 16:54:00 172.7 cm [facility] Body weight 2022-04-24 16:54:00 94.348 kg [facility] BMI 2022-04-24 16:54:00 31.63 kg/m2 [facility] Systolic blood 2022-04-18 15:55:00 115 mm[Hg] Univer sity of pressure [facility] Diastolic blood 2022-04-18 15:55:00 67 mm[Hg] Unive rsity of pressure [facility] Heart rate 2022-04-18 15:55:00 72 /min [facility] Body temperature 2022-04-18 15:55:00 35.06 Brenda Univ ersity of [facility] Respiratory rate 2022-04-18 15:55:00 18 /min Univ [facility] Body height 2022-04-18 15:55:00 175.3 cm [facility] Body weight 2022-04-18 15:55:00 93.441 kg [facility] BMI 2022-04-18 15:55:00 30.42 kg/m2 [facility] Systolic blood 2022-03-28 14:41:00 128 mm[Hg] Univer sity of pressure [facility] Diastolic blood 2022-03-28 14:41:00 80 mm[Hg] Unive rsity of pressure [facility] Heart rate 2022-03-28 14:41:00 76 /min [facility] Body temperature 2022-03-28 14:40:00 36.33 Brenda [facility] Respiratory rate 2022-03-28 14:40:00 18 /min [facility] Body height 2022-03-28 14:40:00 172.7 cm [facility] Body weight 2022-03-28 14:40:00 91.258 kg [facility] BMI 2022-03-28 14:40:00 30.59 kg/m2 [facility] Systolic blood 2022-03-20 15:44:00 130 mm[Hg] Univer sity of pressure [facility] Diastolic blood 2022-03-20 15:44:00 75 mm[Hg] Unive rsity of pressure [facility] Heart rate 2022-03-20 15:44:00 79 /min [facility] Body temperature 2022-03-20 15:44:00 36.56 Brenda [facility] Respiratory rate 2022-03-20 15:44:00 20 /min [facility] Body height 2022-03-20 15:44:00 172.7 cm [facility] Body weight 2022-03-20 15:44:00 92.25 kg [facility] BMI 2022-03-20 15:44:00 30.92 kg/m2 [facility] Systolic blood 2022-02-20 15:14:00 122 mm[Hg] Univer sity of pressure [facility] Diastolic blood 2022-02-20 15:14:00 70 mm[Hg] Unive rsity of pressure [facility] Heart rate 2022-02-20 15:14:00 81 /min [facility] Body temperature 2022-02-20 15:14:00 36.72 Brenda [facility] Respiratory rate 2022-02-20 15:14:00 18 /min [facility] Body height 2022-02-20 15:14:00 172.7 cm [facility] Body weight 2022-02-20 15:14:00 89.132 kg [facility] BMI 2022-02-20 15:14:00 29.88 kg/m2 [facility]i ty of [facility] Systolic blood 2022-02-11 21:03:00 115 mm[Hg] Univer sity of pressure [facility] Diastolic blood 2022-02-11 21:03:00 80 mm[Hg] Unive rsity of pressure [facility] Heart rate 2022-02-11 21:03:00 93 /min Universi ty of [facility] Body temperature 2022-02-11 21:03:00 37.11 Brenda Univ ersity of [facility] Respiratory rate 2022-02-11 21:03:00 18 /min Univ ersity of [facility] Oxygen saturation in 2022-02-11 21:03:00 98 /min University of Arterial blood by [facility] Pulse oximetry Branch Systolic blood 2022-02-11 16:42:00 124 mm[Hg] Univer sity of pressure [facility] Diastolic blood 2022-02-11 16:42:00 72 mm[Hg] Unive rsity of pressure [facility] Heart rate 2022-02-11 16:42:00 79 /min [facility]i ty of [facility] Body temperature 2022-02-11 16:42:00 36.5 Brenda Univ [facility]ity of [facility] Respiratory rate 2022-02-11 16:42:00 18 /min Univ ersity of [facility] Body height 2022-02-11 16:42:00 172.7 cm [facility] Body weight 2022-02-11 16:42:00 90.833 kg [facility] BMI 2022-02-11 16:42:00 30.45 kg/m2 Universi ty of [facility] Systolic blood 2022-01-28 19:12:00 112 mm[Hg] Univer sity of pressure [facility] Diastolic blood 2022-01-28 19:12:00 67 mm[Hg] Unive rsity of pressure [facility] Heart rate 2022-01-28 19:12:00 79 /min Universi ty of [facility] Body temperature 2022-01-28 19:12:00 36.89 Brenda [facility] 2022-01-28 19:12:00 18 /min [facility] Body weight 2022-01-28 19:12:00 90.266 kg Universi ty [facility] BMI 2022-01-28 19:12:00 30.26 kg/m2 [facility] Systolic blood 2022-01-14 19:05:00 112 mm[Hg] Univer sity of pressure [facility] Diastolic blood 2022-01-14 19:05:00 74 mm[Hg] Unive rsity of [facility] Heart rate 2022-01-14 19:05:00 80 /min [facility] Body temperature 2022-01-14 19:05:00 36.56 Brenda [facility] Respiratory rate 2022-01-14 19:05:00 18 /min [facility] Body height 2022-01-14 19:05:00 172.7 cm Universi ty [facility] Body weight 2022-01-14 19:05:00 88.678 kg [facility] BMI 2022-01-14 19:05:00 29.73 kg/m2 [facility] Procedures Procedure Date / Time Performing Clinician Source Performed GARDASIL 9 (HPV 9V) 2022-11-27 13:54:39 Ifeoma Painting [facility] VACCINATIONS - CONSENTS, 2022-11-25 05:01:00 Doctor Unassigned, [facility] ELIGIBILITY, HISTORY [facility] GARDASIL 9 (HPV 9V) 2022-10-23 15:31:47 Ifeoma Painting [facility] DME/SUPPLY JUSTIFICATION 2022-10-18 05:01:00 Doctor Unassigned, [facility] CT HEAD WO CONTRAST 2022-10-08 14:11:44 Marina Garcia [facility] MEDICATION CORRESPONDENCE 2022-10-03 05:01:00 Doctor Unassigned, [facility] Name [facility] DME/SUPPLY JUSTIFICATION 2022-10-02 05:01:00 Doctor Unassigned, [facility] URINE DRUG (IMMUNOASSAY) 2022-09-14 03:32:00 Aidee Meléndez [facility] COMPREHENSIVE DRUG Medical [facility] SCREEN URINALYSIS 2022-09-14 03:32:00 Aidee Mel[facility]dez [facility] CT ABDOMEN PELVIS W 2022-09-14 03:20:53 Aidee Meléndez [facility] CONTRAST [facility] CT CHEST PULMONARY 2022-09-14 03:20:53 Aidee Meléndez [facility] ANGIOGRAM [facility] XR CHEST 1 VW 2022-09-14 02:35:09 Aidee Meléndez [facility] TROPONIN I 2022-09-14 02:10:00 Aidee Mel[facility]dez [facility] COMP. METABOLIC PANEL 2022-09-14 02:10:00 Aidee eMléndez [facility] ([id number]) [facility] CBC WITH DIFF 2022-09-14 02:10:00 Aidee Mel[facility]dez [facility] PROTHROMBIN TIME / INR 2022-09-14 02:10:[address] [facility] ACTIVATED PARTIAL 2022-09-14 02:10:00 Aidee [facility]dez [facility] 2022-09-14 02:10:00 Aidee Meléndez [facility] CONSENT/REFUSAL FOR 2022-09-14 01:12:47 Doctor Unassangeles [facility] DIAGNOSIS AND TREATMENT [facility] LIPASE 2022-09-05 18:26:00 Singer [facility] COMP. METABOLIC PANEL 2022-09-05 18:26:00 Singer [facility] ([id number]) [facility] CBC WITH DIFF 2022-09-05 18:26:00 Singer [facility] URINALYSIS 2022-09-05 18:26:00 Singer [facility] CBC WITH DIFF 2022-08-31 08:56:00 Fransisco Stahl [facility] EXTRA TUBE LAV 2022-08-31 08:56:00 Cortez Fajardo [facility] CBC WITH DIFF 2022-08-31 08:56:00 Fransisco Stahl [facility] EXTRA TUBE LAV 2022-08-31 08:56:00 Cortez Fajardo [facility] VENOUS CORD GAS 2022-08-30 16:05:00 Ly, [facility] VENOUS CORD GAS 2022-08-30 16:05:00 Ly, [facility] SECTION 2022-08-30 14:49:00 [facility] 2022-08-30 14:49:00 Cortez Fajardo [facility] CBC WITH DIFF 2022-08-30 05:05:00 Ly, [facility] HEPATITIS B SURFACE 2022-08-30 05:05:00 Ly, [facility] HB ABO GROUPING 2022-08-30 05:05:00 Ly, [facility] RHO (D) IMMUNE GLOBULIN 2022-08-30 05:05:00 Fransisco Stahl [facility] SYPHILIS IGG/IGM 2022-08-30 05:05:00 Ly, [facility] CBC WITH DIFF 2022-08-30 05:05:00 Ly, [facility] HEPATITIS B SURFACE 2022-08-30 05:05:00 Ly, formerly [facility] HB ABO GROUPING 2022-08-30 05:05:00 Ly, [facility] RHO (D) IMMUNE GLOBULIN 2022-08-30 05:05:00 Fransisco Stahl [facility] SYPHILIS IGG/IGM 2022-08-30 05:05:00 Ly, [facility] NON-STRESS TEST 2022-08-29 15:16:[address] [facility] POCT URINALYSIS 2022-08-29 14:02:00 Akinsipe, Ifeoma C Univers [facility] NON-STRESS TEST 2022-08-22 15:58:58 Jayna Lopez [facility] POCT URINALYSIS 2022-08-22 14:16:00 Akinsipe, Ifeoma C Univers [facility] PATIENT CORRESPONDENCE 2022-08-22 05:01:00 Doctor Unassigned, [facility] (LETTERS, USPS [facility] DOCUMENTATION) NON-STRESS TEST 2022-08-15 17:00:50 Akinsipe, Ifeoma C U [facility] NON-STRESS TEST 2022-08-09 17:56:24 Akinsipe, Ifeoma C U [facility] POCT URINALYSIS 2022-08-09 15:01:00 Akinsipe, Ifeoma C [facility] NON-STRESS TEST 2022-07-26 14:32:10 Akinsipe, Ifeoma C U [facility] POCT URINALYSIS 2022-07-26 14:27:00 Akinsipe, Ifeoma C [facility] L&D VISIT (NON-DELIVERED) 2022-07-21 05:01:00 Doctor Unassigned, [facility] L&D VISIT (NON-DELIVERED) 2022-07-21 05:01:00 Doctor Unassigned, [facility] FREE T4 2022-07-18 15:54:00 Basilia Hassan [facility] THYROID STIMULATING 2022-07-18 15:54:00 Basilia Hassan [facility] HORMONE [facility] FREE T3 2022-07-18 15:54:00 Basilia Hassan [facility] HIV 1/2 AG-AB WITH REFLEX 2022-07-18 15:54:00 Basilia Hassan U [facility] NON-STRESS TEST 2022-07-18 15:49:[address] [facility] POCT URINALYSIS 2022-07-18 15:10:00 Akinsipe, Ifeoma C [facility] POCT URINALYSIS 2022-06-27 13:18:00 Ifeoma Painting [facility] POCT URINALYSIS 2022-06-27 13:15:00 Ifeoma Painting [facility] FREE T4 2022-05-16 16:26:00 Ifeoma Painting [facility] THYROID STIMULATING 2022-05-16 16:26:00 Ifeoma Painting [facility] HORMONE [facility] FREE T3 2022-05-16 16:26:00 Ifeoma Painting [facility] POCT URINALYSIS 2022-05-16 00:00:00 Ifeoma Painting [facility] INCISION AND DRAINAGE 2022-04-24 17:59:12 Marco [facility] BASIC METABOLIC PANEL 2022-04-24 17:09:00 Kg Lara [facility] (NA, K, CL, CO2, GLUCOSE, Medica l Branch BUN, CREATININE, CA) CBC WITH DIFF 2022-04-24 17:09:00 Marco [facility] o f [facility] NOTICE OF PRIVACY 2022-04-24 16:43:12 Doctor Unassigned, [facility] PRACTICES [facility] [place] CONSENT/REFUSAL FOR 2022-04-24 16:42:54 Doctor Unassigned, [facility] DIAGNOSIS AND TREATMENT [facility] FREE T4 2022-03-28 15:37:00 Basilia Hassan [facility] FREE T3 2022-03-28 15:37:00 Basilia Hassan [facility] POCT URINALYSIS 2022-03-28 14:46:00 Ifeoma Painting [facility] POCT URINALYSIS 2022-03-20 15:45:00 Ifeoma Painting [facility] FIRST TRIMESTER 2022-02-25 19:43:00 Ifeoma Painting [facility] ULTRASOUND [facility] POCT URINALYSIS 2022-02-20 15:15:00 Ifeoma Painting [facility] CBC WITH DIFF 2022-02-11 20:53:00 Nadege Rowe [facility] N-TERMINAL PRO-BNP 2022-02-11 20:53:[address] [facility] CONSENT/REFUSAL FOR 2022-02-11 20:06:09 Doctor Unassangeles, [facility] DIAGNOSIS AND TREATMENT [place] [facility] THYROID STIMULATING 2022-01-14 20:05:00 Ifeoma Painting [facility] HORMONE [facility] SICKLE CELL SCREEN 2022-01-14 20:05:00 Ifeoma Painting [facility] CBC WITH DIFF 2022-01-14 20:05:00 Ifeoma Painting [facility] HEPATITIS B SURFACE 2022-01-14 20:05:00 Ifeoma Painting [facility] ANTIGEN [facility] HIV 1/2 AG-AB WITH REFLEX 2022-01-14 20:05:00 Ifeoma Painting [facility] HB ABO GROUPING 2022-01-14 20:00:00 Ifeoma Painting [facility] POCT URINALYSIS W/O 2022-01-14 18:58:00 Ifeoma Painting [facility] SPECIFIC GRAVITY [facility] POCT TEST 2022-01-14 18:57:00 Ifeoma Painting [facility] ASSIGNMENT OF BENEFITS 2022-01-14 18:32:27 Doctor Unassigned, [facility] Plan of Care Planned Activity Planned Date Details Comments Source Future Scheduled 2023-01-09 COVID-19 VACCINE [facility] Test 15:41:05 (#1) [code = COVID-19 VACCINE (#1)] Future Scheduled 2023-01-09 Screening for [facility] Test 15:41:05 malignant neoplasm of cervix (procedure) [code = 316928095] Future Scheduled 2023-01-09 BREAST CANCER [facility] Test 15:41:05 SCREENING [code = BREAST CANCER SCREENING] Future Scheduled 2023-01-09 IN[facility]UENZA [facility] 15:41:05 (#1) [code = INFLUENZA VACCINE (#1)] Encounters Start End Encounter Admission Attending Care Care Encounter Source Date/Time Date/Time Type Type Clinicians Facility Department ID 2019-08-30 Inpatient HCAPM BRENNA [id number] [facility] 14:50:[id number] [facility] 2023-05-02 2023-05-02 Outpatient R [facility] [id number] Univers 10:00:00 [facility] 2023-01-16 2023-01-16 [facility] [id number] Univers 09:30:00 09:30:00 MARINA [facility] 2023-01-15 2023-01-15 Outpatient GC_GCBZW_Ka PRIV PRIV [id number] [facility] 00:00:00 00:00:00 diyala_S [id number] Medic al 2023-01-09 2023-01-09 [facility] 1.2.840.114 [id number] Univers 00:00:00 00:00:00 [facility] 350.1.13.10 i ty [facility] [place] [phone] Wi dical [address] 2022-11-27 2022-11-27 Outpatient R [facility] [id number] Univers 10:00:00 10:00:00 [facility] 2022-11-27 2022-11-27 Outpatient [facility] [id number] Univers 08:45:00 09:00:27 IFEOMA akers o f [facility] 2022-11-27 2022-11-27 Nurse Nurse, Larry Rmchp Rgv Cprit Obgyn U [facility] 1.2.840.114 [id number] Univers 08:45:00 09:00:00 Visit Ifeoma Painting REGIONAL LOSS PREVENTION MANAGER 350.1.13. 10 ity [facility] 4.2.7.2.686 Jorge as MATERNAL [phone] Med ical & CHILD [address] [place] [address] 2022-11-25 2022-11-25 Orders Doctor CARLOS 1.2.840.114 [id number] Univers 00:00:00 00:00:00 Only Unassigned, PARAM 350.1.13.10 ity of [place] [facility] 4.2.7.2.686 Jorge as [id number] [address] 2022-10-25 2022-10-25 Outpatient R CRISTIANO LCUIO [facility] [id number] Univers 09:20:00 10:29:43 [facility]RISTIANO LUC[facility] 2022-10-25 2022-10-25 [facility] 1.2.840.114 [id number] Univers 09:20:00 10:29:[address] [facility] 350.1.13.10 [facility] 4.2.7.2.686 Jorge as RAFFY?BLEA [id number] [address] OFFICE [facility] 2022-10-23 2022-10-23 Outpatient Sonia LOPEZ [facility] [id number] Univers 10:15:00 10:59:47 JAYNA [facility] 2022-10-23 2022-10-23 Office [facility] 1.2.840.114 [id number] Univers 10:15:00 10:59:47 Visit Jayna Kurtz REGIONAL LOSS PREVENTION MANAGER 350.1.13.10 i ty of [facility] 4.2.7.2.686 Jorge as MATERNAL [id number] Med ical & CHILD [address] [place] [address] 2022-10-18 2022-10-18 Orders Doctor CARLOS 1.2.840.114 [id number] Univers 00:00:00 00:00:00 Only Unassigned, PARAM 350.1.13.10 ity of [place] [facility] 4.2.7.2.686 Jorge as [phone] [address] 2022-10-15 2022-10-15 Outpatient R [facility] [id number] Univers 09:00:00 09:15:14 MARINA [facility] 2022-10-15 2022-10-15 Office [facility] 1.2.840.114 [id number] Univers 09:00:00 09:15:14 Visit Marina MOYER 350.1.13.10 i ty of [place] [phone] Wi dical NAL [address] [place] [address] 2022-10-11 2022-10-11 Telephone [facility] 1.2.687.432 [id number] Univers 00:00:00 00:00:00 Marina MOYER 350.1.13.10 i ty of [place].7.2.[place] [phone] Wi dical NAL [address] [place] [address] 2022-10-10 2022-10-10 Patient Doctor CARLOS 1.2.840.114 [id number] Univers 00:00:00 00:00:00 Secure Msg Unassigned, PARAM 350.1.13.10 ity of [place] [facility] 4.2.7.2.686 Jorge as [phone] [facility] [address] 2022-10-10 2022-10-10 Patient Doctor CARLOS 1.2.840.114 [id number] Univers 00:00:00 00:00:00 Secure Msg Unassigned, PARAM 350.1.13.10 ity of [place] [facility] 4.2.7.2.686 Jorge as [id number] [facility] [address] 2022-10-08 2022-10-08 Outpatient R RADHA [facility] [id number] Univers 08:46:01 23:59:00 MARINA ity of [facility] 2022-10-08 2022-10-08 Hospital [facility] 1.2.840.114 [id number] Univers 08:45:00 23:59:00 Encounter Marina MOYER 350.1.13.10 ity of [place] C[place] [id number] [facility] [address] 2022-10-04 2022-10-04 Patient Doctor [facility] 1.2.840.114 [id number] Univers 00:00:00 00:00:00 Secure Msg Unassigned, COMFORT 350.1.13.10 [place] of [place].7.2.[place] [phone] Wi dical NAL 044 [facility] 2022-10-04 2022-10-04 Telephone [facility] 1.2.106.785 [id number] Univers 00:00:00 00:00:00 Marina MYOER 350.1.13.10 i ty of [place].7.2.[place] [phone] Wi dical NAL 044 [facility] 2022-10-04 2022-10-04 Telephone [facility] 1.2.116.162 [id number] Univers 00:00:00 00:00:00 Marina MOYER 350.1.13.10 i ty [place].7.2.[place] [phone] Wi dical NAL 044 [facility] 2022-10-03 2022-10-03 Treatment Coordinator 2, Adc Lab [facility] 1.2.840.114 [id number] Univers 11:45:00 11:45:00 Visit Marina Garcia 350.1.13.10 ity of [place] 4[place]2.7.2.[place] [id number] Wi dicaz NAL 353 [facility] 2022-10-03 2022-10-03 Outpatient R [facility] [id number] Univers 11:00:00 11:28:28 MARINA ity of [facility] 2022-10-03 2022-10-03 Office [facility] 1.2.840.114 [id number] Univers 11:00:00 11:28:28 Visit Marina MOYER 350.1.13.10 i ty of [place].2.7.[place] [phone] Wi dical NAL 044 [facility] 2022-10-03 2022-10-03 Telephone [facility] 1.2.975.038 [id number] Univers 00:00:00 00:00:00 Marina MOYER 350.1.13.10 i ty of [place] 4[place].7.2.[place] [id number] Me dical NAL [address] [facility] 2022-10-03 2022-10-03 Orders Doctor CARLOS 1.2.840.114 [id number] Univers 00:00:00 00:00:00 Only Unassigned, PARAM 350.1.13.10 ity of [place] [facility] 4.2.7.2.686 Jorge as [id number] [facility] [address] 2022-10-02 2022-10-02 Orders Doctor CARLOS 1.2.840.114 [id number] Univers 00:00:00 00:00:00 Only Unassigned, PARAM 350.1.13.10 ity of [place] [facility] 4.2.7.2.686 Jorge as [id number] [address] 2022-10-01 2022-10-01 Outpatient R NILAM COCLARENCE [facility] [id number] Univers 18:00:00 18:23:55 NEIDA akers o f [facility] 2022-10-01 2022-10-01 Nurse Nurse, Larry [facility] 1.2.840.114 [id number] Univers 18:00:00 18:23:55 Visit Ifeoma Painting [facility] 350.1.13. 10 ity of Neida [facility] 4.2.7.2.686 [facility]?BLEA [phone] Wi dical KNEY [address] MEDICAL OFFICE [facility] 2022-10-01 2022-10-01 Nurse Visit, Sue Nurse [facility] 1.2 .840.114 [id number] Univers 11:00:00 11:15:00 Visit Ifeoma Painting REGIONAL LOSS PREVENTION MANAGER 350.1.13. 10 ity of [facility] 4.2.7.2.686 Jorge as MATERNAL [id number] Med ical & CHILD [address] [place] [address] 2022-10-01 2022-10-01 Case Jessica [facility] 1.2.840.114 [id number] Univers 00:00:00 00:00:00 Management Jayna Kurtz REGIONAL LOSS PREVENTION MANAGER 350.1.13.10 ity of REGIONAL 4.2.7.2.686 [place] as MATERNAL [id number] Med ical & CHILD [address] [place] [address] 2022-09-25 2022-09-25 [facility] 1.2.840.114 [id number] Univers 00:00:00 00:00:00 Secure Msg Jayna A REGIONAL LOSS PREVENTION MANAGER 350.1.13.10 ity of REGIONAL 4.2.7.2.686 Jorge as MATERNAL [phone] [facility] & [address] 2022-09-24 2022-09-24 Outpatient R [facility] [id number] Univers 09:45:00 10:24:25 JAYNA ity of [facility] 2022-09-24 2022-09-24 Routine [facility] 1.2.840.114 [id number] Univers 09:45:00 10:24:25 Jayna A REGIONAL LOSS PREVENTION MANAGER 350.1.13.10 ity of Visit REGIONAL 4.2.7.2.686 [place] as MATERNAL [id number] [address] 2022-09-13 2022-09-14 Emergency X [facility] ERT [id number] Univers 20:24:00 00:26:00 [facility] 2022-09-13 2022-09-14 Emergency [facility] 1.2.541.436 [id number] Univers 20:24:00 00:26:00 [facility] 350.1.13.10 i ty of [place].7.2.686 [place] [facility] [phone] [address] 2022-09-12 2022-09-12 [facility] 1.2.840.114 [id number] Univers 00:00:00 00:00:00 Secure Msg Jayna A REGIONAL LOSS PREVENTION MANAGER 350.1.13.10 ity of REGIONAL 4.2.7.2.686 Jorge as MATERNAL [id number] [facility] & [address] 2022-09-10 2022-09-10 Telephone JANESSA Herrera 1.2.840.114 [id number] Univers 00:00:00 00:00:00 [facility] 350.1.13.10 i ty of [facility] 4.2.7.2.686 [place] [id number] [facility] [address] 2022-09-09 2022-09-09 Nurse Visit, YadielRmchp Nurse [facility] 1.2 .840.114 [id number] Univers 13:30:00 13:30:00 Visit Jayna Lopez REGIONAL LOSS PREVENTION MANAGER 350.1.13.1 0 ity of REGIONAL 4.2.7.2.686 Jorge as MATERNAL [id number] [facility] ical & CHILD [address] [place] [address] 2022-09-09 2022-09-09 Outpatient R JESSICA [facility] [id number] Univers 13:30:00 12:28:09 JAYNA akers [facility] 2022-09-07 2022-09-07 Patient Jessica [facility] 1.2.840.114 [id number] Univers 00:00:00 00:00:00 Secure Msg Jayna Kurtz REGIONAL LOSS PREVENTION MANAGER 350.1.13.10 ity of [facility] 4.2.7.2.686 Jorge as MATERNAL [id number] [facility] & CHILD [address] [place] [address] 2022-09-07 2022-09-07 Patient Cortez [facility] 1.2.994.764 [id number] Univers 00:00:00 00:00:00 Secure [facility] 350.1.13.10 ity of s, [place] [facility] [place]2.7.2.[place] [id number] [facility] [address] 2022-09-05 2022-09-05 Emergency X SINGER [facility] ERT [id number] Univers 13:13:00 15:03:00 HERBER akers [facility] 2022-09-05 2022-09-05 Emergency Singer [facility] 1.2.042.433 [id number] Univers 13:13:00 15:03:00 [facility] 350.1.13.10 i ty of [place].7.2.[place] L[place] [id number] [facility] [address] 2022-09-05 2022-09-05 Telephone Garima [facility] 1.2.840.114 [id number] Univers 00:00:00 00:00:00 Ifeoma C REGIONAL LOSS PREVENTION MANAGER 350.1.13.10 ity of REGIONAL 4.2.7.2.686 Jorge as MATERNAL [id number] [facility] ical & CHILD [address] [place] [address] 2022-09-04 2022-09-04 Telephone [facility] 1.2.840.114 [id number] Univers 00:00:00 00:00:00 Ifeoma C REGIONAL LOSS PREVENTION MANAGER 350.1.13.10 ity of REGIONAL 4.2.7.2.686 Jorge as MATERNAL [id number] [facility] & CHILD [address] [place] [address] 2022-08-29 2022-08-31 [facility] Duglas Cortes 1.2.840.1 14 [id number] Univers 19:50:00 14:35:00 Encounter [place] 350. 1.13.10 ity of [facility] 4.2.7.2.686 Jorge as [id number] [facility] [address] 2022-08-30 2022-08-30 Surgery Toro CARLOS 1.2.840.114 [id number] Univers 08:40:00 10:20:00 Ivis VIRGEN 350.1.13.10 ity of [facility] 4.2.7.2.686 Jorge as [id number] [facility] [address] 2022-08-29 2022-08-29 Outpatient Sonia HASSAN [facility] [id number] Univers 09:15:00 09:51:08 BASILIA akers [facility] 2022-08-29 2022-08-29 Routine Risk, Lng-Szfbl-Rd/High [facility] 1. 2.840.114 [id number] Univers 09:15:00 09:51:08 Basilia Hassan REGIONAL LOSS PREVENTION MANAGER 350.1.13.10 ity of Visit [facility] 4.2.7.2.686 Jorge as MATERNAL [id number] [facility] & CHILD [address] [place] [address] 2022-08-29 2022-08-29 Outpatient Sonia HASSAN [facility] GLORIA [id number] Univers 09:15:00 09:51:08 BASILIA cartery [facility] 2022-08-22 2022-08-22 Outpatient R [facility] [id number] Univers 09:45:00 09:49:26 JAYNA ity [facility] 2022-08-22 2022-08-22 Routine [facility] 1.2.840.114 [id number] Univers 09:45:00 09:49:26 Jayna A REGIONAL LOSS PREVENTION MANAGER 350.1.13.10 ity of Visit REGIONAL 4.2.7.2.686 Jorge as MATERNAL [phone] [facility] ical & CHILD [address] [place] [address] 2022-08-22 2022-08-22 Orders Doctor CARLOS 1.2.840.114 [id number] Univers 00:00:00 00:00:00 Only Unassigned, PARAM 350.1.13.10 ity of [place] [facility] 4.2.7.2.686 Jorge as [id number] [address] 2022-08-15 2022-08-15 Outpatient R [facility] [id number] Univers 10:00:00 10:53:19 IFEOMA itluis o f [facility] 2022-08-15 2022-08-15 Routine [facility] 1.2.751.130 [id number] Univers 10:00:00 10:53:19 Ifeoma C REGIONAL LOSS PREVENTION MANAGER 350.1.13.10 ity of Visit REGIONAL 4.2.7.2.686 Jorge as MATERNAL [id number] [facility] & CHILD [address] [place] [address] 2022-08-13 2022-08-13 Abstract [facility] 1.2.840.114 [id number] Univers 00:00:00 00:00:00 Ifeoma C REGIONAL LOSS PREVENTION MANAGER 350.1.13.10 ity of REGIONAL 4.2.7.2.686 Jorge as MATERNAL [id number] [facility] & CHILD [address] [place] [address] 2022-08-09 2022-08-09 Outpatient R [facility] [id number] Univers 10:00:00 10:48:13 IFEOMA ity o f [facility] 2022-08-09 2022-08-09 [facility] 1.2.368.225 [id number] Univers 10:00:00 10:48:13 Ifeoma C REGIONAL LOSS PREVENTION MANAGER 350.1.13.10 ity of Visit REGIONAL 4.2.7.2.686 Jorge as MATERNAL [id number] [facility] & CHILD [address] [place] [address] 2022-08-08 2022-08-08 Outpatient P [facility] [id number] Univers 09:00:00 09:00:00 ity of [facility] 2022-08-07 2022-08-07 Treatment Coordinator 1, [facility] Room [facility] 1.2. 840.114 [id number] Univers 08:45:00 09:43:38 Visit Cortez Scotty Peace REGIONAL LOSS PREVENTION MANAGER 350.1. 13.10 ity of REGIONAL 4.2.7.2.686 Jorge as MATERNAL [id number] [facility] [address] [place] [address] 2022-08-07 2022-08-07 Outpatient P CORTEZ [facility] [id number] Univers 08:45:00 08:45:00 IVIS it y of [place] Hyde [facility] 2022-08-07 2022-08-07 Telephone [facility] 1.2.795.352 [id number] Univers 00:00:00 00:00:00 Basilia Jones REGIONAL LOSS PREVENTION MANAGER 350.1.13.10 i ty of REGIONAL 4.2.7.2.686 Jorge as MATERNAL [id number] [facility] & CHILD [address] [place] [address] 2022-08-01 2022-08-01 Outpatient R [facility] [id number] Univers 08:15:00 08:15:00 BASILIA ity [facility] 2022-07-30 2022-07-30 Telephone [facility] 1.2.840.114 [id number] Univers 00:00:00 00:00:00 Ifeoma C REGIONAL LOSS PREVENTION MANAGER 350.1.13.10 ity of REGIONAL 4.2.7.2.686 Jorge as MATERNAL [id number] Med ical & [address] 2022-07-26 2022-07-26 Routine Akinkelly, [facility] 1.2.792.435 [id number] Univers 08:45:00 09:34:33 Ifeoma Segura REGIONAL LOSS PREVENTION MANAGER 350.1.13.10 ity of Visit REGIONAL 4.2.7.2.686 Jorge as MATERNAL [id number] [address] 2022-07-26 2022-07-26 Outpatient R GARIMA [facility] [id number] Univers 08:45:00 09:34:33 IFEOMA ity o f [facility] 2022-07-21 2022-07-21 Outpatient X GLADIS BASILIO [facility] O BY [id number] Univers 13:28:00 15:00:00 CHETNA GLADIS ity of [facility] 2022-07-21 2022-07-21 Emergency Estuardo Cr [facility] 1.2.840 .114 [id number] Univers 13:28:00 15:00:00 Domitila Rincon [facility] 350.1.13.1 0 ity of NeilTravon Gladis [place] 4.2.7.2.68 6 [facility] [id number] [place] [address] [place] 2022-07-18 2022-07-18 Outpatient R MO [facility] [id number] Univers 10:15:00 10:55:12 BASILIA itluis [facility] 2022-07-18 2022-07-18 Routine Risk, Gtk-Solbe-Du/High [facility] 1. 2.840.114 [id number] Univers 10:15:00 10:55:12 Basilia Hassan REGIONAL LOSS PREVENTION MANAGER 350.1.13.10 ity of Visit REGIONAL 4.2.7.2.686 Jorge as MATERNAL [id number] [facility] & [address] 2022-07-18 2022-07-18 Refill MADHU Lara 1.2.840.114 [id number] Univers 00:00:00 00:00:00 Rania PEDIATRIC 350.1.13.10 ity of [place].2.[place] [id number] [address] 2022-07-18 2022-07-18 [facility]ill [facility] 1.2.448.273 [id number] Univers 00:00:00 00:00:00 Ifeoma C REGIONAL LOSS PREVENTION MANAGER 350.1.13.10 ity of REGIONAL 4.2.7.2.686 Jorge as MATERNAL [id number] [facility] & CHILD [address] [place] [address] 2022-07-18 2022-07-18 [facility] 1.2.842.486 [id number] Univers 00:00:00 00:00:00 Ifeoma C REGIONAL LOSS PREVENTION MANAGER 350.1.13.10 ity of REGIONAL 4.2.7.2.686 Jorge as MATERNAL [id number] [address] 2022-07-12 2022-07-12 [facility] 1.2.840.114 [id number] Univers 00:00:00 00:00:00 Jayna Kurtz REGIONAL LOSS PREVENTION MANAGER 350.1.13.10 i ty of REGIONAL 4.2.7.2.686 Jorge as MATERNAL [id number] [address] 2022-07-11 2022-07-11 Outpatient R [facility] [id number] Univers 10:00:00 10:00:00 BASILIA akers of [facility] 2022-07-11 2022-07-11 Abstract [facility] 1.2.840.114 [id number] Univers 00:00:00 00:00:00 Ifeoma C REGIONAL LOSS PREVENTION MANAGER 350.1.13.10 ity of REGIONAL 4.2.7.2.686 Jorge as MATERNAL [id number] [address] 2022-07-11 2022-07-11 Telephone [facility] 1.2.712.337 [id number] Univers 00:00:00 00:00:00 Basilia Jones REGIONAL LOSS PREVENTION MANAGER 350.1.13.10 i ty of REGIONAL 4.2.7.2.686 Jorge as MATERNAL [id number] Med ical & CHILD 107 [facility] 2022-07-10 2022-07-10 Treatment Coordinator Ultrasound, Jennifer [facility] 1.2 .840.114 [id number] Univers 15:30:00 16:00:00 Visit Ab Duglas REGIONAL LOSS PREVENTION MANAGER 350.1.13.10 ity of REGIONAL 4.2.7.2.686 Jorge as MATERNAL [id number] [facility] ical & CHILD 369 [facility] 2022-07-10 2022-07-10 Outpatient P DUGLAS CORTES [facility] [id number] Univers 15:30:00 15:30:00 DUGLAS CORTES [facility] 2022-06-27 2022-06-27 Outpatient Sonia HASSAN [facility] [id number] Univers 08:00:00 08:43:47 BASILIA [facility] 2022-06-27 2022-06-27 Routine Risk, Ync-Bqgiu-Wr/High [facility] 1. 2.840.114 [id number] Univers 08:00:00 08:43:47 Basilia Hassan REGIONAL LOSS PREVENTION MANAGER 350.1.13.10 ity of Visit REGIONAL 4.2.7.2.686 Jorge as MATERNAL [id number] [facility] ical & CHILD [address] [place] [address] 2022-06-17 2022-06-17 Refill Garima [facility] 1.2.398.590 [id number] Univers 00:00:00 00:00:00 Ifeoma C REGIONAL LOSS PREVENTION MANAGER 350.1.13.10 ity of REGIONAL 4.2.7.2.686 Jorge as MATERNAL [id number] [facility] ical & CHILD [address] [place] [address] 2022-06-14 2022-06-14 Reftorsten Painting [facility] 1.2.402.790 [id number] Univers 00:00:00 00:00:00 Ifeoma C REGIONAL LOSS PREVENTION MANAGER 350.1.13.10 ity of REGIONAL 4.2.7.2.686 Jorge as MATERNAL [id number] [facility] ical & CHILD [address] [place] [address] 2022-06-13 2022-06-13 Treatment Coordinator Ultrasound, Larry-M[facility] 1.2 .840.114 [id number] Univers 11:00:00 11:30:00 Visit Garima Ifeoma Segura REGIONAL LOSS PREVENTION MANAGER 350.1.13. 10 ity of [place] REGIONAL 4.2.7.2 .686 [place] MATERNAL [id number] [facility] & CHILD [address] [facility] 2022-06-13 2022-06-13 Outpatient P TORO [facility] [id number] Univers 11:00:00 11:24:53 IVIS it y of [place] [facility] 2022-06-13 2022-06-13 Routine Garima, [facility] 1.2.162.018 [id number] Univers 08:00:00 08:47:40 Ifeoma C REGIONAL LOSS PREVENTION MANAGER 350.1.13.10 ity of Visit REGIONAL 4.2.7.2.686 Jorge as MATERNAL [id number] [facility] & CHILD [address] [place] [address] 2022-06-13 2022-06-13 Abstract Garima, [facility] 1.2.840.114 [id number] Univers 00:00:00 00:00:00 Ifeoma C REGIONAL LOSS PREVENTION MANAGER 350.1.13.10 ity of REGIONAL 4.2.7.2.686 Jorge as MATERNAL [id number] [facility] & [address] 2022-05-31 2022-05-31 Outpatient R GARIMA, [facility] [id number] Univers 08:30:00 08:30:00 IFEOMA ity o f [facility] 2022-05-30 2022-05-30 Outpatient R CLARISASIPE, [facility] [id number] Univers 10:45:00 10:45:00 IFEOMA ity o f [facility] 2022-05-21 2022-05-21 Outpatient R CLARISASIPE, [facility] [id number] Univers 08:30:00 09:40:47 IFEOMA ity o f [facility] 2022-05-21 2022-05-21 Routine Akinsipe, [facility] 1.2.753.640 [id number] Univers 08:30:00 09:40:47 Ifeoma C REGIONAL LOSS PREVENTION MANAGER 350.1.13.10 ity of Visit REGIONAL 4.2.7.2.686 Jorge as MATERNAL [id number] [facility] [address] 2022-05-21 2022-05-21 Telephone [facility] 1.2.840.114 [id number] Univers 00:00:00 00:00:00 Ifeoma C REGIONAL LOSS PREVENTION MANAGER 350.1.13.10 ity of REGIONAL 4.2.7.2.686 Jorge as MATERNAL [id number] [address] 2022-05-20 2022-05-20 Patient [facility] 1.2.797.420 [id number] Univers 00:00:00 00:00:00 Secure Msg Ifeoma C REGIONAL LOSS PREVENTION MANAGER 350.1.13.10 ity of REGIONAL 4.2.7.2.686 Jorge as MATERNAL [id number] [address] 2022-05-20 2022-05-20 Refill [facility] 1.2.539.810 [id number] Univers 00:00:00 00:00:00 Ifeoma C REGIONAL LOSS PREVENTION MANAGER 350.1.13.10 ity of REGIONAL 4.2.7.2.686 Jorge as MATERNAL [id number] [address] 2022-05-17 2022-05-17 Patient [place] [facility] 1.2.097.126 [id number] Univers 00:00:00 00:00:00 Secure Msg Gonmagdalenarov, Y HEALTH 350.1.13.10 ity of [facility] [place].7.[place] [id number] [address] 2022-05-17 2022-05-17 Telephone [facility] 1.2.840.114 10 [id number] Univers 00:00:00 00:00:00 Ifeoma C REGIONAL LOSS PREVENTION MANAGER 350.1.13.10 ity of REGIONAL 4.2.7.2.686 Jorge as MATERNAL [id number] [facility] CHILD [address] [place] [address] 2022-05-16 2022-05-16 Outpatient R [facility] [id number] Univers 09:45:00 10:26:22 IFEOMA ity o f [facility] 2022-05-16 2022-05-16 Routine [facility] 1.2.620.511 [id number] Univers 09:45:00 10:26:22 Ifeoma C REGIONAL LOSS PREVENTION MANAGER 350.1.13.10 ity of Visit [facility] 4.2.7.2.686 Jorge as MATERNAL [id number] [facility] [address] 2022-04-25 2022-04-25 Telephone [facility] 1.2.840.114 10 [id number] Univers 00:00:00 00:00:00 Ifeoma C REGIONAL LOSS PREVENTION MANAGER 350.1.13.10 ity of [facility] 4.2.7.2.686 Jorge as MATERNAL [id number] [facility] [address] 2022-04-24 2022-04-24 [facility] ERT [id number] Univers 11:04:00 12:30:00 KG ity [facility] 2022-04-24 2022-04-24 Emergency [facility] 1.2.840.114 [id number] Univers 11:04:00 12:30:00 [facility] 350.1.13.10 i ty of [place] 4.2.7.2.686 [facility] [id number] [facility] [address] [place] 2022-04-24 2022-04-24 Orders Doctor CARLOS 1.2.840.114 [id number] Univers 00:00:00 00:00:00 Only Unassigned, PARAM 350.1.13.10 ity of [place] [facility] 4.2.7.2.686 Jorge as [id number] [facility] [address] [place] 2022-04-24 2022-04-24 Telephone [facility] 1.2.840.114 10 [id number] Univers 00:00:00 00:00:00 Ifeoma C REGIONAL LOSS PREVENTION MANAGER 350.1.13.10 ity of REGIONAL 4.2.7.2.686 Jorge as MATERNAL [id number] [facility] CHILD [address] [place] [address] 2022-04-19 2022-04-19 Abstract [facility] 1.2.840.114 [id number] Univers 00:00:00 00:00:00 Ifeoma C REGIONAL LOSS PREVENTION MANAGER 350.1.13.10 ity of REGIONAL 4.2.7.2.686 Jorge as MATERNAL [id number] [facility] CHILD [address] [place] [address] 2022-04-18 2022-04-18 Routine [facility] 1.2.472.162 [id number] Univers 09:45:00 10:16:11 Ifeoma C REGIONAL LOSS PREVENTION MANAGER 350.1.13.10 ity of Visit REGIONAL 4.2.7.2.686 Jorge as MATERNAL [id number] [facility] [address] 2022-04-18 2022-04-18 Outpatient Drew CORTES [facility] [id number] Univers 08:30:00 09:47:00 DUGLAS ity of [facility] 2022-04-18 2022-04-18 Treatment Coordinator [facility] 1.2 .840.114 [id number] Univers 08:30:00 09:45:00 Visit Duglas Cortes REGIONAL LOSS PREVENTION MANAGER 350.1.13.10 ity of REGIONAL 4.2.7.2.686 Jorge as MATERNAL [id number] [facility] CHILD 369 [facility] 2022-04-18 2022-04-18 Refill [facility] 1.2.263.623 [id number] Univers 00:00:00 00:00:00 Ifeoma C REGIONAL LOSS PREVENTION MANAGER 350.1.13.10 ity of REGIONAL 4.2.7.2.686 Jorge as MATERNAL [id number] [facility] CHILD [address] [place] [address] 2022-04-18 2022-04-18 Letter Ab [facility] 1.2.513.717 [id number] Univers 00:00:00 00:00:00 (Out) Duglas REGIONAL LOSS PREVENTION MANAGER 350.1.13.10 it y of REGIONAL 4.2.7.2.686 Jorge as MATERNAL [id number] Med ical & CHILD 369 [facility] 2022-04-08 2022-04-08 Outpatient SFA [id number]- Stephan 10:36:14 10:36:14 85712 F Xavi 2022-04-03 2022-04-03 Telephone [facility] 1.2.840.114 99 [id number] Univers 00:00:00 00:00:00 Ifeoma C REGIONAL LOSS PREVENTION MANAGER 350.1.13.10 ity of REGIONAL 4.2.7.2.686 Jorge as MATERNAL [id number] Med ical & CHILD [address] [place] [address] 2022-04-02 2022-04-02 [facility] 1.2.840.114 [id number] Univers 00:00:00 00:00:00 Ifeoma C REGIONAL LOSS PREVENTION MANAGER 350.1.13.10 ity of REGIONAL 4.2.7.2.686 Jorge as MATERNAL [id number] Med ical & CHILD [address] [place] [address] 2022-03-28 2022-03-28 Outpatient R MO [facility] [id number] Univers 08:30:00 09:37:01 BASILIA ity of [facility] 2022-03-28 2022-03-28 Routine Ifeoma Painting [facility] 1.2.8 40.114 [id number] Univers 08:30:00 09:37:01 Basilia Hassan REGIONAL LOSS PREVENTION MANAGER 350.1.13.10 ity of Visit REGIONAL 4.2.7.2.686 Jorge as MATERNAL [id number] Med ical & CHILD [address] [place] [address] 2022-03-22 2022-03-22 Patient [place] [facility] 1.2.638.776 [id number] Univers 00:00:00 00:00:00 Secure Msg Khoury [facility] 350.1.13.10 ity of [facility] [place]2.7.2.[place] [id number] [address] 2022-03-20 2022-03-20 Outpatient R GARIMA [facility] [id number] Univers 09:45:00 10:36:00 IFEOMA caba f [facility] 2022-03-20 2022-03-20 Routine [facility] 1.2.784.809 [id number] Univers 09:45:00 10:36:00 Ifeoma Segura REGIONAL LOSS PREVENTION MANAGER 350.1.13.10 ity of Visit [facility] 4.2.7.2.686 Jorge as MATERNAL [id number] Med ical & CHILD [address] [place] [address] 2022-03-20 2022-03-20 Patient Doctor CARLOS 1.2.840.114 [id number] Univers 00:00:00 00:00:00 Secure Msg Unassigned, PARAM 350.1.13.10 ity of [place] [facility] 4.2.7.2.686 Jorge as [id number] [address] 2022-03-18 2022-03-18 Telephone [facility] 1.2.840.114 [id number] Univers 00:00:00 00:00:00 Ifeoma Segura REGIONAL LOSS PREVENTION MANAGER 350.1.13.10 ity of REGIONAL 4.2.7.2.686 Jorge as MATERNAL [id number] [facility] CHILD [address] [place] [address] 2022-02-26 2022-02-26 [facility] 1.2.840.114 [id number] Univers 00:00:00 00:00:00 Management Jayna Kurtz REGIONAL LOSS PREVENTION MANAGER 350.1.13.10 ity of [facility] 4.2.7.2.686 Jorge as MATERNAL [id number] [facility] CHILD [address] [place] [address] 2022-02-25 2022-02-25 Outpatient R YANIRA [facility] [id number] Univers 14:00:00 14:00:00 CECELIA lira [facility] 2022-02-25 2022-02-25 Treatment Coordinator Lab, [facility] 1.2.840. 114 [id number] Univers 14:00:00 14:00:00 Visit Cecelia Doyle REGIONAL LOSS PREVENTION MANAGER 350.1.13.10 ity of REGIONAL 4.2.7.2.686 Jorge as MATERNAL [id number] Med ical & CHILD 125 [facility] 2022-02-25 2022-02-25 Treatment Coordinator 1Salomon-Giselle Room [facility] 1.2. 840.114 [id number] Univers 13:00:00 13:45:00 Visit Cortez Gomezlanrambo Peace REGIONAL LOSS PREVENTION MANAGER 350.1. 13.10 ity of REGIONAL 4.2.7.2.686 Jorge as MATERNAL [id number] Med ical & CHILD 369 [facility] 2022-02-25 2022-02-25 Orders [facility], [facility] 1.2.174.268 [id number] Univers 00:00:00 00:00:00 Only Ifeoma Imelda REGIONAL LOSS PREVENTION MANAGER 350.1.13.10 ity of [facility] 4.2.7.2.686 Jorge as MATERNAL [id number] [facility] ical & CHILD [address] [place] [address] 2022-02-20 2022-02-20 Outpatient R [facility] [id number] Univers 09:00:00 09:57:41 IFEOMA ity o f [facility] 2022-02-20 2022-02-20 Routine [facility], [facility] 1.2.027.177 [id number] Univers 09:00:00 09:57:41 Ifeoma C REGIONAL LOSS PREVENTION MANAGER 350.1.13.10 ity of Visit REGIONAL 4.2.7.2.686 Jorge as MATERNAL [id number] [facility] ical & CHILD [address] [place] [address] 2022-02-13 2022-02-13 Patient Doctor CARLOS 1.2.840.114 [id number] Univers 00:00:00 00:00:00 Secure Msg Unassigned, PARAM 350.1.13.10 ity of [place] [facility] 4.2.7.2.686 Jorge as [id number] [address] 2022-02-12 2022-02-12 Telephone Faculty, [facility] 1.2.840.114 [id number] Univers 00:00:00 00:00:00 Ang Rmchp REGIONAL LOSS PREVENTION MANAGER 350.1.13.10 ity of [facility] 4.2.7.2.686 Jorge as MATERNAL [id number] [facility] CHILD [address] [place] [address] 2022-02-12 2022-02-12 Telephone [place] [facility] 1.2.840.114 [id number] Univers 00:00:00 00:00:00 Luis Khoury 350.1.13.10 ity of [facility] [place]2.7.2.[place] [id number] [facility] [address] 2022-02-11 2022-02-11 Emergency X JAE, [facility] ERT [id number] Univers 14:10:00 17:14:00 [facility] 2022-02-11 2022-02-11 Emergency Jae, TRAUMA 1.2.687.675 [id number] Univers 14:10:00 17:14:00 [facility] 350.1.13.10 i ty [facility] [place]2.7.2.[place] [id number] [facility] [address] [place] 2022-02-11 2022-02-11 Office Faculty, Larry Lovett [facility] 1.2 .840.114 [id number] Univers 13:00:00 13:00:00 Visit Arjun Tom REGIONAL LOSS PREVENTION MANAGER 350.1.13.1 0 ity of [facility] 4.2.7.2.686 Jorge as MATERNAL [id number] [address] 2022-02-11 2022-02-11 Outpatient R JAMIE [facility] [id number] Univers 13:00:00 11:20:00 ARJUN akers [facility] 2022-01-28 2022-01-28 Office Faculty, Larry Lovett [facility] 1.2 .840.114 [id number] Univers 13:30:00 13:45:13 Visit Jaspreet Ivey REGIONAL LOSS PREVENTION MANAGER 350.1.13.10 ity of [facility] 4.2.7.2.686 Jorge as MATERNAL [id number] [facility] CHILD [address] [place] [address] 2022-01-28 2022-01-28 Outpatient R LONI [facility] [id number] Univers 13:30:00 13:45:13 [facility] 2022-01-25 Abstract Garima [facility] 1.2.840.114 [id number] Univers 00:00:00 00:00:00 Ifeoma Imelda REGIONAL LOSS PREVENTION MANAGER 350.1.13.10 ity [facility] 4.2.7.2.686 Jorge as MATERNAL [id number] [facility] ical & CHILD [address] [place] [address] 2022-01-21 2022-01-21 Outpatient P CB [facility] [id number] Univers 15:30:00 16:27:06 CHASEY ity [facility] 2022-01-21 2022-01-21 Treatment Coordinator [facility] 1.2 .840.114 [id number] Univers 15:30:00 16:00:00 Visit Ifeoma Painting REGIONAL LOSS PREVENTION MANAGER 350.1.13. 10 ity [facility] 4.2.7.2 .686 [place] MATERNAL [id number] [facility] 369 [facility] 2022-01-21 2022-01-21 Treatment Coordinator [facility] 1.2.840. 114 [id number] Univers 13:30:00 13:30:00 Visit Ifeoma Painting REGIONAL LOSS PREVENTION MANAGER 350.1.13. 10 ity [facility] 4.2.7.2.686 Jorge as MATERNAL [id number] [facility] CHILD [address] [place] [address] 2022-01-18 2022-01-18 Outpatient R GARIMA [facility] [id number] Univers 10:30:00 10:30:00 IFEOMA cartery o f [facility] 2022-01-18 2022-01-18 Telephone [facility] 1.2.840.114 [id number] Univers 00:00:00 00:00:00 Ifeoma Segura REGIONAL LOSS PREVENTION MANAGER 350.1.13.10 ity [facility] 4.2.7.2.686 Jorge as MATERNAL [id number] [facility] ical & CHILD [address] [place] [address] 2022-01-17 2022-01-17 Telephone Garima [facility] 1.2.840.114 [id number] Univers 00:00:00 00:00:00 Ifeoma C REGIONAL LOSS PREVENTION MANAGER 350.1.13.10 ity of [facility] 4.2.7.2.686 Jorge as MATERNAL [id number] [facility] [address] [place] [address] 2022-01-15 2022-01-15 Telephone [facility] 1.2.840.114 [id number] Univers 00:00:00 00:00:00 Ifeoma C REGIONAL LOSS PREVENTION MANAGER 350.1.13.10 ity of [facility] 4.2.7.2.686 Jorge as MATERNAL [id number] [facility] [address] 2022-01-14 2022-01-14 Initial [facility] 1.2.484.639 [id number] Univers 14:15:00 15:06:14 Ifeoma C REGIONAL LOSS PREVENTION MANAGER 350.1.13.10 ity of Visit [facility] 4.2.7.2.686 Jorge as MATERNAL [id number] [facility] & [address] 2022-01-14 2022-01-14 [facility] [id number] Univers 14:15:00 15:06:14 IFEOMA ity o f [facility] 2022-01-14 2022-01-14 Orders Doctor CARLOS 1.2.840.114 [id number] Univers 00:00:00 00:00:00 Only Unassigned, PARAM 350.1.13.10 ity of [place] [facility] 4.2.7.2.686 Jorge as [id number] [address] 2019-08-30 2019-08-30 Outpatient ANGEL Garcia LABO [id number] [id number] [facility] 23:43:00 23:43:00 Lashell 89 [facility] Results Test Description Test Time Test Comments Results Result Comments Source ACTIVATED PARTIAL ONI THOMAS 2022-09-14 03:21:59 Test Item Value Reference Range Interpretation Comme nts APTT Patient (test code = 30 See_Comment [ Automated message] The 3173-2) system which ge nerated this result tra nsmitted reference range : 23 - 38 Seconds. The re ference range was not u sed to interpret this result as normal/abnormal . PREETI (test code = PREETI) The [facility] patient population mean normal value for aPTT is 30 seconds. Lab Interpretation (test Normal code = 87083-2) [facility] / [id number] 03:19:59 Test Item Value Reference Range Interpretation Comments PROTIME PATIENT (test 12.6 See_Comment [Auto mated message] code = 5964-2) The system wh ich generated this result transmitted ref erence range: 12.0 - 1 4.7 Seconds. The re ference range was not u sed to interpret this result as normal/abnor mal. INR (test code = 6301-6) 1.0 Nor mal INR <1.1; Warfarin Therap eutic range 2.0 to 3. 0 or 2.5 to 3.5, dep ending upon the indica tions. Lab Interpretation (test Normal code = 63291-6) [facility] WITH [id number] 03:02:02 Test Item Value Reference Range Interpretation Comments WBC (test code = 6.57 See_Comment [Automated 6690-2) message] The sy stem which generated this result transmitted reference range : 4.30 - 11.10 10*3/?L. The reference range was not used to interpret this result as normal/abnormal . RBC (test code = 2.83 See_Comment L [Automated 789-8) message] The sy stem which generated this result transmitted reference range : 3.93 - 5.25 10*6/?L. The reference range was not used to interpret this result as normal/abnormal . HGB (test code = 9.6 g/dL 11.6-15.0 L 718-7) HCT (test code = 28.5 % 35.7-45.2 L 4544-3) MCV (test code = 100.7 fL 80.6-95.5 H 787-2) MCH (test code = 33.9 pg 25.9-32.8 H 785-6) MCHC (test code = 33.7 g/dL 31.6-35.1 786-4) RDW-SD (test code = 52.0 fL 39.0-49.9 H 05497-6) RDW-CV (test code = 14.3 % 12.0-15.5 788-0) PLT (test code = 392 See_Comment H [Automated 777-3) message] The sy stem which generated this result transmitted reference range : 166 - 358 10*3/ ?L. The reference r ronda was not used to interpret this result as normal/abnormal . MPV (test code = 8.6 fL 9.5-12.9 L 76723-0) NRBC/100 WBC (test 0.0 See_Comment [Automat ed code = 4740477940) message] The system which generated this result transmitted reference range : 0.0 - 10.0 /100 WBCs. The refer ence range was not u sed to interpret th is result as normal/abnormal . NRBC x10^3 (test code See_Comment [Auto mated = 4558172873) message] The s ystem which generated this result transmitted reference range : 10*3/?L. The reference range was not used to interpret this result as normal/abnormal . SEG % (test code = 50 % 33-76 44605-5) LYMPH % (test code = 39 % 14-54 60410-9) ATYP LYMPH % (test 1 % <=0 H code = 0533403901) LG GRAN LYMPH % (test 1 % <=0 H code = 28980-4) MONO % (test code = 8 % 0-4 H 88780-7) EOS % (test code = 1 % 0-3 25433-3) ANC (test code = 3.29 10*3/uL 1.88-7.09 753-4) ACANTHOCYTES (test 1+ See_Comment [Automat ed code = 7789-1) message] The system which generated this result transmitted reference range : 1+. The referen ce range was not u sed to interpret th is result as normal/abnormal . Lab Interpretation Abnormal (test code = 34630-2) [facility] AllianceDAKOTA [id number] 02:44:17 Test Item Value Reference Range Interpretation Comments TROPONIN I (test code = 0.000 ng/mL <=0.034 5373904882) PREETI (test code = PREETI) Reference (Normal) Range (defined by the 99th percentile reference limit): <= 0.034 ng/mL Note: Cardiac troponin begins to rise 3-4 hours after the onset of ischemia. Repeat in 4-6 hours if the sample was drawn within 3-4 hours of the onset of the symptom and found normal. Diagnosis of myocardial injury is made with acute changes in cTn concentrations with at least one serial sample above the 99th percentile upper reference limit (URL), taken together with the patient's clinical presentation. Biotin has been reported to cause a negative bias, interpret results relative to patient's use of biotin. Lab Interpretation Normal (test code = 78585-9) [facility] AllianceN-TERMINAL [id number] 02:41:15 Test Item Value Reference Range Interpretation Comments NT-proBNP (test code = 103 pg/mL <=125 9939277361) PREETI (test code = PREETI) Biotin has been reported to cause a negative bias, interpret results relative to patient's use of biotin. Lab Interpretation (test Normal code = 86085-3) [facility] AllianceCOM. METABOLIC PANEL ([id number])2022-09-14 02:32:36 Test Item Value Reference Range Interpretation Comments NA (test code = 138 mmol/L 135-145 1676812288) K (test code = 3.5 mmol/L 3.5-5.0 6896189648) CL (test code = 107 mmol/L 98-108 7084679107) CO2 TOTAL (test code = 27 mmol/L 23-31 2156971710) AGAP (test code = 4 2-16 3377939802) BUN (test code = 5 mg/dL 7-23 L 9988798013) GLUCOSE (test code = 92 mg/dL 70-110 9796140023) CREATININE (test code = 0.73 mg/dL 0.50-1.04 6396817917) TOTAL BILI (test code = 0.4 mg/dL 0.1-1.0 4295527516) CALCIUM (test code = 8.6 mg/dL 8.6-10.6 3789517312) T PROTEIN (test code = 6.2 g/dL 6.3-8.2 L 2434735288) ALBUMIN (test code = 3.3 g/dL 3.5-5.0 L 3019445135) ALK PHOS (test code = 80 U/L 34-122 2421331601) ALTv (test code = 17 U/L 5-35 1742-6) AST(SGOT) (test code = 23 U/L 13-40 0092723119) eGFR (test code = 88.3 mL/min/1.73m2 4949208652) PREETI (test code = PREETI) Association of Glomerular Filtration Rate (GFR) and Staging of Kidney Disease* + --+ --+ ------+| GFR (mL/min/1.73 m2) ?| With Kidney Damage ?| ?Without Kidney Damage+ --------+ --------+ +| ?>90 ?| ?Stage one ?| ? Normal ?+ ---+ ---+ -------+| ?60-89 ?| ?Stage two ?| ? Decreased GFR ? + --+ --+ ------+| ?30-59 ?| ?Stage three ?| ? Stage three ? + --+ --+ ------+| ?15-29 ?| ?Stage four ? | ? Stage four ?+ ---+ ---+ -------+| ?<15 (or dialysis) ? ?| ?Stage five ? | ? Stage five ?+ ---+ ---+ -------+ *Each stage assumes the associated GFR level has been in effect for at least three months. ?Stages 1 to 5, with or without kidney disease, indicate chronic kidney disease. Notes: Determination of stages one and two (with eGFR >59mL/min/1.73 m2) requires estimation of kidney damage for at least three months as defined by structural or functional abnormalities of the kidney, manifested by either:Pathological abnormalities or Markers of kidney damage (including abnormalities in the composition of the blood or urine or abnormalities in imaging tests). Lab Interpretation Abnormal (test code = 51383-3) [facility] (D) IMMUNE [id number] 18:41:21 Test Item Value Reference Range Interpretation Comments RHIG CANDIDATE? No- see comment Patient i s not a (test code = candidate for R hIg- 5188) Patient is Rh Positive.Perfor med at [facility] Laboratory Services - [facility] Blood [address] [address]Hvqc Free: [phone] A No. [id number] [facility] (D) IMMUNE [id number] 18:41:21 Test Item Value Reference Range Interpretation Comments RHIG CANDIDATE? No- see comment Patient i s not a (test code = candidate for R hIg- 5188) Patient is Rh Positive.Perfor med at [facility] Laboratory Services - [facility] Blood [address] [place] [address]Wncc Free: [phone] A No. [id number] [facility] Cord [id number] 16:23:05 Test Item Value Reference Range Interpretation Comments VENOUS BASE EXCESS, -2.2 mEq/L CORD (test code = 2666515176) VENOUS PH, CORD (test 7.33 7.25-7.45 code = 9319034738) VENOUS PC02, CORD 47 See_Comment [Automate d message] The (test code = system which ge nerated 9257064795) this result tra nsmitted reference range : 27 - 49 mmHg. The refer ence range was not used to interpret this result as normal/abnormal . VENOUS PO2, CORD (test 20 See_Comment [Aut omated message] The code = 5632055110) system [facility] generated this result tra nsmitted reference range : 17 - 41 mmHg. The refer ence range was not used to interpret this result as normal/abnormal . VENOUS BICARBONATE, 24 See_Comment [Automa keturah message] The CORD (test code = system [facility] ch generated 6536838860) this result tra nsmitted reference range : 12 - 29 mEq/L. The refe rence range was not used to interpret this result as normal/abnormal . [facility] Cord [id number] 16:23:05 Test Item Value Reference Range Interpretation Comments VENOUS BASE EXCESS, -2.2 mEq/L CORD (test code = 1305626434) VENOUS PH, CORD (test 7.33 7.25-7.45 code = 7449577240) VENOUS PC02, CORD 47 See_Comment [Automate d message] The (test code = system which ge nerated 8304838440) this result tra nsmitted reference range : 27 - 49 mmHg. The refer ence range was not used to interpret this result as normal/abnormal . VENOUS PO2, CORD (test 20 See_Comment [Aut omated message] The code = 6198810008) system wh [facility] generated this result tra nsmitted reference range : 17 - 41 mmHg. The refer ence range was not used to interpret this result as normal/abnormal . VENOUS BICARBONATE, 24 See_Comment [Automa keturah message] The CORD (test code = system whi ch generated 9757703118) this result tra nsmitted reference range : 12 - 29 mEq/L. The refe rence range was not used to interpret this result as normal/abnormal . [facility] Cord [id number] 16:19:47 Test Item Value Reference Range Interpretation Comments BASE EXCESS, CORD -2.8 mEq/L (test code = 9155508218) AC PH, CORD (BEAKER) 7.27 7.18-7.38 (test code = 1362082557) PC02, CORD (test code 55 See_Comment [Auto mated message] The = 6424798872) system which g enerated this result transmit keturah reference range : 32 - 66 mmHg. The refer ence range was not used to interpret this result as normal/abnormal . PO2, CORD (test code 15 See_Comment [Autom ated message] The = 7187784816) system which g enerated this result transmit keturah reference range : 10 - 30 mmHg. The refer ence range was not used to interpret this result as normal/abnormal . BICARBONATE, CORD 25 See_Comment [Automate d message] The (test code = system which ge nerated this [id number]) result transmit keturah reference range : 17 - 27 mEq/L. The refe rence range was not used to interpret this result as normal/abnormal . [facility] Cord [id number] 16:19:47 Test Item Value Reference Range Interpretation Comments BASE EXCESS, CORD -2.8 mEq/L (test code = 7138958568) AC PH, CORD (BEAKER) 7.27 7.18-7.38 (test code = 6457657548) PC02, CORD (test code 55 See_Comment [Auto mated message] The = [id number]) system which g enerated this result transmit keturah reference range : 32 - 66 mmHg. The refer ence range was not used to interpret this result as normal/abnormal . PO2, CORD (test code 15 See_Comment [Autom ated message] The = [id number]) system which g enerated this result transmit keturah reference range : 10 - 30 mmHg. The refer ence range was not used to interpret this result as normal/abnormal . BICARBONATE, CORD 25 See_Comment [Automate d message] The (test code = system which ge nerated this [id number]) result transmit keturah reference range : 17 - 27 mEq/L. The refe rence range was not used to interpret this result as normal/abnormal . [facility] URINALYSIS W SPECIFIC [id number] 14:02:00 Test Item Value Reference Range Interpretation Comments POCT U SP GRAV (test code = 3255) . 1.005-1.025 POCT PH U (test code = 3254) 6 mg/dl 5-8 POCT U LEUK EST (test code = Trace Negative - Negative 3263) POCT U NIT (test code = 3262) Neg Negative - Negative POCT U PROT (test code = 3259) Trace Negative - Negative POCT U GLU (test code = 3256) Neg Negative - Negative POCT U KETONE (test code = 3258) None Negative - Negative POCT U UROBILI (test code = 3260) . 0.2-1 POCT U BILI (test code = 3261) . Negative - Negative POCT U BLD (test code = 3257) Trace Negative - Negative POCT U COLOR (test code = 3266) POCT U APPEAR (test code = 3267) [facility] URINALYSIS W SPECIFIC [id number] 14:17:00 Test Item Value Reference Range Interpretation Comments POCT U SP GRAV (test code = 3255) . 1.005-1.025 POCT PH U (test code = 3254) 6 mg/dl 5-8 POCT U LEUK EST (test code = Neg Negative - Negative 3263) POCT U NIT (test code = 3262) Neg Negative - Negative POCT U PROT (test code = 3259) Trace Negative - Negative POCT U GLU (test code = 3256) Neg Negative - Negative POCT U KETONE (test code = 3258) None Negative - Negative POCT U UROBILI (test code = 3260) . 0.2-1 POCT U BILI (test code = 3261) . Negative - Negative POCT U BLD (test code = 3257) Trace Negative - Negative POCT U COLOR (test code = 3266) POCT U APPEAR (test code = 3267) [facility] URINALYSIS W SPECIFIC [id number] 14:17:00 Test Item Value Reference Range Interpretation Comments POCT U SP GRAV (test code = 3255) . 1.005-1.025 POCT PH U (test code = 3254) 6 mg/dl 5-8 POCT U LEUK EST (test code = Neg Negative - Negative 3263) POCT U NIT (test code = 3262) Neg Negative - Negative POCT U PROT (test code = 3259) Trace Negative - Negative POCT U GLU (test code = 3256) Neg Negative - Negative POCT U KETONE (test code = 3258) None Negative - Negative POCT U UROBILI (test code = 3260) . 0.2-1 POCT U BILI (test code = 3261) . Negative - Negative POCT U BLD (test code = 3257) Trace Negative - Negative POCT U COLOR (test code = 3266) POCT U APPEAR (test code = 3267) [facility] URINALYSIS W SPECIFIC [id number] 14:17:00 Test Item Value Reference Range Interpretation Comments POCT U SP GRAV (test code = 3255) . 1.005-1.025 POCT PH U (test code = 3254) 6 mg/dl 5-8 POCT U LEUK EST (test code = Neg Negative - Negative 3263) POCT U NIT (test code = 3262) Neg Negative - Negative POCT U PROT (test code = 3259) Trace Negative - Negative POCT U GLU (test code = 3256) Neg Negative - Negative POCT U KETONE (test code = 3258) None Negative - Negative POCT U UROBILI (test code = 3260) . 0.2-1 POCT U BILI (test code = 3261) . Negative - Negative POCT U BLD (test code = 3257) Trace Negative - Negative POCT U COLOR (test code = 3266) POCT U APPEAR (test code = 3267) [facility] URINALYSIS W SPECIFIC [id number] 15:02:00 Test Item Value Reference Range Interpretation Comments POCT U SP GRAV (test code = 3255) . 1.005-1.025 POCT PH U (test code = 3254) . 5-8 POCT U LEUK EST (test code = 3263) . Negative - Negative POCT U NIT (test code = 3262) . Negative - Negative POCT U PROT (test code = 3259) trace Negative - Negative POCT U GLU (test code = 3256) neg Negative - Negative POCT U KETONE (test code = 3258) . Negative - Negative POCT U UROBILI (test code = 3260) . 0.2-1 POCT U BILI (test code = 3261) . Negative - Negative POCT U BLD (test code = 3257) . Negative - Negative POCT U COLOR (test code = 3266) . POCT U APPEAR (test code = 3267) . [facility] URINALYSIS W SPECIFIC [id number] 14:27:00 Test Item Value Reference Range Interpretation Comments POCT U SP GRAV (test code = 3255) . 1.005-1.025 POCT PH U (test code = 3254) . 5-8 POCT U LEUK EST (test code = 3263) . Negative - Negative POCT U NIT (test code = 3262) . Negative - Negative POCT U PROT (test code = 3259) trace Negative - Negative POCT U GLU (test code = 3256) neg Negative - Negative POCT U KETONE (test code = 3258) . Negative - Negative POCT U UROBILI (test code = 3260) . 0.2-1 POCT U BILI (test code = 3261) . Negative - Negative POCT U BLD (test code = 3257) . Negative - Negative POCT U COLOR (test code = 3266) . POCT U APPEAR (test code = 3267) . [facility] URINALYSIS W SPECIFIC [id number] 15:14:00 Test Item Value Reference Range Interpretation Comments POCT U SP GRAV (test code = * 1.005-1.025 3255) POCT PH U (test code = 3254) 7 mg/dl 5-8 POCT U LEUK EST (test code = negative Negative - Negative 3263) POCT U NIT (test code = 3262) negative Negative - Negative POCT U PROT (test code = 3259) trace Negative - Negative POCT U GLU (test code = 3256) negative Negative - Negative POCT U KETONE (test code = 3258) negative Negative - Negative POCT U UROBILI (test code = * 0.2-1 3260) POCT U BILI (test code = 3261) * Negative - Negative POCT U BLD (test code = 3257) negative Negative - Negative POCT U COLOR (test code = 3266) POCT U APPEAR (test code = 3267) [facility] URINALYSIS W SPECIFIC [id number] 15:14:00 Test Item Value Reference Range Interpretation Comments POCT U SP GRAV (test code = * 1.005-1.025 3255) POCT PH U (test code = 3254) 7 mg/dl 5-8 POCT U LEUK EST (test code = negative Negative - Negative 3263) POCT U NIT (test code = 3262) negative Negative - Negative POCT U PROT (test code = 3259) trace Negative - Negative POCT U GLU (test code = 3256) negative Negative - Negative POCT U KETONE (test code = 3258) negative Negative - Negative POCT U UROBILI (test code = * 0.2-1 3260) POCT U BILI (test code = 3261) * Negative - Negative POCT U BLD (test code = 3257) negative Negative - Negative POCT U COLOR (test code = 3266) POCT U APPEAR (test code = 3267) [facility] URINALYSIS W SPECIFIC [id number] 13:18:00 Test Item Value Reference Range Interpretation Comments POCT U SP GRAV (test code = 3255) . 1.005-1.025 POCT PH U (test code = 3254) . 5-8 POCT U LEUK EST (test code = 3263) .. Negative - Negative POCT U NIT (test code = 3262) . Negative - Negative POCT U PROT (test code = 3259) . Negative - Negative POCT U GLU (test code = 3256) . Negative - Negative POCT U KETONE (test code = 3258) . Negative - Negative POCT U UROBILI (test code = 3260) . 0.2-1 POCT U BILI (test code = 3261) . Negative - Negative POCT U BLD (test code = 3257) . Negative - Negative POCT U COLOR (test code = 3266) POCT U APPEAR (test code = 3267) [facility] [id number] 13:15:00 Test Item Value Reference Range Interpretation Comments POCT U SP GRAV (test code = 3255) . 1.005-1.025 POCT PH U (test code = 3254) 8 mg/dl 5-8 POCT U LEUK EST (test code = Trace Negative - Negative 3263) POCT U NIT (test code = 3262) Neg Negative - Negative POCT U PROT (test code = 3259) Trace Negative - Negative POCT U GLU (test code = 3256) Neg Negative - Negative POCT U KETONE (test code = 3258) None Negative - Negative POCT U UROBILI (test code = 3260) . 0.2-1 POCT U BILI (test code = 3261) . Negative - Negative POCT U BLD (test code = 3257) Trace Negative - Negative POCT U COLOR (test code = 3266) . POCT U APPEAR (test code = 3267) . [facility] [id number] 08:36:03 Test Item Value Reference Range Interpretation Comments TSH (test code = 0.29 See_Comment L [Automated message] [id number]) The system [employer] generated this result transmitted ref erence range: 0.45 - 4 .70 mIU/L. The refe rence range was not u sed to interpret this result as normal/abnor mal. Lab Interpretation (test Abnormal code = 21771-2) [facility] [id number] 08:36:03 Test Item Value Reference Range Interpretation Comments TSH (test code = 0.29 See_Comment L [Automated message] [id number]) The system [employer] generated this result transmitted ref erence range: 0.45 - 4 .70 mIU/L. The refe rence range was not u sed to interpret this result as normal/abnor mal. Lab Interpretation (test Abnormal code = 56880-0) [place] [id number] 08:23:06 Test Item Value Reference Range Interpretation Comments FREE T3 (test code = 9992134644) 2.72 pg/mL 2.77-5.27 L Lab Interpretation (test code = Abnormal 52856-7) [facility] [id number] 08:23:06 Test Item Value Reference Range Interpretation Comments FREE T4 (test code = 0.86 See_Comment [Autom ated message] [id number]) The system [employer] generated this result transmitted ref erence range: 0.78 - 2 .20 ng/dL:. The ref erence range was not u sed to interpret this result as normal/abnor mal. Lab Interpretation (test Normal code = 02665-5) [facility] [id number] 08:23:06 Test Item Value Reference Range Interpretation Comments FREE T3 (test code = 5189804140) 2.72 pg/mL 2.77-5.27 L Lab Interpretation (test code = Abnormal 93432-3) [facility] [id number] 08:23:06 Test Item Value Reference Range Interpretation Comments FREE T4 (test code = 0.86 See_Comment [Autom ated message] [id number]) The system [employer] generated this result transmitted ref erence range: 0.78 - 2 .20 ng/dL:. The ref erence range was not u sed to interpret this result as normal/abnor mal. Lab Interpretation (test Normal code = 10969-7) [facility] URINALYSIS W SPECIFIC [id number] 15:46:00 Test Item Value Reference Range Interpretation Comments POCT U SP GRAV (test code = . 1.005-1.025 3255) POCT PH U (test code = 3254) . 5-8 POCT U LEUK EST (test code = . Negative - Negative 3263) POCT U NIT (test code = 3262) . Negative - Negative POCT U PROT (test code = 3259) trace Negative - Negative POCT U GLU (test code = 3256) negative Negative - Negative POCT U KETONE (test code = 3258) . Negative - Negative POCT U UROBILI (test code = . 0.2-1 3260) POCT U BILI (test code = 3261) . Negative - Negative POCT U BLD (test code = 3257) . Negative - Negative POCT U COLOR (test code = 3266) . POCT U APPEAR (test code = 3267) . [facility] URINALYSIS W SPECIFIC [id number] 15:46:00 Test Item Value Reference Range Interpretation Comments POCT U SP GRAV (test code = . 1.005-1.025 3255) POCT PH U (test code = 3254) . 5-8 POCT U LEUK EST (test code = . Negative - Negative 3263) POCT U NIT (test code = 3262) . Negative - Negative POCT U PROT (test code = 3259) trace Negative - Negative POCT U GLU (test code = 3256) negative Negative - Negative POCT U KETONE (test code = 3258) . Negative - Negative POCT U UROBILI (test code = . 0.2-1 3260) POCT U BILI (test code = 3261) . Negative - Negative POCT U BLD (test code = 3257) . Negative - Negative POCT U COLOR (test code = 3266) . POCT U APPEAR (test code = 3267) . [facility] URINALYSIS W SPECIFIC [id number] 15:46:00 Test Item Value Reference Range Interpretation Comments POCT U SP GRAV (test code = . 1.005-1.025 3255) POCT PH U (test code = 3254) . 5-8 POCT U LEUK EST (test code = . Negative - Negative 3263) POCT U NIT (test code = 3262) . Negative - Negative POCT U PROT (test code = 3259) trace Negative - Negative POCT U GLU (test code = 3256) negative Negative - Negative POCT U KETONE (test code = 3258) . Negative - Negative POCT U UROBILI (test code = . 0.2-1 3260) POCT U BILI (test code = 3261) . Negative - Negative POCT U BLD (test code = 3257) . Negative - Negative POCT U COLOR (test code = 3266) . POCT U APPEAR (test code = 3267) . [facility] METABOLIC PANEL (NA, K, CL, CO2, GLUCOSE, BUN, CREATININE, CA)2022-04-24 17:49:06 Test Item Value Reference Range Interpretation Comments NA (test code = 134 mmol/L 135-145 L [id number]) K (test code = 4.4 mmol/L 3.5-5.0 2938046009) CL (test code = 106 mmol/L 98-108 6708348234) CO2 TOTAL (test code = 22 mmol/L 23-31 L 0910873202) AGAP (test code = 6 2-16 4831924499) BUN (test code = 5 mg/dL 7-23 L 8487307348) GLUCOSE (test code = 77 mg/dL 70-110 5214780036) CREATININE (test code = 0.60 mg/dL 0.50-1.04 8546076099) CALCIUM (test code = 8.5 mg/dL 8.6-10.6 L 7400177202) eGFR (test code = 111.3 mL/min/1.73m2 4745682342) PREETI (test code = PREETI) Association of Glomerular Filtration Rate (GFR) and Staging of Kidney Disease* + --+ --+ ------+| GFR (mL/min/1.73 m2) ?| With Kidney Damage ?| ?Without Kidney Damage+ --------+ --------+ +| ?>90 ?| ?Stage one ?| ? Normal ?+ ---+ ---+ -------+| ?60-89 ?| ?Stage two ?| ? Decreased GFR ? + --+ --+ ------+| ?30-59 ?| ?Stage three ?| ? Stage three ? + --+ --+ ------+| ?15-29 ?| ?Stage four ? | ? Stage four ?+ ---+ ---+ -------+| ?<15 (or dialysis) ? ?| ?Stage five ? | ? Stage five ?+ ---+ ---+ -------+ *Each stage assumes the associated GFR level has been in effect for at least three months. ?Stages 1 to 5, with or without kidney disease, indicate chronic kidney disease. Notes: Determination of stages one and two (with eGFR >59mL/min/1.73 m2) requires estimation of kidney damage for at least three months as defined by structural or functional abnormalities of the kidney, manifested by either:Pathological abnormalities or Markers of kidney damage (including abnormalities in the composition of the blood or urine or abnormalities in imaging tests). Lab Interpretation Abnormal (test code = 86580-0) [facility] WITH [id number] 17:27:03 Test Item Value Reference Range Interpretation Comments WBC (test code = 11.90 See_Comment H [Automated 6690-2) message] The sy stem which generated this result transmitted reference range : 4.30 - 11.10 10*3/?L. The reference range was not used to interpret this result as normal/abnormal . RBC (test code = 3.12 See_Comment L [Automated 789-8) message] The sy stem which generated this result transmitted reference range : 3.93 - 5.25 10*6/?L. The reference range was not used to interpret this result as normal/abnormal . HGB (test code = 10.6 g/dL 11.6-15.0 L 718-7) HCT (test code = 30.6 % 35.7-45.2 L 4544-3) MCV (test code = 98.1 fL 80.6-95.5 H 787-2) MCH (test code = 34.0 pg 25.9-32.8 H 785-6) MCHC (test code = 34.6 g/dL 31.6-35.1 786-4) RDW-SD (test code = 45.9 fL 39.0-49.9 90652-7) RDW-CV (test code = 12.9 % 12.0-15.5 788-0) PLT (test code = 258 See_Comment [Automated 777-3) message] The sy stem which generated this result transmitted reference range : 166 - 358 10*3/ ?L. The reference r ronda was not used to interpret this result as normal/abnormal . MPV (test code = 9.1 fL 9.5-12.9 L 35096-1) NRBC/100 WBC (test 0.0 See_Comment [Automat ed code = 6742469543) message] The system which generated this result transmitted reference range : 0.0 - 10.0 /100 WBCs. The refer ence range was not u sed to interpret th is result as normal/abnormal . NRBC x10^3 (test code See_Comment [Auto mated = 3812551890) message] The s ystem which generated this result transmitted reference range : 10*3/?L. The reference range was not used to interpret this result as normal/abnormal . GRAN MAT (NEUT) % 69.0 % (test code = 770-8) IMM GRAN % (test code 0.90 % = 2939938076) LYMPH % (test code = 20.8 % 736-9) MONO % (test code = 7.8 % 5905-5) EOS % (test code = 1.1 % 713-8) BASO % (test code = 0.4 % 706-2) GRAN MAT x10^3(ANC) 8.20 10*3/uL 1.88-7.09 H (test code = 0681545113) IMM GRAN x10^3 (test 0.11 10*3/uL 0.00-0.06 H code = 8883087780) LYMPH x10^3 (test code 2.48 10*3/uL 1.32-3.29 = 731-0) MONO x10^3 (test code 0.93 10*3/uL 0.33-0.92 H = 742-7) EOS x10^3 (test code = 0.13 10*3/uL 0.03-0.39 711-2) BASO x10^3 (test code 0.05 10*3/uL 0.01-0.07 = 704-7) Lab Interpretation Abnormal (test code = 79043-5) [facility] URINALYSIS W SPECIFIC [id number] 14:47:00 Test Item Value Reference Range Interpretation Comments POCT U SP GRAV (test code = 3255) . 1.005-1.025 POCT PH U (test code = 3254) 7 mg/dl 5-8 POCT U LEUK EST (test code = Neg Negative - Negative 3263) POCT U NIT (test code = 3262) Neg Negative - Negative POCT U PROT (test code = 3259) Trace Negative - Negative POCT U GLU (test code = 3256) Neg Negative - Negative POCT U KETONE (test code = 3258) None Negative - Negative POCT U UROBILI (test code = 3260) . 0.2-1 POCT U BILI (test code = 3261) . Negative - Negative POCT U BLD (test code = 3257) Trace Negative - Negative POCT U COLOR (test code = 3266) . POCT U APPEAR (test code = 3267) . [facility] URINALYSIS W SPECIFIC [id number] 15:45:00 Test Item Value Reference Range Interpretation Comments POCT U SP GRAV (test code = 3255) . 1.005-1.025 POCT PH U (test code = 3254) . 5-8 POCT U LEUK EST (test code = 3263) . Negative - Negative POCT U NIT (test code = 3262) . Negative - Negative POCT U PROT (test code = 3259) 1+ Negative - Negative POCT U GLU (test code = 3256) Neg Negative - Negative POCT U KETONE (test code = 3258) . Negative - Negative POCT U UROBILI (test code = 3260) . 0.2-1 POCT U BILI (test code = 3261) . Negative - Negative POCT U BLD (test code = 3257) . Negative - Negative POCT U COLOR (test code = 3266) . POCT U APPEAR (test code = 3267) [facility] URINALYSIS W SPECIFIC [id number] 15:15:00 Test Item Value Reference Range Interpretation Comments POCT U SP GRAV (test code = 3255) . 1.005-1.025 POCT PH U (test code = 3254) . 5-8 POCT U LEUK EST (test code = 3263) . Negative - Negative POCT U NIT (test code = 3262) . Negative - Negative POCT U PROT (test code = 3259) Trace Negative - Negative POCT U GLU (test code = 3256) Neg Negative - Negative POCT U KETONE (test code = 3258) . Negative - Negative POCT U UROBILI (test code = 3260) . 0.2-1 POCT U BILI (test code = 3261) . Negative - Negative POCT U BLD (test code = 3257) . Negative - Negative POCT U COLOR (test code = 3266) . POCT U APPEAR (test code = 3267) [facility] [id number] 21:20:48 Test Item Value Reference Range Interpretation Comments NT-proBNP (test code 21 pg/mL See_Comment [Autom ated = 7043346439) message] The system which generated this result transmitted reference range : <=125. The reference range was not used to interpret this result as normal/abnormal . PREETI (test code = PREETI) Biotin has been reported to cause a negative bias, interpret results relative to patient's use of biotin. Lab Interpretation Normal (test code = 82756-4) [facility] WITH [id number] 21:01:45 Test Item Value Reference Range Interpretation Comments WBC (test code = See_Comment [Automated 6690-2) message] The sy stem which generated this result transmitted reference range : 4.30 - 11.10 10*3/?L. The reference range was not used to interpret this result as normal/abnormal . RBC (test code = See_Comment L [Automated 789-8) message] The sy stem which generated this result transmitted reference range : 3.93 - 5.25 10*6/?L. The reference range was not used to interpret this result as normal/abnormal . HGB (test code = 11.2 g/dL 11.6-15.0 L 718-7) HCT (test code = 32.4 % 35.7-45.2 L 4544-3) MCV (test code = 94.7 fL 80.6-95.5 787-2) MCH (test code = 32.7 pg 25.9-32.8 785-6) MCHC (test code = 34.6 g/dL 31.6-35.1 786-4) RDW-SD (test code = 53.9 fL 39.0-49.9 H 20783-2) RDW-CV (test code = 15.3 % 12.0-15.5 788-0) PLT (test code = See_Comment [Automated 777-3) message] The sy stem which generated this result transmitted reference range : 166 - 358 10*3/ ?L. The reference r ronda was not used to interpret this result as normal/abnormal . MPV (test code = 9.1 fL 9.5-12.9 L 48134-3) NRBC/100 WBC (test See_Comment [Automat ed code = 5301405607) message] The system which generated this result transmitted reference range : 0.0 - 10.0 /100 WBCs. The refer ence range was not u sed to interpret th is result as normal/abnormal . NRBC x10^3 (test code See_Comment [Auto mated = 3286324520) message] The s ystem which generated this result transmitted reference range : 10*3/?L. The reference range was not used to interpret this result as normal/abnormal . GRAN MAT (NEUT) % 53.8 % (test code = 770-8) IMM GRAN % (test code 0.30 % = 9413200600) LYMPH % (test code = 33.2 % 736-9) MONO % (test code = 8.9 % 5905-5) EOS % (test code = 2.9 % 713-8) BASO % (test code = 0.9 % 706-2) GRAN MAT x10^3(ANC) 3.56 10*3/uL 1.88-7.09 (test code = 7037241280) IMM GRAN x10^3 (test 0.00-0.06 code = 3031389754) LYMPH x10^3 (test code 2.20 10*3/uL 1.32-3.29 = 731-0) MONO x10^3 (test code 0.59 10*3/uL 0.33-0.92 = 742-7) EOS x10^3 (test code = 0.19 10*3/uL 0.03-0.39 711-2) BASO x10^3 (test code 0.06 10*3/uL 0.01-0.07 = 704-7) Lab Interpretation Abnormal (test code = 65239-4) [facility] WITH [id number] 09:56:53 Test Item Value Reference Range Interpretation Comments HIV Negative Negative Semi-quantitative (test code = 07287-8) PREETI (test code = Non-reactive for HIV-1 PREETI) antigen and HIV-1/HIV-2 antibodies. ?No laboratory evidence of HIV infection. ?Repeat in 2-4 weeks if acute HIV infection is suspected. [facility] Cell [id number] 08:59:39 Test Item Value Reference Range Interpretation Comments SICKLE SCR (test code = 9489860822) Negative Negative Lab Interpretation (test code = Normal 60900-7) [facility] AlliancePRENATAL WORKUP, BLOOD [id number] 06:29:23 Test Item Value Reference Range Interpretation Comments ABO & RH (test code O POSITIVE Performe d at [facility] = 20) [facility] Blood [facility]3 [facility] [id number] Free: [phone] A No. [id number] IAT (test code = Negative Performed a t [facility] 1185) [facility] Blood [facility]3 [facility] [id number] Free: [phone] A No. [id number] [facility] AllianceTHYROID STIMULATING [id number] 05:51:18 Test Item Value Reference Range Interpretation Comments TSH (test code = See_Comment H Biotin has been [id number]) reported to cau se a negative bias, interpret resul ts relative to pat wes's use of biotin. [Automated mess age] The system whic h generated this result transmitted ref erence range: 0.45 - 4 .70 mIU/L. The refe rence range was not u sed to interpret this result as normal/abnor mal. Lab Interpretation (test Abnormal code = 84712-7) [facility] AllianceHEPATITIS B SURFACE [id number] 05:51:18 Test Item Value Reference Range Interpretation Comments HBsAg Semi-Quantitative (test code = Negative Negative 5195-3) [facility] WITH [id number] 05:20:56 Test Item Value Reference Range Interpretation Comments WBC (test code = See_Comment [Automated 6190-2) message] The sy stem which generated this result transmitted reference range : 4.30 - 11.10 10*3/?L. The reference range was not used to interpret this result as normal/abnormal . RBC (test code = See_Comment L [Automated 979-8) message] The sy stem which generated this result transmitted reference range : 3.93 - 5.25 10*6/?L. The reference range was not used to interpret this result as normal/abnormal . HGB (test code = 10.7 g/dL 11.6-15.0 L 718-7) HCT (test code = 32.4 % 35.7-45.2 L 4544-3) MCV (test code = 95.3 fL 80.6-95.5 787-2) MCH (test code = 31.5 pg 25.9-32.8 785-6) MCHC (test code = 33.0 g/dL 31.6-35.1 786-4) RDW-SD (test code = 52.7 fL 39.0-49.9 H 18690-1) RDW-CV (test code = 14.9 % 12.0-15.5 788-0) PLT (test code = See_Comment [Automated 777-3) message] The sy stem which generated this result transmitted reference range : 166 - 358 10*3/ ?L. The reference r ronda was not used to interpret this result as normal/abnormal . MPV (test code = 10.1 fL 9.5-12.9 47407-7) NRBC/100 WBC (test See_Comment [Automat ed code = 7816975633) message] The system which generated this result transmitted reference range : 0.0 - 10.0 /100 WBCs. The refer ence range was not u sed to interpret th is result as normal/abnormal . NRBC x10^3 (test code See_Comment [Auto mated = 9483218307) message] The s ystem which generated this result transmitted reference range : 10*3/?L. The reference range was not used to interpret this result as normal/abnormal . GRAN MAT (NEUT) % 47.0 % (test code = 770-8) IMM GRAN % (test code 0.00 % = 3992564670) LYMPH % (test code = 39.7 % 736-9) MONO % (test code = 8.9 % 5905-5) EOS % (test code = 3.3 % 713-8) BASO % (test code = 1.1 % 706-2) GRAN MAT x10^3(ANC) 2.17 10*3/uL 1.88-7.09 (test code = 4611866526) IMM GRAN x10^3 (test 0.00-0.06 code = 3189112397) LYMPH x10^3 (test code 1.83 10*3/uL 1.32-3.29 = 731-0) MONO x10^3 (test code 0.41 10*3/uL 0.33-0.92 = 742-7) EOS x10^3 (test code = 0.15 10*3/uL 0.03-0.39 711-2) BASO x10^3 (test code 0.05 10*3/uL 0.01-0.07 = 704-7) Lab Interpretation Abnormal (test code = 34622-0) [facility] URINALYSIS W/O SPECIFIC [id number] 18:58:00 Test Item Value Reference Range Interpretation Comments POCT PH U (test code = 3254) 6 mg/dl 5-8 POCT U LEUK EST (test code = Trace Negative - Negative 3263) POCT U NIT (test code = 3262) Neg Negative - Negative POCT U PROT (test code = 3259) Trace Negative - Negative POCT U GLU (test code = 3256) Neg Negative - Negative POCT U KETONE (test code = 3258) None Negative - Negative POCT U BLD (test code = 3257) Trace Negative - Negative [facility] [id number] 18:57:00 Test Item Value Reference Range Interpretation Comments POCT PREG (test code = 1605) Positive On board controls acceptable with C Yes Line (test code = 3574) POCT PREG LOT # (test code = 3575) POCT PREG TEST DATE (test code = 3576) [facility] Alliance[facility], THIRD [id number] 06:02:47 Test Item Value Reference Range Interpretation Comments TSH, THIRD GENERATION (test code 3.730 UIU/ML 0.400-4.100 = 2821) FREE T4 (THYROXINE)2021-08-21 06:02:47 Test Item Value Reference Range Interpretation Comments FREE T4 (THYROXINE) (test code = 0.66 NG/DL 0.80-1.90 L 2823) FREE [id number] 06:02:47 Test Item Value Reference Range Interpretation Comments FREE T3 (test code 2.2 PG/ML 2.2-4.2 UNLESS O THERWISE = 4273) INDICATED, ALL TESTING PERFORMED [facility] NICAL PATHOLOGY LABOR [employer] [address] [place] [address] [place] DIRECTOR: DONTE HANKS M.D. CLIA NUMBER [id number] CAP ACCREDITATION N O. [id number] TSH, THIRD [id number] 06:38:12 Test Item Value Reference Range Interpretation Comments TSH, THIRD 8.550 UIU/ML 0.400-4.100 H UNLESS OTHERWI SE GENERATION (test INDICATED, ALL TESTING code = 2821) PERFORMED [facility], [place]. [address] [place] [address] [place] DIRECTOR: DONTE HANKS M.D. CLIA NUMBER [id number] CAP ACCREDITATION N O. [id number] LIPID [id number] 04:17:47 Test Item Value Reference Range Interpretation [...] MOREINFORMATION , SEE CLIENT ANNOUNCE MENT AT [email or web address] RISK RATIO LDL/HDL 1.45 RATIO <3.22 (test code = 2238) COMPREHENSIVE METABOLIC [id number] 04:17:47 Test Item Value Reference Range Interpretation Comments GLUCOSE (test code = 75 MG/DL 70-99 2216) BUN (test code = 6 MG/DL -2207) CREATININE (test 0.90 MG/DL 0.60-1.30 code = 2214) eGFR (2020 CKD-EPI) 84 ML/MIN/1.73 >60 (test code = 84807) CALC BUN/CREAT (test 7 RATIO 09-11 code = 2235) SODIUM (test code = 140 MEQ/L 920-666 3964) POTASSIUM (test code 3.9 MEQ/L 3.5-5.4 = 2227) CHLORIDE (test code 103 MEQ/L 95-107 = 2215) CARBON DIOXIDE (test 21 MEQ/L 19-31 code = 2206) CALCIUM (test code = 9.3 MG/DL 8.5-10.5 2208) PROTEIN, TOTAL (test 7.8 G/DL 6.1-8.3 code = 2229) ALBUMIN (test code = 4.4 G/DL 3.5-5.2 2200) CALC GLOBULIN (test 3.4 G/DL 1.9-3.7 code = 2240) CALC A/G RATIO (test 1.3 RATIO 1.0-2.6 code = 2234) BILIRUBIN, TOTAL 0.3 MG/DL See_Comment [Automated message] (test code = 220) The syste drchrono which generated this result transmit keturah reference range : <=1.2. The refe rence range was not u sed to interpret th is result as normal/abnormal . ALKALINE PHOSPHATASE 63 U/L 40-112 (test code = 2203) AST (test code = 22 U/L 9-40 2217) ALT (test code = 14 U/L 5-40 2218) HEPATITIS PANEL, [id number] 03:51:01 Test Item Value Reference Range Interpretation Comments HEPATITIS A IgM (test NON-REACTIVE NON-REACTIVE code = 75795) HEPATITIS B CORE IgM NON-REACTIVE NON-REACTIVE (test code = 4644) HEPATITIS B SURF AG NON-REACTIVE NON-REACTIVE (test code = 2739) HEPATITIS C ANTIBODY NON-REACTIVE NON-REACTIVE (test code = 4675) INTERPRETATION (NOTE) Hepatitis A HEPATITIS A: (test code sero logy shows no = 2552) evidence of acu te hepatitis A. INTERPRETATION (NOTE) Hepatitis B HEPATITIS B: (test code sero logy shows no = 56728) evidence of acu te hepatitis B and no indication of exposure to hepatitis B vir us in the previous jose francisco eight months. INTERPRETATION (NOTE) Hepatitis C HEPATITIS C: (test code sero logy shows no = 65558) evidence of exposure to hepatitisC viru s at this time. I t can take up to 12 months after exposure tothe hepatitis C vir us for antibodies to become detectab le in the blood in certain patient s. HIV 1/2 4TH GEN, RFLX [id number] 03:51:01 Test Item Value Reference Range Interpretation Comments HIV 1/2 4TH GEN, NON-REACTIVE NON-REACTIVE UNLESS OTH ERWISE RFLX CONF (test INDICATED, A LL TESTING code = 3514) PERFORMED [facility] [employer] [address] [facility], [place] [address] [place] [address] DIRECTOR: DONTE HANKS M.D. CLIA NUMBER [id number] CAP ACCREDITATION N O. [id number] CBC W/AUTO DIFF WITH [id number] 03:36:48 Test Item Value Reference Range Interpretation [...] = 1036) NUCLEATED RBCS (test 0.0 /100 WBC'S See_Comment [Aut omated code = 1065) message] The sy stem which generated this [...] RBCS 0.00 K/UL 0.00-0.11 (test code = 69290) - US PELVIC [id number] 19:27:00 Name: NEETAEILEEN BATEMAN [facility] : 1980 Age/S: 39 / F [address] Unit #: [id number] Loc: [place] [address] Phys: Lashell Garcia MD Acct: [id number] Dis Date: Status: REG ER PHONE #: [phone] Exam Date: 08/30/2019 1907 FAX #: Reason: PELVIC PAIN EXAMS: CPT: [id number] US PELVIC COMPLETE 46752 Location: L11 EXAM: - US PELVIC COMPLETE, - US TRANSVAGINAL NON OB DATE: 08/30/2019 6:31 PM INDICATION: Pelvic pain COMPARISON: None. TECHNIQUE: Multiplanar grayscale and color Doppler ultrasound of the pelvis were obtained: Transabdominally through a distended urinary bladder. Transvaginally postvoid. FINDINGS: Slightly limited transabdominal evaluation given prominentbowel gas. Uterus/Myometrium: Size: 6.4 x 4.3 x 6.3 cm Orientation: Anteverted. Echogenicity: Normal. Masses: None. Cervix: Normal. Endometrium: Thickness: 1.1 cm Cysts/Masses: None. Right ovary: Seenonly transvaginally. Size: 3.1 x 2.1 x 2.5 [...] SANTACRUZ : 1980 Age/S: 39 / F [address] Unit #: [id number] Loc: [place] Phys: Lashell Garcia MD Acct: [id number] Dis Date: Status: REG ER PHONE #: [phone] Exam Date: 08/30/20191907 FAX #: Reason: PELVIC PAIN EXAMS: CPT: [id number] US PELVIC COMPLETE 90166 (Continued) at 1927 Reported and signed by: Walt Londono M.D. CC: Lashell Garcia MD Technologist: Becca Rodriguez Trnscb Date/Time: 08/30/2019 (1926) Nael.GS29 PAGE 2 Signed Report Name: EILEEN SANTACRUZ ks : 1980 Age/S: 39 / F [address] Unit #: [id number] Loc: [place] [address] Phys: Lashell Garcia MD Acct: [id number] Dis Date: Status: REG ER PHONE #: [phone] Exam Date: 08/30/20191907 FAX #: Reason: PELVIC PAIN EXAMS: CPT: [id number] US PELVIC COMPLETE 86043 (Continued) Orig Print D/T: S: 08/30/2019 (1929) Probe: PAGE 3 Signed Report- US TRANSVAGINAL NON [id number] 19:27:00 Name: EILEEN SANTACRUZ : 1980 Age/S: 39 / F [address] Unit #: [id number] Loc: [place] [address] Phys: Lashell Garcia MD Acct: [id number] Dis Date: Status: REG ER PHONE #: [phone] Exam Date: 08/30/20191907 FAX #: Reason: pelvic pain EXAMS: CPT: [id number] [place] [address] Location: L11 EXAM: - US PELVIC COMPLETE, [...] 1 Signed Report (CONTINUED) Name: EILEEN SANTACRUZ [facility] : 1980 Age/S: 39 / F [address] [address] Unit #: [id number] Loc: [place] [address] Phys: Lashell Garcia MD Acct: [id number] Dis Date: Status: REG ER PHONE #: [phone] Exam Date: 08/30/2019 1908 FAX #: Reason: pelvic pain EXAMS: CPT: [id number] US TRANSVAGINAL NONOB 47889 (Continued) at 1927 Reported and signed by: Walt Londono M.D. CC: Cordelia Rowe COMMUNICATIONS PROGRAM MANAGER; Lashell Garcia MD Technologist: Becca Rodriguez Trnscb Date/Time: 08/30/2019 (1926) KrystleGS29 PAGE 2 Signed Report Name: EILEEN MORRISON [facility] : 1980 Age/S: 39 / F [address] Unit #: [id number] Loc: [place] [address] Phys: Lashell Garcia MD Acct: [id number] Dis Date: Status: REG ER PHONE #: [phone] Exam Date: 08/30/2019 1908 FAX #: Reason: pelvic pain EXAMS: CPT: [id number] [place] [address] (Continued) Orig Print D/T: S: 08/30/2019 (1930) Probe: 140426FJ8 PAGE 3 Signed Report- XR CHEST 1 [id number] 17:51:00 Name: EILEEN SANTACRUZ [facility] : 1980 Age/S: 39 / F [address] Unit #: [id number] Loc: [place] [address] Phys: Lahsell Garcia MD Acct: [id number] Dis Date: Status: REG ER PHONE #: [phone] Exam Date: 08/30/2019 1736 FAX #: Reason: Suspected Sepsis EXAMS: CPT: [id number] XR CHEST 1 V 50436 Fluoro Time: DAP (Gy m2): Air Kerma [...] by: Peter Greer M.D. CC: Cordelia Rowe COMMUNICATIONS PROGRAM MANAGER; Lashell Garcia MD PAGE 1 Signed Report Name: EILEEN SANTACRUZ [facility] : 1980 Age/S: 39 / F [address] Unit #: [id number] Loc: [place] [address] Phys: Lashell Garcia MD Acct: [id number] Dis Date: Status: REG ER PHONE #: [phone] Exam Date: 08/30/20191737 FAX #:Reason: Suspected Sepsis EXAMS: CPT: [id number] XR CHEST 1 V 62417 Fluoro Time: DAP (Gy m2): Air Kerma (mGy): (Continued) Technologist: Argenis Beebe, RT(R)(CT)(MRI) Trnscb Date/Time: 08/30/2019 (1750) t.VINCER.BC0 Orig Print D/T: S: 08/30/2019 (3599) PAGE 2 Signed Report- CT ABD PELVIS W/[id number] 17:49:00 Name: EILEEN SANTACRUZ [facility] [place] : 1980 Age/S: 39 / F [address] [address] Unit #: [id number] Loc: [place] [address] Phys: Lashell Garcia MD Acct: [id number] Dis Date: Status: REG ER PHONE #: [phone] Exam Date: 08/30/20191737 FAX #: Reason: RLQ pain EXAMS: CPT: [id number] CT ABD PELVIS W/CONT 41519 EXAM: - CT ABD PELVIS W/CONT LOCATION: [...] 1 Signed Report (CONTINUED) [facility] 1980 Age/S: 39 / F [address] Unit #: [id number] Loc: [place] [address] Phys: Lashell Garcia MD Acct: [id number] Dis Date: Status: REG ER PHONE #: [phone] Date: 08/30/2019 4121 FAX #: Reason: RLQ pain EXAMS: CPT: [id number] CT ABD PELVIS W/CONT 25904(Continued) PELVIC FREE FLUID/FLUID COLLECTION: None. URINARY BLADDER: Unremarkable. EXTERNAL SOFT TISSUE: No abnormalities. BONES: Regional osseous structures are intact. IMPRESSION: 1. No acute findings demonstrated in the abdomen and pelvis. 2. Normal appendix. 3. Cholecystectomy. Electronicall y Signed by Yuli Whitaker on 08/30/2019 at 1749 Reported and signed by: Hector Whitaker M.D. CC: Cordelia Rowe COMMUNICATIONS PROGRAM MANAGER; Lashell Garcia MD Technologist:Argenis Beebe, RT(R)(CT)(MRI) CTDI: DLP: TrnscbDate/Time: 08/30/2019 (174) t.SDR.TH15 Orig Print D/T: S: 08/30/2019 (175) PAGE 2 Signed ReportUA RFLX MICR CULT IF [id number] 17:09:00 Test Item Value Reference Range Interpretation [...] (test 3+ mg/DL NEG A code = FERHCO) UA PH DIPSTICK (test code 7.0 pH [...] culture: Flank PainUA RFLX MICR CULT IF [id number] 16:47:00 Test Item Value Reference Range Interpretation [...] LACT) 0.7 mmol/L 0.4-2.0 N COMPREHENSIVE METABOLIC [id number] 16:28:00 Test Item Value Reference Range Interpretation [...] (test code = ALKP) Completed by Nursing: [id number] 16:28:00 Test Item Value Reference Range Interpretation Comments LIPASE (test code = LIP) 91 Unit/L 114-286 L Completed by Nursing: [id number]-[id number] 16:28:00 Test Item Value Reference Range Interpretation [...] yby method. Completed by Nursing: NOCBC W/AUTO [id number] 16:13:00 Test Item Value Reference Range Interpretation [...] DIFF/SCN CRITERIA = MDIFF) DNA PROBE CHLAMYDIA [id number] 06:10:00 Test Item Value Reference Range Interpretation Comments DNA PROBE CHLAMYDIA Negative Negative (test code = DNACH) DNA PROBE N.GONORRHEA Negative Negative Perfor med At: ST (GC) (test code = [facility] Sa n DNAGC) [address] [place], [place] [id number] Mccullough MD Ph:[phone] - CT ABD PELVIS W/[id number] 15:54:00 Name: EILEEN SANTACRUZ [facility] : 1980 Age/S: 38 / F [address] [facility] Unit #: [id number] Loc: [place] [address] Phys: Geraldo Atwood DO Acct: [id number] Dis Date: Status: REG ER PHONE #: [phone] Exam Date: 09/19/2018 8667 FAX #: Reason: rlq pain EXAMS: CPT: [id number] CT ABD PELVIS W/CONT 11807 Exam: CT abdomen and pelvis with contrast. Location: H 12 History: rlq pain Technique: Enhanced spiral slices were taken from the domes of the diaphragm, through the pubic symphysis. Coronal reformations were performed. 100 cc of Isovue-300 were used. One or more of the following dose reduction techniques were used: Automated exposure control, adjustment of the mA and/or kV according to patient size, and/or utilization of iterative reconstruction technique. Findings: The liver is of normal, homogeneous density. No mass is seen. The intra-and extrahepatic biliary tree is normal. The hepatic and portal veins are patent. The gallbladder has been removed. The pancreas isnormal. The pancreatic duct is normal in caliber. The spleen and adrenal glands are normal in size and shape. The kidneys are unremarkable. No nephrolithiasis, perinephric fluid collections or hydronephrosis is seen. The large and small intestine are normal in caliber. The appendix is normal. No inflammatory change is identified. No lymphadenopathy or free fluid is found in the abdomen or the pelvis. The pelvic structures are unremarkable. The lung bases are clear. No incidental findings are noted. Impression: 1. No acute abdominal findings. 2. Status post cholecystectomy. 3. Otherwise unremarkable exam. PAGE 1 Signed Report (CONTINUED) Name: EILEEN SANTACRUZ [facility] : 1980 Age/S: 38 / F [address] [address] Unit #: [id number] Loc: [place] [address] Phys: Geraldo Atwood DO Acct: [id number] Dis Date: Status: REG ER PHONE #: [phone] Exam Date: 09/19/2018 1540 FAX #: Reason: rlq pain EXAMS: CPT: [id number] CT ABD PELVIS W/CONT 26889 (Continued) ElectronicallySigned by Yuli Mc on 09/19/2018 at 1554 Reported and signed by: Kj Mc M.D. CC: Geraldo Atwood DO; Keturah ALMODOVAR Technologist:Dulce Maria Nelson, RT(R); ...CTDI: DLP: Trnscb Date/Time: 09/19/2018 (9904) t.LENNY.SHYLA Orig Print D/T: S: 09/19/2018 (5266) PAGE 2Signed ReportUA RFLX MICR CULT IF [id number] 14:40:00 Test Item Value Reference Range Interpretation [...] CLEAN CATCHIndication for culture: Suprapubic PainBASIC METABOLIC [id number] 14:33:00 Test Item Value Reference Range Interpretation [...] CA) 8.7 MG/DL 8.5-10.1 N HEPATIC FUNCTION [id number] 14:33:00 Test Item Value Reference Range Interpretation [...] 54 Unit/L 45-117 N code = ALKP) [id number] 14:33:00 Test Item Value Reference Range Interpretation Comments LIPASE (test code = LIP) 66 Unit/L 114-286 L CBC W/AUTO [id number] 14:09:00 Test Item Value Reference Range Interpretation [...] CRITERIA MDIFF) UA RFLX MICR CULT IF [id number] 14:03:00 Test Item Value Reference Range Interpretation [...] = HCGPOC) < 5.0 IU/L <5.0 H Notes Date/Time Note Provider Source 2022-10-23 2170-87-42U57:15:00 Addended by: [facility] - :15:00 JAYNA LOPEZ CNM on: 10/24/2022 Health 11:59 AM Modules accepted: Orders 51691-4Ocgrauof CpcdmfnyLY9979-89-14Y04:59:10Addendum DocumentTXT1.2.840.246638.1.13.104.2.7.2. 763825|[id number] for patient hafn48585-8WqhcQGRLEFCWJO[address]TXTX[address]7555USUSG KBSBTNWVOWKPOAIGA0968-02-57J03:59:101.2.8 40.116816.1.72.3.15|1.2.840.836651.1.13.1 04.2.7.2.727879_1871342151 2022-10-11 2670-53-22V35:19:14Formatting of this Christi sheppard [facility] :19:14 note might be different from the [facility] original.Forms from [facility] 90 Day prescription received. Forms where faxed and conformation received. Placed in to be scanned forms. 38007-0Rppiuwixy encounter KggmXQ6984-60-13A07:20:52Telephone encounter NoteTXT1.2.840.475972.1.13.104.2.7.2.7278 79|[id number] for patient tzmo169225116Jxqguc M Serrano [id number] BDTHSZVMKNRFIPYKV1119-38-43U87:20:521.2.8 40.247067.1.72.3.15|1.2.840.550148.1.13.1 04.2.7.2.727879_1861111388 2022-10-10 5555-97-82G57:14:26Formatting of this Julieth carrillo [facility] - 17:14:26 note might be different from the [facility] original.Notified patient of medication and recommendations. She has already be scheduled with neurology for 10.23.22. She feels she will wait to take the imitrex and amitriptyline until she sees neurology because she is concerned they will affect her mood. [place] . [address]-1Fqxxjhjij encounter BjsfFL8978-61-03L87:16:30Telephone encounter NoteTXT1.2.840.786220.1.13.104.2.7.2.7278 79|[id number] for patient [id number] L Carroll RN[id number] ZRBRDDTGLKUHYLPXM3663-98-58I45:16:301.2.8 40.176115.1.72.3.15|1.2.840.266324.1.13.1 04.2.7.2.727879_[id number] 2022-10-10 3911-44-70X77:33:09Formatting of this [facility] - 08:33:09 note might be different from the Health original.Have reviewed imaging and started new med/treatment planAlso referred to Neurology 07014-0Sehwurejj encounter LfmvEX0874-99-82Y12:33:24Telephone encounter NoteTXT1.2.840.345367.1.13.104.2.7.2.7278 79|[id number] for patient [id number] XLVWTKTMLJCSFPBDD1911-81-08A01:33:241.2.8 40.308343.1.72.3.15|1.2.840.670415.1.13.1 04.2.7.2.727879_1859913746 2022-10-10 0419-91-26T88:30:14Formatting of this [facility] - 08:30:14 note might be different from the Health original.CT of head reviewed and is normalI will prescribe Imitrex for migraines to see if this helpsThe other hope is starting BP meds and lower BP will also help with symptomsI will also send amitriptyline to start daily at night to help with headache treatmentI am also going to place a stat referral to Neurology for headachesPlease assist [place] [address]-6Kcvnvrimh encounter JmhaAO0965-34-05F78:32:53Telephone encounter NoteTXT1.2.840.986268.1.13.104.2.7.2.7278 79|[id number] for patient [address] Lr[id number] AXJDTAGXOILHQVGFA4798-49-71L52:32:531.2.8 40.735334.1.72.3.15|1.2.840.880990.1.13.1 04.2.7.2.727879_1859913205 2022-10-09 2810-54-42E00:30:26Formatting of this FM-FAMILY [facility] - 18:30:26 note might be different from the [facility]ICINE STAFF Health original.MAYCOL 10/03/2022. Forwarded to Jennifer's attention. Thank you. 01545-0Yjzskujlz encounter ClosNG4478-04-33U98:33:51Telephone encounter NoteTXT1.2.840.169798.1.13.104.2.7.2.7278 79|[id number] for patient careFM-FAMILY MEDICINE STAFFFM-FAMILY MEDICINE [address]vestonTXTX[address]5577555USUSG QGKGMWZSCUTMUORIM9327-26-16U85:33:511.2.8 40.260649.1.72.3.15|1.2.840.038620.1.13.1 04.2.7.2.727879_1859521297 2022-10-09 8745-92-66G54:20:41Formatting of this Ora Lozano [facility] - 08:20:41 note might be different from the [facility] original.Pt states tylenol is not helping at all, has been taking tylenol otc even before coming to her [place] per pt. States she takes 2 tylenol 3-4x a day. Per pt wanted me to add "She has never been put up in a situation like this" to my notes, she was really upset. Pt was told to get good rx coupon to get rx as insurance isn't covering but refused because she states she doesn't have the money and that is why she has medicaid. Informed provider is out of office today but will let her know and will get back with her. 18220-2Fveooauhg encounter GehmHU4111-17-50U47:38:11Telephone encounter NoteTXT1.2.840.446963.1.13.104.2.7.2.7278 79|[id number] for patient [id number] L Garza [id number] NMRQLHWUDWBGWCYMP6956-13-19Y92:38:111.2.8 40.842514.1.72.3.15|1.2.840.521025.1.13.1 04.2.7.2.727879_[id number] 2022-10-07 0837-87-38D22:02:31Formatting of this [facility] - 08:02:31 note might be different from the Health original.Would suggest tylenol otc due to aspirin and ibuprofen allergies 54814-9Cetqtgooo encounter JytaNZ4412-06-41K36:03:11Telephone encounter NoteTXT1.2.840.677694.1.13.104.2.7.2.7278 79|[id number] for patient [address]TXTX[address]5577555USUSG HLQABWWRDHXLZIFUR1857-90-57B61:03:111.2.8 40.132469.1.72.3.15|1.2.840.780025.1.13.1 04.2.7.2.727879_1856788600 2022-10-05 2476-62-76B52:14:06Formatting of this Sussy Ramirez [facility] - 11:14:06 note is different from the [facility] original.zkncziqycqdjx-plbm-exjvnxcwyu (ESGIC) per capsule 30 capsule 0 10/03/2022 No Sig: Take 1 capsule by mouth every 4 (four) hours as needed for Pain The above medication is not covered by insurance patient is requesting alternate therapy. Please review and advise. Sussy Ramirez LVN 10/05/2022 11:14 AM 47825-6Bipkywqfz encounter XfoyHC5664-54-12B65:14:43Telephone encounter NoteTXT1.2.840.007764.1.13.104.2.7.2.7278 79|[id number] for patient [id number] M Fisher [id number] DPNOSMRKMLCOGPDYA1641-15-14X50:14:431.2.8 40.770075.1.72.3.15|1.2.840.568631.1.13.1 04.2.7.2.727879_[id number] 2022-10-05 9228-41-87Z81:08:14Formatting of this Sussy Cui James [facility] - 11:08:14 note is different from the original. [facility] Sussy Ramirez LVN 10/05/2022 9:43 AM CDT Back to Top Written by DANIEL Trejo on 10/03/2022 2:15 PM CDTSeen by patient Eileen Santacruz on 10/03/2022 4:12 PM 12487-4Aagxpvain encounter EtgkJJ5108-49-73X11:08:19Telephone encounter NoteTXT1.2.840.947354.1.13.104.2.7.2.7278 79|[id number] for patient [id number] Basilia James [address] Wy[id number] GPMYKFJUZDECQPYEV5160-90-91F66:08:191.2.8 40.715882.1.72.3.15|1.2.840.481739.1.13.1 04.2.7.2.727879_[id number] 2022-10-04 1497-80-96W32:52:28Formatting of this Zora isbell RN [facility] - 16:52:28 note might be different from the Health original.Spoke with patient, noted in different encounter 40077-9Qwlknjxvz encounter WbvaUY3094-30-02T78:52:46Telephone encounter NoteTXT1.2.840.276917.1.13.104.2.7.2.7278 79|[id number] for patient [id number] L Reid RNUTMB78 Leonard [id number] LCYNPTLBMOYVBBWIP8643-83-99T65:52:461.2.8 40.388723.1.72.3.15|1.2.840.104770.1.13.1 04.2.7.2.727879_[id number] 2022-10-04 6947-12-27T64:44:51Formatting of this Zora isbell RN [facility] - 16:44:51 note might be different from the Health original.Spoke with patient, verbalized her insurance doesn't cover the medication she was prescribed and cannot afford to pay the cost. I let patient know that we are working as fast as we can to get through all of our messages and faxes and we have not made it to the questions or faxes from yesterday. Patient was unhappy and stated this is some bullshit and hung up the phone. 49488-7Khgulnzob encounter AkbtZF2870-78-25V65:51:07Telephone encounter NoteTXT1.2.840.056266.1.13.104.2.7.2.7278 79|[id number] for patient [id number] L Reid RNUTMB[address] [id number] OYBLTAIVPHXCIXQAN6185-11-73E63:51:071.2.8 40.436699.1.72.3.15|1.2.840.175856.1.13.1 04.2.7.2.727879_[id number] 2022-10-04 9591-42-91N56:20:31Formatting of this Marina Aguilera [facility] - 09:20:31 note might be different from the Health original.Patient is returning clinic call for lab results. 02453-3Dmjcbbipa encounter DxueVV8015-68-11S42:21:07Telephone encounter NoteTXT1.2.840.335787.1.13.104.2.7.2.7278 79|[id number] for patient [id number] [id number] TZBOSQROHGDGIYGCJ1119-33-64F39:21:071.2.8 40.027247.1.72.3.15|1.2.840.367188.1.13.1 04.2.7.2.727879_[id number] 2022-10-04 5712-66-28K09:17:56Formatting of this Marina Aguilera [facility] - 09:17:56 note might be different from the Health original.Patient is calling clinic the medication is not covered by her insurance. She is wanting to change medication to something insurance will cover. 06559-8Istbdfkbn encounter KdgnDR0572-55-38D98:19:25Telephone encounter NoteTXT1.2.840.759368.1.13.104.2.7.2.7278 79|[id number] for patient [id number] N [id number] WHOFJMNVVERASDAMF5761-70-79P72:19:251.2.8 40.406868.1.72.3.15|1.2.840.284345.1.13.1 04.2.7.2.727879_[id number] 2022-10-04 0171-29-66U07:36:16Formatting of this Claudia hicks [facility] - 08:36:16 note might be different from the Health original.Images from the original note were not included. 02047-1Ticjutgpc encounter GcskFY4884-85-32X77:37:00Telephone encounter NoteTXT1.2.840.333908.1.13.104.2.7.2.7278 79|[id number] for patient [id number] [address][id number] YIPQZDAFHCEZMYQRA1626-00-78J08:37:001.2.8 40.806177.1.72.3.15|1.2.840.414478.1.13.1 04.2.7.2.727879_[id number] 2022-10-03 2183-76-39B08:56:39Formatting of this Reginald Hyde [facility] - 15:56:39 note might be different from the [facility] original.Patient is returning call for test results.Please advise 16773-4Lxdgcvavf encounter UtxcFC6964-56-08M88:57:08Telephone encounter NoteTXT1.2.840.960632.1.13.104.2.7.2.7278 79|[id number] for patient [id number] S [address]XudhSjtz[id number] ZNIMLZYPMHCJDWPKK3781-75-95Y66:57:081.2.8 40.013481.1.72.3.15|1.2.840.532160.1.13.1 04.2.7.2.727879_[id number] 2022-10-03 3241-87-27S66:45:00Formatting of this [facility] - 11:45:00 note is different from the [facility] original.Images from the original note were not included.Venipuncture collection performed by clean technique on the left anticubitus. Total of 1 attempts were made. Slight pressure and a bandage/dressing were applied to the site(s). The patient experienced no complications. The following specimens were processed according to instructions and sent to [facility] laboratories per lab order on 10/03/2022 : LT BLUE SST 1 RED LAV 2 PPT DK GREEN (LiHep) DK GREEN (SodH) NULL DK BLUE (K2) DK BLUE (S) ACD Blood Culture NIPT/NTD Patient has been identified by and name and was provided with cup, antiseptic towelette, and clean catch instructions. 1 urine specimen(s) sent. Unpreserved 1 Urine Culture Aptima tube Other urine 75877-4Xguqg GmruZL1230-45-81J31:43:08Nurse NoteTXT1.2.840.453910.1.13.104.2.7.2.7278 79|[id number] for patient [address] Oko[id number] RKGIBZBUEIDFHPILV3645-00-73B48:43:081.2.8 40.595459.1.72.3.15|1.2.840.290145.1.13.1 04.2.7.2.727879_[id number] 2019-08-30 LTvzsqrxkqa635886572163-59-14Y79:40:00 [facility] 15:40:00 [facility] ([facility])EMERGENCY PROVIDER REPORTREPORT#:[id number] REPORT STATUS: SignedDATE:08/30/19 TIME:1540 PATIENT: EILEEN SANTACRUZ UNIT #: [id number]#: [id number] ROOM/BED:: 82 AGE: 39 SEX: F PCP PHYS: No Primary or Family PhysicianSERVICE AUTHOR: Cordelia Rowe I COMMUNICATIONS PROGRAM MANAGER * ALL edits or amendments must be made on the electronic/computer document * HPI-Abd Pain F Under 40 GeneralConfirmed Patient YesPatient Type New patientInitial Greet Date/Time 08/30/19 4313 PresentationChief Complaint Abdominal pain, NauseaHx Obtained From PatientSudden in Onset? NoOnset Occurred Days ago (3)Symptom Duration Since onsetProgression since Onset Gradually worseningCaused by No trauma by historyLocation Abdomen lowerQuality SharpRadiationBack. Migration/Movement NoneSeverity: Current Pain level 10 out of 10Associated withReports: Back pain. Denies: Anorexia, Chest pain, Chills, Constipation, Diarrhea, Dysuria, Fever, Melena, Nausea, Shortness of breath, Urinary frequency, Urinary retention, Urinary tract symptoms, Vaginal bleeding, Vaginal discharge, Vomiting. Associated Other Pt denies other symptomsExacerbated by NothingRelieved by Nothing ContextPregnancy/Sexual Hx Status Negative - ED urine HCG Free Text HPI NotesFree Text HPI Ozsrz6-aviz-hby female with no known past medical history presents to emergency room with complaints of worsening lower abdominal pain with radiation to the back forthe past 3 days. Patient reports taking axlg-rom-vuupqbc Tylenol with no improvement in symptoms. Denies any fever, chills, nausea, vomiting, diarrhea, dysuria, hematuria or or vaginal discharge. Patient reports that she has been getting menstrual cycles every 3 weeks instead of every 4 weeks and is concernedas to why she is getting irregular periods. Risk-Abd Pain F Under 40)( Ectopic Risk factors reviewed, No risk factorsCoronary Artery Disease Risk factors reviewed, Hypertension, SmokingThoracic Aortic Dissection Risk factors reviewed, Hypertension Review of Systems ROS StatementsAll systems rev neg except as marked.Complete sys rev neg except as marked. Focused Review of SystemsConstitutionalReports: Fatigue, Weakness - generalized. Denies: Chills, Fever, Lethargy, Malaise, Recent wt loss. RespiratoryDenies: Cough, non-productive, Cough, productive, Shortness of breath. CardiovascularDenies: Chest pain, Syncope. GIReports: Abdominal pain, Nausea. Denies: Diarrhea, Vomiting. FemaleReports: Dysuria. Denies: Flank pain, Urinary frequency, Urinary urgency, Urination decreased, Urination increased, Vaginal bleeding - abnl, Vaginal discharge. MusculoskeletalDenies: Back pain, Extremity pain. Past Medical History - AdultStated Complaint SUPRAPUBIC PAIN X 3 DAYS,HEADACHEAllergiesCoded Allergies:Pork/Porcine Containing Products (Severe, HIVES, THROAT SWELLS 10/23/16)aspirin (Severe, THROAT SWELLS UP, HIVES 10/23/16)ibuprofen (Severe, THROAT SWELLS, HIVES 10/23/16)tramadol (Severe, HIVES 10/23/16) Home MedicationsDiscontinued Reported MedicationsLEVOTHYROXINE (LEVOTHROID) 50 MCG PO DAILY HYDROcodone/APAP (NORCO 5/325) 1 TAB PO Q4H PRN PRN PAIN Review of Nursing Notes Rev avail, and agree (triage only)Pt reports no significant: Family historyPast Medical History:Reports: Hypertension. Past Surgical History:Reports: Cholecystectomy, . Alcohol Use Denies EtOH useDrug Use MarijuanaSmoking status for patients 13 years old or older: Current every day smoker Physical Exam Vital SignsVital SignsFirst Documented: Result Date Time Pulse Ox 98 08/29 1451 B/P 144/96 08/29 1451 B/P Mean 112 08/29 145 O2 Delivery Room air 08/29 1450 Temp 99.0 08/29 1450 Pulse 96 08/29 1451 Resp 18 08/29 1451 Last Documented: Result Date Time Pulse Ox 98 08/30 2019 B/P 141/72 08/30 2019 B/P Mean 95 08/30 2019 O2 Delivery Room air 08/30 2019 Temp 98.0 08/30 2019 Pulse 60 08/30 2019 Resp 20 08/30 2019 Review of Vital Signs Reviewed Focused PEGeneral/Const General/Const Awake, Alert, No acute distress, Well appearing, Well developed, Well hydrated, Well nourished, Cooperative, Not toxic appearingMS Head Head Atraumatic, NormocephalicEyes Eyes No periorbital redness, No periorbital swelling, Conjunctiva NLEars/Nose/Throat Ears/Nose/Throat Atraumatic, Airway patent, Mucous membranes moistResp/Chest Respiratory/Chest Atraumatic, Breath sounds NL, Breath sounds = bilat, No respiratory distressCardiovascular Cardiovascular Heart rate NL, Regular rhythm, Heart sounds NL, Cap refill notdelayed, Peripheral circulation NLAbdomen/GI Abdomen/GI Atraumatic, Soft, McBurney's non-tender, No guarding, No rebound, BS normoactive, No distention Tenderness/Guarding/Rebound Tender LUQ, Tender LLQ, Tender suprapubic. MS Back Back Inspection NL, Non-tender, No CVA tendernessSkin Skin Atraumatic, Color NL, No rash, Warm, Dry, IntactNeurologic Neurologic Oriented X3, Speech NL, No motor deficits, No sensory deficits, Gait NL Additional PEMS Neck Neck Atraumatic, Supple, No meningismus, Full range of motion Interpretation Diagnostics Lab Results InterpretationResultsLaboratory Tests 08/30/19 155:[Embedded Image Not Available]Laboratory Tests: 08/29 08/29 1630 1555 Chemistry Lactic Acid (0.4 - 2.0 mmol/L) 0.7 Urines Urine Color (YEL/STRAW discript) PEACH H Urine Appearance (CLEAR discript) CLEAR Urine pH (5.0 - 7.0 pH UNITS) 7.0 Ur Specific Randolph (1.005 - 1.030 SG) <=1.005 Urine Protein (NEG mg/dL) 1+ H Urine Glucose (UA) (NEG mg/dL) NEGATIVE Urine Ketones (NEG mg/dL) NEGATIVE Urine Blood (NEG mg/DL) 3+ H Urine Nitrite (NEG SCREEN) NEGATIVE Urine Bilirubin (NEG mg/dL) NEGATIVE Urine Urobilinogen (<2.0 mg/dL) 0.2 Ur Leukocyte Esterase (NEGATIVE Leuk/mcL) TRACE H Urine RBC (0 - 3 #RBC/HPF) 20-30 H Urine WBC (0 - 3 #WBC/HPF) 0-1 Ur Squamous Epith Cells (NONE /HPF) NONE SEEN Urine Bacteria (NONE - TRACE /HPF) TRACE Urine Culture Screen (Culture CHK Criteria) NO, WBC<10 Urine HCG, Qual (NEGATIVE) NEGATIVE 08/29 1554 Chemistry Sodium (134 - 147 mmol/L) 140 Potassium (3.4 - 5.0 mmol/L) 4.5 Chloride (100 - 108 mmol/L) 110 H Carbon Dioxide (21 - 32 mmol/L) 26 Anion Gap (4.0 - 15.0 GAP calc) 4.0 BUN (7 - 18 MG/DL) 7 Creatinine (0.6 - 1.0 MG/DL) 0.9 Glomerular Filtr Rate (>60 estGFR) >=60 max estimate Glucose (70 - 110 MG/DL) 76 Calcium (8.5 - 10.1 MG/DL) 8.0 L Total Bilirubin (0.2 - 1.2 MG/DL) 0.30 AST (15 - 37 Unit/L) 21 ALT (12 - 78 Unit/L) 14 Total Alk Phosphatase (45 - 117 Unit/L) 57 Troponin I (0.000 - 0.045 NG/ML) < 0.015 Total Protein (6.4 - 8.2 G/DL) 7.1 Albumin (3.4 - 5.0 G/DL) 3.4 Globulin (GM/dL) 3.7 Albumin/Globulin Ratio (1.2 - 2.2 RATIO) 0.9 L Lipase (114 - 286 Unit/L) 91 L Hematology WBC (3.5 - 11.0 K/mm3) 4.2 RBC (4.70 - 6.10 M/mm3) 3.37 L Hgb (10.4 - 14.9 G/DL) 10.7 Hct (31.5 - 44.1 %) 32.3 MCV (84.5 - 98.6 Fl) 95.8 MCH (27.0 - 34.2 pg) 31.8 MCHC (31.5 - 34.0 G/DL) 33.1 RDW (11.5 - 14.5 SD) 14.6 H Plt Count (150 - 450 K/mm3) 228 MPV (7.0 - 10.5 fL) 9.80 Neut % (Auto) (40 - 76 %) 49.9 Lymph % (Auto) (20.5 - 51.1 %) 36.0 Morrill % (Auto) (1.7 - 9.3 %) 10.3 H Eos % (Auto) (0.0 - 6.0 %) 2.1 Baso % (Auto) (0.0 - 2.0 %) 1.2 Neut # (Auto) (1.8 - 7.6 K/mm3) 2.1 Lymph # (Auto) (0.6 - 3.2 K/mm3) 1.5 Morrill # (Auto) (0.3 - 1.1 K/mm3) 0.4 Eos # (Auto) (0.0 - 0.4 K/mm3) 0.1 Baso # (Auto) (0.0 - 0.1 K/mm3) 0.1 Abs Immat Gran (auto) (0.00 - 0.03 x10 3/uL) 0.02 Add Manual Diff (CRITERIA DIFF/SCN) NO Nucleated RBC % (0.0 - 1.0 /100WBC%) 0.0 Microbiology: Date/Time Procedure - Status Source Growth 08/29 1555 Blood Culture - RES BLOOD 08/29 1540 Blood Culture - RES BLOOD Recent Impressions:RADIOLOGY - XR CHEST 1 V 08/29 1737 Report Impression - Status: SIGNED Entered: 08/30/20191754 IMPRESSION: No evidence of acute abnormality.Impression By: [email or web address] Rey Greer M.D.CAT SCAN - CT ABD PELVIS W/CONT 08/29 1737 Report Impression - Status: SIGNED Entered: 08/30/20191751 IMPRESSION: 1. No acute findings demonstrated in the abdomen and pelvis.2. Normal appendix.3. Cholecystectomy.Impression By: [email or web address] Rey Whitaker M.D.ULTRASOUND - US PELVIC COMPLETE 08/29 1830 Report Impression - Status: SIGNED Entered: 08/30/20191929 IMPRESSION: No abnormalities are identified on this pelvic ultrasound.Impression By: [email or web address] Rey Londono M.D.ULTRASOUND - US TRANSVAGINAL NON OB 08/29 1830 Report Impression - Status: SIGNED Entered: 08/30/20191929 IMPRESSION: No abnormalities are identified on this pelvic ultrasound.Impression By: [email or web address] Rey Londono M.D. Lab Imaging StatementLaboratory radiographic studies reviewed and considered in the medical decision-making. Point of Care TestingPulse Oximetry Pulse Ox % 98 On: Room air Interpretation Interpreted by me, Pulse oximetry normal ECG #1 InterpretationDate 08/30/19Time 1557Interpreted by and reviewed by me, ED physician (Dr Parsons)NL ECG Interpretation Normal rate, Normal sinus rhythm, No acute ischemic changes, No STEMI, Normal QRS, Normal ST waves, Normal T waves, Normal axis, Normal intervalsRate 63 Re-Evaluation MDM Free Text MDM NotesAdditional TextDiscussed all findings with the patient. Patient was upset due to me not getting TSH level and hormone levels on her workup. Instructed patient to follow-up with REGIONAL LOSS PREVENTION MANAGER to get hormone levels and TSH levels as those levels wouldnot change the plan of care. Patient verbalized understanding. Return precautions where discussed with patient as well. )( Re-Evaluation/Progress #1Time of Re-Eval 1950)( Re-Eval Status ImprovedRe-Eval Abdomen Soft, Non-tenderPlan Post Re-Eval Plan discharge Abd Pain MDM Note F < 40The patient is resting comfortably and feels better, is alert and in no distress. The repeat examination is unremarkable and benign; in particular, there is no discomfort at [facility]. The history, exam, diagnostic testing, and current condition do not suggest acute appendicitis, bowel obstruction, tubovarian abscess, ectopic , ovarian torsion, acute cholecystitis, bowel perforation, major gastrointestinal bleeding, severe diverticulitis, sepsis, or other significant pathology to warrant further testing, continued ED treatment, admission, or surgical evaluation at this point. The vital signs have been stable. The patient does not have uncontrollable pain, intractable vomiting, or other significant symptoms. The patient's condition is stable and appropriate for discharge. The patient will pursue further outpatient evaluation with the primary care physician or other designated or consulting physician as indicated in the discharge instructions. ED CourseMedication(s) OrderedMedication(s) Ordered:Anti-Infective Agents Sig/Alanis Start time Last Medication Dose Route Stop Time Status Admin Piperacillin Sod/ 3.375 GM X1ED STA 08/29 1540 DC 08/29 Tazobactam Sod IV 08/29 1609 1602 Sodium Chloride 100 ML Central Nervous System Agents Sig/Alanis Start time Last Medication Dose Route Stop Time Status Admin Morphine Sulfate 2 MG X1ED STA 08/29 1817 DC 08/29 IV 08/29 1818 1828 Acetaminophen 650 MG X1ED ONE 08/29 1545 DC / PO 08/29 1546 1602 Morphine Sulfate 4 MG X1ED ONE 08/29 1545 DC 08/29 IV 08/29 1546 1602 Diagnostic Agents Sig/Alanis Start time Last Medication Dose Route Stop Time Status Admin Iopamidol 0 .STK-MED ONE 08/29 1712 DC 08/29 .ROUTE 1739 Electrolytic, Caloric, And Court Sig/Alanis Start time Last Medication Dose Route Stop Time Status Admin Sodium Chloride 50 ML .STK-MED ONE 08/29 1712 DC 08/29 IV 1739 Sodium Chloride 10 ML ASDIR PRN 08/29 1545 AC IV 09/28 1544 Sodium Chloride 1,000 ML X1ED STA 08/29 1538 DC 08/29 IV 08/29 1539 1601 Patient Discharge Departure Vital Signs/ConditionVital SignsFirst Documented: Result Date Time Pulse Ox 98 08/29 1451 B/P 144/96 08/29 1451 B/P Mean 112 08/29 1451 O2 Delivery Room air 08/29 145 Temp 99.0 08/29 145 Pulse 96 08/29 1451 Resp 18 08/29 1451 Last Documented: Result Date Time Pulse Ox 98 08/30 2019 B/P 141/72 08/30 2019 B/P Mean 95 08/30 2019 O2 Delivery Room air 08/30 2019 Temp 98.0 08/30 2019 Pulse 60 08/30 2019 Resp 08/29 All vital signs available at the time of this entry have been reviewed. Condition Stable Clinical ImpressionClinical ImpressionPrimary Impression: DysmenorrheaSecondary Impressions: Abdominal painTime of Impression 1953 Disposition DecisionDischarge )( Discharged to Home Yes )( Time 1951 )( Date 08/30/19 Discharge/Care PlanCounseled Regarding Diagnosis, Lab results, Imaging studies, Prescriptions, Needfor follow-up, When to return to EDPrescriptionstylenolPrescriptions Reviewed Risks, Benefits, Alternative treatmentReferralsNo Primary or Family Physician (PCP/Family) Discharge NoteI have spoken with the patient and/or caregivers. I have explained the patient'scondition, diagnoses and treatment plan based on the information available to meat this time. I have answered the patient's and/or caregiver's questions and addressed any concerns. The patient and/or caregivers have as good an understanding of the patient's diagnosis, condition and treatment plan as can beexpected at this point. The vital signs have been stable. The patient's condition is stable and appropriate for discharge from the emergency department. The patient will pursue further outpatient evaluation with the primary care physician or other designated or consulting physician as outlined in the discharge instructions. The patient and/or caregivers are agreeable to this planof care and follow-up instructions have been explained in detail. The patient and/or caregivers have received these instructions in written format and have expressed an understanding of the discharge instructions. The patient and/or caregivers are aware that any significant change in condition or worsening of symptoms should prompt an immediate return to this or the closest emergency department or a call to 911. at 1355 RPT #: [id number] OF REPORTEDEmergency department dkyazn5478-56-15S90:40:00L.AXIF54614129-6 175AVAvailable for patient fngoQYLHUYRBYHYMMH2670-16-59K16:56:19 2019-08-30 PChvruusyzn306646479289-20-18H15:40:00 [facility] 15:40:00 [facility] ([facility])EMERGENCY PROVIDER REPORTREPORT#:[id number] REPORT STATUS: SignedDATE:08/30/19 TIME:1540 PATIENT: EILEEN SANTACRUZ UNIT #: [id number]#: [id number] ROOM/BED:: 82 AGE: 39 SEX: F PCP PHYS: No Primary or Family PhysicianSERVICE AUTHOR: Cordelia Rowe I COMMUNICATIONS PROGRAM MANAGER * ALL edits or amendments must be made on the electronic/computer document * Cordelia Rowe 08/30/19 1540:HPI-Abd Pain F Under 40 GeneralConfirmed Patient YesPatient Type New patient PresentationChief Complaint Abdominal pain, NauseaHx Obtained From PatientSudden in Onset? NoOnset Occurred Days ago (3)Symptom Duration Since onsetProgression since Onset Gradually worseningCaused by No trauma by historyLocation Abdomen lowerQuality SharpRadiationBack. Migration/Movement NoneSeverity: Current Pain level 10 out of 10Associated withReports: Back pain. Denies: Anorexia, Chest pain, Chills, Constipation, Diarrhea, Dysuria, Fever, Melena, Nausea, Shortness of breath, Urinary frequency, Urinary retention, Urinary tract symptoms, Vaginal bleeding, Vaginal discharge, Vomiting. Associated Other Pt denies other symptomsExacerbated by NothingRelieved by Nothing ContextPregnancy/Sexual Hx Status Negative - ED urine HCG Free Text HPI NotesFree Text HPI Ibdol1-quqw-hnd female with no known past medical history presents to emergency room with complaints of worsening lower abdominal pain with radiation to the back forthe past 3 days. Patient reports taking hdiz-rhi-nupofcn Tylenol with no improvement in symptoms. Denies any fever, chills, nausea, vomiting, diarrhea, dysuria, hematuria or or vaginal discharge. Patient reports that she has been getting menstrual cycles every 3 weeks instead of every 4 weeks and is concernedas to why she is getting irregular periods. Risk-Abd Pain F Under 40)( Ectopic Risk factors reviewed, No risk factorsCoronary Artery Disease Risk factors reviewed, Hypertension, SmokingThoracic Aortic Dissection Risk factors reviewed, Hypertension Review of Systems ROS StatementsAll systems rev neg except as marked.Complete sys rev neg except as marked. Focused Review of SystemsConstitutionalReports: Fatigue, Weakness - generalized. Denies: Chills, Fever, Lethargy, Malaise, Recent wt loss. RespiratoryDenies: Cough, non-productive, Cough, productive, Shortness of breath. CardiovascularDenies: Chest pain, Syncope. GIReports: Abdominal pain, Nausea. Denies: Diarrhea, Vomiting. FemaleReports: Dysuria. Denies: Flank pain, Urinary frequency, Urinary urgency, Urination decreased, Urination increased, Vaginal bleeding - abnl, Vaginal discharge. MusculoskeletalDenies: Back pain, Extremity pain. Past Medical History - AdultStated Complaint SUPRAPUBIC PAIN X 3 DAYS,HEADACHEAllergiesCoded Allergies:Pork/Porcine Containing Products (Severe, HIVES, THROAT SWELLS 10/23/16)aspirin (Severe, THROAT SWELLS UP, HIVES 10/23/16)ibuprofen (Severe, THROAT SWELLS, HIVES 10/23/16)tramadol (Severe, HIVES 10/23/16) Home MedicationsDiscontinued Reported MedicationsLEVOTHYROXINE (LEVOTHROID) 50 MCG PO DAILY HYDROcodone/APAP (NORCO 5/325) 1 TAB PO Q4H PRN PRN PAIN Review of Nursing Notes Rev avail, and agree (triage only)Pt reports no significant: Family historyPast Medical History:Reports: Hypertension. Past Surgical History:Reports: Cholecystectomy, . Alcohol Use Denies EtOH useDrug Use MarijuanaSmoking status for patients 13 years old or older: Current every day smoker Physical Exam Vital SignsVital SignsFirst Documented: Result Date Time Pulse Ox 98 08/29 1451 B/P 144/96 08/29 1451 B/P Mean 112 08/29 1451 O2 Delivery Room air 08/29 1450 Temp 99.0 08/29 145 Pulse 96 08/29 1451 Resp 18 08/29 145 Last Documented: Result Date Time Pulse Ox 98 08/30 2019 B/P 141/72 08/30 2019 B/P Mean 95 08/30 2019 O2 Delivery Room air 08/30 2019 Temp 98.0 08/30 2019 Pulse 60 08/30 2019 Resp 20 08/30 2019 Review of Vital Signs Reviewed Focused PEGeneral/Const General/Const Awake, Alert, No acute distress, Well appearing, Well developed, Well hydrated, Well nourished, Cooperative, Not toxic appearingMS Head Head Atraumatic, NormocephalicEyes Eyes No periorbital redness, No periorbital swelling, Conjunctiva NLEars/Nose/Throat Ears/Nose/Throat Atraumatic, Airway patent, Mucous membranes moistResp/Chest Respiratory/Chest Atraumatic, Breath sounds NL, Breath sounds = bilat, No respiratory distressCardiovascular Cardiovascular Heart rate NL, Regular rhythm, Heart sounds NL, Cap refill notdelayed, Peripheral circulation NLAbdomen/GI Abdomen/GI Atraumatic, Soft, McBurney's non-tender, No guarding, No rebound, BS normoactive, No distention Tenderness/Guarding/Rebound Tender LUQ, Tender LLQ, Tender suprapubic. MS Back Back Inspection NL, Non-tender, No CVA tendernessSkin Skin Atraumatic, Color NL, No rash, Warm, Dry, IntactNeurologic Neurologic Oriented X3, Speech NL, No motor deficits, No sensory deficits, Gait NL Additional PEMS Neck Neck Atraumatic, Supple, No meningismus, Full range of motion Interpretation Diagnostics Lab Results InterpretationResultsLaboratory Tests 08/30/19 1555:[Embedded Image Not Available]Laboratory Tests: 08/29 08/29 1630 1555 Chemistry Lactic Acid (0.4 - 2.0 mmol/L) 0.7 Urines Urine Color (YEL/STRAW discript) PEACH H Urine Appearance (CLEAR discript) CLEAR Urine pH (5.0 - 7.0 pH UNITS) 7.0 Ur Specific Randolph (1.005 - 1.030 SG) <=1.005 Urine Protein (NEG mg/dL) 1+ H Urine Glucose (UA) (NEG mg/dL) NEGATIVE Urine Ketones (NEG mg/dL) NEGATIVE Urine Blood (NEG mg/DL) 3+ H Urine Nitrite (NEG SCREEN) NEGATIVE Urine Bilirubin (NEG mg/dL) NEGATIVE Urine Urobilinogen (<2.0 mg/dL) 0.2 Ur Leukocyte Esterase (NEGATIVE Leuk/mcL) TRACE H Urine RBC (0 - 3 #RBC/HPF) 20-30 H Urine WBC (0 - 3 #WBC/HPF) 0-1 Ur Squamous Epith Cells (NONE /HPF) NONE SEEN Urine Bacteria (NONE - TRACE /HPF) TRACE Urine Culture Screen (Culture CHK Criteria) NO, WBC<10 Urine HCG, Qual (NEGATIVE) NEGATIVE 08/29 1555 Chemistry Sodium (134 - 147 mmol/L) 140 Potassium (3.4 - 5.0 mmol/L) 4.5 Chloride (100 - 108 mmol/L) 110 H Carbon Dioxide (21 - 32 mmol/L) 26 Anion Gap (4.0 - 15.0 GAP calc) 4.0 BUN (7 - 18 MG/DL) 7 Creatinine (0.6 - 1.0 MG/DL) 0.9 Glomerular Filtr Rate (>60 estGFR) >=60 max estimate Glucose (70 - 110 MG/DL) 76 Calcium (8.5 - 10.1 MG/DL) 8.0 L Total Bilirubin (0.2 - 1.2 MG/DL) 0.30 AST (15 - 37 Unit/L) 21 ALT (12 - 78 Unit/L) 14 Total Alk Phosphatase (45 - 117 Unit/L) 57 Troponin I (0.000 - 0.045 NG/ML) < 0.015 Total Protein (6.4 - 8.2 G/DL) 7.1 Albumin (3.4 - 5.0 G/DL) 3.4 Globulin (GM/dL) 3.7 Albumin/Globulin Ratio (1.2 - 2.2 RATIO) 0.9 L Lipase (114 - 286 Unit/L) 91 L Hematology WBC (3.5 - 11.0 K/mm3) 4.2 RBC (4.70 - 6.10 M/mm3) 3.37 L Hgb (10.4 - 14.9 G/DL) 10.7 Hct (31.5 - 44.1 %) 32.3 MCV (84.5 - 98.6 Fl) 95.8 MCH (27.0 - 34.2 pg) 31.8 MCHC (31.5 - 34.0 G/DL) 33.1 RDW (11.5 - 14.5 SD) 14.6 H Plt Count (150 - 450 K/mm3) 228 MPV (7.0 - 10.5 fL) 9.80 Neut % (Auto) (40 - 76 %) 49.9 Lymph % (Auto) (20.5 - 51.1 %) 36.0 Morrill % (Auto) (1.7 - 9.3 %) 10.3 H Eos % (Auto) (0.0 - 6.0 %) 2.1 Baso % (Auto) (0.0 - 2.0 %) 1.2 Neut # (Auto) (1.8 - 7.6 K/mm3) 2.1 Lymph # (Auto) (0.6 - 3.2 K/mm3) 1.5 Morrill # (Auto) (0.3 - 1.1 K/mm3) 0.4 Eos # (Auto) (0.0 - 0.4 K/mm3) 0.1 Baso # (Auto) (0.0 - 0.1 K/mm3) 0.1 Abs Immat Gran (auto) (0.00 - 0.03 x10 3/uL) 0.02 Add Manual Diff (CRITERIA DIFF/SCN) NO Nucleated RBC % (0.0 - 1.0 /100WBC%) 0.0 Microbiology: Date/Time Procedure - Status Source Growth 08/29 1555 Blood Culture - RES BLOOD 08/29 1540 Blood Culture - RES BLOOD Recent Impressions:RADIOLOGY - XR CHEST 1 V 08/29 1737 Report Impression - Status: SIGNED Entered: 08/30/20191754 IMPRESSION: No evidence of acute abnormality.Impression By: Lizzeth Greer M.D.CAT SCAN - CT ABD PELVIS W/CONT 08/29 1737 Report Impression - Status: SIGNED Entered: 08/30/20191751 IMPRESSION: 1. No acute findings demonstrated in the abdomen and pelvis.2. Normal appendix.3. Cholecystectomy.Impression By: [email or web address] Rey Whitaker M.D.ULTRASOUND - US PELVIC COMPLETE 08/29 1830 Report Impression - Status: SIGNED Entered: 08/30/20191929 IMPRESSION: No abnormalities are identified on this pelvic ultrasound.Impression By: [email or web address] Rey Londono M.D.ULTRASOUND - US TRANSVAGINAL NON OB 08/29 1830 Report Impression - Status: SIGNED Entered: 08/30/20191929 IMPRESSION: No abnormalities are identified on this pelvic ultrasound.Impression By: [email or web address] Rey Londono M.D. Lab Imaging StatementLaboratory radiographic studies reviewed and considered in the medical decision-making. Point of Care TestingPulse Oximetry Pulse Ox % 98 On: Room air Interpretation Interpreted by me, Pulse oximetry normal ECG #1 InterpretationDate 08/30/19Time 1557Interpreted by and reviewed by me, ED physician (Dr Parsons)NL ECG Interpretation Normal rate, Normal sinus rhythm, No acute ischemic changes, No STEMI, Normal QRS, Normal ST waves, Normal T waves, Normal axis, Normal intervalsRate 63 Re-Evaluation MDM Free Text MDM NotesAdditional TextDiscussed all findings with the patient. Patient was upset due to me not getting TSH level and hormone levels on her workup. Instructed patient to follow-up with REGIONAL LOSS PREVENTION MANAGER to get hormone levels and TSH levels as those levels wouldnot change the plan of care. Patient verbalized understanding. Return precautions where discussed with patient as well. )( Re-Evaluation/Progress #1Time of Re-Eval 1950)( Re-Eval Status ImprovedRe-Eval Abdomen Soft, Non-tenderPlan Post Re-Eval Plan discharge Abd Pain MDM Note F < 40The patient is resting comfortably and feels better, is alert and in no distress. The repeat examination is unremarkable and benign; in particular, there is no discomfort at McBurney's point. The history, exam, diagnostic testing, and current condition do not suggest acute appendicitis, bowel obstruction, tubovarian abscess, ectopic , ovarian torsion, acute cholecystitis, bowel perforation, major gastrointestinal bleeding, severe diverticulitis, sepsis, or other significant pathology to warrant further testing, continued ED treatment, admission, or surgical evaluation at this point. The vital signs have been stable. The patient does not have uncontrollable pain, intractable vomiting, or other significant symptoms. The patient's condition is stable and appropriate for discharge. The patient will pursue further outpatient evaluation with the primary care physician or other designated or consulting physician as indicated in the discharge instructions. ED CourseMedication(s) OrderedMedication(s) Ordered:Anti-Infective Agents Sig/Alanis Start time Last Medication Dose Route Stop Time Status Admin Piperacillin Sod/ 3.375 GM X1ED STA 08/29 1540 DC 08/29 Tazobactam Sod IV 08/29 1609 1602 Sodium Chloride 100 ML Central Nervous System Agents Sig/Alanis Start time Last Medication Dose Route Stop Time Status Admin Morphine Sulfate 2 MG X1ED STA 08/29 1817 DC 08/29 IV 08/29 1818 1828 Acetaminophen 650 MG X1ED ONE 08/29 1545 DC 08/29 PO 08/29 1546 1602 Morphine Sulfate 4 MG X1ED ONE 08/29 1545 DC 08/29 IV 08/29 1546 1602 Diagnostic Agents Sig/Alanis Start time Last Medication Dose Route Stop Time Status Admin Iopamidol 0 .STK-MED ONE 08/29 1712 DC 08/29 .ROUTE 1739 Electrolytic, Caloric, And Court Sig/Alanis Start time Last Medication Dose Route Stop Time Status Admin Sodium Chloride 50 ML .STK-MED ONE 08/29 1712 DC 08/29 IV 1739 Sodium Chloride 10 ML ASDIR PRN 08/29 1545 AC IV 09/28 1544 Sodium Chloride 1,000 ML X1ED STA 08/29 1538 DC 08/29 IV 08/29 1539 1601 Patient Discharge Departure Vital Signs/ConditionVital SignsFirst Documented: Result Date Time Pulse Ox 98 08/29 1451 B/P 144/96 08/29 1451 B/P Mean 112 08/29 1451 O2 Delivery Room air 08/29 1451 Temp 99.0 08/29 1451 Pulse 96 08/29 1451 Resp 18 08/29 1451 Last Documented: Result Date Time Pulse Ox 98 08/30 2019 B/P 141/72 08/30 2019 B/P Mean 95 08/30 2019 O2 Delivery Room air 08/30 2019 Temp 98.0 08/30 2019 Pulse 60 08/30 2019 Resp 20 08/30 2019 All vital signs available at the time of this entry have been reviewed. Condition Stable Clinical ImpressionClinical ImpressionPrimary Impression: DysmenorrheaSecondary Impressions: Abdominal painTime of Impression 1953 Disposition DecisionDischarge )( Discharged to Home Yes )( Time 1953 )( Date 08/30/19 Discharge/Care PlanCounseled Regarding Diagnosis, Lab results, Imaging studies, Prescriptions, Needfor follow-up, When to return to EDPrescriptionstylenolPrescriptions Reviewed Risks, Benefits, Alternative treatmentReferralsNo Primary or Family Physician (PCP/Family) Discharge NoteI have spoken with the patient and/or caregivers. I have explained the patient'scondition, diagnoses and treatment plan based on the information available to meat this time. I have answered the patient's and/or caregiver's questions and addressed any concerns. The patient and/or caregivers have as good an understanding of the patient's diagnosis, condition and treatment plan as can beexpected at this point. The vital signs have been stable. The patient's condition is stable and appropriate for discharge from the emergency department. The patient will pursue further outpatient evaluation with the primary care physician or other designated or consulting physician as outlined in the discharge instructions. The patient and/or caregivers are agreeable to this planof care and follow-up instructions have been explained in detail. The patient and/or caregivers have received these instructions in written format and have expressed an understanding of the discharge instructions. The patient and/or caregivers are aware that any significant change in condition or worsening of symptoms should prompt an immediate return to this or the closest emergency department or a call to 911. Lashell Garcia. 09/02/19 0740:[facility]-Abd [facility] F Under [facility]Time 08/30/19 1452 Patient Discharge Departure Supervising Physician Note MidLv Saw Pt AloneI have reviewed the PA/COMMUNICATIONS PROGRAM MANAGER's note and plan of care. I was available for consultation as needed at all times during the patient's visit in the emergency department. I agree with the clinical impression, plan and disposition. at 1351 at 0741 [facility] #: [id number] [facility] department [id number]:00L.[id number] for patient [id number]:41:19 2018-09-19 [id number]:33:00 [facility] 13:33:00 [facility] ([facility])EMERGENCY PROVIDER REPORTREPORT#:[id number] REPORT STATUS: SignedDATE:09/19/18 TIME:1333 PATIENT: EILEEN SANTACRUZ UNIT #: [id number]#: [id number] ROOM/BED:: 82 AGE: 38 SEX: F PCP PHYS: No Primary or Family PhysicianSERVICE AUTHOR: Keturah Soto * ALL edits or amendments must be made on the electronic/computer document * HPI-Abd Pain F Under 40 GeneralConfirmed Patient YesPatient Type New patientInitial Greet Date/Time 09/19/18 1316 PresentationChief Complaint Patient with multiple complaints, unable to prioritize which is worse. She is having pelvic pain for the past few days along with vaginal d/c with odor. Also having 2 month h/o epigastric pain, nausea/vomiting, diarrhea, and HAs, all of which are bothering her now. Pt states h/o mold exposure which has caused all her symptoms and is being treated by [facility]. C/o feeling dizzyat times and not sleeping well.Hx Obtained From PatientSudden in Onset? NoSeverity: Current Pain level 8 out of 10Exacerbated by Eating, PalpationRelieved by Nothing Risk-Abd Pain F Under 40)( Ectopic Risk factors reviewed, No risk factors Review of Systems Focused Review of SystemsConstitutionalReports: Chills, Fatigue, Fever. Denies: Lethargy, Malaise. RespiratoryDenies: Cough, non-productive, Cough, productive, Pleuritic pain, Shortness of breath. CardiovascularDenies: Chest pain, Edema. GIReports: Abdominal pain, Diarrhea, Nausea, Vomiting. FemaleReports: Dysuria, Pelvic pain, Urinary frequency, Vaginal discharge. Denies: Flank pain, , Vaginal bleeding - abnl. MusculoskeletalDenies: Back pain, Extremity pain, Extremity swelling. Additional Review of SystemsEars/Nose/ThroatReports: Sore throat. Denies: Earache bilat. SkinDenies: Erythema, Rash, Swelling. NeurologicReports: Dizziness, Generalized weakness, Headache. Denies: Focal weakness. Past Medical History - AdultStated Complaint EXPOSED TO MOLDAllergiesCoded Allergies:Pork/Porcine Containing Products (Severe, HIVES, THROAT SWELLS 10/23/16)aspirin (Severe, THROAT SWELLS UP, HIVES 10/23/16)ibuprofen (Severe, THROAT SWELLS, HIVES 10/23/16)tramadol (Severe, HIVES 10/23/16) Home MedicationsReported MedicationsLEVOTHYROXINE (LEVOTHROID) 50 MCG PO DAILY HYDROcodone/APAP (NORCO 5/325) 1 TAB PO Q4H PRN PRN PAIN Pt reports no significant: Past medical historyPast Surgical History:Reports: Cholecystectomy, . Alcohol Use Denies EtOH useDrug Use MarijuanaSmoking status for patients 13 years old or older: Never Smoker Physical Exam Vital SignsVital SignsFirst Documented: Result Date Time Pulse Ox 99 07/06 1332 B/P 139/82 07/06 1332 B/P Mean 101 07/06 1332 O2 Delivery Room air 07/ 1332 Temp 36.4 07/06 1332 Pulse 102 07/06 1332 Resp 18 / 1332 Last Documented: Result Date Time Pulse Ox 99 07/06 1332 B/P 139/82 07/06 1332 B/P Mean 101 07/06 1332 O2 Delivery Room air 07/ 1332 Temp 36.4 07/06 1332 Pulse 102 07/06 1332 Resp 18 07/06 1332 Review of Vital Signs Reviewed Focused PEGeneral/Const General/Const Awake, Alert, No acute distress, Well appearing, Well developed, Well hydrated, Well nourished, Cooperative, Not toxic appearingMS Head Head Atraumatic, NormocephalicEyes Eyes PERRL, EOMI, No nystagmus, No periorbital redness, No periorbital swelling, No photophobia, No scleral icterus, Conjunctiva NL, Cornea clear, Temporal arteries NLEars/Nose/Throat Ears/Nose/Throat Airway patent, Mucous membranes moist, Pharynx NL, No peritonsillar abscess, No pooling of secretions, No trismus, Tympanic membs NL, Ext aud canal NL, Mastoid area NL, Nose exam NL, No facial swellingResp/Chest Respiratory/Chest Breath sounds NL, Breath sounds = bilat, No respiratory distress, No rales, No rhonchi, No wheezing, No retractionsCardiovascular Cardiovascular Heart rate NL, Regular rhythm, Heart sounds NL, Peripheral circulation NLAbdomen/GI Abdomen/GI Soft, McBurney's non-tender, BS normoactive, No distention, No hernia, No palpable mass, Generalized tenderness to palpation without guarding or rebound.MS Back Back Atraumatic, Inspection NL, Non-tender, No CVA tendernessSkin Skin Atraumatic, Color NL, No rash, Warm, Dry, Intact, Turgor NL, No swellingGenitourinary General Medical Technologist Generalist present Pelvic Exam Adnexal tenderness R. Negative: Cervical motion tend, Cervical lesions pres,Cervix hyperemic, Adnexal mass R, Adnexal mass L, Adnexal tenderness L. Neurologic Neurologic Oriented X3, Speech NL, No motor deficits, No sensory deficits, CNII - XII intact, Reflexes equal bilat, Cerebellar NL, Memory NL, Gait NL Additional PELymphatic Lymphatic Right shoddy inguinal lymphadenopathy. Interpretation Diagnostics Lab Results InterpretationResultsLaboratory Tests 09/19/18 1310:[Embedded Image Not Available]Laboratory Tests: 09/19 09/19 1347 1310 Chemistry Sodium (134 - 147 mmol/L) 138 Potassium (3.4 - 5.0 mmol/L) 2.9 *L Chloride (100 - 108 mmol/L) 107 Carbon Dioxide (21 - 32 mmol/L) 24 Anion Gap (4.0 - 15.0 GAP calc) 7.0 BUN (7 - 18 MG/DL) 6 L Creatinine (0.6 - 1.0 MG/DL) 1.0 Glomerular Filtr Rate (>60 estGFR) >=60 max estimate Glucose (70 - 110 MG/DL) 83 Calcium (8.5 - 10.1 MG/DL) 8.7 Total Bilirubin (0.2 - 1.2 MG/DL) 0.30 Direct Bilirubin (0.00 - 0.30 MG/DL) < 0.10 Indirect Bilirubin (0.2 - 1.2 MG/DL) 0.20 AST (15 - 37 Unit/L) 13 L ALT (12 - 78 Unit/L) 14 Total Alk Phosphatase (45 - 117 Unit/L) 54 Total Protein (6.4 - 8.2 G/DL) 7.7 Albumin (3.4 - 5.0 G/DL) 3.8 Lipase (114 - 286 Unit/L) 66 L Beta HCG, Quant (<5.0 IU/L) < 5.0 H Hematology WBC (3.5 - 11.0 K/mm3) 4.1 RBC (4.70 - 6.10 M/mm3) 3.57 L Hgb (10.4 - 14.9 G/DL) 11.2 Hct (31.5 - 44.1 %) 33.5 MCV (84.5 - 98.6 Fl) 93.8 MCH (27.0 - 34.2 pg) 31.4 MCHC (31.5 - 34.0 G/DL) 33.4 RDW (11.5 - 14.5 SD) 14.1 Plt Count (150 - 450 K/mm3) 241.0 MPV (7.0 - 10.5 fL) 9.10 Neut % (Auto) (40 - 76 %) 45.4 Lymph % (Auto) (20.5 - 51.1 %) 43.2 Morrill % (Auto) (1.7 - 9.3 %) 9.4 H Eos % (Auto) (0.0 - 6.0 %) 1.0 Baso % (Auto) (0.0 - 2.0 %) 1.0 Neut # (Auto) (1.8 - 7.6 K/mm3) 1.84 Lymph # (Auto) (0.6 - 3.2 K/mm3) 1.8 Morrill # (Auto) (0.3 - 1.1 K/mm3) 0.4 Eos # (Auto) (0.0 - 0.4 K/mm3) 0.0 Baso # (Auto) (0.0 - 0.1 K/mm3) 0.0 Add Manual Diff (CRITERIA DIFF/SCN) NO Urines Urine Color (YEL/STRAW discript) YELLOW Urine Appearance (CLEAR discript) CLEAR Urine pH (5.0 - 7.0 pH UNITS) 6.5 Ur Specific Randolph (1.005 - 1.030 SG) 1.010 Urine Protein (NEG mg/dL) NEGATIVE Urine Glucose (UA) (NEG mg/dL) NEGATIVE Urine Ketones (NEG mg/dL) NEGATIVE Urine Blood (NEG mg/DL) NEGATIVE Urine Nitrite (NEG SCREEN) NEGATIVE Urine Bilirubin (NEG mg/dL) NEGATIVE Urine Urobilinogen (<2.0 mg/dL) 1.0 Ur Leukocyte Esterase (NEGATIVE Leuk/mcL) TRACE H Urine RBC (0 - 3 #RBC/HPF) 0-1 Urine WBC (0 - 3 #WBC/HPF) 3-5 H Ur Squamous Epith Cells (NONE /HPF) 2+ H Urine Bacteria (NONE - TRACE /HPF) TRACE Urine Culture Screen (Culture CHK Criteria) NO, WBC<10 Microbiology: Date/Time Procedure - Status Source Growth 09/19 1407 Wet Prep - COMP VAGINAL Recent Impressions:CAT SCAN - CT ABD PELVIS W/CONT 09/19 1535 Report Impression - Status: SIGNED Entered: 09/19/2018 0707 Impression:1. No acute abdominal findings.2. Status post cholecystectomy.3. Otherwise unremarkable exam.Impression By: Owen - Kj Mc M.D. Lab StatementLaboratory studies reviewed and considered in the medical decision-making. Re-Evaluation MDM )( Re-Evaluation/Progress #1Time of Re-Eval 1450)( Re-Eval Status Abd tenderness now more localized to RLQ with guarding. Will CT abdomen. Re-Evaluation/Progress #2Time of Eval 1628Re-Eval Status Improved, Pt states is currently pain free. Still with some tenderness to palpation with RLQ without guarding or rebound. HR: 80. ED CourseMedication(s) OrderedMedication(s) Ordered:Anti-Infective Agents Sig/Alanis Start time Last Medication Dose Route Stop Time Status Admin Azithromycin 1,000 MG X1ED STA 09/19 1415 DC 07/ PO 09/19 1416 1457 Ceftriaxone Sodium 250 MG X1ED STA 09/19 1414 DC / IV 09/19 1415 1515 Central Nervous System Agents Sig/Alanis Start time Last Medication Dose Route Stop Time Status Admin Morphine Sulfate 4 MG X1ED STA 09/19 1459 DC / IV 09/19 1500 1528 Ketorolac 15 MG X1ED STA 09/19 1332 DC 07 Tromethamine IV 09/19 1333 1400 Diagnostic Agents Sig/Alanis Start time Last Medication Dose Route Stop Time Status Admin Iopamidol 0 .STK-MED ONE 09/19 1509 DC 09/19 .ROUTE 1544 Electrolytic, Caloric, And Court Sig/Alanis Start time Last Medication Dose Route Stop Time Status Admin Sodium Chloride 50 ML .STK-MED ONE 09/19 1509 DC 09/19 IV 1544 Potassium Chloride 40 MEQ X1ED STA 09/19 1442 DC 09/19 PO 09/19 1443 1457 Sodium Chloride 1,000 ML X1ED STA 09/19 1330 DC 09/19 IV 09/19 1430 1355 Gastrointestinal Drugs Sig/Alanis Start time Last Medication Dose Route Stop Time Status Admin Ondansetron HCl 4 MG X1ED PRN PRN 09/19 1330 DC 09/19 IV 07 1329 1355 Patient Discharge Departure Vital Signs/ConditionVital SignsFirst Documented: Result Date Time Pulse Ox 99 07/06 1332 B/P 139/82 07/06 1332 B/P Mean 101 07/06 1332 O2 Delivery Room air 07/06 1332 Temp 36.4 07/06 1332 Pulse 102 07/06 1332 Resp 18 07/06 1332 Last Documented: Result Date Time Pulse Ox 99 07/06 1332 B/P 139/82 07/06 1332 B/P Mean 101 07/06 1332 O2 Delivery Room air 07/06 1332 Temp 36.4 07/06 1332 Pulse 102 07/06 1332 Resp 18 07/06 1332 All vital signs available at the time of this entry have been reviewed. Condition Stable Clinical ImpressionClinical ImpressionPrimary Impression: Bacterial vaginosisSecondary Impressions: Abdominal pain, Trichomoniasis Disposition DecisionDischarge )( Discharged to Home Yes )( Time 1635 )( Date 09/19/18 Discharge/Care PlanCounseled Regarding Diagnosis, Lab results, Imaging studies, Prescriptions, Needfor follow-up, When to return to EDPrescriptionsRoland Sweet zofran at 1646 RPT #: [id number] OF REPORTEDEmerarkansas heart hospital department [id number]:33:00L.[id number] for patient [id number]:46:57 2018-09-19 [id number]:33:00 [facility] 13:33:00 [facility] ([facility])EMERGENCY PROVIDER REPORTREPORT#:[id number] REPORT STATUS: SignedDATE:09/19/18 TIME:1333 PATIENT: EILEEN SANTACRUZ UNIT #: [id number]#: [id number] ROOM/BED:: 82 AGE: 38 SEX: F PCP PHYS: No Primary or Family PhysicianSERVICE AUTHOR: Keturah Soto * ALL edits or amendments must be made on the electronic/computer document * Keturah Soto 09/19/18 1333:HPI-Abd Pain F Under 40 GeneralConfirmed Patient YesPatient Type New patient PresentationChief Complaint Patient with multiple complaints, unable to prioritize which is worse. She is having pelvic pain for the past few days along with vaginal d/c with odor. Also having 2 month h/o epigastric pain, nausea/vomiting, diarrhea, and HAs, all of which are bothering her now. Pt states h/o mold exposure which has caused all her symptoms and is being treated by [facility]. C/o feeling dizzyat times and not sleeping well.Hx Obtained From PatientSudden in Onset? NoSeverity: Current Pain level 8 out of 10Exacerbated by Eating, PalpationRelieved by Nothing Risk-Abd Pain F Under 40)( Ectopic Risk factors reviewed, No risk factors Review of Systems Focused Review of SystemsConstitutionalReports: Chills, Fatigue, Fever. Denies: Lethargy, Malaise. RespiratoryDenies: Cough, non-productive, Cough, productive, Pleuritic pain, Shortness of breath. CardiovascularDenies: Chest pain, Edema. GIReports: Abdominal pain, Diarrhea, Nausea, Vomiting. FemaleReports: Dysuria, Pelvic pain, Urinary frequency, Vaginal discharge. Denies: Flank pain, , Vaginal bleeding - abnl. MusculoskeletalDenies: Back pain, Extremity pain, Extremity swelling. Additional Review of SystemsEars/Nose/ThroatReports: Sore throat. Denies: Earache bilat. SkinDenies: Erythema, Rash, Swelling. NeurologicReports: Dizziness, Generalized weakness, Headache. Denies: Focal weakness. Past Medical History - AdultStated Complaint EXPOSED TO MOLDAllergiesCoded Allergies:Pork/Porcine Containing Products (Severe, HIVES, THROAT SWELLS 10/23/16)aspirin (Severe, THROAT SWELLS UP, HIVES 10/23/16)ibuprofen (Severe, THROAT SWELLS, HIVES 10/23/16)tramadol (Severe, HIVES 10/23/16) Home MedicationsReported MedicationsLEVOTHYROXINE (LEVOTHROID) 50 MCG PO DAILY HYDROcodone/APAP (NORCO 5/325) 1 TAB PO Q4H PRN PRN PAIN Pt reports no significant: Past medical historyPast Surgical History:Reports: Cholecystectomy, . Alcohol Use Denies EtOH useDrug Use MarijuanaSmoking status for patients 13 years old or older: Never Smoker Physical Exam Vital SignsVital SignsFirst Documented: Result Date Time Pulse Ox 99 07/06 1332 B/P 139/82 07/06 1332 B/P Mean 101 07/06 1332 O2 Delivery Room air 07/ 1332 Temp 36.4 07/06 1332 Pulse 102 07/06 1332 Resp 18 / 1332 Last Documented: Result Date Time Pulse Ox 99 07/06 1332 B/P 139/82 07/06 1332 B/P Mean 101 07/06 1332 O2 Delivery Room air / 1332 Temp 36.4 07/06 1332 Pulse 102 07/06 1332 Resp 18 / 1332 Review of Vital Signs Reviewed Focused PEGeneral/Const General/Const Awake, Alert, No acute distress, Well appearing, Well developed, Well hydrated, Well nourished, Cooperative, Not toxic appearingMS Head Head Atraumatic, NormocephalicEyes Eyes PERRL, EOMI, No nystagmus, No periorbital redness, No periorbital swelling, No photophobia, No scleral icterus, Conjunctiva NL, Cornea clear, Temporal arteries NLEars/Nose/Throat Ears/Nose/Throat Airway patent, Mucous membranes moist, Pharynx NL, No peritonsillar abscess, No pooling of secretions, No trismus, Tympanic membs NL, Ext aud canal NL, Mastoid area NL, Nose exam NL, No facial swellingResp/Chest Respiratory/Chest Breath sounds NL, Breath sounds = bilat, No respiratory distress, No rales, No rhonchi, No wheezing, No retractionsCardiovascular Cardiovascular Heart rate NL, Regular rhythm, Heart sounds NL, Peripheral circulation NLAbdomen/GI Abdomen/GI Soft, McBurney's non-tender, BS normoactive, No distention, No hernia, No palpable mass, Generalized tenderness to palpation without guarding or rebound.MS Back Back Atraumatic, Inspection NL, Non-tender, No CVA tendernessSkin Skin Atraumatic, Color NL, No rash, Warm, Dry, Intact, Turgor NL, No swellingGenitourinary General Medical Technologist Generalist present Pelvic Exam Adnexal tenderness R. Negative: Cervical motion tend, Cervical lesions pres,Cervix hyperemic, Adnexal mass R, Adnexal mass L, Adnexal tenderness L. Neurologic Neurologic Oriented X3, Speech NL, No motor deficits, No sensory deficits, CNII - XII intact, Reflexes equal bilat, Cerebellar NL, Memory NL, Gait NL Additional PELymphatic Lymphatic Right shoddy inguinal lymphadenopathy. Interpretation Diagnostics Lab Results InterpretationResultsLaboratory Tests 09/19/18 1310:[Embedded Image Not Available]Laboratory Tests: 09/19 09/19 1347 1310 Chemistry Sodium (134 - 147 mmol/L) 138 Potassium (3.4 - 5.0 mmol/L) 2.9 *L Chloride (100 - 108 mmol/L) 107 Carbon Dioxide (21 - 32 mmol/L) 24 Anion Gap (4.0 - 15.0 GAP calc) 7.0 BUN (7 - 18 MG/DL) 6 L Creatinine (0.6 - 1.0 MG/DL) 1.0 Glomerular Filtr Rate (>60 estGFR) >=60 max estimate Glucose (70 - 110 MG/DL) 83 Calcium (8.5 - 10.1 MG/DL) 8.7 Total Bilirubin (0.2 - 1.2 MG/DL) 0.30 Direct Bilirubin (0.00 - 0.30 MG/DL) < 0.10 Indirect Bilirubin (0.2 - 1.2 MG/DL) 0.20 AST (15 - 37 Unit/L) 13 L ALT (12 - 78 Unit/L) 14 Total Alk Phosphatase (45 - 117 Unit/L) 54 Total Protein (6.4 - 8.2 G/DL) 7.7 Albumin (3.4 - 5.0 G/DL) 3.8 Lipase (114 - 286 Unit/L) 66 L Beta HCG, Quant (<5.0 IU/L) < 5.0 H Hematology WBC (3.5 - 11.0 K/mm3) 4.1 RBC (4.70 - 6.10 M/mm3) 3.57 L Hgb (10.4 - 14.9 G/DL) 11.2 Hct (31.5 - 44.1 %) 33.5 MCV (84.5 - 98.6 Fl) 93.8 MCH (27.0 - 34.2 pg) 31.4 MCHC (31.5 - 34.0 G/DL) 33.4 RDW (11.5 - 14.5 SD) 14.1 Plt Count (150 - 450 K/mm3) 241.0 MPV (7.0 - 10.5 fL) 9.10 Neut % (Auto) (40 - 76 %) 45.4 Lymph % (Auto) (20.5 - 51.1 %) 43.2 Morrill % (Auto) (1.7 - 9.3 %) 9.4 H Eos % (Auto) (0.0 - 6.0 %) 1.0 Baso % (Auto) (0.0 - 2.0 %) 1.0 Neut # (Auto) (1.8 - 7.6 K/mm3) 1.84 Lymph # (Auto) (0.6 - 3.2 K/mm3) 1.8 Morrill # (Auto) (0.3 - 1.1 K/mm3) 0.4 Eos # (Auto) (0.0 - 0.4 K/mm3) 0.0 Baso # (Auto) (0.0 - 0.1 K/mm3) 0.0 Add Manual Diff (CRITERIA DIFF/SCN) NO Urines Urine Color (YEL/STRAW discript) YELLOW Urine Appearance (CLEAR discript) CLEAR Urine pH (5.0 - 7.0 pH UNITS) 6.5 Ur Specific Randolph (1.005 - 1.030 SG) 1.010 Urine Protein (NEG mg/dL) NEGATIVE Urine Glucose (UA) (NEG mg/dL) NEGATIVE Urine Ketones (NEG mg/dL) NEGATIVE Urine Blood (NEG mg/DL) NEGATIVE Urine Nitrite (NEG SCREEN) NEGATIVE Urine Bilirubin (NEG mg/dL) NEGATIVE Urine Urobilinogen (<2.0 mg/dL) 1.0 Ur Leukocyte Esterase (NEGATIVE Leuk/mcL) TRACE H Urine RBC (0 - 3 #RBC/HPF) 0-1 Urine WBC (0 - 3 #WBC/HPF) 3-5 H Ur Squamous Epith Cells (NONE /HPF) 2+ H Urine Bacteria (NONE - TRACE /HPF) TRACE Urine Culture Screen (Culture CHK Criteria) NO, WBC<10 Microbiology: Date/Time Procedure - Status Source Growth 09/19 1407 Wet Prep - COMP VAGINAL Recent Impressions:CAT SCAN - CT ABD PELVIS W/CONT 09/19 1535 Report Impression - Status: SIGNED Entered: 09/19/2018 7077 Impression:1. No acute abdominal findings.2. Status post cholecystectomy.3. Otherwise unremarkable exam.Impression By: Owen - Kj Mc M.D. Lab StatementLaboratory studies reviewed and considered in the medical decision-making. Re-Evaluation MDM )( Re-Evaluation/Progress #1Time of Re-Eval 1450)( Re-Eval Status Abd tenderness now more localized to RLQ with guarding. Will CT abdomen. Re-Evaluation/Progress #2Time of Eval 1628Re-Eval Status Improved, Pt states is currently pain free. Still with some tenderness to palpation with RLQ without guarding or rebound. HR: 80. ED CourseMedication(s) OrderedMedication(s) Ordered:Anti-Infective Agents Sig/Alanis Start time Last Medication Dose Route Stop Time Status Admin Azithromycin 1,000 MG X1ED STA 09/19 1415 DC 07/ PO 09/19 1416 1457 Ceftriaxone Sodium 250 MG X1ED STA 09/19 1414 DC / IV 09/19 1415 1515 Central Nervous System Agents Sig/Alanis Start time Last Medication Dose Route Stop Time Status Admin Morphine Sulfate 4 MG X1ED STA 09/19 1459 DC 07/ IV 09/19 1500 1528 Ketorolac 15 MG X1ED STA 09/19 1332 DC 09/19 Tromethamine IV 09/19 1333 1400 Diagnostic Agents Sig/Alanis Start time Last Medication Dose Route Stop Time Status Admin Iopamidol 0 .STK-MED ONE 09/19 1509 DC 09/19 .R[address] Electrolytic, Caloric, And Court Sig/Alanis Start time Last Medication Dose Route Stop Time Status Admin Sodium Chloride 50 ML .STK-MED ONE 09/19 1509 DC 09/19 IV 1544 Potassium Chloride 40 MEQ X1ED STA 09/19 1442 DC 09/19 PO 09/19 1443 1457 Sodium Chloride 1,000 ML X1ED STA 07/ 1330 DC 07/ IV 07/06 1430 1355 Gastrointestinal Drugs Sig/Alanis Start time Last Medication Dose Route Stop Time Status Admin Ondansetron HCl 4 MG X1ED PRN PRN 09/19 1330 DC 09/19 IV 09/20 1329 1355 Patient Discharge Departure Vital Signs/ConditionVital SignsFirst Documented: Result Date Time Pulse Ox 99 07/06 1332 B/P 139/82 07/06 1332 B/P Mean 101 07/06 1332 O2 Delivery Room air 07/06 1332 Temp 36.4 07/06 1332 Pulse 102 07/06 1332 Resp 18 07/06 1332 Last Documented: Result Date Time Pulse Ox 99 07/06 1332 B/P 139/82 07/06 1332 B/P Mean 101 07/06 1332 O2 Delivery Room air 07/06 1332 Temp 36.4 07/06 1332 Pulse 102 07/06 1332 Resp 18 07/06 1332 All vital signs available at the time of this entry have been reviewed. Condition Stable Clinical ImpressionClinical ImpressionPrimary Impression: Bacterial vaginosisSecondary Impressions: Abdominal pain, Trichomoniasis Disposition DecisionDischarge )( Discharged to Home Yes )( Time 1635 )( Date 09/19/18 Discharge/Care PlanCounseled Regarding Diagnosis, Lab results, Imaging studies, Prescriptions, Needfor follow-up, When to return to EDPrescriptionsRoland Sweet zofran Foster, Paul A. 09/19/18 1714:HPI-Abd Pain F Under 40 GeneralInitial Greet Date/Time 09/19/18 1316 Physical Exam Vital SignsVital Signs Interpretation Diagnostics Lab Results InterpretationResults Re-Evaluation MDM ED CourseMedication(s) Ordered Patient Discharge Departure Vital Signs/ConditionVital Signs Supervising Physician Note MidLv Saw Pt AloneI have reviewed the PA/COMMUNICATIONS PROGRAM MANAGER's note and plan of care. I was available for consultation as needed at all times during the patient's visit in the emergency department. I agree with the clinical impression, plan and disposition. at 1646 at 1714 RPT #: [id number] OF REPORTEDCascade [facility] Hospital department [id number] for patient [id number]
[2023-02-08] MEDS ORDERED: ONDANSETRON 4 MG/2 ML VIAL ONE (18:19)
[2023-02-08] MEDS ORDERED: DICYCLOMINE HCL 10 MG CAP ONE (18:19)
[2023-02-08] MEDS ORDERED: NA CHLORIDE 0.9% 1,000 ML ONE (18:19)
[2023-02-08] MEDS ORDERED: FAMOTIDINE 20 MG/2 ML VIAL IV ONE (18:19)
[2023-02-08 18:28] LABS: Absolute Lymphocytes (CBC) 0.8 K/uL (0.7-4.9); Hematocrit 36.7 % (36.0-45.0); Lymphocytes % 14.2 % (15.3-44.8); MCV 96.7 fL (80-100); MPV 7.4 fL (7.6-11.3); Platelets 255 thou/uL (152-406)
[2023-02-08 18:44] LABS: Albumin 3.5 g/dL (3.4-5.0); Bilirubin Total 0.4 mg/dL (0.2-1.0); Potassium 3.2 mEq/L (3.5-5.1); Protein, Total 7.6 g/dL (6.4-8.2)
[2023-02-08] MEDS ORDERED: MORPHINE 4 MG/ML SYR ONE (18:54)
[2023-02-08 19:23] LABS: Specific Gravity > 1.030 (1.005-1.030)
[2023-02-08 19:25] LABS: Specific Gravity > 1.030 (1.005-1.030); Urine Bacteria None Seen /HPF (<20); Urine Bilirubin NEGATIVE (Negative); Urine Blood Negative (Negative); Urine Clarity Extremely Turbid (Clear); Urine Color Yellow (Yellow); Urine Crystals Unidentified Few /HPF (None Seen); Urine Glucose NEGATIVE (Negative); Urine Mucus 4+ /HPF (None Seen); Urine Protein 1+ (Negative); Urine RBC <5 /HPF (None Seen); Urine Urobilinogen Normal (Normal)
--- NOTE | 2023-02-08 20:01 | RAD REPORT ---
EXAM DESCRIPTION: CTAbdomen Pelvis W Contrast - 02/08/2023 7:48 pm CLINICAL HISTORY: Abdominal pain. ABD PAIN COMPARISON: No comparisons TECHNIQUE: Biphasic CT imaging of the abdomen and pelvis was performed with 100 ml non-ionic IV cont rast. All CT scans are performed using dose optimization technique as appropriate and may include automated exposure control or mA/KV adjustment according to patient size. FINDINGS: The lung bases are clear.Cholecystectomy. The liver, spleen, pancreas, adrenal glands and kidneys are within normal limits. No bowel obstruction, free air, free fluid or abscess. The appendix is normal. No evidence of signi ficant lymphadenopathy. Prominent left ovarian follicles noted. No suspicious bony findings. IMPRESSION: No acute intra-abdominal or pelvic finding.
--- NOTE | 2023-02-08 20:59 | ER ---
Nurse's Notes [facility] Name: Mica Diaz Age: 42 yrs Sex: Female : 1980 Arrival Date: 02/08/2023 Time: 17:03 Bed 18 Private MD: Diagnosis: Nausea with vomiting, unspecified;Diarrhea, unspecified;Lower abdominal pain, unspecified Presentation: 02/08 17:34 Chief complaint: Patient states: I started throwing up at 0430 this morning, I feel ko1 like something popped and now my back and hips hurt. I also had diarrhea real bad. Coronavirus screen: At this time, the client does not indicate any symptoms associated with coronavirus-19. Ebola Screen: No symptoms or risks identified at this time. Initial Sepsis Screen: Does the patient meet any 2 criteria? No. Patient's initial sepsis screen is negative. Does the patient have a suspected source of infection? No. Patient's initial sepsis screen is negative. Risk Assessment: Do you want to hurt yourself or someone else? Patient reports no desire to harm self or others. Onset of symptoms was February 08, 2023. 17:34 Method Of Arrival: Ambulatory ko1 17:34 Acuity: MOLLY 3 ko1 Triage Assessment: 17:38 General: Appears distressed, uncomfortable, ill, Behavior is cooperative, appropriate ko1 for age. Pain: Complains of pain in abdomen. GI: Reports cramping, diarrhea, nausea, vomiting. 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 - Social history:: Smoking status: Patient denies any tobacco usage or history of. Screenin:[facility] Fall Risk Assessment (Adult) Score/Fall Risk Level 0 - 2 = Low Risk. Abuse eh3 screen: Denies threats or abuse. Denies injuries from another. Nutritional screening: No deficits noted. Tuberculosis screening: No symptoms or risk factors identified. Assessment: 17:40 General: Appears distressed, uncomfortable, Behavior is cooperative, crying. Pain: eh3 Complains of pain in back, abdomen and pelvis. Neuro: Level of Consciousness is awake, alert, obeys commands, Oriented to person, place, time, situation. Cardiovascular: Capillary refill < 3 seconds Patient's skin is warm and dry. Respiratory: Airway is patent Respiratory effort is even, unlabored, Respiratory pattern is regular, symmetrical. GI: Abdomen is round non-distended, Reports diarrhea, nausea, vomiting. Derm: Skin is pink, warm \T\ dry. Musculoskeletal: Circulation, motion, and sensation intact. 18:30 Reassessment: Patient and/or family updated on plan of care and expected duration. Pain eh3 level reassessed. Patient is alert, oriented x 3, equal unlabored respirations, skin warm/dry/pink. 19:30 Reassessment: Patient appears in no apparent distress at this time. Patient and/or eh3 family updated on plan of care and expected duration. Pain level reassessed. Patient is alert, oriented x 3, equal unlabored respirations, skin warm/dry/pink. Patient states symptoms have improved. 20:30 Reassessment: Patient appears in no apparent distress at this time. Patient and/or eh3 family updated on plan of care and expected duration. Pain level reassessed. Patient is alert, oriented x 3, equal unlabored respirations, skin warm/dry/pink. Vital Signs: 17:34 BP 121 / 81; Pulse 87; Resp 16; Temp 98; Pulse Ox 100% ; ko1 18:30 BP 119 / 63; Pulse 72; Resp 18; Pulse Ox 99% on R/A; eh3 19:30 BP 102 / 54; Pulse 72; Resp 16; Pulse Ox 100% on R/A; eh3 20:30 BP 105 / 40; Pulse 66; Resp 18; Pulse Ox 100% on R/A; eh3 ED Course: 17:08 Patient arrived in ED. mg5 17:10 Bibi Jones FNP-C is [facility] kb 17:10 Marquis Burton MD is Attending Physician. kb 17:38 Triage completed. ko1 17:38 Arm band placed on right wrist. Patient placed in waiting room, Patient notified of ko1 wait time. 17:40 Patient has correct armband on for positive identification. Bed in low position. Call eh3 light in reach. Side rails up X2. Provided Education on: use of call vera. Pulse ox on. NIBP on. 17:45 Christy Mendoza, RN is Primary Nurse. 3 18:05 Inserted saline lock: 20 gauge in left antecubital area, using aseptic technique. Blood eh3 collected. 19:50 CT Abd/Pelvis - IV Contrast Only In Process Unspecified. EDMS 20:55 Diet: Patient given snack. Patient given water. Tolerated well. 3 21:01 No provider procedures requiring assistance completed. IV discontinued, intact, eh3 bleeding controlled, No redness/swelling at site. Pressure dressing applied. Administered Medications: 18:05 Drug: NS 0.9% IV 1000 ml IV at 1 bolus Per protocol; 1000 mL bolus Route: IV; Rate: 1 eh3 bolus; Site: left antecubital; 19:30 Follow up: IV Status: Completed infusion; IV Intake: 1000ml 3 18:05 Drug: Famotidine IVP 20 mg IVP once; dilute with 10 mL 0.9% NaCl; give over 2 minutes eh3 Route: IVP; Site: left antecubital; 19:00 Follow up: Response: No adverse reaction 3 18:10 Drug: Ondansetron IVP 4 mg IVP once; over 2 minutes Route: IVP; Site: left antecubital; 3 19:00 Follow up: Response: No adverse reaction 3 18:10 Drug: Dicyclomine PO 20 mg PO once Route: PO; eh3 19:00 Follow up: Response: No adverse reaction 3 18:45 Drug: morphine IVP or IV 4 mg IVP once over 4 mins Route: IVP; Infused Over: 4 mins; 3 Site: left antecubital; 19:30 Follow up: Response: No adverse reaction; Pain is decreased; RASS: Alert and Calm (0) 3 21:10 Drug: Acetaminophen-Codeine PO (300 mg-30 mg) 1 tablet PO once; RASS on ADMIN: Combtv4, eh3 Very Agttd3, Agttd2, Rstlss1, AlertClm0, Drwsy-1, Lt Sdtn-2, Mod Sdtn-3, Dp Sdtn-4, UnArsble-5 Route: PO; 21:26 Follow up: Response: No adverse reaction 3 Medication: 21:02 VIS not applicable for this client. eh3 Intake: 19:30 IV: 1000ml; Total: 1000ml. eh3 Outcome: 20:58 Discharge ordered by MD. aguilar 21:26 Discharged to home ambulatory, with family, 3 21:26 Condition: stable 21:26 Discharge instructions given to patient, Instructed on discharge instructions, follow up and referral plans. medication usage, Demonstrated understanding of instructions, follow-up care, medications, Prescriptions given X 3, 21:30 Patient left the ED. eh3 Signatures: Dispatcher [employer] EDMS Bibi Jones, CRIMINAL DEFENSE ATTORNEY-C CRIMINAL DEFENSE ATTORNEY-Christy Da Silva, RN RN eh3 Nara Paez, RN RN ko1 Hortencia Purvis mg5
--- NOTE | 2023-02-08 20:59 | EDPHYS ---
Physician Documentation [facility] Name: Mica Diaz Age: 42 yrs Sex: Female : 1980 Arrival Date: 02/08/2023 Time: 17:03 Bed 18 Private MD: ED Physician Marquis Burton HPI: 02/08 21:04 This 42 yrs old Black Female presents to ER via Ambulatory with complaints of kb Vomiting/Diarrhea, Low Back Pain, Leg Pain. 21:04 Patient is a 42-year-old female who presents for nausea, vomiting, diarrhea and lower kb abdominal and back pain that started this morning. States her significant other and 2 other family numbers have similar symptoms but without the pain. States the pain started while vomiting and she feels like she tore something. Denies fever. 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 - Social history:: Smoking status: Patient denies any tobacco usage or history of. ROS: 21:02 Constitutional: Negative for fever, chills, and weight loss, kb 21:02 Abdomen/GI: Positive for abdominal pain, nausea, vomiting, and diarrhea, 21:02 All other systems are negative, Exam: 21:02 Constitutional: This is a well developed, well nourished patient who is awake, alert, kb and in no acute distress. Head/Face: Normocephalic, atraumatic. ENT: Moist Mucous membranes Cardiovascular: Regular rate Respiratory: Respirations even and unlabored. No increased work of breathing. Talking in full sentences Skin: Warm, dry with normal turgor. Normal color. MS/ Extremity: Pulses equal, no cyanosis. Neurovascular intact. Full, normal range of motion. Neuro: Awake and alert, GCS 15, oriented to person, place, time, and situation. Moves all extremities. Normal gait. 21:02 Abdomen/GI: Inspection: abdomen appears normal, Bowel sounds: normal, Palpation: soft, in all quadrants, moderate abdominal tenderness, in the right lower quadrant and left lower quadrant, Vital Signs: 17:34 BP 121 / 81; Pulse 87; Resp 16; Temp 98; Pulse Ox 100% ; ko1 18:30 BP 119 / 63; Pulse 72; Resp 18; Pulse Ox 99% on R/A; eh3 19:30 BP 102 / 54; Pulse 72; Resp 16; Pulse Ox 100% on R/A; eh3 20:30 BP 105 / 40; Pulse 66; Resp 18; Pulse Ox 100% on R/A; eh3 MDM: 17:10 Patient medically screened. kb 21:01 Differential diagnosis: Nonspecific abd pain, gastritis, appendicitis, diverticulitis, kb viral gastroenteritis. Data reviewed: vital signs, nurses notes. Counseling: I had a detailed discussion with the patient and/or guardian regarding the historical points, exam findings, and any diagnostic results supporting the discharge/admit diagnosis, lab results, radiology results, the need for outpatient follow up, a family practitioner, to return to the emergency department if symptoms worsen or persist or if there are any questions or concerns that arise at home. ED course: GEOSPATIAL INTELLIGENCE ANALYST aware reviewed. 21:04 Response to treatment: the patient's symptoms have markedly improved after treatment. 02/08 17:37 Order name: CBC with Diff; Complete Time: 19:10 kb 02/08 17:37 Order name: CMP; Complete Time: 18:52 kb 02/08 17:37 Order name: Lipase; Complete Time: 18:52 kb 02/08 17:37 Order name: Urinalysis w/ reflexes; Complete Time: 19:27 kb 02/08 17:37 Order name: Test, Urine; Complete Time: 19:27 kb 02/08 17:37 Order name: CT Abd/Pelvis - IV Contrast Only; Complete Time: 20:07 kb 02/08 17:37 Order name: IV Saline Lock; Complete Time: 18:21 kb 02/08 17:37 Order name: Labs collected and sent; Complete Time: 18:21 kb 02/08 20:15 Order name: PO challenge; Complete Time: 21:01 kb Administered Medications: 18:05 Drug: NS 0.9% IV 1000 ml IV at 1 bolus Per protocol; 1000 mL bolus Route: IV; Rate: 1 eh3 bolus; Site: left antecubital; 19:30 Follow up: IV Status: Completed infusion; IV Intake: 1000ml eh3 18:05 Drug: Famotidine IVP 20 mg IVP once; dilute with 10 mL 0.9% NaCl; give over 2 minutes eh3 Route: IVP; Site: left antecubital; 19:00 Follow up: Response: No adverse reaction 3 18:10 Drug: Ondansetron IVP 4 mg IVP once; over 2 minutes Route: IVP; Site: left antecubital; 3 19:00 Follow up: Response: No adverse reaction 3 18:10 Drug: Dicyclomine PO 20 mg PO once Route: PO; eh3 19:00 Follow up: Response: No adverse reaction [facility] 18:45 Drug: morphine IVP or IV 4 mg IVP once over 4 mins Route: IVP; Infused Over: 4 mins; 3 Site: left antecubital; 19:30 Follow up: Response: No adverse reaction; Pain is decreased; RASS: Alert and Calm (0) [facility] 21:10 Drug: Acetaminophen-Codeine PO (300 mg-30 mg) 1 tablet PO once; RASS on ADMIN: Combtv4, eh3 Very Agttd3, Agttd2, Rstlss1, AlertClm0, Drwsy-1, Lt Sdtn-2, Mod Sdtn-3, Dp Sdtn-4, UnArsble-5 Route: PO; 21:26 Follow up: Response: No adverse reaction 3 Disposition Summary: 02/08/23 20:58 Discharge Ordered Notes: Location: Home kb Condition: Stable kb Diagnosis - Nausea with vomiting, unspecified kb - Diarrhea, unspecified kb - Lower abdominal pain, unspecified kb Followup: kb - With: Emergency Department - When: As needed - Reason: Worsening of condition Followup: kb - With: Private Physician - When: 2 - 3 days - Reason: Recheck today's complaints, Continuance of care, Re-evaluation by your physician Discharge Instructions: - Discharge Summary Sheet kb - Food Choices to Help Relieve Diarrhea, Adult kb - Nausea and Vomiting, Adult, [id number] kb - Abdominal Pain, Adult, [id number] kb - Diarrhea, Adult, [id number] kb Forms: - Medication Reconciliation Form kb - Thank You Letter kb - Antibiotic Education kb - Prescription Opioid Use kb - Patient Portal Instructions kb - Leadership Thank You Letter kb Prescriptions: - acetaminophen-codeine 300-30 mg Oral tablet - take 1 tablet ORAL route every 8 hours As needed; 6 tablet; Refills: 0, Product kb Selection Permitted - Zofran 4 mg Oral tablet - take 1 tablet ORAL route every 6 hours As needed; 12 tablet; Refills: 0, kb Product Selection Permitted - dicyclomine 20 mg Oral tablet - take 1 tablet ORAL route 4 times per day As needed; 20 tablet; Refills: 0, kb Product Selection Permitted Signatures: Dispatcher [employer] Bibi Burris FNP-C FNP-Ckb Hall, Erin, RN RN eh3 Nara Paez, RN RN ko1
[2023-02-08] MEDS ORDERED: CODEINE 30MG/APAP 300MG TAB ONE (21:21)
[2023-02-08 21:52] VITALS: TEMP 98
[2023-02-08 22:08] VITALS: O2SAT 100
[2023-02-08 22:37] VITALS: BP 102/54
== END 2023-02-08 21:30 | disposition home or self-care (01) ==
LOC: ER 17:03
DX: R11.2 Nausea with vomiting, unspecified (principal); R19.7 Diarrhea, unspecified; R10.30 Lower abdominal pain, unspecified; Z88.5 Allergy status to narcotic agent; Z88.6 Allergy status to analgesic agent
CPT/HCPCS: 36415; 74177; 80053; 81001; 81025; 83690; 85025; 96361; 96374; 96375; 99284; J2405; J7030; Q9967

== ENCOUNTER 2023-11-16 13:26 | Emergency (ER) | payer OTHER ==
[2023-11-16] MEDS ORDERED: NA CHLORIDE 0.9% 1,000 ML ONE (15:51)
[2023-11-16] MEDS ORDERED: ONDANSETRON 4 MG/2 ML VIAL ONE (15:51)
[2023-11-16] MEDS ORDERED: MORPHINE 4 MG/ML SYR ONE (15:51)
[2023-11-16 16:47] LABS: Absolute Eosinophils 0.1 K/uL (0-0.5); Absolute Lymphocytes (CBC) 1.3 K/uL (0.7-4.9); Absolute Monocytes 0.4 K/uL (0.1-1.3); Absolute Neutrophil 2.6 K/uL (1.8-8.0); Eosinophils % 2.8 % (0-4.4); Hematocrit 28.2 % (36.0-45.0); Hemoglobin 8.9 g/dL (12.0-15.0); Lymphocytes % 29.4 % (15.3-44.8); MCH 27.1 pg (27.0-35.0); MCHC 31.5 g/dL (32.0-36.0); MPV 8.6 fL (7.6-11.3); Monocytes % 8.8 % (3.3-12.3); Platelets 273 thou/uL (152-406); RBC Red Blood Cell Count 3.28 M/uL (3.86-4.86); Red Cell Distribution Width 16.3 % (12.1-15.2)
[2023-11-16 16:51] LABS: Specific Gravity 1.015 (1.005-1.030)
[2023-11-16 16:57] LABS: Specific Gravity 1.015 (1.005-1.030); Sqamous Epithelial None Seen /HPF (None Seen); Urine Bacteria <20 /HPF (<20); Urine Bilirubin NEGATIVE (Negative); Urine Blood 3+ (OVER) (Negative); Urine Clarity Extremely Turbid (Clear); Urine Color Light-Orange (Yellow); Urine Crystals Unidentified Few /HPF (None Seen); Urine Culture Reflex Order NOT NEEDED; Urine Glucose NEGATIVE (Negative); Urine Ketones NEGATIVE (Negative); Urine Microscopic Reflex YN ORDER UMIC; Urine Mucus Slight /HPF (None Seen); Urine Nitrite NEGATIVE (Negative); Urine Protein NEGATIVE (Negative); Urine RBC >50 /HPF (None Seen); Urine Urobilinogen Normal (Normal)
[2023-11-16 17:06] LABS: Albumin 3.6 g/dL (3.4-5.0); Albumin/Globulin Ratio 0.9 (1.1-1.8); Anion Gap 5.4 mEq/L (5.0-15.0); Bilirubin Total 0.2 mg/dL (0.2-1.0); Globulin 4.1 g/dL (2.3-3.5); Potassium 3.4 mEq/L (3.5-5.1); Protein, Total 7.7 g/dL (6.4-8.2)
--- NOTE | 2023-11-16 17:36 | RAD REPORT ---
EXAM DESCRIPTION: CTAbdomen Pelvis W Contrast - 11/16/2023 5:28 pm CLINICAL HISTORY: Abdominal pain. ABD PAIN COMPARISON: <Comparisons> TECHNIQUE: Biphasic CT imaging of the abdomen and pelvis was performed with 100 ml non-ionic IV cont rast. All CT scans are performed using dose optimization technique as appropriate and may include automated exposure control or mA/KV adjustment according to patient size. FINDINGS: The lung bases are clear.Cholecystectomy clips. The liver, spleen, pancreas, adrenal glands and kidneys are within normal limits. No bowel obstruction, free air, free fluid or abscess. Moderate stool throughout the colon. The appen dionicio is normal. No evidence of significant lymphadenopathy. 4.6 cm cyst is seen in the posterior pelv is. Trace pelvic free fluid. No suspicious bony findings. IMPRESSION: 4.6 cm cyst in the posterior pelvis. Ultrasound may be useful for followup assessment. Moderate stool retained throughout the.
[2023-11-16] MEDS ORDERED: FENTANYL CITR 100 MCG/2 ML ONE (18:13)
--- NOTE | 2023-11-16 18:56 | RAD REPORT ---
EXAM DESCRIPTION: US - Pelvis Complete - 11/16/2023 6:42 pm CLINICAL HISTORY: ABD PAIN Pelvic pain. COMPARISON: Abdomen Pelvis W Contrast dated 11/16/2023; Abdomen Pelvis W Contrast dated 02/08/2023 FINDINGS: The uterus is normal in size, shape and echotexture. The uterus measures 10.0 x 6.8 x 4.9 cm. The endometrial stripe measures 9 mm, upper limit normal. Both ovaries are normal in size, shape and echotexture. The right ovary measures 3.3 x 2.2 x 2.0 cm. The left ovary measures 4.1 x 2.4 x 2.3 cm. Exam was limited due to lack of transvaginal imaging. IMPRESSION: No gross acute finding seen.Lack of transvaginal imaging limits the study.
[2023-11-16] MEDS ORDERED: HYDROMORPHONE HCL 1 MG/ML INJ ONE (19:35)
[2023-11-16] MEDS ORDERED: POTASSIUM 25 MEQ EFFERV TAB ONE (19:35)
--- NOTE | 2023-11-16 19:46 | EDPHYS ---
Physician Documentation [facility] Name: Mica Diaz Age: 43 yrs Sex: Female : 1980 Arrival Date: 11/16/2023 Time: 13:26 Bed 12 Private MD: ED Physician Marquis Burton HPI: 11/15 14:12 This 43 yrs old Black Female presents to ER via Ambulatory with complaints of abdominal sb4 pain. 14:12 The patient presents with abdominal pain right lower quadrant. Onset: The sb4 symptoms/episode began/occurred 1 week(s) ago, and became worse today. The symptoms radiate to right back. Associated signs and symptoms: none. The symptoms are described as "pulling". Modifying factors: The symptoms are alleviated by nothing, the symptoms are aggravated by coughing, movement. The patient has not experienced similar symptoms in the past. The patient has not recently seen a physician. 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 - Infectious Disease History:: Denies. - Social history:: Smoking status: Patient reports the use of cigarette tobacco products, smokes one-half pack cigarettes per day. ROS: 14:12 Constitutional: Negative for fever, chills, and weight loss, sb4 14:12 Abdomen/GI: Positive for abdominal pain, 14:12 All other systems are negative, Exam: 14:12 Head/Face: Normocephalic, atraumatic. Eyes: Extra-ocular motions intact. Periorbital sb4 areas with no swelling, redness, or edema. ENT: Mucous membranes moist. Cardiovascular: Regular rate and rhythm with a normal S1 and S2. Respiratory: Lungs have equal breath sounds bilaterally, clear to auscultation and percussion. No rales, rhonchi or wheezes noted. No increased work of breathing, no retractions or nasal flaring. Skin: Warm, dry with normal turgor. Normal color with no rashes, no lesions, and no evidence of cellulitis. 14:12 Constitutional: The patient appears alert, awake, in obvious pain, 14:12 Abdomen/GI: Inspection: abdomen appears normal, Bowel sounds: normal, Palpation: soft, mild abdominal tenderness, in the right lower quadrant, voluntary guarding, is elicited in the right lower quadrant, Vital Signs: 14:02 BP 148 / 96; Pulse 80; Resp 17; Temp 98.8; Pulse Ox 100% ; Weight 88 kg; Height 5 ft. 8 ap3 in. ; Pain 10/10; 14:02 Body Mass Index 29.50 (88.00 kg, 172.72 cm) ap3 14:02 Pain Scale: Adult ap3 MDM: 13:42 Patient medically screened. sb4 11/16 08:07 Data reviewed: vital signs, nurses notes, lab test result(s), radiologic studies, and sb4 as a result, I will discharge patient. Counseling: I had a detailed discussion with the patient and/or guardian regarding the historical points, exam findings, and any diagnostic results supporting the discharge/admit diagnosis, lab results, radiology results, the need for outpatient follow up, an OB/Gyne specialist, to return to the emergency department if symptoms worsen or persist or if there are any questions or concerns that arise at home. 11/15 14:11 Order name: CBC with Diff; Complete Time: 17:07 4 11/15 19:04 Interpretation: Normal except: RBC 3.28; HGB 8.9; HCT 28.2; MCHC 31.5; RDW 16.3. cp 11/15 14:11 Order name: CMP; Complete Time: 17:07 4 11/15 19:05 Interpretation: Normal except: K 3.4; CL 111; GFR 88; GLOB 4.1; A/G 0.9. cp 11/15 14:11 Order name: Lipase; Complete Time: 17:07 sb4 11/15 14:11 Order name: Test, Urine; Complete Time: 16:56 sb4 11/15 14:11 Order name: Urinalysis w/ reflexes; Complete Time: 16:57 sb4 11/15 14:11 Order name: CT Abd/Pelvis - IV Contrast Only; Complete Time: 17:37 sb4 11/15 18:44 Order name: Pelvis Complete; Complete Time: 19:04 EDMS 11/15 14:11 Order name: IV Saline Lock; Complete Time: 16:26 sb4 11/15 14:11 Order name: Labs collected and sent; Complete Time: 16:26 sb4 Administered Medications: 11/15 16:26 Drug: NS 0.9% IV 1000 ml IV at 1 bolus Per protocol; 1000 mL bolus Route: IV; Rate: 1 tl4 bolus; Site: left antecubital; Delivery: Primary tubing; 17:52 Follow up: Response: No adverse reaction; IV Status: Completed infusion; IV Intake: tl4 1000ml 16:26 Drug: Ondansetron IVP 4 mg IVP once; over 2 minutes Route: IVP; Infused Over: 2 mins; tl4 Site: left antecubital; 17:52 Follow up: Response: No adverse reaction tl4 16:26 Drug: morphine IVP or IV 4 mg IVP once over 4 mins Route: IVP; Infused Over: 4 mins; tl4 Site: left antecubital; 17:52 Follow up: Response: No adverse reaction; Pain is decreased tl4 18:16 Drug: fentaNYL (PF) IVP 50 mcg IVP once Route: IVP; Site: left antecubital; tl4 19:12 Follow up: Response: No adverse reaction; Pain is decreased tl4 19:43 Drug: Potassium PO Effervescent Tablet 25 mEq PO once; dissolve in 4 ounces of water or tl4 juice Route: PO; 19:43 Drug: HYDROmorphone IVP 1 mg IVP once Route: IVP; Infused Over: 2 mins; Site: left tl4 antecubital; Disposition Summary: 11/16/23 19:45 Discharge Ordered Notes: Location: Home cp Problem: new cp Symptoms: have improved cp Condition: Stable cp Diagnosis - Lower abdominal pain, unspecified cp Followup: cp - With: Private Physician - When: 1 week - Reason: Recheck today's complaints Discharge Instructions: - Discharge Summary Sheet cp - Abdominal Pain, Adult cp Forms: - Medication Reconciliation Form cp - Antibiotic Education cp - Prescription Opioid Use cp - Patient Portal Instructions cp - Leadership Thank You Letter cp Prescriptions: - acetaminophen-codeine 300-30 mg Oral tablet - take 2 tablet ORAL route every 8-12 hours As needed; 14 tablet; Refills: 0, cp Product Selection Permitted - Zofran 4 mg Oral Tablet - take 1 tablet ORAL route every 12 hours As needed; 20 tablet; Refills: 0, cp Product Selection Permitted Signatures: Dispatcher [employer] EDMS Duglas Spicer PA PA cp Prokisch, Amanda, RN RN ap3 Reshma Dodeg PA-C PALea sb4 Dawson Huitron RN RN tl4 Corrections: (The following items were deleted from the chart) 18:44 17:38 Transvaginal Study (Probe)+[id number] ordered. EDMS EDMS 19:05 19:05 K 3.4; CL 111; GFR 88. cp cp 19:05 19:05 K 3.4; CL 111; GFR 88; GLOB 4.1; A/G 0.9. cp cp
--- NOTE | 2023-11-16 19:46 | ER ---
Nurse's Notes [facility] Name: Mica Diaz Age: 43 yrs Sex: Female : 1980 Arrival Date: 11/16/2023 Time: 13:26 Bed 12 Private MD: Diagnosis: Lower abdominal pain, unspecified Presentation: 11/15 14:02 Chief complaint: Patient states: she is having right lower abdominal pain for approx ap3 one week. patient states it has gotten progressively worse over the last week. patient states the pain is not improved with Tylenol. patent states her pain is more than a 10 on the pain scale. patient describes her pain as a "pulling" feeling. Coronavirus screen: At this time, the client does not indicate any symptoms associated with coronavirus-19. Ebola Screen: No symptoms or risks identified at this time. Initial Sepsis Screen: Does the patient meet any 2 criteria? No. Patient's initial sepsis screen is negative. Does the patient have a suspected source of infection? No. Patient's initial sepsis screen is negative. Risk Assessment: Do you want to hurt yourself or someone else? Patient reports no desire to harm self or others. Onset of symptoms is unknown. 14:02 Method Of Arrival: Ambulatory ap3 14:02 Acuity: MOLLY 3 ap3 Triage Assessment: 14:05 General: Appears uncomfortable, Behavior is calm, cooperative, appropriate for age. ap3 Pain: Complains of pain in suprapubic area and right lower quadrant Quality of pain is described as pulling. Neuro: Level of Consciousness is awake, alert, obeys commands, Oriented to person, place, time, situation, Appropriate for age. Cardiovascular: Patient's skin is warm and dry. Respiratory: Airway is patent Respiratory effort is even, unlabored, Respiratory pattern is regular, symmetrical. GI: Reports lower abdominal pain. 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 - Infectious Disease History:: Denies. - Social history:: Smoking status: Patient reports the use of cigarette tobacco products, smokes one-half pack cigarettes per day. Screenin:[address] [facility] ED Fall Risk Assessment (Adult) History of falling in the last 3 months, ap3 including since admission No falls in past 3 months (0 pts) Confusion or Disorientation No (0 pts) Intoxicated or Sedated No (0 pts) Impaired Gait No (0 pts) Mobility Assist Device Used No (0 pt) Altered Elimination No (0 pt) Score/Fall Risk Level 0 - 2 = Low Risk Oriented to surroundings, Maintained a safe environment, Educated pt \\T\\ family on fall prevention, incl call for assistance when getting out of bed, Assessed \\T\\ reinforced patient's understanding of fall precautions, Provided non-skid footwear, Used ambulatory aids as needed (educated on \\T\\ assisted with), Used gait belt as appropriate. Abuse screen: Denies threats or abuse. Nutritional screening: No deficits noted. Tuberculosis screening: No symptoms or risk factors identified. Assessment: 16:23 General: Appears uncomfortable, Behavior is calm, cooperative. Pain: Complains of pain tl4 in abdomen. Neuro: Level of Consciousness is awake, alert, obeys commands, Oriented to person, place, time, situation, Moves all extremities. Full function Gait is steady, Speech is normal. Cardiovascular: Capillary refill < 3 seconds Patient's skin is warm and dry. Respiratory: Airway is patent Respiratory effort is even, unlabored, Respiratory pattern is regular, symmetrical, Breath sounds are clear bilaterally. GI: Reports lower abdominal pain. : No signs and/or symptoms were reported regarding the genitourinary system. EENT: No signs and/or symptoms were reported regarding the EENT system. Derm: No signs and/or symptoms reported regarding the dermatologic system. Musculoskeletal: No signs and/or symptoms reported regarding the musculoskeletal system. Vital Signs: 14:02 BP 148 / 96; Pulse 80; Resp 17; Temp 98.8; Pulse Ox 100% ; Weight 88 kg; Height 5 ft. 8 ap3 in. ; Pain 10/10; 14:02 Body Mass Index 29.50 (88.00 kg, 172.72 cm) ap3 14:02 Pain Scale: Adult ap3 ED Course: 13:35 Patient arrived in ED. mg5 13:37 Brown, Reshma, PA-C is PHCP. sb4 13:37 Marquis Burton MD is Attending Physician. sb4 14:04 Triage completed. ap3 14:06 Arm band placed on right wrist. ap3 15:52 Dawson Huitron, RN is Primary Nurse. tl4 16:24 Patient has correct armband on for positive identification. Placed in gown. Bed in low tl4 position. Call light in reach. Side rails up X 1. Adult w/ patient. Provided Education on: ed process, call vera. Client placed on continuous cardiac and pulse oximetry monitoring. NIBP monitoring applied. 16:25 Door closed. Noise minimized. Lights dimmed. Moved to private room. Warm blanket given. tl4 16:25 No provider procedures requiring assistance completed. Initial lab(s) drawn, by dc, tl4 sent to lab. Urine collected: clean catch specimen, clear. Inserted saline lock: 22 gauge in left antecubital area, using aseptic technique. Blood collected. Flushed with 10 mL NS. 16:26 CBC with Diff Sent. tl4 16:26 CMP Sent. tl4 16:26 Lipase Sent. tl4 16:26 Test, Urine Sent. tl4 16:27 Urinalysis w/ reflexes Sent. tl4 17:30 CT Abd/Pelvis - IV Contrast Only In Process Unspecified. EDMS 18:13 PHCP role handed off by Reshma Dodge PA-C cp 18:13 Duglas Spicer PA is PHCP. cp 18:44 Pelvis Complete In Process Unspecified. EDMS 20:14 IV discontinued, intact, bleeding controlled, No redness/swelling at site. Pressure ap3 dressing applied. Administered Medications: 16:26 Drug: NS 0.9% IV 1000 ml IV at 1 bolus Per protocol; 1000 mL bolus Route: IV; Rate: 1 tl4 bolus; Site: left antecubital; Delivery: Primary tubing; 17:52 Follow up: Response: No adverse reaction; IV Status: Completed infusion; IV Intake: tl4 1000ml 16:26 Drug: Ondansetron IVP 4 mg IVP once; over 2 minutes Route: IVP; Infused Over: 2 mins; tl4 Site: left antecubital; 17:52 Follow up: Response: No adverse reaction tl4 16:26 Drug: morphine IVP or IV 4 mg IVP once over 4 mins Route: IVP; Infused Over: 4 mins; tl4 Site: left antecubital; 17:52 Follow up: Response: No adverse reaction; Pain is decreased tl4 18:16 Drug: fentaNYL (PF) IVP 50 mcg IVP once Route: IVP; Site: left antecubital; tl4 19:12 Follow up: Response: No adverse reaction; Pain is decreased tl4 19:43 Drug: Potassium PO Effervescent Tablet 25 mEq PO once; dissolve in 4 ounces of water or tl4 juice Route: PO; 19:43 Drug: HYDROmorphone IVP 1 mg IVP once Route: IVP; Infused Over: 2 mins; Site: left tl4 antecubital; Medication: 16:24 VIS not applicable for this client. tl4 Intake: 17:52 IV: 1000ml; Total: 1000ml. tl4 Outcome: 19:45 Discharge ordered by . cp 20:14 Condition: good ap3 20:14 Discharge instructions given to patient, Instructed on discharge instructions, follow up and referral plans. medication usage, Demonstrated understanding of instructions, follow-up care, medications, Prescriptions given X 2, 20:18 Discharged to home ambulatory, ap3 20:18 Patient left the ED. ap3 Signatures: Dispatcher [employer] EDMS Duglas Spicer PA PA cp Prokisch, Amanda, RN RN ap3 Reshma Dodge PALea PA-C sb4 Hortencia Purvis mg5 Dawson Huitron RN RN tl4 Corrections: (The following items were deleted from the chart) 16:26 16:25 NS 0.9% IV 1000 ml IV at 1 bolus in left forearm via Primary tubing tl4 tl4
[2023-11-16 20:23] VITALS: BP 148/96; TEMP 98.8; O2SAT 100
== END 2023-11-16 20:18 | disposition home or self-care (01) ==
LOC: ER 13:26
DX: R10.31 Right lower quadrant pain (principal); F17.210 Nicotine dependence, cigarettes, uncomplicated
CPT/HCPCS: 96361; 85025; 81001; 36415; 81025; 83690; 80053; 74177; 76856; 96375; 96374; 99284; Q9967; J3010; J1170; J2405; J7030